=== PATIENT | female | born 1945 | race Caucasian/White ===

== ENCOUNTER 2017-11-10 09:00 | Outpatient (RCR) | payer MEDICARE, OTHER, SELFPAY ==
--- NOTE | 2017-09-26 14:23 | HP.PTEVAL_ITS ---
Patient's Visit Information JENSEN BURTON is a 72 year old F referred to Physical Therapy by Rakesh Carter with a diagnosis of Cervicalgia. Date of Evaluation: 09/23/17 Physical Therapist: River Post - Visit Plan Frequency: 2x /Week Duration: 4 Weeks Plan: Start with cervical spine stretching, DN, thoracic decompression, anterior chest stretching and scapular/postural strengthening. - Subjective Subjective: Pt. is here today for her initial evaluation with diagnosis of cervicalgia. She is a plesant 72 y.o. who is known to this patient. She was previously treated for her cervical spine symptoms earlier this year. Her symptoms all started after kicking her head on siding of shingles x2. She reports having chronic cervical spine pain, low back pain and thoracic complications as well. Pt. is to follow up with a spinal surgeon for her thoracic spine and has been getting injections with pain management for her low back. Pt reports pain in all positions, worse with sitting and standing, better with lying down. Increased pain: reading, driving, cervical spine motions, lifting, and most ADLs. Decreased pain: heat. Pt. denies N/T in either UE. Pt. reports no changes in vison and no UE weakness. Pt. has had imaging done at [facility], but did not know the results. Pt. has difficulty sleeping, staying asleep and wakes up frequently secondary to pain. Pt. denies radiating pain at this time. Pt. is hopeful to reduce symptoms in order to tolerate all ADLs and household work without limitations. - Pain L side of cervical spine Pain Intensity (Out of 10): 6 Pain Intensity Range: 6, 10 - Objective POSTURE: Pt. has increased thoracic kyphosis with increase lower cervical flexion and upper cervical ext. Pt. has rounded shoulders and protracted scapulea bilaterally. PALPATION: Pt. has increased tenderness to palpation of bilateral UT, bilateral levator scapulea and bilateral cervical/thoracic erector spine (L worse than R side). NEURLOGICAL: Pt. has normal sensation and light and sharp touch of bilateral UEs. Pt. has 2+ biceps and triceps DTR bilaterally. ROM: CERVICAL SPINE- ext mod loss increase NW, flexion nil loss NE , SB R min/mod loss increase NW, SB L min/mod loss increase NW, rotation R min loss increase NW, rotation L min loss increase NW. Pt. has full shoulder ROM ( with in normal limits without increase in symptoms). MMT: RUE- shoulder- flexion 4+/5, abd 4/5, ext 4+/5, ER 4/5, IR 4+/5. LUE- shoulder- flexion 4+/5, abd 4/5, ext 4+/5, ER 4+/5, IR 4+/5. Cervical spine isometrics: 4+/5 throughout , mild increase NW with L SB and rotation. - Special Tests C/S Radiculapathy - Left Upper limb tension test: Negative C/S Radiculapathy - Right Upper limb tension test: Negative C/S Radiculapathy - Left Spurlings: Negative C/S Radiculapathy - Right Spurlings: Negative C/S Radiculapathy - Left Cervical distraction: Negative C/S Radiculapathy - Right Cervical distraction: Negative C/S Radiculapathy - Left Relief test: Negative C/S Radiculapathy - Right Relief test: Negative Sharp Woody: Negative Vertebral Artery Test: Negative Alar Ligament Test: Negative L Shoulder Drop Sign - IS Test: Negative L Shoulder Empty Can - SS: Negative L Shoulder Belly Press - SupScap: Negative L Shoulder Neer - Impingement: Negative L Shoulder Mcgowan Montez - Impingement: Negative - Goals Goal 1:: Pt. to be I with HEP. Goal Time Frame: 4-6 Weeks Goal 2:: Pt. to have increased cervical spine ROM by 25% with 0-2/10 pain allowing for increased tolerance to all ADLs. Goal Time Frame: 4-6 Weeks Goal 3:: Pt. to sleep throughout the night with 0-2/10 pain in L side of cervical spine allowing for improved quality of life. Goal Time Frame: 4-6 Weeks Goal 4:: Pt. to have increased postural awareness demonstrated by improved posture maintained throughout therapy session. Goal Time Frame: 4-6 Weeks Goal 5:: Pt. to be able to complete all ADLs with 0-2/10 L sided cervical spine pain allowing for improved independence/tolerance to home activities. Goal Time Frame: 4-6 Weeks - Rehabilitation Potential Physical Therapy Diagnosis: Pt. has signs and symptoms consistent with cervical spin pain with out radiculopathy. Pt. has limited cervical ROM, increased thoracic kyphosis and overall flexed posture. Pt. is sensitive to touch throughout L side of cervcial spine. Pt. would benefit from PT to increase cervical spine ROM, decrease pain and increase postural strength. Rehabilitation Potential: Fair - Anticipated Interventions Patient/Client Instruction: Educate patient on: Condition, Plan of Care, Risk Factors, Benefits of Fitness Program For the Purpose of:: To improve safety, To improve health and function, To foster healthy habits, To improve decision making, To facilitate caregiver knowledge, To improve self management, To prevent re-injury, To improve ability to perform tasks related to life management, To improve tolerance to ADL's Therapeutic Exercise to Include: Strength training, Power training, Body mechanics, Postural training, Flexibilty training, Passive ROM, Active ROM, Gonzales Exercises, Scapular Strength/Stabilization For the Purpose of:: To decrease pain, To increase ROM, To improve nutrient delivery to tissue, To increase oxygenation perfusion, To improve muscle performance and motor function, To improve ability to perform ADL's, To improve performance and independence with ADL's, To decrease soft tissue restriction, To increase flexibility/ROM Manual Therapy Techniques to Include: Mobilization, Passive ROM, Functional dry needling, Soft tissue mobilization For the Purpose of:: To decrease pain, To increase ROM, To improve nutrient delivery to tissue, To increase oxygenation perfusion, To improve muscle performance and motor function, To improve ability to perform ADL's Thermo therapy (hot pack): Yes Ultrasound (thermal/non thermal): Yes For the Purpose of:: To decrease pain, To increase ROM Thank you for the opportunity to evaluate your patient. For Medicare and Medicare HMO plans, please review the plan of care and approve it. It will need to be FAXED BACK to us at [phone] for Medicare purposes. Please let me know if there are questions or concerns regarding this plan of care. Physician Signature: Date:
--- NOTE | 2018-02-06 12:41 | HP.PT.NRP ---
HP - Discharge Summary (1) - Patient Information JENSEN BURTON was seen in my office for initial evaluation on 09/23/17. The following Plan of Care was established for this patient: Initial Frequency: 2x /Week Initial Duration: 4 Weeks - Anticipated Interventions Patient/Client Instruction: Educate patient on: Condition, Plan of Care, Risk Factors, Benefits of Fitness Program For the Purpose of:: To improve safety, To improve health and function, To foster healthy habits, To improve decision making, To facilitate caregiver knowledge, To improve self management, To prevent re-injury, To improve ability to perform tasks related to life management, To improve tolerance to ADL's Therapeutic Exercise to Include: Strength training, Power training, Body mechanics, Postural training, Flexibilty training, Passive ROM, Active ROM, Gonzales Exercises, Scapular Strength/Stabilization For the Purpose of:: To decrease pain, To increase ROM, To improve nutrient delivery to tissue, To increase oxygenation perfusion, To improve muscle performance and motor function, To improve ability to perform ADL's, To improve performance and independence with ADL's, To decrease soft tissue restriction, To increase flexibility/ROM Manual Therapy Techniques to Include: Mobilization, Passive ROM, Functional dry needling, Soft tissue mobilization For the Purpose of:: To decrease pain, To increase ROM, To improve nutrient delivery to tissue, To increase oxygenation perfusion, To improve muscle performance and motor function, To improve ability to perform ADL's Thermo therapy (hot pack): Yes Ultrasound (thermal/non thermal): Yes For the Purpose of:: To decrease pain, To increase ROM This patient was last seen in our office 11/10/17. Pertinent comments regarding their Physical therapy will appear below: Pt. was seen for her neck with manual, DN an postural education/strengthening. Pt. was seen for 8 visits and was to follow up with physician then back with PT if needed. Pt. has not been seen in PT and will be DC from PT at this point in time. At this point I will be discontinuing this patient from physical therapy. I would be happy to see this patient again in the future if found appropriate by the physician. Thank you! River Post
== END 2017-11-10 19:00 | disposition home or self-care (01) ==
LOC: PT 09:00
PROVIDERS: Family Provider Family Medicine; PCP Family Medicine; Visit Provider Orthopaedic Surgery
DX: M54.2 Cervicalgia (principal)
CPT/HCPCS: 97035; 97110; 97140; 97161; 97530; G8978; G8979

== ENCOUNTER → 2018-01-03 12:14 | Outpatient (CLI) | payer MEDICARE, OTHER, SELFPAY ==
[2018-01-03 13:39] LABS: Erythrocyte Sedimentation Rate 30 mm/hr (0-30)
== END ==
PROVIDERS: Family Provider Family Medicine; PCP Family Medicine; Visit Provider Psychiatry & Neurology Neurology
DX: R51 Headache (principal)
CPT/HCPCS: 36415; 85652

== ENCOUNTER 2018-05-12 14:30 | Outpatient (RCR) | payer MEDICARE, OTHER, SELFPAY ==
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
--- NOTE | 2018-10-31 17:20 | HP.PT.NRP ---
HP - Discharge Summary (1) - Patient Information JENSEN BURTON was seen in my office for initial evaluation on 05/02/18. The following Plan of Care was established for this patient: Initial Frequency: 2x /Week Initial Duration: 4 Weeks - Anticipated Interventions Patient/Client Instruction: Educate patient on: Condition, Plan of Care, Risk Factors, Benefits of Fitness Program For the Purpose of:: To improve health and function, To foster healthy habits, To improve decision making, To facilitate caregiver knowledge, To improve self management, To prevent re-injury, To improve ability to perform tasks related to life management, To improve tolerance to ADL's Therapeutic Exercise to Include: Strength training, Power training, Postural training, Flexibilty training, Passive ROM, Active ROM, [place] Exercises, Scapular Strength/Stabilization For the Purpose of:: To decrease pain, To decrease swelling/inflammation, To increase ROM, To improve nutrient delivery to tissue, To increase oxygenation perfusion, To improve muscle performance and motor function, To improve health of tissue, To decrease soft tissue restriction, To increase flexibility/ROM Manual Therapy Techniques to Include: Trigger point massage, Massage, Mobilization, Passive ROM, Functional dry needling, Soft tissue mobilization For the Purpose of:: To decrease pain, To decrease swelling/inflammation, To increase ROM, To improve nutrient delivery to tissue, To improve health of tissue, To decrease soft tissue restriction, To increase flexibility/ROM IF ES: Yes Cryotherapy (ice pack, ice massage): Yes Thermo therapy (hot pack): Yes Ultrasound (thermal/non thermal): Yes For the Purpose of:: To decrease pain, To decrease swelling/inflammation, To increase ROM This patient was last seen in our office 05/26/18. Pertinent comments regarding their Physical therapy will appear below: pt. was seen for her cervical stenosis. Pt. was seen for 2 visits, but she did not attend her last visits. Pt. will be DC from PT at this point intime At this point I will be discontinuing this patient from physical therapy. I would be happy to see this patient again in the future if found appropriate by the physician. Thank you! [place], SAB[place]AT
== END 2018-05-12 19:00 | disposition home or self-care (01) ==
LOC: PT 14:30
PROVIDERS: Family Provider Family Medicine; PCP Family Medicine; Visit Provider Nurse Practitioner Family
DX: M47.812 Spondylosis without myelopathy or radiculopathy, cervical region (principal); M54.12 Radiculopathy, cervical region; M50.30 Other cervical disc degeneration, unspecified cervical region
CPT/HCPCS: 97110; 97140; 97162

== ENCOUNTER 2018-07-26 14:19 | Inpatient (IN) | payer MEDICARE, OTHER, SELFPAY ==
[2018-07-26 14:20] VITALS: BP 124/69; PULSE 98; RESP 16; TEMP 36.4; O2SAT 99; BMI 35.6
--- NOTE | 2018-07-26 14:42 | ED.DCSUM_ITS ---
- ER Visit Summary Date of Service: 07/26/18 Chief Complaint: Abdominal cramping with nausea, vomiting and diarrhea History of Present Illness: The patient is a 73 F history of hypertension and chronic pain. Patient had a prior cholecystectomy and hysterectomy. She is also exploratory laparotomy. She states the last 12 days or so she has had nausea, vomiting and diarrhea. Abdominal cramping. No dysuria. She feels dehydrated. She was sent in by her primary care physician. Physical Examination: Vital signs are stable. She is afebrile. Her pulse ox is 90% on room air. HEENT exam unremarkable except she has dry mucous membranes. Consistent with dehydration. Neck nontender. Lungs clear to auscultation bilaterally. Heart regular rhythm rate about 985 no murmur. Abdomen is soft. Nondistended. Normal bowel sounds. No peritoneal signs. No hernias or masses. No signs of obstruction. Patient is moving all 4 extremities. The neurovascular intact. Back nontender. Neurologically she is awake alert. No focal motor deficits. Test Results: White count is elevated 20,000. Hemoglobin 13. No bands. Electrolytes sodium 133. CO2 of 20 normal gap of 12. BUN is 32 creatinine 1.53 consistent with prerenal azotemia dehydration. C. difficile stool culture is pending. Emergency Department Course and Treatment: Patient clinically looks dehydrated. She received 2 L normal IV Zofran. Screening labs will be obtained. If she has a stool sample here to be sent for stool culture for C. difficile. Treatment Plan: Patient is looking better with each reevaluation. She is do ing well at 1630 5 PM. Abdomen is benign. She denied a long discussion she is willing to be admitted. Given that she is 73 years old significantly dehydrated and still having diarrhea I think it would be in her best interest. I will speak to the hospitalist about the admission. Disposition: Admission Impression: Acute nausea, vomiting and diarrhea Acute dehydration Leukocytosis This note was generated with [employer] dictation software. It may contain incorrect words, spelling, and punctuation that were not noted in review of the chart prior to signing ED Disposition - Plan for ED Patient: Chief Complaint: Nausea/Vomiting Referrals: Lupillo Riley MD [Primary Care Provider] -
[2018-07-26] MEDS: 0.9% Normal Saline 1,000 ML 1000 ML IV ×2 (14:53→15:54)
[2018-07-26] MEDS: Ondansetron 4 MG/2 ML Vial IV (14:53)
[2018-07-26 15:04] LABS: Absolute Lymphocyte Count 2.42 X10^3/ul (0.83-4.51); Absolute Neutrophil Count 16.3 X10^3/uL (2.0-7.7); Basophil# 0.06 X10^3/uL; Basophil% 0.3 % (0-1); Eosinophil# 0.09 X10^3/uL; Eosinophils% 0.4 % (0-5); Hematocrit 40.9 % (37-47); Hemoglobin 13.6 g/dl (12.0-15.0); Lymphocyte # 2.42 X10^3/ul (4.0); Lymphocyte % 12.1 % (19-41); Mean Corp Hgb Conc 33.3 g/gl (32-36); Mean Corpuscular Hgb 32.4 pg (27.0-32.0); Mean Corpuscular Volume 97.4 fL (81-99); Monocyte# 1.04 X10^3/uL; Monocyte% 5.2 % (0-10); Neutrophil # 16.28 X10^3/uL (2.7-7.7); Neutrophil % 81.1 % (47-70); Platelet Count 444 K/mm3 (150-450); RBC Distribution Width CV 11.8 % (11.6-14.6); RBC Distribution Width SD 41.4 fl (35.1-43.9); White Blood Count 20.1 K/mm3 (4.4-11.0)
[2018-07-26 15:12] LABS: Anion Gap 12 (5-15); BUN 32 mg/dL (7-18); BUN/Creat Ratio 20.9 RATIO (10-20); Calcium,Total 9.4 mg/dL (8.5-10.1); Chloride 101 mmol/L (98-107); Creatinine, Serum 1.53 mg/dL (0.55-1.02); EST Glomerular Filtration Rate 35 mL/min (>60); Est Glom Filt Rate - Afr Amer 43 mL/min (>60); Estimated Creatinine Clearance 35.94 ml/min; Glucose 147 mg/dL (74-106); Potassium 4.1 mmol/L (3.5-5.1); Sodium Level 133 mmol/L (136-145)
[2018-07-26 15:53] LABS: POSITIVE COUNT NO; POSITIVE DIFFERENTIAL NO; POSITIVE MORPHOLOGY NO
[2018-07-26 16:26] VITALS: BP 149/78; PULSE 82; RESP 16; O2SAT 98
[2018-07-26] MEDS: Loperamide 2 MG Capsule 4 MG PO (16:55)
--- NOTE | 2018-07-26 17:18 | PCM.HP.STD ---
<Lori Corona - Last Filed: 07/26/18 17:31> Problem List (1) Fibromyalgia Status: Chronic (2) Lymphedema Status: Chronic (3) Neuropathy Status: Chronic (4) Obesity (BMI 30-39.9) Status: Chronic (5) RANGEL (obstructive sleep apnea) Status: Chronic (6) HLD (hyperlipidemia) Status: Chronic (7) Osteomyelitis of toe of left foot Status: Resolved (8) Pes planus of left foot Status: Chronic (9) HTN (hypertension) Status: Chronic History of Present Illness Date of Admission: 07/26/18 Chief Complaint: Diarrhea, nausea, vomiting The patient is a 73 year old F who presents the emergency room due to diarrhea, nausea, vomiting. Patient states this is been ongoing for 2 weeks. She reports she initially had a fever, as high as 103F which resolved after about 3 days. She complains of abdominal cramping. Denies blood in stool. Reports 10 pound weight loss over the past 2 weeks due to nausea and poor oral intake. Complains of associated dizziness. Denies recent use of antibiotics. Denies history of colitis/diverticulitis or other GI history. Patient states she called her primary care physician and was told she had a viral bug which would run its course. She has a past medical history of hypertension, hyperlipidemia, hypothyroidism, obstructive sleep apnea, morbid obesity, chronic back pain/DDD following with pain management, fibromyalgia. Past Medical History Past Medical History (Chronic Problems): Chronic Problems Fibromyalgia (Chronic) Lymphedema (Chronic) Neuropathy (Chronic) Obesity (BMI 30-39.9) (Chronic) RANGEL (obstructive sleep apnea) (Chronic) HLD (hyperlipidemia) (Chronic) Pes planus of left foot (Chronic) HTN (hypertension) (Chronic) Allergies cefuroxime [From Ceftin] Allergy (Verified 07/26/18 14:50) Itching Cephalosporins Allergy (Verified 07/26/18 14:50) Anaphylaxis codeine Allergy (Verified 07/26/18 14:50) Itching Home Medications: Ambulatory Orders Medication Instructions Recorded Estradiol [Estrace] 1 mg PO DAILY #30 tablet 02/23/17 Fenofibrate,Micronized 134 mg PO DAILY #30 capsule 02/23/17 [Fenofibrate] Gabapentin [Neurontin] 300 mg PO TIDCM #90 capsule 02/23/17 Levothyroxine [Synthroid] 137 mcg PO DAILY #30 tablet 02/23/17 Pravastatin Sodium 40 mg PO DAILY #30 tablet 02/23/17 Propranolol HCl [Inderal (Beta 40 mg PO BID #60 tablet 02/23/17 [place])] Tizanidine HCl [Zanaflex] 2 mg PO 4X/DAY PRN PRN #60 capsule 02/23/17 Furosemide [Lasix] 40 mg PO DAILY 03/30/17 Oxycodone [Oxyir] 15 mg PO BID 03/30/17 Phenazopyridine HCl [Pyridium] 200 mg PO BID PRN PRN #10 tablet 03/30/17 Sertraline HCl [Zoloft] 75 mg PO DAILY 03/30/17 Tramadol HCl [Ultram] 50 mg PO BID 03/30/17 Smz/Tmp Ds [Bactrim Ds] 1 tablet PO BID #14 tablet 04/24/17 Hydrocodone Bitart/Apap 5-325 1 tablet PO TID PRN 07/26/18 [[place] 5MG-325MG] Surgical History: - - R L foot surgeries, BL knee arthroscopic surgery, vein stipping BL, x 1, Hysterectomy, Cholecystectomy, Suspected Appendectomy, BL breast reduction, L Carpal Tunnel surgery, BL shoulder surgery. Psychiatric History: Depression ENGAGEMENT LEAD History: No pertinent ENGAGEMENT LEAD history Lives: Alone Smoking Status: Never smoker Alcohol: None Drugs: None - *Family History Maternal History Items: Cancer - Lung Paternal History Items: - - ETOH/Drug abuse Review of Systems Constitutional: Reports: Chills, Fever, Malaise, Weakness, Weight Change - -10lbs, - - Poor oral intake HEENT: Denies: Head Aches, Sinus Congestion, Sinus Drainage Cardiovascular: Reports: Light Headedness. Denies: Chest Pain, Palpitations, Syncope Respiratory: Denies: Cough, Shortness of breath at rest, Sputum production Gastrointestinal: Reports: Diarrhea, Nausea, Vomiting, - - Abdominal cramping. Denies: Hematochezia, Melena Genitourinary: Denies: Dysuria Musculoskeletal: Denies: Joint Pain, Joint Tenderness Skin: Denies: Rash, Wounds Neurological: Denies: Numbness, Tingling, Focal weakness Psychiatric: Denies: Anxiety, Depression, Homicidal Ideations, Suicidal Ideations Hematologic/ Lymphatic: Denies: Easy Bruising, Easy Bleeding VTE Information - Inpt Only VTE Present on Admission: No VTE Mechan Device Prophylaxis: None VTE Pharm Prophylaxis ordered?: Yes - Physical Exam General: Alert, Oriented x3, Cooperative HEENT: Atraumatic, PERRLA, EOMI, Normocephalic Oral: Dry Mucosa Neck: Supple, No JVD, Negative Carotid Bruits Lungs: Clear to auscultation, Normal air movement Cardiovascular: Regular rate, Regular Rhythm, Normal S1, Normal S2, No murmurs Abdomen: Bowel Sounds Present, Soft, Non Tender, Non-Distended, Obese Extremities: No clubbing, No cyanosis, No edema, Capillary Refill Less than 3 Seconds Skin: No rashes, No breakdown Musculoskeletal: No Tenderness to Palpation of Joints or Extremities Neurological: Cranial nerves II-XII grossly intact, Neuro grossly intact Psych/Mental Status: Normal Affect, Appropriate Vital Signs Temp Pulse Resp BP Pulse Ox 97.6 F L 82 16 149/78 H 98 07/26/18 14:20 07/26/18 16:26 07/26/18 16:26 07/26/18 16:26 07/26/18 16:26 Oxygen Delivery Method Room Air Weight: 248 lb Body Mass Index (BMI) 35.6 Laboratory Tests Past 24 Hrs 07/26/18 07/26/18 14:45 14:45 WBC 20.1 H RBC 4.20 Hgb 13.6 Hct 40.9 MCV 97.4 MCH 32.4 H MCHC 33.3 RDW 11.8 RDW Differential 41.4 Plt Count 444 MPV 10.0 Immature Gran % (Auto) 0.900 Neut % (Auto) 81.1 H Lymph % (Auto) 12.1 L [place] % (Auto) 5.2 Eos % (Auto) 0.4 Baso % (Auto) 0.3 Absolute Neuts (auto) 16.3 H Absolute Lymphs (auto) 2.42 Total Counted Not Reportable Sodium 133 L Potassium 4.1 Chloride 101 Carbon Dioxide 20.0 L Anion Gap 12 BUN 32 H Creatinine 1.53 H Estim Creat Clear Calc 35.94 Est GFR (MDRD) Af Amer 43 L Est GFR (MDRD) Non-Af 35 L BUN/Creatinine Ratio 20.9 H Glucose 147 H Calcium 9.4 Assessment/Plan All Active Problems Osteomyelitis of toe of left foot (Resolved) 1. Acute suspected viral gastroenteritis- N/V/D. Stool studies pending. IV fluids. Clear liquid diet. Zofran as needed for nausea. Immodium if stool studies negative. 2. Acute kidney injury secondary to dehydration as a result of #1-IV fluids. Trend BMP. Hold home Lasix regimen. 3. Leukocytosis-suspect secondary to dehydration. 4. Obstructive sleep apnea-continue CPAP. 5. Hypertension-stable, continue home propanolol regimen. 6. Hyperlipidemia-continue fenofibrate. 7. Hypothyroidism-continue Synthroid regimen. 8. Chronic back pain/DDD/fibromyalgia-follows with pain management. Continue home gabapentin regimen. 9. Morbid obesity-encourage diet lifestyle modifications. Nutrition consult. DVT prophylaxis-heparin subcu. This patient was seen by ELDA Webb under the supervision of Dr. Hallman. <Roshan Hallman E - Last Filed: 07/26/18 17:39> History of Present Illness The patient is a 73 year old F [] Past Medical History Allergies cefuroxime [From Ceftin] Allergy (Verified 07/26/18 14:50) Itching Cephalosporins Allergy (Verified 07/26/18 14:50) Anaphylaxis codeine Allergy (Verified 07/26/18 14:50) Itching - Physical Exam Vital Signs Temp Pulse Resp BP Pulse Ox 97.6 F L 82 16 149/78 H 98 07/26/18 14:20 07/26/18 16:26 07/26/18 16:26 07/26/18 16:26 07/26/18 16:26 Oxygen Delivery Method Room Air Weight: 248 lb Body Mass Index (BMI) 35.6 Laboratory Tests Past 24 Hrs 07/26/18 07/26/18 14:45 14:45 WBC 20.1 H RBC 4.20 Hgb 13.6 Hct 40.9 MCV 97.4 MCH 32.4 H MCHC 33.3 RDW 11.8 RDW Differential 41.4 Plt Count 444 MPV 10.0 Immature Gran % (Auto) 0.900 Neut % (Auto) 81.1 H Lymph % (Auto) 12.1 L [place] % (Auto) 5.2 Eos % (Auto) 0.4 Baso % (Auto) 0.3 Absolute Neuts (auto) 16.3 H Absolute Lymphs (auto) 2.42 Total Counted Not Reportable Sodium 133 L Potassium 4.1 Chloride 101 Carbon Dioxide 20.0 L Anion Gap 12 BUN 32 H Creatinine 1.53 H Estim Creat Clear Calc 35.94 Est GFR (MDRD) Af Amer 43 L Est GFR (MDRD) Non-Af 35 L BUN/Creatinine Ratio 20.9 H Glucose 147 H Calcium 9.4 Assessment/Plan Hospitalist note: I am seeing this patient in conjunction with Lori Corona. I independently seen and examined the patient. History and physical and imaging studies reviewed and I agree with above admission and treatment plan. Patient was admitted for watery diarrhea, nausea and vomiting that has been going on for almost 2 weeks, associated with fever of up to 103 Fahrenheit and as well as abdominal cramps. Vital signs are stable. - Physical Exam General: Alert, Oriented x3, Cooperative, No apparent distress. HEENT: Atraumatic, PERRLA, EOMI. Neck: Supple, No JVD, Negative Carotid Bruits, Trachea Midline, Thyroid Normal. Lungs: Clear to auscultation, Normal air movement, No rhonchi, No wheeze, No rales. Cardiovascular: Regular rate, Regular Rhythm, Normal S1, Normal S2, PMI Normal. Abdomen: Bowel Sounds Present, Soft, Non Tender, Non-Distended, No Hepato-splenomegaly. Extremities: No clubbing, No cyanosis, No edema Skin: No rashes, No breakdown Neurological: Neuro grossly intact Vital Signs are stable. Assessment and plan: #1 acute diarrheal illness/probable gastroenteritis: Stool for C. difficile is pending at this time. Vital signs are stable. CBC and BMP reviewed. Plan: Admit to [facility] floor, IV fluids, stool for C. difficile, stool for ova and parasites, stool for enteric pathogens, aspiration precautions, replace electrolytes as appropriate, repeat CBC and BMP tomorrow morning. #2 acute kidney injury: Baseline creatinine is normal. This is secondary to above. Plan for IV fluids, input output chart, repeat BMP tomorrow morning. #3 other chronic medical problems: Stable, continue current medications as above. This note was generated with [employer] software. It may contain incorrect words, spelling, and punctuation that were not noted in checking the note before signing. Code Visit Inpatient E&M: 29735 Init Hosp L2
--- NOTE | 2018-07-26 17:28 | HP.PCM_ITS ---
<Lori Corona - Last Filed: 07/26/18 17:31> Problem List (1) Fibromyalgia Status: Chronic (2) Lymphedema Status: Chronic (3) Neuropathy Status: Chronic (4) Obesity (BMI 30-39.9) Status: Chronic (5) RANGEL (obstructive sleep apnea) Status: Chronic (6) HLD (hyperlipidemia) Status: Chronic (7) Osteomyelitis of toe of left foot Status: Resolved (8) Pes planus of left foot Status: Chronic (9) HTN (hypertension) Status: Chronic History of Present Illness Date of Admission: 07/26/18 Chief Complaint: Diarrhea, nausea, vomiting The patient is a 73 year old F who presents the emergency room due to diarrhea, nausea, vomiting. Patient states this is been ongoing for 2 weeks. She reports she initially had a fever, as high as 103F which resolved after about 3 days. She complains of abdominal cramping. Denies blood in stool. Reports 10 pound weight loss over the past 2 weeks due to nausea and poor oral intake. Complains of associated dizziness. Denies recent use of antibiotics. Denies history of colitis/diverticulitis or other GI history. Patient states she called her primary care physician and was told she had a viral bug which would run its course. She has a past medical history of hypertension, hyperlipidemia, hypothyroidism, obstructive sleep apnea, morbid obesity, chronic back pain/DDD following with pain management, fibromyalgia. Past Medical History Past Medical History (Chronic Problems): Chronic Problems Fibromyalgia (Chronic) Lymphedema (Chronic) Neuropathy (Chronic) Obesity (BMI 30-39.9) (Chronic) RANGEL (obstructive sleep apnea) (Chronic) HLD (hyperlipidemia) (Chronic) Pes planus of left foot (Chronic) HTN (hypertension) (Chronic) Allergies cefuroxime [From Ceftin] Allergy (Verified 07/26/18 14:50) Itching Cephalosporins Allergy (Verified 07/26/18 14:50) Anaphylaxis codeine Allergy (Verified 07/26/18 14:50) Itching Home Medications: Ambulatory Orders Medication Instructions Recorded Estradiol [Estrace] 1 mg PO DAILY #30 tablet 02/23/17 Fenofibrate,Micronized 134 mg PO DAILY #30 capsule 02/23/17 [Fenofibrate] Gabapentin [Neurontin] 300 mg PO TIDCM #90 capsule 02/23/17 Levothyroxine [Synthroid] 137 mcg PO DAILY #30 tablet 02/23/17 Pravastatin Sodium 40 mg PO DAILY #30 tablet 02/23/17 Propranolol HCl [Inderal (Beta 40 mg PO BID #60 tablet 02/23/17 [place])] Tizanidine HCl [Zanaflex] 2 mg PO 4X/DAY PRN PRN #60 capsule 02/23/17 Furosemide [Lasix] 40 mg PO DAILY 03/30/17 Oxycodone [Oxyir] 15 mg PO BID 03/30/17 Phenazopyridine HCl [Pyridium] 200 mg PO BID PRN PRN #10 tablet 03/30/17 Sertraline HCl [Zoloft] 75 mg PO DAILY 03/30/17 Tramadol HCl [Ultram] 50 mg PO BID 03/30/17 Smz/Tmp Ds [Bactrim Ds] 1 tablet PO BID #14 tablet 04/24/17 Hydrocodone Bitart/Apap 5-325 1 tablet PO TID PRN 07/26/18 [[place] 5MG-325MG] Surgical History: - - R L foot surgeries, BL knee arthroscopic surgery, vein stipping BL, x 1, Hysterectomy, Cholecystectomy, Suspected Appe ndectomy, BL breast reduction, L Carpal Tunnel surgery, BL shoulder surgery. Psychiatric History: Depression CARDIAC CARE UNIT NURSE History: No pertinent CARDIAC CARE UNIT NURSE history Lives: Alone Smoking Status: Never smoker Alcohol: None Drugs: None - *Family History Maternal History Items: Cancer - Lung Paternal History Items: - - ETOH/Drug abuse Review of Systems Constitutional: Reports: Chills, Fever, Malaise, Weakness, Weight Change - - 10lbs, - - Poor oral intake HEENT: Denies: Head Aches, Sinus Congestion, Sinus Drainage Cardiovascular: Reports: Light Headedness. Denies: Chest Pain, Palpitations, Syncope Respiratory: Denies: Cough, Shortness of breath at rest, Sputum production Gastrointestinal: Reports: Diarrhea, Nausea, Vomiting, - - Abdominal cramping. Denies: Hematochezia, Melena Genitourinary: Denies: Dysuria Musculoskeletal: Denies: Joint Pain, Joint Tenderness Skin: Denies: Rash, Wounds Neurological: Denies: Numbness, Tingling, Focal weakness Psychiatric: Denies: Anxiety, Depression, Homicidal Ideations, Suicidal Ideations Hematologic/ Lymphatic: Denies: Easy Bruising, Easy Bleeding VTE Information - Inpt Only VTE Present on Admission: No VTE Mechan Device Prophylaxis: None VTE Pharm Prophylaxis ordered?: Yes - Physical Exam General: Alert, Oriented x3, Cooperative HEENT: Atraumatic, PERRLA, EOMI, Normocephalic Oral: Dry Mucosa Neck: Supple, No JVD, Negative Carotid Bruits Lungs: Clear to auscultation, Normal air movement Cardiovascular: Regular rate, Regular Rhythm, Normal S1, Normal S2, No murmurs Abdomen: Bowel Sounds Present, Soft, Non Tender, Non-Distended, Obese Extremities: No clubbing, No cyanosis, No edema, Capillary Refill Less than 3 Seconds Skin: No rashes, No breakdown Musculoskeletal: No Tenderness to Palpation of Joints or Extremities Neurological: Cranial nerves II-XII grossly intact, Neuro grossly intact Psych/Mental Status: Normal Affect, Appropriate Vital Signs Temp Pulse Resp BP Pulse Ox 97.6 F L 82 16 149/78 H 98 07/26/18 14:20 07/26/18 16:26 07/26/18 16:26 07/26/18 16:26 07/26/18 16:26 Oxygen Delivery Method Room Air Weight: 248 lb Body Mass Index (BMI) 35.6 Laboratory Tests Past 24 Hrs 07/26/18 07/26/18 14:45 14:45 WBC 20.1 H RBC 4.20 Hgb 13.6 Hct 40.9 MCV 97.4 MCH 32.4 H MCHC 33.3 RDW 11.8 RDW Differential 41.4 Plt Count 444 MPV 10.0 Immature Gran % (Auto) 0.900 Neut % (Auto) 81.1 H Lymph % (Auto) 12.1 L [place] % (Auto) 5.2 Eos % (Auto) 0.4 Baso % (Auto) 0.3 Absolute Neuts (auto) 16.3 H Absolute Lymphs (auto) 2.42 Total Counted Not Reportable Sodium 133 L Potassium 4.1 Chloride 101 Carbon Dioxide 20.0 L Anion Gap 12 BUN 32 H Creatinine 1.53 H Estim Creat Clear Calc 35.94 Est GFR (MDRD) Af Amer 43 L Est GFR (MDRD) Non-Af 35 L BUN/Creatinine Ratio 20.9 H Glucose 147 H Calcium 9.4 Assessment/Plan All Active Problems Osteomyelitis of toe of left foot (Resolved) 1. Acute suspected viral gastroenteritis- N/V/D. Stool studies pending. IV fluids. Clear liquid diet. Zofran as needed for nausea. Immodium if stool studies negative. 2. Acute kidney injury secondary to dehydration as a result of #1-IV fluids. Trend BMP. Hold home Lasix regimen. 3. Leukocytosis-suspect secondary to dehydration. 4. Obstructive sleep apnea-continue CPAP. 5. Hypertension-stable, continue home propanolol regimen. 6. Hyperlipidemia-continue fenofibrate. 7. Hypothyroidism-continue Synthroid regimen. 8. Chronic back pain/DDD/fibromyalgia-follows with pain management. Continue home gabapentin regimen. 9. Morbid obesity-encourage diet lifestyle modifications. Nutrition consult. DVT prophylaxis-heparin subcu. This patient was seen by ELDA Webb under the supervision of Dr. Hallman. <Roshan Hallman E - Last Filed: 07/26/18 17:39> History of Present Illness The patient is a 73 year old F [] Past Medical History Allergies cefuroxime [From Ceftin] Allergy (Verified 07/26/18 14:50) Itching Cephalosporins Allergy (Verified 07/26/18 14:50) Anaphylaxis codeine Allergy (Verified 07/26/18 14:50) Itching - Physical Exam Vital Signs Temp Pulse Resp BP Pulse Ox 97.6 F L 82 16 149/78 H 98 07/26/18 14:20 07/26/18 16:26 07/26/18 16:26 07/26/18 16:26 07/26/18 16:26 Oxygen Delivery Method Room Air Weight: 248 lb Body Mass Index (BMI) 35.6 Laboratory Tests Past 24 Hrs 07/26/18 07/26/18 14:45 14:45 WBC 20.1 H RBC 4.20 Hgb 13.6 Hct 40.9 MCV 97.4 MCH 32.4 H MCHC 33.3 RDW 11.8 RDW Differential 41.4 Plt Count 444 MPV 10.0 Immature Gran % (Auto) 0.900 Neut % (Auto) 81.1 H Lymph % (Auto) 12.1 L [place] % (Auto) 5.2 Eos % (Auto) 0.4 Baso % (Auto) 0.3 Absolute Neuts (auto) 16.3 H Absolute Lymphs (auto) 2.42 Total Counted Not Reportable Sodium 133 L Potassium 4.1 Chloride 101 Carbon Dioxide 20.0 L Anion Gap 12 BUN 32 H Creatinine 1.53 H Estim Creat Clear Calc 35.94 Est GFR (MDRD) Af Amer 43 L Est GFR (MDRD) Non-Af 35 L BUN/Creatinine Ratio 20.9 H Glucose 147 H Calcium 9.4 Assessment/Plan Hospitalist note: I am seeing this patient in conjunction with Lori Corona. I independently seen and examined the patient. History and physical and imaging studies reviewed and I agree with above admission and treatment plan. Patient was admitted for watery diarrhea, nausea and vomiting that has been going on for almost 2 weeks, associated with fever of up to 103 Fahrenheit and as well as abdominal cramps. Vital signs are stable. - Physical Exam General: Alert, Oriented x3, Cooperative, No apparent distress. HEENT: Atraumatic, PERRLA, EOMI. Neck: Supple, No JVD, Negative Carotid Bruits, Trachea Midline, Thyroid Normal. Lungs: Clear to auscultation, Normal air movement, No rhonchi, No wheeze, No rales. Cardiovascular: Regular rate, Regular Rhythm, Normal S1, Normal S2, PMI Normal. Abdomen: Bowel Sounds Present, Soft, Non Tender, Non-Distended, No Hepato- splenomegaly. Extremities: No clubbing, No cyanosis, No edema Skin: No rashes, No breakdown Neurological: Neuro grossly intact Vital Signs are stable. Assessment and plan: #1 acute diarrheal illness/probable gastroenteritis: Stool for C. difficile is pending at this time. Vital signs are stable. CBC and BMP reviewed. Plan: Admit to [facility] floor, IV fluids, stool for C. difficile, stool for ova and parasites, stool for enteric pathogens, aspiration precautions, replace electrolytes as appropriate, repeat CBC and BMP tomorrow morning. #2 acute kidney injury: Baseline creatinine is normal. This is secondary to above. Plan for IV fluids, input output chart, repeat BMP tomorrow morning. #3 other chronic medical problems: Stable, continue current medications as above. This note was generated with [employer] software. It may contain incorrect words, spelling, and punctuation that were not noted in checking the note before signing. Code Visit Inpatient E&M: 79287 Init Hosp L2
[2018-07-26 17:49] VITALS: BMI 36.4
[2018-07-26 18:10] VITALS: BP 133/68; PULSE 73; RESP 18; TEMP 36.8; O2SAT 99
[2018-07-26 18:30] LABS: Thyroid Stim Hormone (TSH) 0.58 uIU/mL (0.358-3.74)
[2018-07-26 19:33] VITALS: O2SAT 99
[2018-07-26] MEDS: 0.9% Normal Saline 1,000 ML 125 ML IV (20:06)
[2018-07-26] MEDS: 0.9% NaCl Peripheral Flush Adult/Peds IV (20:06)
[2018-07-26 20:14] VITALS: BP 135/70; PULSE 91; RESP 18; TEMP 36.3; O2SAT 95
[2018-07-26 20:15] VITALS: PULSE 91; RESP 18; O2SAT 95
[2018-07-26] MEDS: HYDROcodone Bitartrate/Apap 5/325 Tablet PO (20:34)
[2018-07-26] MEDS: Pravastatin 40 MG Tablet PO (21:44)
[2018-07-26] MEDS: Propranolol 40 MG Tablet PO (21:44)
[2018-07-26] MEDS: Heparin Injection (Vial) 5,000 UNIT/ML VIAL 5000 UNIT SC (21:44)
[2018-07-27] MEDS: tiZANidine HCl 2 MG Tablet 3 MG PO ×2 (01:15→23:32)
[2018-07-27 02:06] VITALS: BP 100/59; PULSE 61; RESP 18; TEMP 36.2; O2SAT 99
[2018-07-27 02:20] VITALS: PULSE 61; RESP 18; O2SAT 99
[2018-07-27] MEDS: 0.9% Normal Saline 1,000 ML 125 ML IV ×3 (04:02→20:18)
[2018-07-27] MEDS: Levothyroxine 137 MCG Tablet PO (05:51)
[2018-07-27 06:56] LABS: Absolute Lymphocyte Count 2.98 X10^3/ul (0.83-4.51); Absolute Neutrophil Count 9.3 X10^3/uL (2.0-7.7); Basophil# 0.04 X10^3/uL; Basophil% 0.3 % (0-1); Eosinophil# 0.16 X10^3/uL; Eosinophils% 1.2 % (0-5); Hematocrit 34.4 % (37-47); Lymphocyte # 2.98 X10^3/ul (4.0); Lymphocyte % 22.2 % (19-41); Mean Corpuscular Hgb 31.8 pg (27.0-32.0); Mean Corpuscular Volume 99.4 fL (81-99); Mean Platelet Vol. 9.7 fl (6.2-12.0); Monocyte# 0.86 X10^3/uL; Monocyte% 6.4 % (0-10); Neutrophil % 69.5 % (47-70); Platelet Count 317 K/mm3 (150-450); RBC Distribution Width CV 12.4 % (11.6-14.6); RBC Distribution Width SD 44.9 fl (35.1-43.9); Red Blood Count 3.46 M/mm3 (4.2-5.4); White Blood Count 13.4 K/mm3 (4.4-11.0)
[2018-07-27 07:03] LABS: POSITIVE COUNT NO; POSITIVE DIFFERENTIAL NO; POSITIVE MORPHOLOGY NO
[2018-07-27 07:07] LABS: Anion Gap 8 (5-15); BUN 26 mg/dL (7-18); BUN/Creat Ratio 27.1 RATIO (10-20); Calcium,Total 8.2 mg/dL (8.5-10.1); Chloride 109 mmol/L (98-107); Creatinine, Serum 0.96 mg/dL (0.55-1.02); EST Glomerular Filtration Rate 61 mL/min (>60); Est Glom Filt Rate - Afr Amer 73 mL/min (>60); Estimated Creatinine Clearance 57.28 ml/min; Glucose 121 mg/dL (74-106); Potassium 4.2 mmol/L (3.5-5.1); Sodium Level 140 mmol/L (136-145)
[2018-07-27 09:05] VITALS: BP 124/66; PULSE 60; RESP 15; TEMP 37.2; O2SAT 100
[2018-07-27] MEDS: Propranolol 40 MG Tablet PO ×2 (09:08→22:53)
[2018-07-27] MEDS: Gabapentin 300 MG Capsule PO ×3 (09:09→18:38)
[2018-07-27] MEDS: Heparin Injection (Vial) 5,000 UNIT/ML VIAL 5000 UNIT SC ×2 (09:09→22:53)
[2018-07-27 09:14] VITALS: O2SAT 99
--- NOTE | 2018-07-27 13:00 | CASEMGMT ---
MARYSOL CORRALES Face to Face with patient for initial transition planning/care coordination assessment. RN CM introduced self and role at [facility]. Patient lying in bed, alert and oriented. Patient willing to participate in assessment and is able to answer all questions appropriately. Care providers, pharmacy, and demographics verified. Patient wishes to discharge home, denies need for home health at this time. Patient states she has no further needs or concerns at this time. CM to follow for discharge planning needs that may arise. PCP: Osvaldo Specialists: None Preferred Pharmacy: [facility] Insurance: [facility] Prescription Benefit: Silver Script Living Will/HPOA: None LNOK: Patient has close friends Living Arrangements: Lives alone in 1 story house. Independent at home Transportation: Self/Friends DME/HHC: Patient denies need for DME and HHC at this time. Disposition Plan: Patient to discharge home with support from friends and follow-up plans in place. Esmer CONKLIN, RN, CM
[2018-07-27 14:00] VITALS: BP 125/53; PULSE 62; RESP 16; TEMP 36.9; O2SAT 99
[2018-07-27] MEDS: HYDROcodone Bitartrate/Apap 5/325 Tablet PO ×2 (15:05→22:54)
--- NOTE | 2018-07-27 15:12 | PCM.PN.HOSP ---
Subjective: Patient was seen and examined. Admitted with C. difficile colitis. Had 12 bowel movements yesterday. None this morning. Has able to have her breakfast with no diarrhea. Denies any worsening fever or chills. Slowly improving. Vitals/I&O's: Vital Signs Temp Pulse Resp BP Pulse Ox 98.5 F 62 16 125/53 H 99 07/27/18 14:00 07/27/18 14:00 07/27/18 14:00 07/27/18 14:00 07/27/18 14:00 Oxygen Flow Rate (L/min) 2 Oxygen Delivery Method Room Air Weight: 115.212 kg Body Mass Index (BMI) 36.4 Intake and Output for Last 24 Hours 07/25/18 07/26/18 07/27/18 23:59 23:59 23:59 Intake Total 3982 / 3982 Balance 3982 / 3982 General: Alert, Oriented x3, Cooperative, No apparent distress HEENT: Atraumatic, PERRLA, EOMI, Normocephalic Oral: Moist Mucosa Neck: Supple, No JVD, Negative Carotid Bruits Lungs: Clear to auscultation, Normal air movement Cardiovascular: Regular rate, Regular Rhythm, Normal S1, Normal S2, No murmurs Abdomen: Bowel Sounds Present, Soft, Non Tender, Non-Distended, No Hepato-splenomegaly Extremities: No edema Skin: No rashes, No breakdown Musculoskeletal: No Tenderness to Palpation of Joints or Extremities Lymphatic: No Cervical, Supraclavicular, or Inguinal Adenopathy Neurological: Cranial nerves II-XII grossly intact, Neuro grossly intact Psych/Mental Status: Normal Affect, Appropriate Microbiology Past 72 Hours 07/26/18 15:18 Stool C. difficile DNA Amplification - Final Toxigenic C. difficile DNA Laboratory Results 07/26/18 14:45: WBC 20.1 H, RBC 4.20, Hgb 13.6, Hct 40.9, MCV 97.4, MCH 32.4 H, MCHC 33.3, RDW 11.8, RDW Differential 41.4, Plt Count 444, MPV 10.0, Immature Gran % (Auto) 0.900, Neut % (Auto) 81.1 H, Lymph % (Auto) 12.1 L, [place] % (Auto) 5.2, Eos % (Auto) 0.4, Baso % (Auto) 0.3, Absolute Neuts (auto) 16.3 H, Absolute Lymphs (auto) 2.42, Total Counted Not Reportable 07/26/18 14:45: Sodium 133 L, Potassium 4.1, Chloride 101, Carbon Dioxide 20.0 L, Anion Gap 12, BUN 32 H, Creatinine 1.53 H, Estim Creat Clear Calc 35.94, Est GFR (MDRD) Af Amer 43 L, Est GFR (MDRD) Non-Af 35 L, BUN/Creatinine Ratio 20.9 H, Glucose 147 H, Calcium 9.4 07/26/18 14:45: TSH 0.58 07/27/18 06:22: Sodium 140, Potassium 4.2, Chloride 109 H, Carbon Dioxide 23.0, Anion Gap 8, BUN 26 H, Creatinine 0.96, Estim Creat Clear Calc 57.28, Est GFR (MDRD) Af Amer 73, Est GFR (MDRD) Non-Af 61, BUN/Creatinine Ratio 27.1 H, Glucose 121 H, Calcium 8.2 L 07/27/18 06:22: WBC 13.4 H, RBC 3.46 L, Hgb 11.0 L, Hct 34.4 L, MCV 99.4 H, MCH 31.8, MCHC 32.0, RDW 12.4, RDW Differential 44.9 H, Plt Count 317, MPV 9.7, Immature Gran % (Auto) 0.400, Neut % (Auto) 69.5, Lymph % (Auto) 22.2, [place] % (Auto) 6.4, Eos % (Auto) 1.2, Baso % (Auto) 0.3, Absolute Neuts (auto) 9.3 H, Absolute Lymphs (auto) 2.98, Total Counted Not Reportable Current Medications Acetaminophen (Tylenol) 650 mg PO Q6H PRN PRN PRN Reason: Fever, headache, pain Hydrocodone Bitart/Acetaminophen ([place] 5mg-325mg) 1 tablet PO TID PRN PRN Reason: PAIN Last Admin: 07/27/18 15:05 Dose: 1 tablet Gabapentin (Neurontin) 300 mg PO TIDCM [facility] Last Admin: 07/27/18 12:20 Dose: 300 mg Heparin Sodium (Porcine) (Heparin Na) 5,000 unit SC Q12 [facility] Last Admin: 07/27/18 09:09 Dose: 5,000 unit Sodium Chloride () 1,000 mls @ 125 mls/hr IV .Q8H [facility] Last Admin: 07/27/18 12:15 Dose: 125 mls/hr Levothyroxine Sodium (Synthroid) 137 mcg PO DAILY@0600 [facility] Last Admin: 07/27/18 05:51 Dose: 137 mcg Nutritional Formula (Lactose Free) (Ensure Enlive) 120 ml PO 4X/DAY [facility] Last Admin: 07/27/18 15:00 Dose: 120 ml Ondansetron HCl (Zofran) 4 mg IV Q6H PRN PRN PRN Reason: NAUSEA/VOMITING Pravastatin Sodium (Pravachol) 40 mg PO QHS [facility] Last Admin: 07/26/18 21:44 Dose: 40 mg Propranolol HCl (Inderal) 40 mg PO BID [facility] Last Admin: 07/27/18 09:08 Dose: 40 mg Sodium Chloride () 5 - 30 ml IV UD PRN PRN Reason: SALINE FLUSH Last Admin: 07/26/18 20:06 Dose: 10 ml Tizanidine HCl (Zanaflex) 3 mg PO Q8H PRN PRN PRN Reason: MUSCLE SPASM Last Admin: 07/27/18 01:15 Dose: 3 mg Vancomycin HCl () 125 mg PO Q6 [facility] Last Admin: 07/27/18 12:20 Dose: 125 mg Medical Necessity - Tobacco Use Smoking Status: Never smoker Tobacco Use: Non-smoker Assessment/Plan All Active Problems Osteomyelitis of toe of left foot (Resolved) 73-year-old female with past medical history of hypertension, hyperlipidemia, hypothyroidism, anxiety/depression who comes in with complaints of diarrhea ongoing for 2 weeks and found to have C. difficile colitis. 1. Acute C. difficile colitis, present on admission, afebrile, leukocytosis slightly improving, started on p.o. vancomycin, will continue on IV fluids, managed conservatively, continue p.o. vancomycin(day 2) 2. Acute kidney injury secondary to dehydration secondary to diarrhea, resolving, will continue on IV fluids 3. RANGEL, on CPAP 4. Hypertension, continue home medication 5. Hyperlipidemia, continue on fenofibrate, statin 6. Hypothyroidism, on Synthroid 7. Hyponatremia, likely secondary to dehydration, resolved 8. DVT prophylaxis with heparin subcu Code Visit Inpatient E&M: 13630 Subs Hosp L2
--- NOTE | 2018-07-27 15:16 | PN_ITS ---
Subjective: Patient was seen and examined. Admitted with C. difficile colitis. Had 12 bowel movements yesterday. None this morning. Has able to have her breakfast with no diarrhea. Denies any worsening fever or chills. Slowly improving. Vitals/I&O's: Vital Signs Temp Pulse Resp BP Pulse Ox 98.5 F 62 16 125/53 H 99 07/27/18 14:00 07/27/18 14:00 07/27/18 14:00 07/27/18 14:00 07/27/18 14:00 Oxygen Flow Rate (L/min) 2 Oxygen Delivery Method Room Air Weight: 115.212 kg Body Mass Index (BMI) 36.4 Intake and Output for Last 24 Hours 07/25/18 07/26/18 07/27/18 23:59 23:59 23:59 Intake Total 3982 / 3982 Balance 3982 / 3982 General: Alert, Oriented x3, Cooperative, No apparent distress HEENT: Atraumatic, PERRLA, EOMI, Normocephalic Oral: Moist Mucosa Neck: Supple, No JVD, Negative Carotid Bruits Lungs: Clear to auscultation, Normal air movement Cardiovascular: Regular rate, Regular Rhythm, Normal S1, Normal S2, No murmurs Abdomen: Bowel Sounds Present, Soft, Non Tender, Non-Distended, No Hepato- splenomegaly Extremities: No edema Skin: No rashes, No breakdown Musculoskeletal: No Tenderness to Palpation of Joints or Extremities Lymphatic: No Cervical, Supraclavicular, or Inguinal Adenopathy Neurological: Cranial nerves II-XII grossly intact, Neuro grossly intact Psych/Mental Status: Normal Affect, Appropriate Microbiology Past 72 Hours 07/26/18 15:18 Stool C. difficile DNA Amplification - Final Toxigenic C. difficile DNA Laboratory Results 07/26/18 14:45: WBC 20.1 H, RBC 4.20, Hgb 13.6, Hct 40.9, MCV 97.4, MCH 32.4 H, MCHC 33.3, RDW 11.8, RDW Differential 41.4, Plt Count 444, MPV 10.0, Immature Gran % (Auto) 0.900, Neut % (Auto) 81.1 H, Lymph % (Auto) 12.1 L, [place] % (Auto) 5.2, Eos % (Auto) 0.4, Baso % (Auto) 0.3, Absolute Neuts (auto) 16.3 H, Absolute Lymphs (auto) 2.42, Total Counted Not Reportable 07/26/18 14:45: Sodium 133 L, Potassium 4.1, Chloride 101, Carbon Dioxide 20.0 L , Anion Gap 12, BUN 32 H, Creatinine 1.53 H, Estim Creat Clear Calc 35.94, Est GFR (MDRD) Af Amer 43 L, Est GFR (MDRD) Non-Af 35 L, BUN/Creatinine Ratio 20.9 H , Glucose 147 H, Calcium 9.4 07/26/18 14:45: TSH 0.58 07/27/18 06:22: Sodium 140, Potassium 4.2, Chloride 109 H, Carbon Dioxide 23.0, Anion Gap 8, BUN 26 H, Creatinine 0.96, Estim Creat Clear Calc 57.28, Est GFR (MDRD) Af Amer 73, Est GFR (MDRD) Non-Af 61, BUN/Creatinine Ratio 27.1 H, Glucose 121 H, Calcium 8.2 L 07/27/18 06:22: WBC 13.4 H, RBC 3.46 L, Hgb 11.0 L, Hct 34.4 L, MCV 99.4 H, MCH 31.8, MCHC 32.0, RDW 12.4, RDW Differential 44.9 H, Plt Count 317, MPV 9.7, Immature Gran % (Auto) 0.400, Neut % (Auto) 69.5, Lymph % (Auto) 22.2, [place] % (Auto) 6.4, Eos % (Auto) 1.2, Baso % (Auto) 0.3, Absolute Neuts (auto) 9.3 H, Absolute Lymphs (auto) 2.98, Total Counted Not Reportable Current Medications Acetaminophen (Tylenol) 650 mg PO Q6H PRN PRN PRN Reason: Fever, headache, pain Hydrocodone Bitart/Acetaminophen ([place] 5mg-325mg) 1 tablet PO TID PRN PRN Reason: PAIN Last Admin: 07/27/18 15:05 Dose: 1 tablet Gabapentin (Neurontin) 300 mg PO TIDCM [facility] Last Admin: 07/27/18 12:20 Dose: 300 mg Heparin Sodium (Porcine) (Heparin Na) 5,000 unit SC Q12 [facility] Last Admin: 07/27/18 09:09 Dose: 5,000 unit Sodium Chloride () 1,000 mls @ 125 mls/hr IV .Q8H [facility] Last Admin: 07/27/18 12:15 Dose: 125 mls/hr Levothyroxine Sodium (Synthroid) 137 mcg PO DAILY@0600 [facility] Last Admin: 07/27/18 05:51 Dose: 137 mcg Nutritional Formula (Lactose Free) (Ensure Enlive) 120 ml PO 4X/DAY [facility] Last Admin: 07/27/18 15:00 Dose: 120 ml Ondansetron HCl (Zofran) 4 mg IV Q6H PRN PRN PRN Reason: NAUSEA/VOMITING Pravastatin Sodium (Pravachol) 40 mg PO QHS [facility] Last Admin: 07/26/18 21:44 Dose: 40 mg Propranolol HCl (Inderal) 40 mg PO BID [facility] Last Admin: 07/27/18 09:08 Dose: 40 mg Sodium Chloride () 5 - 30 ml IV UD PRN PRN Reason: SALINE FLUSH Last Admin: 07/26/18 20:06 Dose: 10 ml Tizanidine HCl (Zanaflex) 3 mg PO Q8H PRN PRN PRN Reason: MUSCLE SPASM Last Admin: 07/27/18 01:15 Dose: 3 mg Vancomycin HCl () 125 mg PO Q6 [facility] Last Admin: 07/27/18 12:20 Dose: 125 mg Medical Necessity - Tobacco Use Smoking Status: Never smoker Tobacco Use: Non-smoker Assessment/Plan All Active Problems Osteomyelitis of toe of left foot (Resolved) 73-year-old female with past medical history of hypertension, hyperlipidemia, hypothyroidism, anxiety/depression who comes in with complaints of diarrhea ongoing for 2 weeks and found to have C. difficile colitis. 1. Acute C. difficile colitis, present on admission, afebrile, leukocytosis slightly improving, started on p.o. vancomycin, will continue on IV fluids, managed conservatively, continue p.o. vancomycin(day 2) 2. Acute kidney injury secondary to dehydration secondary to diarrhea, resolving, will continue on IV fluids 3. RANGEL, on CPAP 4. Hypertension, continue home medication 5. Hyperlipidemia, continue on fenofibrate, statin 6. Hypothyroidism, on Synthroid 7. Hyponatremia, likely secondary to dehydration, resolved 8. DVT prophylaxis with heparin subcu Code Visit Inpatient E&M: 47844 Subs Hosp L2
[2018-07-27 22:46] VITALS: BP 145/78; PULSE 64; RESP 17; TEMP 36.6; O2SAT 99
[2018-07-27] MEDS: Pravastatin 40 MG Tablet PO (22:54)
[2018-07-28] MEDS: HYDROcodone Bitartrate/Apap 5/325 Tablet PO ×2 (04:13→09:06)
[2018-07-28 04:16] VITALS: BP 127/65; PULSE 55; RESP 20; TEMP 36.5; O2SAT 100
--- NOTE | 2018-07-28 04:51 | NURSING ---
PT VERY TEARFUL RE: PAIN. THIS RN OFFERED TO REPOSITION HER, GET PILLOWS, HELP HER TO CHAIR. PT REFUSES. REQUESTS MEDICATION FOR COUGHING. DR CASSIDY NOTIFIED. NEW ORDERS PLACED
[2018-07-28] MEDS: 0.9% Normal Saline 1,000 ML 125 ML IV (05:33)
[2018-07-28] MEDS: Levothyroxine 137 MCG Tablet PO (05:33)
[2018-07-28] MEDS: guaiFENesin 10 ML UDC (200MG/10ML) PO (05:33)
[2018-07-28 06:45] VITALS: O2SAT 100
[2018-07-28] MEDS: Gabapentin 300 MG Capsule PO ×2 (09:06→13:48)
[2018-07-28] MEDS: Heparin Injection (Vial) 5,000 UNIT/ML VIAL 5000 UNIT SC (09:06)
[2018-07-28 09:17] VITALS: BP 146/60; PULSE 57; RESP 18; TEMP 36.6; O2SAT 97
--- NOTE | 2018-07-28 10:43 | PCM.DC ---
- Discharge Diagnoses Reason(s) for Visit for Discharge Instructions: Diarrhea You will use the following diet at home:: Cardiac Your food should be the consistency of: Regular Your liquids should be the consistency of: Regular/Thin Discharge Activity: Return to Normal Activity Additional Instructions: Wash your hands after every bowel movements. Clean your house with bleach. Complete your antibiotics. Follow-up with your primary care doctor and you should get a repeat blood work done within 1 week. Allergies/Adverse Reactions: Allergies cefuroxime [From Ceftin] Allergy (Verified 07/26/18 14:50) Itching Cephalosporins Allergy (Verified 07/26/18 14:50) Anaphylaxis codeine Allergy (Verified 07/26/18 14:50) Itching Medications to take at Discharge Levothyroxine [Synthroid] 137 mcg PO DAILY #30 tablet 02/23/17 Pravastatin Sodium 40 mg PO DAILY #30 tablet 02/23/17 Propranolol HCl [Inderal (Beta Azalea)] 40 mg PO BID #60 tablet 02/23/17 Tizanidine HCl [Zanaflex] 2 mg PO 4X/DAY PRN PRN #60 capsule 02/23/17 Furosemide [Lasix] 40 mg PO DAILY 03/30/17 Diclofenac Sodium [Voltaren] 1 each TOPICAL DAILY 07/26/18 Fluticasone Propionate 2 puff INHALATION DAILY PRN PRN 07/26/18 Gabapentin [Neurontin] 1,600 mg PO TID 07/26/18 Hydrocodone Bitart/Apap 5-325 [[place] 5/325] 1 tablet PO TID PRN PRN 07/26/18 Losartan Potassium 100 mg PO DAILY 07/26/18 Montelukast [Singulair] 10 mg PO DAILY PRN PRN 07/26/18 Venlafaxine HCl [Venlafaxine HCl ER] 150 mg PO DAILY 07/26/18 Ensure Enlive 120 ml PO 4X/DAY #100 liquid 07/28/18 Lactobacillus Acidophilus [Probiotic Acidophilus] 1 each PO BID #60 tablet 07/28/18 Vancomycin [Vancocin] 125 mg PO Q6H #40 capsule 07/28/18 The following prescriptions were given: Lactobacillus Acidophilus [Probiotic Acidophilus] 1 each PO BID #60 tablet Vancomycin [Vancocin] 125 mg PO Q6H #40 capsule Ensure Enlive 120 ml PO 4X/DAY #100 liquid Orders to be completed after discharge: Basic Metabolic Profile (BMP) Time Frame: 1 Week, Location: Laboratory CBC W/Diff, Automated Time Frame: 1 Week, Location: Laboratory Primary Care Physician: Lupillo Riley MD [Primary Care Provider] - Please follow up with your Primary Care Physician in: within 2 weeks Test Results: Test results from this visit will be discussed in further detail at your follow-up appointment, if applicable. Proposed Discharge Date: 07/28/18
--- NOTE | 2018-07-28 10:47 | DCINST_ITS ---
- Discharge Diagnoses Reason(s) for Visit for Discharge Instructions: Diarrhea You will use the following diet at home:: Cardiac Your food should be the consistency of: Regular Your liquids should be the consistency of: Regular/Thin Discharge Activity: Return to Normal Activity Additional Instructions: Wash your hands after every bowel movements. Clean your house with bleach. Complete your antibiotics. Follow-up with your primary care doctor and you should get a repeat blood work done within 1 week. Allergies/Adverse Reactions: Allergies cefuroxime [From Ceftin] Allergy (Verified 07/26/18 14:50) Itching Cephalosporins Allergy (Verified 07/26/18 14:50) Anaphylaxis codeine Allergy (Verified 07/26/18 14:50) Itching Medications to take at Discharge Levothyroxine [Synthroid] 137 mcg PO DAILY #30 tablet 02/23/17 Pravastatin Sodium 40 mg PO DAILY #30 tablet 02/23/17 Propranolol HCl [Inderal (Beta Azalea)] 40 mg PO BID #60 tablet 02/23/17 Tizanidine HCl [Zanaflex] 2 mg PO 4X/DAY PRN PRN #60 capsule 02/23/17 Furosemide [Lasix] 40 mg PO DAILY 03/30/17 Diclofenac Sodium [Voltaren] 1 each TOPICAL DAILY 07/26/18 Fluticasone Propionate 2 puff INHALATION DAILY PRN PRN 07/26/18 Gabapentin [Neurontin] 1,600 mg PO TID 07/26/18 Hydrocodone Bitart/Apap 5-325 [[place] 5/325] 1 tablet PO TID PRN PRN 07/26/18 Losartan Potassium 100 mg PO DAILY 07/26/18 Montelukast [Singulair] 10 mg PO DAILY PRN PRN 07/26/18 Venlafaxine HCl [Venlafaxine HCl ER] 150 mg PO DAILY 07/26/18 Ensure Enlive 120 ml PO 4X/DAY #100 liquid 07/28/18 Lactobacillus Acidophilus [Probiotic Acidophilus] 1 each PO BID #60 tablet 07/28/18 Vancomycin [Vancocin] 125 mg PO Q6H #40 capsule 07/28/18 The following prescriptions were given: Lactobacillus Acidophilus [Probiotic Acidophilus] 1 each PO BID #60 tablet Vancomycin [Vancocin] 125 mg PO Q6H #40 capsule Ensure Enlive 120 ml PO 4X/DAY #100 liquid Orders to be completed after discharge: Basic Metabolic Profile (BMP) Time Frame: 1 Week, Location: Laboratory CBC W/Diff, Automated Time Frame: 1 Week, Location: Laboratory Primary Care Physician: Lupillo Riley MD [Primary Care Provider] - Please follow up with your Primary Care Physician in: within 2 weeks Test Results: Test results from this visit will be discussed in further detail at your follow- up appointment, if applicable. Proposed Discharge Date: 07/28/18
--- NOTE | 2018-07-28 10:47 | PCM.DC.SUM ---
Discharge Date and Diagnosis Date of Admission: 07/26/18 Date of Discharge: 07/28/18 - Primary Discharge Diagnosis Acute C. diff diarrhea Acute kidney injury Acute hypovolemic hyponatremia - Secondary Discharge Diagnosis Chronic Problems Fibromyalgia (Chronic) Lymphedema (Chronic) Neuropathy (Chronic) Obesity (BMI 30-39.9) (Chronic) RANGEL (obstructive sleep apnea) (Chronic) HLD (hyperlipidemia) (Chronic) Pes planus of left foot (Chronic) HTN (hypertension) (Chronic) Hospital Course and Treatment None Operations: None Procedures: None Summary of Care Provided: 73-year-old female with past medical history of hypertension, hyperlipidemia, hypothyroidism, anxiety/depression who comes in with complaints of diarrhea ongoing for 2 weeks and found to have C. difficile colitis. She was managed on po vancomycin with improvement in leucocytosis and diarrhea. She had acute kidney injury from dehydration from diarrhea which improved with IV hydration. She was discharged home on oral vancomycin. Educated about hand hygiene and cleaning house with bleach. Subjective: On the day of discharge, patient felt well. Denies an BM. No fever or chills - Physical Exam General: Alert, Oriented x3, Cooperative, No apparent distress, - - Obese HEENT: Atraumatic, PERRLA, EOMI, Normocephalic Oral: Moist Mucosa Neck: Supple, No JVD, Negative Carotid Bruits Lungs: Clear to auscultation, Normal air movement Cardiovascular: Regular rate, No murmurs Abdomen: Bowel Sounds Present, Soft, Non Tender Extremities: No edema Skin: No rashes, No breakdown Musculoskeletal: No Tenderness to Palpation of Joints or Extremities Lymphatic: No Cervical, Supraclavicular, or Inguinal Adenopathy Neurological: Cranial nerves II-XII grossly intact Psych/Mental Status: Normal Affect, Appropriate Vital Signs Temp Pulse Resp BP Pulse Ox 97.8 F 57 L 18 146/60 H 97 07/28/18 09:17 07/28/18 09:17 07/28/18 09:17 07/28/18 09:17 07/28/18 09:17 Oxygen Flow Rate (L/min) 2 Oxygen Delivery Method Room Air Weight: 115.212 kg Body Mass Index (BMI) 36.4 Intake and Output for Last 24 Hours 07/26/18 07/27/18 07/28/18 23:59 23:59 23:59 Intake Total 4732 / 4732 979 / 979 Balance 4732 / 4732 979 / 979 Microbiology Past 72 Hours 07/27/18 15:18 Enteric Bacteriology - Final Stool 07/26/18 15:18 C. difficile DNA Amplification - Final Stool Toxigenic C. difficile DNA Discharge Diet: Low fat/ Low Cholesterol, 2000 mg Sodium Diet Discharge Activity: Return to Normal Activity Home Medications: Medications to take at Discharge Levothyroxine [Synthroid] 137 mcg PO DAILY #30 tablet 02/23/17 Pravastatin Sodium 40 mg PO DAILY #30 tablet 02/23/17 Propranolol HCl [Inderal (Beta Azalea)] 40 mg PO BID #60 tablet 02/23/17 Tizanidine HCl [Zanaflex] 2 mg PO 4X/DAY PRN PRN #60 capsule 02/23/17 Furosemide [Lasix] 40 mg PO DAILY 03/30/17 Diclofenac Sodium [Voltaren] 1 each TOPICAL DAILY 07/26/18 Fluticasone Propionate 2 puff INHALATION DAILY PRN PRN 07/26/18 Gabapentin [Neurontin] 1,600 mg PO TID 07/26/18 Hydrocodone Bitart/Apap 5-325 [[place] 5/325] 1 tablet PO TID PRN PRN 07/26/18 Losartan Potassium 100 mg PO DAILY 07/26/18 Montelukast [Singulair] 10 mg PO DAILY PRN PRN 07/26/18 Venlafaxine HCl [Venlafaxine HCl ER] 150 mg PO DAILY 07/26/18 Ensure Enlive 120 ml PO 4X/DAY #100 liquid 07/28/18 Lactobacillus Acidophilus [Probiotic Acidophilus] 1 each PO BID #60 tablet 07/28/18 Vancomycin [Vancocin] 125 mg PO Q6H #40 capsule 07/28/18 Following Prescrptions Were Given to Patient: Lactobacillus Acidophilus [Probiotic Acidophilus] 1 each PO BID #60 tablet Vancomycin [Vancocin] 125 mg PO Q6H #40 capsule Ensure Enlive 120 ml PO 4X/DAY #100 liquid Other Amb Orders: Basic Metabolic Profile (BMP) Time Frame: 1 Week, Location: Laboratory CBC W/Diff, Automated Time Frame: 1 Week, Location: Laboratory Primary Care Physician: uLpillo Riley MD [Primary Care Provider] - Please follow up with your Primary Care Physician in: within 2 weeks Disposition: Home Minutes spent on discharge:: 45 Patient Condition:: Stable Medical Necessity - Tobacco Use Smoking Status: Never smoker Tobacco Use: Non-smoker Meaningful Use Info Meaningful Use Diagnoses (Choose all that apply): None applicable Code Visit Inpatient E&M: 46165 Disch Hosp
[2018-07-28 11:30] LABS: Absolute Lymphocyte Count 1.94 X10^3/ul (0.83-4.51); Absolute Neutrophil Count 7.3 X10^3/uL (2.0-7.7); Basophil# 0.03 X10^3/uL; Basophil% 0.3 % (0-1); Eosinophil# 0.19 X10^3/uL; Eosinophils% 1.8 % (0-5); Hematocrit 34.3 % (37-47); Lymphocyte # 1.94 X10^3/ul (4.0); Lymphocyte % 18.9 % (19-41); Mean Corp Hgb Conc 32.1 g/gl (32-36); Mean Corpuscular Hgb 31.8 pg (27.0-32.0); Mean Corpuscular Volume 99.1 fL (81-99); Mean Platelet Vol. 9.4 fl (6.2-12.0); Monocyte# 0.81 X10^3/uL; Monocyte% 7.9 % (0-10); Neutrophil # 7.28 X10^3/uL (2.7-7.7); Neutrophil % 70.7 % (47-70); Platelet Count 281 K/mm3 (150-450); RBC Distribution Width CV 12.3 % (11.6-14.6); RBC Distribution Width SD 44.4 fl (35.1-43.9); Red Blood Count 3.46 M/mm3 (4.2-5.4); White Blood Count 10.3 K/mm3 (4.4-11.0)
[2018-07-28 11:31] LABS: POSITIVE COUNT NO; POSITIVE DIFFERENTIAL NO; POSITIVE MORPHOLOGY NO
[2018-07-28 11:57] LABS: Anion Gap 6 (5-15); BUN 14 mg/dL (7-18); BUN/Creat Ratio 21.8 RATIO (10-20); Calcium,Total 8.5 mg/dL (8.5-10.1); Chloride 110 mmol/L (98-107); Creatinine, Serum 0.64 mg/dL (0.55-1.02); EST Glomerular Filtration Rate 96 mL/min (>60); Est Glom Filt Rate - Afr Amer 117 mL/min (>60); Estimated Creatinine Clearance 54.99 ml/min; Glucose 97 mg/dL (74-106); Potassium 4.2 mmol/L (3.5-5.1); Sodium Level 143 mmol/L (136-145)
--- NOTE | 2018-07-28 13:04 | NURSING ---
pharmacy notified, one more dose of vanc needed
[2018-07-28 13:45] VITALS: BP 151/71; PULSE 58; RESP 16; TEMP 36.5; O2SAT 97
== END 2018-07-28 14:20 | disposition home or self-care (01) | DRG 372 ==
LOC: ED 15:07 → MS3 17:36
PROVIDERS: Admitting Provider Hospitalist; Emergency Provider Emergency Medicine; Family Provider Family Medicine; PCP Family Medicine; Referring Provider Hospitalist; Visit Provider Internal Medicine
DX: A04.72 Enterocolitis due to Clostridium difficile, not specified as recurrent (principal); N17.9 Acute kidney failure, unspecified; E87.1 Hypo-osmolality and hyponatremia; E86.0 Dehydration; E78.5 Hyperlipidemia, unspecified; E03.9 Hypothyroidism, unspecified; M79.7 Fibromyalgia; E66.01 Morbid (severe) obesity due to excess calories; Z68.36 Body mass index [BMI] 36.0-36.9, adult; G47.33 Obstructive sleep apnea (adult) (pediatric); I10 Essential (primary) hypertension; G62.9 Polyneuropathy, unspecified
CPT/HCPCS: 36415; 80048; 84443; 85025; 87177; 87209; 87493; 87506; 97802; 99285; J7030; A4216; J2405

== ENCOUNTER → 2019-03-01 10:16 | Outpatient (CLI) | payer MEDICARE, OTHER, SELFPAY ==
[2018-10-09 08:49] LABS: CREATININE FINGERSTICK 1.53 mg/dL (0.55-1.02); EGFR FINGERSTICK 35 mL/min (>60)
[2019-02-28 11:57] LABS: Creatinine, Serum 1.01 mg/dL (0.55-1.02); EST Glomerular Filtration Rate 57 mL/min (>60); Est Glom Filt Rate - Afr Amer 69 mL/min (>60)
--- NOTE | 2019-03-01 10:20 | MRI_ITS ---
STUDY: MRI THORACIC SPINE WITH AND WITHOUT CONTRAST REASON FOR EXAM: Female, 74 years old. 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 TECHNIQUE: 24 IV Dotarem was administered for the contrast portion of the examination. COMPARISON: None. FINDINGS: Normal kyphosis of the thoracic spine. There is no substantial scoliosis. T1-2, T2-3, T3-4, T4-5, T5-6, T6-7, T7-8, T8-9, T9-10, T10-11, T11-12: Multilevel disc desiccation and disc degenerative changes are present. Mild disc bulges are noted causing multiple areas of thecal sac effacement with no significant spinal canal narrowing. There is noted fusion at T9 and T10 at the disc space. There is demonstrated increased signal within the thoracic cord beginning at approximately T2 extending inferiorly. There is noted cystic dilatation of the mid thoracic cord extending from T6 through T9 as seen on series 5 image 7. Along the inferior aspect of the cystic dilatation at T9 is cortical prominence and cord signal which appears similar to the 2018 exam. The cystic portion measures 6.8 cm craniocaudal and previously measured 5.1 cm and now extends superiorly to the level of mid T6 and previously within the upper level of T7 level. Normal conus medullaris that terminates at the . The soft tissue structures are unremarkable. There is no enhancing abnormality. MRI/Spine Thoracic W/WO Contrast IMPRESSION: 1. Compared to 31 October 2017 there is increased superior extension of the known syrinx from T6 through T9 now measuring 6.8 cm and previously measuring 5.1 cm. There is increased edema and signal within the proximal cord extending from T2 consistent with likely pre syrinx formation. 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 Stable multilevel degenerative changes of the thoracic spine are again noted with fusion at T9/10. Electronically Signed: Yehuda Salmeron DO at 9:45 EDT , Service support ,
== END ==
PROVIDERS: Family Provider Family Medicine; PCP Family Medicine
DX: Z01.812 Encounter for preprocedural laboratory examination (principal); G95.9 Disease of spinal cord, unspecified; D49.2 Neoplasm of unspecified behavior of bone, soft tissue, and skin
CPT/HCPCS: 36415; 72157; 82565; A9575

== ENCOUNTER 2019-06-27 14:30 | Outpatient (RCR) | payer MEDICARE, OTHER, SELFPAY | END 2019-07-09 23:59 | LOC: DC 14:30 | PROVIDERS: Family Provider Family Medicine; PCP Family Medicine; Visit Provider Nurse Practitioner Primary Care | DX: E11.9 Type 2 diabetes mellitus without complications (principal); E66.9 Obesity, unspecified; Z68.38 Body mass index [BMI] 38.0-38.9, adult; I10 Essential (primary) hypertension; E78.5 Hyperlipidemia, unspecified; E03.9 Hypothyroidism, unspecified; D49.2 Neoplasm of unspecified behavior of bone, soft tissue, and skin | CPT/HCPCS: 97802; G0108 ==

== ENCOUNTER 2019-08-30 14:00 | Outpatient (RCR) | payer MEDICARE, OTHER, SELFPAY ==
[2018-07-26 17:49] VITALS: BMI 36.4
== END 2019-09-08 23:59 ==
LOC: DC 14:00
PROVIDERS: Family Provider Family Medicine; PCP Family Medicine; Visit Provider Nurse Practitioner Primary Care
DX: Z71.3 Dietary counseling and surveillance (principal); E11.9 Type 2 diabetes mellitus without complications; E66.9 Obesity, unspecified; Z68.38 Body mass index [BMI] 38.0-38.9, adult; I10 Essential (primary) hypertension; E78.5 Hyperlipidemia, unspecified; E03.9 Hypothyroidism, unspecified; D49.2 Neoplasm of unspecified behavior of bone, soft tissue, and skin
CPT/HCPCS: 97803; G0108

== ENCOUNTER → 2019-09-19 17:01 | Outpatient (CLI) | payer MEDICARE, OTHER, SELFPAY ==
--- NOTE | 2019-09-19 17:04 | MRI_ITS ---
STUDY: MRI THORACIC SPINE WITH AND WITHOUT CONTRAST REASON FOR EXAM: Female, 74 years old. Spinal cord mass TECHNIQUE: dotarem 24ml iv was administered for the contrast portion of the examination. COMPARISON: 03/01/2019 FINDINGS: Once again, a T2 hyperintense lesion is noted in the thoracic spinal cord. Abnormal signal in the cord extends from the T3 level to the T9-10 level, unchanged from prior study. Cystic changes are present in the central cord extending from the T6 level to the T9 level, also stable. The cystic portions of the cord are expanded. The cystic area measures up to 9 mm in diameter. No significant associated postcontrast enhancement. Stable thoracic spine alignment. No acute compression fracture. Stable multilevel degenerative disc disease without evidence of kelli exiting nerve root impingement. Fusion of the T9-10 disc space. No new cord lesions are seen elsewhere. MRI/Spine Thoracic W/WO Contrast IMPRESSION: Stable abnormal thoracic cord signal with cystic expansion extending from T6 to T9. No new cord lesions are seen. Electronically Signed: Froylan Quitnana MD at 19:22 EST Tel , Service support ,
== END ==
PROVIDERS: Family Provider Family Medicine; PCP Family Medicine
DX: M54.6 Pain in thoracic spine (principal); G89.29 Other chronic pain; G95.89 Other specified diseases of spinal cord; D49.2 Neoplasm of unspecified behavior of bone, soft tissue, and skin
CPT/HCPCS: 72157; A9575

== ENCOUNTER 2019-10-08 16:51 | Outpatient (RCR) | payer MEDICARE, OTHER, SELFPAY ==
[2018-07-26 17:49] VITALS: BMI 36.4
== END 2019-10-09 23:59 ==
LOC: DC 16:51
PROVIDERS: Family Provider Family Medicine; PCP Family Medicine; Visit Provider Nurse Practitioner Primary Care
DX: Z71.3 Dietary counseling and surveillance (principal); E11.9 Type 2 diabetes mellitus without complications; E66.9 Obesity, unspecified; Z68.38 Body mass index [BMI] 38.0-38.9, adult; I10 Essential (primary) hypertension; E78.5 Hyperlipidemia, unspecified; E03.9 Hypothyroidism, unspecified; D49.2 Neoplasm of unspecified behavior of bone, soft tissue, and skin
CPT/HCPCS: 97803

== ENCOUNTER 2019-11-15 08:04 | Outpatient (RCR) | payer MEDICARE, OTHER, SELFPAY ==
[2018-07-26 17:49] VITALS: BMI 36.4
== END 2019-12-08 23:59 ==
LOC: DC 08:04
PROVIDERS: Family Provider Family Medicine; PCP Family Medicine; Visit Provider Nurse Practitioner Primary Care
DX: Z71.3 Dietary counseling and surveillance (principal); E11.9 Type 2 diabetes mellitus without complications; E66.9 Obesity, unspecified; Z68.38 Body mass index [BMI] 38.0-38.9, adult; I10 Essential (primary) hypertension; E78.5 Hyperlipidemia, unspecified; E03.9 Hypothyroidism, unspecified; D49.7 Neoplasm of unspecified behavior of endocrine glands and other parts of nervous system
CPT/HCPCS: G0109

== ENCOUNTER 2020-04-17 17:32 | Outpatient (RCR) | payer MEDICARE, OTHER, SELFPAY ==
[2018-07-26 17:49] VITALS: BMI 36.4
== END 2020-05-09 23:59 ==
LOC: DC 17:32
PROVIDERS: Family Provider Family Medicine; PCP Family Medicine; Referring Provider Nurse Practitioner Primary Care; Visit Provider Nurse Practitioner Primary Care
DX: Z71.3 Dietary counseling and surveillance (principal); E11.9 Type 2 diabetes mellitus without complications; E66.9 Obesity, unspecified; Z68.38 Body mass index [BMI] 38.0-38.9, adult; I10 Essential (primary) hypertension; E78.5 Hyperlipidemia, unspecified; E05.90 Thyrotoxicosis, unspecified without thyrotoxic crisis or storm
CPT/HCPCS: G0109

== ENCOUNTER 2020-05-15 10:05 | Outpatient (RCR) | payer MEDICARE, OTHER, SELFPAY ==
[2018-07-26 17:49] VITALS: BMI 36.4
== END 2020-06-09 23:59 ==
LOC: DC 10:05
PROVIDERS: Family Provider Family Medicine; PCP Family Medicine; Referring Provider Nurse Practitioner Primary Care; Visit Provider Nurse Practitioner Primary Care
DX: Z71.3 Dietary counseling and surveillance (principal); E11.9 Type 2 diabetes mellitus without complications; E66.9 Obesity, unspecified; Z68.38 Body mass index [BMI] 38.0-38.9, adult; I10 Essential (primary) hypertension; E78.5 Hyperlipidemia, unspecified; E05.90 Thyrotoxicosis, unspecified without thyrotoxic crisis or storm; D49.2 Neoplasm of unspecified behavior of bone, soft tissue, and skin

== ENCOUNTER 2020-06-12 15:41 | Outpatient (RCR) | payer MEDICARE, OTHER, SELFPAY ==
[2018-07-26 17:49] VITALS: BMI 36.4
== END 2020-07-09 23:59 ==
LOC: DC 15:41
PROVIDERS: Family Provider Family Medicine; PCP Family Medicine; Referring Provider Nurse Practitioner Primary Care; Visit Provider Nurse Practitioner Primary Care
DX: Z71.3 Dietary counseling and surveillance (principal); E11.9 Type 2 diabetes mellitus without complications; E66.9 Obesity, unspecified; Z68.38 Body mass index [BMI] 38.0-38.9, adult

== ENCOUNTER 2021-02-28 16:59 | Emergency (ER) | payer MEDICARE, OTHER, SELFPAY ==
[2021-02-28 17:01] VITALS: BP 121/71; PULSE 59; RESP 16; TEMP 36.6; O2SAT 99; BMI 32.8
--- NOTE | 2021-02-28 17:15 | ED.RN ---
bottom of lt foot, calloused area with wound in the middle. lt great toe, dark, yellow, red areas.
--- NOTE | 2021-02-28 17:59 | EX.ED.DYSGE1 ---
HPI History of Present Illness Chief Complaint: Edema Informant: patient Narrative Narrative: Patient is a 75-year-old female with a past medical history of lymphedema who presents to the emergency department for worsening swelling of her bilateral lower extremities. She believes that she has an infection in the left leg as it has been warm to the touch as well as turning red. She does have neuropathy up to her knees and does not feel any pain. She states that she has been working outside a lot in the past. She does drag her foot and does have scratches and wounds to the left great toe. She states that this is been ongoing issue for her. She states she has not been compliant with taking her diuretic as it makes her cramp up. She has not been following with her PCP lately as well. She denies any fevers or chills. No significant chest pain or shortness of breath. She has had a mild cough. She had a negative Covid test 2 days ago. She is also complaining of right shoulder pain and lack of range of motion. She states that she felt her bicep tear yesterday whenever she was doing heavy lifting. She is not able to lift her right arm past 90 degrees. No neck pain associated with this. [facility] Medical History Diabetes Hypertension Lymphedema Home Medications levothyroxine 137 mcg PO DAILY #30 tablet 02/23/17 [Rx Last Taken 07/25/18] pravastatin 40 mg PO DAILY #30 tablet 02/23/17 [Rx Last Taken 07/25/18] propranolol 40 mg PO BID #60 tablet 02/23/17 [Rx Last Taken 07/25/18] tizanidine [Zanaflex] 2 mg PO 4X/DAY PRN PRN #60 capsule 02/23/17 [Rx Last Taken 07/25/18] furosemide 40 mg PO DAILY 03/30/17 [History Last Taken 07/19/18] diclofenac sodium 1 ea TOPICAL DAILY 07/26/18 [History Last Taken Unknown] fluticasone propionate 2 puff INHALATION DAILY PRN PRN 07/26/18 [History Last Taken Unknown] gabapentin 300 mg PO TID 07/26/18 [History Last Taken 07/21/18] hydrocodone-acetaminophen 1 tab PO TID PRN PRN 07/26/18 [History Last Taken Unknown] losartan 100 mg PO DAILY 07/26/18 [History Last Taken 07/25/18] montelukast 10 mg PO DAILY PRN PRN 07/26/18 [History Last Taken 07/21/18] venlafaxine 150 mg PO DAILY 07/26/18 [History Last Taken 07/25/18] food supplemt, lactose-reduced [Ensure Enlive] 120 ml PO 4X/DAY #100 liquid 07/28/18 [Rx Last Taken Unknown] bupropion HCl 150 mg PO DAILY 02/28/21 [History Last Taken Unknown] doxycycline hyclate 100 mg PO BID #10 cap 02/28/21 [Rx Last Taken Unknown] paroxetine HCl [Paxil] 10 mg PO DAILY 02/28/21 [History Last Taken Unknown] Allergy/AdvReac Type Severity Reaction Status Date / Time cefuroxime [From Ceftin] Allergy Itching Verified 02/28/21 17:00 Cephalosporins Allergy Anaphylaxis Verified 02/28/21 17:00 codeine Allergy Itching Verified 02/28/21 17:00 Social History Smoking Status: Never smoker ROS ROS ED Constitutional Constitutional ED: Denies chills or fever(s) Eyes Eyes: Denies change in vision ENT ENT ED: Denies epistaxis or rhinorrhea Cardiovascular Cardiovascular: Reports leg edema; Denies chest pain or palpitations Respiratory/Chest Respiratory/Chest: Reports cough; Denies dyspnea or dyspnea on exertion Gastrointestinal Gastrointestinal: Denies abdominal pain, diarrhea, nausea or vomiting Genitourinary Genitourinary ED: Denies dysuria, hematuria or urinary frequency Musculoskeletal Musculoskeletal: Reports joint pain and limited range of motion; Denies back pain or neck pain Integumentary Reports erythema and rash Neurologic Neurologic: Denies dizziness, headache(s) or weakness EXAM Physical Exam Const Vital Signs: 02/28/21 17:01 02/28/21 20:50 Temperature 97.9 F Temperature Source Temporal Pulse Rate 59 L 89 Respiratory Rate 16 18 Blood Pressure 121/71 H 117/89 H Blood Pressure Mean 87 Pulse Ox 99 99 Oxygen Delivery Method Room Air Positive well nourished and well developed General Appearance ED: well developed and NAD HEENT Reports normocephalic, head/scalp atraumatic and moist mucous membranes Eyes PERRL and EOMs intact bilaterally Neck supple General: Negative for tenderness Chest Wall inspection of chest normal Resp normal respiratory effort and clear to auscultation bilaterally Auscultation: Negative for rales, rhonchi or wheezes Cardio regular rate, regular rhythm and no murmurs GI normal to inspection, nondistended, normoactive bowel sounds and non-tender Palpation: soft; Negative for guarding or rebound tenderness present Extremity normal to inspection Extremity Narrative: Patient cannot lift right arm past 90 degrees. She is otherwise neurovascularly intact. No obvious deformity present. No significant pain to palpation over the shoulder. General Extremety ED: Yes edema; Negative for tenderness General Extremity: edema bilateral (Lymphedema present in bilateral lower extremities.) Neuro oriented x3, CN's II-XII intact bilaterally and no sensory deficits noted Sensorium / Orientation: alert Motor Exam: strength 5/5 throughout Psych mental status grossly normal Skin Skin Narrative: Left leg has superficial scratches to her left great toe. There is warmth, erythema extending up midway to the calf. MDM MDM MDM Narrative Medical decision making narrative: Patient presents to the ED for bilateral lower leg swelling. She does have chronic lymphedema. She has not been compliant with taking her diuretics. She is concerned she denies an infection of the left leg. On exam it is erythematous and warm. She states that she took 3 Lasix as well as her magnesium and potassium today. Will check basic lab work. Her vital signs are within normal limits upon arrival. I am concerned that she has a rotator cuff tear or bicep tendon tear on the right arm. She has limited range of motion. Will check x-ray of this. Patient's lab work did not show a high white blood cell count. No significant electrolyte abnormality. At this time I believe she is stable for discharge. No signs of sepsis. Low concern for osteomyelitis or septic arthritis. I believe she is a good candidate for oral antibiotics. She is going to follow-up with her PCP. She would benefit from podiatry visit as well which she states she has one. She also has an orthopedic doctor she knows she is going to follow-up with for the shoulder pain. This time she is discharged home in stable condition. Recommend anatoliy wrap around the leg as her compression stocking does not fit over that leg. She is to elevate the leg continue her Lasix only as prescribed. She understands and is agreeable this plan. All questions were answered. Lab Data Labs: Laboratory Results - last 24 hr 02/28/21 02/28/21 02/28/21 17:56 17:56 17:56 WBC 8.0 RBC 3.46 L Hgb 11.0 L Hct 33.8 L MCV 97.7 MCH 31.8 MCHC 32.5 RDW Std Deviation 44.4 H RDW Coeff of Dio 12.3 Plt Count 260 MPV 10.2 Immature Gran % (Auto) 0.200 Neut % (Auto) 58.7 Lymph % (Auto) 26.9 [place] % (Auto) 10.6 H Eos % (Auto) 3.1 Baso % (Auto) 0.5 Absolute Neuts (auto) 4.7 Absolute Lymphs (auto) 2.16 Nucleated RBC % 0 Sodium 138 Potassium 4.0 Chloride 103 Carbon Dioxide 30.0 Anion Gap 5 BUN 28 H Creatinine 1.05 H Estim Creat Clear Calc 50.83 Est GFR (MDRD) Af Amer 66 Est GFR (MDRD) Non-Af 54 L BUN/Creatinine Ratio 26.7 H Glucose 87 Lactic Acid 0.8 Calcium 9.3 Magnesium 2.1 Radiography Chest X-Ray - ED: Read by ED Physician (Shoulder x-ray did not show any acute fracture, dislocation. Agree with radiologist interpretation.) Diagnostic Testing: Radiology Impression Shoulder X-Ray 02/28/21 18:12 IMPRESSION: Degenerative changes. No fracture or malalignment. Electronically Signed: Jace Valdez MD ([place]) at 18:56 EDT , Service support , Discharge Plan Triage Chief Complaint: Edema ED Provider: Swapnil Casas Dx/Rx/DC Orders Clinical Impression: Cellulitis, Lymphedema, Injury of shoulder Instructions: ED Cellulitis, ED Lymphedema, ED Shoulder Pain, Uncertain Cause Prescriptions: New doxycycline hyclate 100 mg capsule 100 mg PO BID Qty: 10 RF: 0 No Action levothyroxine 137 MCG tablet 137 mcg PO DAILY Qty: 30 RF: 0 pravastatin 40 MG tablet 40 mg PO DAILY Qty: 30 RF: 0 propranolol 40 MG tablet 40 mg PO BID Qty: 60 RF: 0 tizanidine [Zanaflex] 2 MG capsule 2 mg PO 4X/DAY PRN PRN (Reason: Muscle Spasm) Qty: 60 RF: 0 furosemide 20 MG tablet 40 mg PO DAILY RF: 0 hydrocodone-acetaminophen 1 TABLET tablet 1 tab PO TID PRN PRN (Reason: Pain) RF: 0 gabapentin 800 tablet 300 mg PO TID RF: 0 montelukast 10 MG tablet 10 mg PO DAILY PRN PRN (Reason: Allergies) RF: 0 losartan 100 MG tablet 100 mg PO DAILY RF: 0 fluticasone propionate 50 spray,suspension 2 puff inhalation DAILY PRN PRN (Reason: Allergies) RF: 0 diclofenac sodium 100 GM gel 1 ea topical DAILY RF: 0 venlafaxine 150 MG tablet extended release 24hr 150 mg PO DAILY RF: 0 food supplemt, lactose-reduced [Ensure Enlive] 120 ML liquid 120 ml PO 4X/DAY Qty: 100 RF: 0 bupropion HCl 150 mg tablet sustained-release 12 hr 150 mg PO DAILY RF: 0 paroxetine HCl [Paxil] 10 mg Tablet 10 mg PO DAILY RF: 0 Primary Care Provider: Lupillo Riley Referrals: Lupillo Riley MD [Primary Care Provider] - 3-5 Days Swapnil Lim DO [STAFF PHYSICIAN] - As soon as possible Disposition Disposition: Home, self care Discharge Date/Time: 02/28/21 20:51
[2021-02-28 18:11] LABS: Absolute Lymphocyte Count 2.16 X10^3/uL (0.83-4.51); Absolute Neutrophil Count 4.7 X10^3/uL (2.0-7.7); Basophil# 0.04 X10^3/uL; Basophil% 0.5 % (0-1); Eosinophil# 0.25 X10^3/uL; Eosinophils% 3.1 % (0-5); Hematocrit 33.8 % (37-47); Lymphocyte # 2.16 X10^3/ul (0.83-4.51); Lymphocyte % 26.9 % (19-41); Mean Corp Hgb Conc 32.5 g/dL (32-36); Mean Corpuscular Hgb 31.8 pg (27.0-32.0); Mean Corpuscular Volume 97.7 fL (81-99); Mean Platelet Vol. 10.2 fl (6.2-12.0); Monocyte# 0.85 X10^3/uL; Monocyte% 10.6 % (0-10); NRBC Flagged by Analyzer 0 % (0-5); Neutrophil # 4.72 X10^3/uL (2.7-7.7); Neutrophil % 58.7 % (47-70); Platelet Count 260 K/mm3 (150-450); RBC Distribution Width CV 12.3 % (11.6-14.6); RBC Distribution Width SD 44.4 fl (35.1-43.9); Red Blood Count 3.46 M/mm3 (4.2-5.4)
--- NOTE | 2021-02-28 18:12 | RAD_ITS ---
STUDY: X-RAY - RIGHT SHOULDER REASON FOR EXAM: Female, 75 years old. Injury yesterday, cant lift arm past 90 deg TECHNIQUE: 3 view(s) of the shoulder. COMPARISON: None. FINDINGS: There is moderate degenerative arthrosis of the glenohumeral articulation. There is degenerative arthrosis of the acromioclavicular joint without inferior osseous spur formation. Normal acromion. Normal humeral head and visualized proximal humerus. The soft tissue structures are unremarkable. Normal visualized pulmonary apex. RAD/Shoulder min 2 Views IMPRESSION: Degenerative changes. No fracture or malalignment. Electronically Signed: Jace Valdez MD ([place]) at 18:56 EDT , Service support ,
[2021-02-28 18:25] LABS: Anion Gap 5 (5-15); BUN 28 mg/dL (7-18); BUN/Creat Ratio 26.7 RATIO (10-20); Calcium,Total 9.3 mg/dL (8.5-10.1); Chloride 103 mmol/L (98-107); Creatinine, Serum 1.05 mg/dL (0.55-1.02); EST Glomerular Filtration Rate 54 mL/min (>60); Est Glom Filt Rate - Afr Amer 66 mL/min (>60); Estimated Creatinine Clearance 50.83 ml/min; Glucose 87 mg/dL (74-106); Magnesium 2.1 mg/dL (1.6-2.6); Sodium Level 138 mmol/L (136-145)
[2021-02-28 18:36] LABS: Lactic Acid 0.8 mmol/L (0.4-1.9)
[2021-02-28 20:50] VITALS: BP 117/89; PULSE 89; RESP 18; O2SAT 99
== END 2021-02-28 20:51 | disposition home or self-care (01) ==
PROVIDERS: Emergency Provider Emergency Medicine; PCP Family Medicine
DX: I89.0 Lymphedema, not elsewhere classified (principal); L03.90 Cellulitis, unspecified; M79.89 Other specified soft tissue disorders; S49.91XA Unspecified injury of right shoulder and upper arm, initial encounter; X58.XXXA Exposure to other specified factors, initial encounter; Y93.9 Activity, unspecified; Y92.9 Unspecified place or not applicable; Y99.9 Unspecified external cause status; E11.40 Type 2 diabetes mellitus with diabetic neuropathy, unspecified; I10 Essential (primary) hypertension; Z79.899 Other long term (current) drug therapy; Z91.14 Patient's other noncompliance with medication regimen
CPT/HCPCS: 73030; 80048; 83605; 83735; 85025; 99283; A4216

== ENCOUNTER → 2021-03-04 15:01 | Outpatient (CLI) | payer MEDICARE, OTHER, SELFPAY ==
[2021-02-28 17:01] VITALS: BMI 32.8
--- NOTE | 2021-03-04 15:06 | VDLE_ITS ---
Reason For Study: Swelling RIGHT LEFT GSV is normal. GSV is normal. CFV is compressible, spontaneous, phasic, CFV is compressible, spontaneous, phasic, competent and demonstrates normal competent, and demonstrates normal augmentation. augmentation. FV is compressible, spontaneous, phasic, FV is compressible, spontaneous, phasic, competent and demonstrates normal competent and demonstrates normal augmentation. augmentation. POP V is compressible, spontaneous, phasic, POP V is compressible, spontaneous, phasic, competent and demonstrates normal competent and demonstrates normal augmentation. augmentation. T/P Trunk is compressible. T/P Trunk is compressible. PTV is compressible. PTV is compressible. RT PerV is compressible. LT PerV is compressible. Nonvascularized structure noted in the right popliteal fossa measuring approximently 0.94 x 2.20 x 3.14 cm. Procedure This is a venous duplex using B-mode, color flow and spectral Doppler. Exam performed in department. A preliminary report was called and/or faxed to [facility]. VL/Venous Duplex US - Lance Extrem Interpretation Summary Deep veins of the lower extremities are bilaterally patent and compressible seg mentally. There is no evidence of deep vein thrombosis on either side. Valvular competence appears in tact within the proximal deep venous systems bilaterally. The great saphenous veins appear bila terally patent and compressible segmentally. A non-vascular, hypoechoic structure is noted in the right popliteal space, measuring 0.94 cm x 2.20 cm x 3.14 cm. This probably represents a poplit eal cyst. Clinical correlation is advised. Ordering Physician: John Royal Referring Physician: Armand Riley Performed By: Esmer Quiñones RVT
== END ==
PROVIDERS: PCP Family Medicine; Referring Provider Podiatrist; Visit Provider Podiatrist
DX: M79.89 Other specified soft tissue disorders (principal)
CPT/HCPCS: 93970

== ENCOUNTER → 2021-05-25 16:28 | Outpatient (CLI) | payer MEDICARE, OTHER, SELFPAY ==
[2021-05-20 13:28] VITALS: BMI 31.6
[2021-05-25 17:20] LABS: Hematocrit 39.5 % (37-47); Hemoglobin 13.1 g/dL (12.0-15.0); Mean Corp Hgb Conc 33.2 g/dL (32-36); Mean Corpuscular Hgb 32.6 pg (27.0-32.0); Mean Corpuscular Volume 98.3 fL (81-99); Mean Platelet Vol. 10.4 fl (6.2-12.0); Platelet Count 272 K/mm3 (150-450); RBC Distribution Width CV 12.4 % (11.6-14.6); RBC Distribution Width SD 44.8 fl (35.1-43.9); Red Blood Count 4.02 M/mm3 (4.2-5.4); White Blood Count 6.4 K/mm3 (4.4-11.0)
[2021-05-25 17:46] LABS: AST(SGOT) 18 U/L (15-37); Alanine Aminotransfer ALT/SGPT 22 U/L (13-56); Albumin, Serum 3.6 g/dL (3.2-5.0); Alkaline Phosphatase 88 U/L (45-117); Anion Gap 6 (5-15); BUN 32 mg/dL (7-18); BUN/Creat Ratio 25.2 RATIO (10-20); Calcium,Total 9.3 mg/dL (8.5-10.1); Chloride 104 mmol/L (98-107); Creatinine, Serum 1.27 mg/dL (0.55-1.02); EST Glomerular Filtration Rate 44 mL/min (>60); Est Glom Filt Rate - Afr Amer 53 mL/min (>60); Globulin 3.6 g/dL (2.2-4.2); Glucose 110 mg/dL (74-106); Potassium 4.2 mmol/L (3.5-5.1); Protein, Total 7.2 g/dL (6.4-8.2); Sodium Level 138 mmol/L (136-145)
[2021-05-25 17:48] LABS: Hemoglobin A1c 5.8 % (3.8-5.6)
== END ==
PROVIDERS: PCP Family Medicine; Referring Provider Podiatrist; Visit Provider Podiatrist
DX: E11.621 Type 2 diabetes mellitus with foot ulcer (principal); L97.522 Non-pressure chronic ulcer of other part of left foot with fat layer exposed; E11.42 Type 2 diabetes mellitus with diabetic polyneuropathy
CPT/HCPCS: 36415; 80053; 83036; 85027

== ENCOUNTER 2021-06-03 13:15 | Outpatient (RCR) | payer MEDICARE, OTHER, SELFPAY ==
[2021-05-20 13:28] VITALS: BP 144/76; PULSE 60; RESP 18; TEMP 36.9; BMI 31.6
--- NOTE | 2021-05-20 15:49 | PCM.WC.HP ---
History of Present Illness Date of Service: 05/20/21 Chief Complaint: left great toe ulcer History of Wound: This patient was referred to the wound healing center for chronic and recurrent left hallux ulcer that has been intermittent for almost 2 years. She is a very active 76-year-old female who has difficulty offloading. She has had multiple left foot surgical intervention by various physicians in [place]. She denies recent trauma. She relates she was diagnosed with diabetes approximately 1 year ago and her last A1c level was 5.4%. She has intermittently been on the keto diet and lost a significant amount of weight. She denies claudication however she does have temperature changes to the lower extremities. She does have some altered sensation also. She was referred from the foot and ankle center. She denies odor or redness. She had recent foot xrays at the foot and ankle center with Dr. Royal. Progress of Wound: stable [facility] Medical History Diabetes Hypertension Lymphedema Home Medications levothyroxine 137 mcg PO DAILY #30 tablet 02/23/17 [Rx Last Taken 07/25/18] pravastatin 40 mg PO DAILY #30 tablet 02/23/17 [Rx Last Taken 07/25/18] propranolol 40 mg PO BID #60 tablet 02/23/17 [Rx Last Taken 07/25/18] tizanidine [Zanaflex] 2 mg PO 4X/DAY PRN PRN #60 capsule 02/23/17 [Rx Last Taken 07/25/18] furosemide 40 mg PO DAILY 03/30/17 [History Last Taken 07/19/18] diclofenac sodium 1 ea TOPICAL DAILY 07/26/18 [History Last Taken Unknown] fluticasone propionate 2 puff INHALATION DAILY PRN PRN 07/26/18 [History Last Taken Unknown] gabapentin 300 mg PO TID 07/26/18 [History Last Taken 07/21/18] hydrocodone-acetaminophen 1 tab PO TID PRN PRN 07/26/18 [History Last Taken Unknown] losartan 100 mg PO DAILY 07/26/18 [History Last Taken 07/25/18] montelukast 10 mg PO DAILY PRN PRN 07/26/18 [History Last Taken 07/21/18] venlafaxine 150 mg PO DAILY 07/26/18 [History Last Taken 07/25/18] food supplemt, lactose-reduced [Ensure Enlive] 120 ml PO 4X/DAY #100 liquid 07/28/18 [Rx Last Taken Unknown] bupropion HCl 150 mg PO DAILY 02/28/21 [History Last Taken Unknown] paroxetine HCl [Paxil] 10 mg PO DAILY 02/28/21 [History Last Taken Unknown] Allergy/AdvReac Type Severity Reaction Status Date / Time cefuroxime [From Ceftin] Allergy Itching Verified 02/28/21 17:00 Cephalosporins Allergy Anaphylaxis Verified 02/28/21 17:00 codeine Allergy Itching Verified 02/28/21 17:00 Social History Smoking Status: Never smoker ROS Constitutional Constitutional: Denies lethargy or malaise Cardiovascular Cardiovascular: Denies vomiting Gastrointestinal Gastrointestinal: Denies nausea or vomiting Musculoskeletal Musculoskeletal: Denies numbness or tingling Integumentary Integumentary: Reports skin ulcer and wounds Neurologic Neurologic: Reports tingling Vital Signs Vital Signs Vital Signs: 05/20/21 13:28 Temperature 98.4 F Temperature Source Temporal Pulse Rate 60 Respiratory Rate 18 Blood Pressure 144/76 H Blood Pressure Mean 98 Blood Pressure Source Monitor Weight Weight: 99.798 kg Body Mass Index (BMI) 31.6 Physical Exam Const alert and oriented x3 General Appearance: cooperative HEENT normocephalic Extremity Extremity Narrative: No calf tenderness Diminished pulses DP nonpalpable PT bilateral Muscle wasting noted Rigidly fixated first metatarsophalangeal joint with hallux in rectus position at the metatarsophalangeal joint and dorsiflexed at the hallux interphalangeal joint Dorsal contraction of lesser digits consistent with hammertoe deformities also No left lower extremity bogginess or fluctuance General Extremity: edema and no tenderness to palpation of joints or extremities; Negative for cyanosis Skin Skin Narrative: no purulence, no streaking, no odor, no infection. Granular tissue and fissure fashion noted to distal left hallux. Adjacent skin is hairless and atrophic. No eschar or deep necrosis noted. Multiple forefoot cicatrix noted consistent with her prior multiple foot surgeries General Skin Exam: Negative for erythema Neuro Neuro Narrative: lack of normal epicritic sensation via light touch is consistent with neuropathy status Psych cooperative and affect normal Debridement Note Debridement Note Post-Debridement Measurements and Additional Note: Post-Debridement Measurements/Treatment WC - Nurse 1 - General Ulcer Assessment Start: 05/20/21 13:17 Freq: Status: Active Protocol: HEMANTH Activity Type Activity Date Activity User E-Sign Co-Sign Detail Recorded Client Recorded Date Recorded By Document 05/20/21 13:28 DL [id number] 05/20/21 13:53 DL 05/20/21 13:28 WC - Today's Visit Information Type of service Initial Visit Arrival Mode Ambulatory Transfer Assistance None Patient Identification Verified (Name & Yes ) Patient Requires Transmission-Based No Precautions Finger Stick Blood Sugar(mg/dl) (if 121 indicated): Blood Sugar Stated by Patient Height and Weight Height 5 ft 10 in Weight 99.798 kg Weight in Pounds 220.0 lbs Body Mass Index (BMI) 31.6 BMI Classification Obese BSA - Rosa M 2.17 Vital Signs Temperature (97.8 F-99.1 F) 98.4 F Temperature Source Temporal Pulse Rate (60-100) 60 Pulse Location Monitor Respiratory Rate (12-18) 18 Respiratory rate source Observation Blood Pressure (90/60-120/80) 144/76 H Blood Pressure Mean 98 Source Monitor Pain Scale: 0-10 Numeric Is Patient Pain Free? Yes Lower Extremity Assessment/ Foot Assessment/ Toe Nail Assessment Left -Posterior Tibial Doppler Monophasic -Dorsalis Pedis Doppler Monophasic -Extremity Color Hemosiderin -Hair Growth on Legs Yes -Hair Growth on Toes No -Temperature of Extremity Warm -Capillary Refill Greater than 3 Seconds -Dependent Rubor No -Blanched when Elevated No -Lipodermatosclerosis No -Other Deformity Yes -Prior Foot Ulcer Yes -Thick Yes -Discolored Yes -Deformed No -Improper Length & Hygeine No Right -Posterior Tibial Doppler Monophasic -Dorsalis Pedis Doppler Monophasic -Extremity Color Hemosiderin -Hair Growth on Legs Yes -Hair Growth on Toes No -Temperature of Extremity Warm -Capillary Refill Greater than 3 Seconds -Dependent Rubor No -Blanched when Elevated No -Lipodermatosclerosis No -Other Deformity No -Prior Foot Ulcer No -Prior Amputation No -Thick Yes -Discolored Yes -Deformed No -Improper Length & Hygeine No Neuropathy Assessment Feet - Top Side and Bottom <Entered> (a) Communication Assessment Preferred language French Able to Read Yes Able to Write Yes Right Hearing Abillity Normal Left Hearing Abillity Normal Visual Assistive Devices Glasses Teaching Assessment Preferences Verbal,Written, Demonstration Barriers to Learning None Readiness To Learn Good Readiness to Engage in Self Management Med Activities Anxiety Level Calm Cooperation Cooperative Perception Coherent Interest in Health Problem Asks Questions Education Importance Acknowledges Need Does Patient Smoke tobacco or other No substances Smoking Status Never smoker Is Patient Diabetic Yes Functional Assessment Recent Decline in Ability to Perform Denies Any Declines Culture/Caodaism/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 Electrical Prospecting Operator to contact place of church No Teaching: Wound Center Eliminating Foot Pressure -Person Taught Patient Dressing Your Wound -Person Taught Patient Diagnostic Tests Ordered -Person Taught Patient *Welcome to the Wound Center -Person Taught Patient (a) 1 - _ 2 - - 3 - + 4 - _ WC - Nurse 1 - General Ulcer Measurement Start: 05/20/21 13:17 Freq: Status: Active Protocol: Activity Type Activity Date Activity User E-Sign Co-Sign Detail Recorded Client Recorded Date Recorded By Document 05/20/21 13:28 DL [id number] 05/20/21 13:53 DL 05/20/21 13:28 Wound Center Nurse 1 #1 L Grt Toe -Current Size (cm) - Length 1.8 -Current Size (cm) - Width 1.4 -Current Size (cm) - Depth 0.1 -Total Square Cm 2.52 -Photo Taken Yes -Classification - Thickness Full Thickness without Exposed Support Structure -Exudate Amt Small -Exudate Type Serosanguineous -Wound Margin Thickened -Granulation Amt Small (1-33%) -Granulation Quality [place] -Necrosis Amt Small (1-33%) -Necrotic Tissue Type Adherent Slough -Structure Exposed N/A -Texture (Cuca-wound Skin Appearance) Callus,Scarring -Moisture (Cuca-wound Skin Appearance) Dry/Scaly -Color (Cuca-wound Skin Appearance) No Abnormality -Temperature (Cuca-wound Skin No Abnormality Appearance) (Pt Warm) -Tenderness on Palpation (Cuca-wound No Skin Appearance) -Ulcer Cleansing Wound Cleanser -Foul Odor after Cleansing No -Anesthetic Used 4% Lidocaine Solution Right Calf (cm) 44.5 Right Ankle (cm) 25 Left Calf (cm) 45 Left Ankle (cm) 31.5 WC - Nurse 2 - General Ulcer CM Notes Start: 05/20/21 13:17 Freq: Status: Active Protocol: Activity Type Activity Date Activity User E-Sign Co-Sign Detail Recorded Client Recorded Date Recorded By Document 05/20/21 14:15 TUAN [id number] 05/20/21 14:20 TUAN 05/20/21 14:15 Wound Center Nurse 2 #1 L Grt Toe -Time 14:16 -Correct Patient Yes -Correct Side, Site, Position Yes -Correct Procedure Yes -Procedure Performed Yes -Type of Procedure Debridement -Clinical Debridement Subcutaneous -Tissue Removed Subcutaneous -Post Debridement (cm) - Length 2 -Post Debridement (cm) - Width 0.3 -Post Debridement (cm) - Depth 0.2 -Total Square (Post) (cm) 0.6 -Area of Debridement (cm) - Length 2 -Area of Debridement (cm) - Width 0.3 -Total Square (Area) (cm) 0.6 -Tunneling No -Undermining/Tunneling No -Circular Undermining No -Wound/Ulcer Outcome Not Healed -Ulcer Cleansing Rinsed/ Irrigated with Saline -Foul Odor after Cleansing No -Bioengineered Tissue No -Bleeding Controlled with Pressure -Offloading Yes -Type of Offloading Surgical Shoe -Treatment Response Procedure Tolerated Well -Debridement - Subq, 1st 20sq cm Yes Pain Scale: 0-10 Numeric Is Patient Pain Free? Yes - Nurse 3 - General Ulcer D/C NN Start: 05/20/21 13:17 Freq: Status: Active Protocol: Activity Type Activity Date Activity User E-Sign Co-Sign Detail Recorded Client Recorded Date Recorded By Document 05/20/21 14:29 ALISHA [id number] 05/20/21 14:31 DL 05/20/21 14:29 Wound Care Nurse 3 #1 L Grt Toe -Ulcer Cleansing Rinsed/ Irrigated with Saline -Foul Odor after Cleansing No -Primary Dressing Applied Aquacel AG 4x4 -Primary Dressing Covered/Secured with Dry Gauze & Roll Gauze, Secured with Tape -Aquacel AG 4x4 1 Left -Stockings Yes Treatment Response Procedure Tolerated Well Pain Scale: 0-10 Numeric Is Patient Pain Free? Yes WC - Visit Discharge Discharge Condition Stable Ambulatory Status Ambulatory Transportation Private Auto Wound debrided: distal left hallux Wound Grade/Stage: 1 Type of Debridement: Excisional debridement Anesthesia Used: 4% Lidocaine Solution Depth: in the subcutaneous layer Percentage of wound debrided: 100 Instrument Used: #15 blade Tissue Removed: fibrous, devitalized subcutaneous, biofilm, slough Severity: Fat Layer Exposed Amount of bleeding with debridement: Mild Bleeding Controlled with: Pressure Patient tolerated procedure: Patient tolerated procedure well Assessment/Plan Assessment/Plan (1) Non-pressure chronic ulcer of other part of left foot with fat layer exposed: CODE(S): L97.522 - Non-pressure chronic ulcer of other part of left foot with fat layer exposed (2) Bone infection: CODE(S): M86.9 - Osteomyelitis, unspecified (3) Other specified peripheral vascular diseases: CODE(S): I73.89 - Other specified peripheral vascular diseases (4) Venous insufficiency (chronic) (peripheral): CODE(S): I87.2 - Venous insufficiency (chronic) (peripheral) (5) Malnutrition: CODE(S): E46 - Unspecified protein-calorie malnutrition (6) Hallux malleus of left foot: CODE(S): M20.32 - Hallux varus (acquired), left foot PLAN: I reviewed and discussed her case today. Debridement was performed today as noted in the clinical panel to all of the ulcer site. Her medical records are reviewed including notes and x-rays that were obtained at the foot and ankle Center. The following work up and care recommendations were made: Dressing: Daily Aquacel Ag Wash: Antibacterial soap and water Offload: To continue heel weightbearing with left surgical shoe with offloading felt and Plastizote liners that were previously fabricated at the foot and ankle Center Vascular: Due to her delayed healing and difficult to palpate pulses I recommend noninvasive vascular studies to evaluate arterial viability. An order was provided today. Edema: Tubigrip dispensed. To intermittently elevate the limbs at rest. I recommend work-up for venous insufficiency and a venous Doppler was performed. An order for additional reflux evaluation was provided. It is noted she had a venous Doppler performed on 03-04-21 and this was negative for DVT however this did not specifically assess for venous insufficiency. Infection: She does not have a clinical local or systemic illness today however at the chronicity and recurrent nature of this ulcer is concerning. Her imaging will be reviewed and additional lab work is ordered to work-up potential underlying chronic osteomyelitis. Diagnostic data: I recommend updating her lab work including CBC, CMP, ESR, C-reactive protein Imaging: Her x-rays were reviewed from the foot and ankle Center from 04-14-21 without any soft tissue emphysema, fracture or dislocation, or foreign body. It is noted she had a prior arthrodesis of the first metatarsal phalangeal joint with plates and screws in place in a rectus position. There does not appear to be any hardware malfunction. There is an area of osteolysis at the distal tip of the distal phalanx of the hallux and the position of this hallux interphalangeal joint is dorsiflexed and the hallux malleus position. This may be consistent with mechanical pressure for osteomyelitis. Pain: Controlled Host factors: She is diabetic and appears to be fairly controlled at this time. To continue to work with lifestyle management and PCP coordination to optimize her health. I recommend nutritional supplementation including Antoine to optimize healing. She is familiar with nutritional services at the hospital and I recommend deferring to their nutritional recommendations as opposed to doing a keto diet. Overall plan: It is noted she has failed comprehensive wound healing management at another office and at this time I recommend further work-up with the a forementioned test and potentially also advanced imaging. If she fails to heal a partial hallux amputation will be considered for potential osteomyelitis treatment with an ID referral and antibiotics if her diagnostic data supports this. I answered all the patient's questions. To return to the wound healing center in 1 week or call sooner if the patient has any questions or concerns. Note: [employer] speech recognition reliability technician software was used to create portions of this document. Sound-alike and misspelled words, as well as other reliability technician errors may be contained in the documentation. 32 minutes was spent on this encounter. This included face to face and non face to face care including preparing for the visit, reviewing the history, performing the exam, counseling and providing education to the patient, family, or caregiver, ordering medications/test/ procedures if indicated as documented, communicating with other healthcare providers, documenting information in the medical record, interpreting / sharing this information when indicated as documented, and care coordination. The medical decision making level is moderate based on data including at least three of the following: review of prior external notes, review of a test, ordering a test, assessment requiring an independent historian.
--- NOTE | 2021-06-02 12:50 | ART_ITS ---
Reason For Study: ulcer Procedure A bilateral lower extremity continuous wave Doppler with analog waveform analysis,segmental pressures,and ankle brachial indexes without exercise. Left Segmental Pressures Left brachial= 195mmHg. Left posterior tibial artery = 215mmHg. Left dorsalis pedis artery = 211mmHg. Left digit = 201 mmHg. The left dorsalis pedis waveforms are triphasic. The left posterior tibial artery waveforms are triphasic. Right Segmental Pressures Right brachial= 195mmHg. Right posterior tibial artery = 211mmHg. Right dorsalis pedis artery = 210mmHg. Right digit = 160 mmHg. The right dorsalis pedis waveforms are biphasic. The right posterior tibial artery waveforms are biphasic. Indices The right ankle brachial index by the dorsalis pedis is 1.08. The right ankle brachial index by the posterior tibial artery is 1.08. The right digital-brachial index is .82. The left ankle brachial index by the dorsalis pedis is 1.08. The left ankle brachial index by the posterior tibial artery is 1.1. The left digital-brachial index is 1.03. VL/Lower Ext Art Exam w/o Exercis Interpretation Summary Biphasic Doppler waveforms are noted at ankle level on the right. Triphasic Dop pler waveforms are noted at ankle level on the left. Pulse-volume recordings appear satisfactory a t all levels bilaterally. Resting ankle-brachial indices are normal bilaterally. Digital-bra chial indices are normal bilaterally. There is no evidence of significant arterial occlusive disease in the lower ext remities bilaterally. Ordering Physician: Laura Read Performed By: NADEEN POZO T
--- NOTE | 2021-06-02 12:50 | VDLE_ITS ---
Reason For Study: edema RIGHT LEFT CFV is compressible, spontaneous, phasic, CFV is compressible, spontaneous, phasic, competent and demonstrates normal competent, and demonstrates normal augmentation. augmentation. FV is compressible, spontaneous, phasic, FV is compressible, spontaneous, phasic, competent and demonstrates normal competent and demonstrates normal augmentation. augmentation. POP V is compressible, spontaneous, phasic, POP V is compressible, spontaneous, phasic, competent and demonstrates normal competent and demonstrates normal augmentation. augmentation. T/P Trunk is compressible. T/P Trunk is compressible. PTV is compressible. PTV is compressible. RT PerV is compressible. LT PerV is compressible. GSV is absent. SFJ is INCOMPETENT and measures .68 cm. SFJ is competent and measures .7 cm. GSV proximal thigh measures .45 x .45 cm. SSV proximal calf is competent and GSV at knee measures .44 x .45 cm. measures .25 x .27 cm. GSV INCOMPETENT throughout for greater than ASV mid thigh is INCOMPETENT for greater than 0.5 seconds. 0.5 seconds and measures .39 cm. Short segment of the GSV in the mid thigh is Procedure absent due to previous closure procedure. This is a venous duplex using B-mode, color Certified Orthotic Fitter V 10 cm proximal to the medial flow and spectral Doppler. malleolus is incompetent for greater than .5 Exam performed in department. seconds. The exam was diagnostic. SSV proximal calf is INCOMPETENT for greater than 0.5 seconds and measures .53 x .51 cm. VL/Venous Duplex US - Lance Extrem Interpretation Summary Deep veins of the lower extremities are bilaterally patent and compressible seg mentally. There is no evidence of deep vein thrombosis on either side. Valvular competence appears in tact within the proximal deep venous systems bilaterally. The right great saphenous vein is abs ent. The left great saphenous vein is patent and compressible, but for a short segment in the left mid-thigh which is absent due to a prior ablation procedure. The right sapheno-femoral junction is competent . The left sapheno-femoral junction is incompetent . The left great saphenous vein appears segmentally incompetent. The right small saphenous vein is patent and competent. The left s mall saphenous vein is patent and incompetent. The accessory saphenous vein in the right mid-thigh is incompetent. An incompetent director veterinary vein is noted in the left calf, located 10 centimeters p roximal to the left medial malleolus. Ordering Physician: Laura Read Performed By: Cy Lyons RVT
[2021-06-03 13:14] VITALS: BP 195/75; PULSE 58; RESP 18; TEMP 36.6; BMI 31.6
--- NOTE | 2021-06-03 14:41 | PCM.WC.PN ---
History of Present Illness Date of Service: 06/03/21 Chief Complaint: left great toe ulcer History of Wound: This patient was referred to the wound healing center for chronic and recurrent left hallux ulcer that has been intermittent for almost 2 years. She is a very active 76-year-old female who has difficulty offloading. She has had multiple left foot surgical intervention by various physicians in several [place]. She denies recent trauma. She relates she was diagnosed with diabetes approximately 1 year ago and her last A1c level was 5.4%. She has intermittently been on the keto diet and lost a significant amount of weight (85 pounds). She would like to go over blood flow study results and lab results. She reports less drainage and thinks the wound is healing. Progress of Wound: stable Objective Data Objective Data Vital Signs: Vital Signs Temp Pulse Resp BP 98 F 58 L 18 195/75 H 06/03/21 13:14 06/03/21 13:14 06/03/21 13:14 06/03/21 13:14 Weight: 99.798 kg Body Mass Index (BMI) 31.6 Radiography Diagnostic Testing: Radiology Impression Extremity Arterial Study 06/02/21 12:50 Interpretation Summary Biphasic Doppler waveforms are noted at ankle level on the right. Triphasic Doppler waveforms are noted at ankle level on the left. Pulse-volume recordings appear satisfactory at all levels bilaterally. Resting ankle-brachial indices are normal bilaterally. Digital-brachial indices are normal bilaterally. There is no evidence of significant arterial occlusive disease in the lower extremities bilaterally. Ordering Physician: Laura Read Performed By: NADEEN POZO T Venous Doppler Study 06/02/21 12:50 Interpretation Summary Deep veins of the lower extremities are bilaterally patent and compressible segmentally. There is no evidence of deep vein thrombosis on either side. Valvular competence appears intact within the proximal deep venous systems bilaterally. The right great saphenous vein is absent. The left great saphenous vein is patent and compressible, but for a short segment in the left mid-thigh which is absent due to a prior ablation procedure. The right sapheno-femoral junction is competent . The left sapheno-femoral junction is incompetent . The left great saphenous vein appears segmentally incompetent. The right small saphenous vein is patent and competent. The left small saphenous vein is patent and incompetent. The accessory saphenous vein in the right mid-thigh is incompetent. An incompetent laborer rags vein is noted in the left calf, located 10 centimeters proximal to the left medial malleolus. Ordering Physician: Laura Read Performed By: Nadeen Pozo RVT Physical Exam Const alert and oriented x3 General Appearance: cooperative HEENT normocephalic Extremity Extremity Narrative: No calf tenderness Diminished pulses DP nonpalpable PT bilateral Muscle wasting noted Rigidly fixated first metatarsophalangeal joint with hallux in rectus position at the metatarsophalangeal joint and dorsiflexed at the hallux interphalangeal joint Dorsal contraction of lesser digits consistent with hammertoe deformities also No left lower extremity bogginess or fluctuance General Extremity: edema and no tenderness to palpation of joints or extremities; Negative for cyanosis Skin Skin Narrative: no purulence, no streaking, no odor, no infection. Granular tissue and fissure fashion noted to distal left hallux. Adjacent skin is hairless and atrophic. No eschar or deep necrosis noted. Multiple forefoot cicatrix noted consistent with her prior multiple foot surgeries General Skin Exam: Negative for erythema Neuro Neuro Narrative: lack of normal epicritic sensation via light touch is consistent with neuropathy status Psych cooperative and affect normal Debridement Note Debridement Note Post-Debridement Measurements and Additional Note: Post-Debridement Measurements/Treatment WC - Nurse 1 - General Ulcer Assessment Start: 05/20/21 13:17 Freq: Status: Active Protocol: HEMANTH Activity Type Activity Date Activity User E-Sign Co-Sign Detail Recorded Client Recorded Date Recorded By Document 05/20/21 13:28 DL [id number] 05/20/21 13:53 DL Document 06/03/21 13:14 RB Desktop 06/03/21 13:18 RB 05/20/21 06/03/21 13:28 13:14 WC - Today's Visit Information Type of service Initial Visit Follow-up Visit (Physician/SYSTEMS INTEGRATION ANALYST ) Arrival Mode Ambulatory Ambulatory Transfer Assistance None None Patient Identification Verified (Name & Yes Yes ) Patient Requires Transmission-Based No No Precautions Finger Stick Blood Sugar(mg/dl) (if 121 indicated): Blood Sugar Stated by Patient Height and Weight Height 5 ft 10 in Weight 99.798 kg Weight in Pounds 220.0 lbs Body Mass Index (BMI) 31.6 31.6 BMI Classification Obese Obese BSA - Rosa M 2.17 Vital Signs Temperature (97.8 F-99.1 F) 98.4 F 98 F Temperature Source Temporal Temporal Pulse Rate (60-100) 60 58 L Pulse Location Monitor Monitor Respiratory Rate (12-18) 18 18 Respiratory rate source Observation Observation Blood Pressure (90/60-120/80) 144/76 H 195/75 H Blood Pressure Mean (mm Hg) 98 115 Source Monitor Monitor Position Semi-Fowlers Blood Pressure Location Left Arm History Since Last Visit- (Skip if this is Patient's initial visit) Have you changed medications since your No last visit? Any new allergies or adverse reactions No Had a fall/change in ADL's that may No increase risk of falls Signs or symptoms of abuse and/or No neglect since last visit Have you been in the hospital since your No last visit? Has dressing in place as prescribed Yes Has compression in place as prescribed No Has offloadiing in place as prescribed Yes Experienced any changes in pain level or No management Pain Scale: 0-10 Numeric Is Patient Pain Free? Yes Yes Lower Extremity Assessment/ Foot Assessment/ Toe Nail Assessment Left -Posterior Tibial Doppler Monophasic -Dorsalis Pedis Doppler Monophasic -Extremity Color Hemosiderin -Hair Growth on Legs Yes -Hair Growth on Toes No -Temperature of Extremity Warm -Capillary Refill Greater than 3 Seconds -Dependent Rubor No -Blanched when Elevated No -Lipodermatosclerosis No -Other Deformity Yes -Prior Foot Ulcer Yes -Thick Yes -Discolored Yes -Deformed No -Improper Length & Hygeine No Right -Posterior Tibial Doppler Monophasic -Dorsalis Pedis Doppler Monophasic -Extremity Color Hemosiderin -Hair Growth on Legs Yes -Hair Growth on Toes No -Temperature of Extremity Warm -Capillary Refill Greater than 3 Seconds -Dependent Rubor No -Blanched when Elevated No -Lipodermatosclerosis No -Other Deformity No -Prior Foot Ulcer No -Prior Amputation No -Thick Yes -Discolored Yes -Deformed No -Improper Length & Hygeine No Neuropathy Assessment Feet - Top Side and Bottom <Entered> (a) Communication Assessment Preferred language Malagasy Able to Read Yes Able to Write Yes Right Hearing Abillity Normal Left Hearing Abillity Normal Visual Assistive Devices Glasses Teaching Assessment Preferences Verbal,Written, Demonstration Barriers to Learning None Readiness To Learn Good Readiness to Engage in Self Management Med Activities Anxiety Level Calm Cooperation Cooperative Perception Coherent Interest in Health Problem Asks Questions Education Importance Acknowledges Need Does Patient Smoke tobacco or other No substances Smoking Status Never smoker Is Patient Diabetic Yes Functional Assessment Recent Decline in Ability to Perform Denies Any Declines Culture/[employer]aptist/Retail Cos[employer] 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 Retail Cosmetics Sales Beauty Advisor to contact place of voodoo No Teaching: Wound Center Eliminating Foot Pressure -Person Taught Patient Dressing Your Wound -Person Taught Patient Diagnostic Tests Ordered -Person Taught Patient *Welcome to the Wound Center -Person Taught Patient (a) 1 - _ 2 - - 3 - + 4 - _ - Nurse 1 - General Ulcer Measurement Start: 05/20/21 13:17 Freq: Status: Active Protocol: Activity Type Activity Date Activity User E-Sign Co-Sign Detail Recorded Client Recorded Date Recorded By Document 05/20/21 13:28 DL [id number] 05/20/21 13:53 DL Document 06/03/21 13:14 RB Desktop 06/03/21 13:18 RB 05/20/21 06/03/21 13:28 13:14 Wound Center Nurse 1 #1 L Grt Toe -Combined with other wound No -Current Size (cm) - Length 1.8 2.2 -Current Size (cm) - Width 1.4 0.3 -Current Size (cm) - Depth 0.1 0.2 -Total Square Cm 2.52 0.66 -Photo Taken Yes -Tunneling No -Undermining/Tunneling No -Circular Undermining No -Classification - Thickness Full Thickness without Exposed Support Structure -Exudate Amt Small Small -Exudate Type Serosanguineous Serosanguineous -Wound Margin Thickened Thickened -Granulation Amt Small (1-33%) Medium (34-66%) -Granulation Quality Humbird Humbird -Slough/Fibrin Yes -Necrosis Amt Small (1-33%) Small (1-33%) -Necrotic Tissue Type Adherent Slough Adherent Slough -Structure Exposed N/A N/A -Texture (Cuca-wound Skin Appearance) Callus,Scarring Callus -Moisture (Cuca-wound Skin Appearance) Dry/Scaly Assessed -Color (Cuca-wound Skin Appearance) No Abnormality Assessed -Temperature (Cuca-wound Skin No Abnormality No Abnormality Appearance) (Pt Warm) (Pt Warm) -Tenderness on Palpation (Cuca-wound No No Skin Appearance) -Ulcer Cleansing Wound Cleanser Wound Cleanser -Foul Odor after Cleansing No No -Anesthetic Used 4% Lidocaine 5% Lidocaine Solution Gel Right Calf (cm) 44.5 Right Ankle (cm) 25 Left Calf (cm) 45 Left Ankle (cm) 31.5 WC - Nurse 2 - General Ulcer CM Notes Start: 05/20/21 13:17 Freq: Status: Active Protocol: Activity Type Activity Date Activity User E-Sign Co-Sign Detail Recorded Client Recorded Date Recorded By Document 05/20/21 14:15 JF [id number] 05/20/21 14:20 Document 06/03/21 13:25 [id number] 06/03/21 13:32 05/20/21 06/03/21 14:15 13:25 Wound Center Nurse 2 #1 L Grt Toe -Time 14:16 13:25 -Correct Patient Yes Yes -Correct Side, Site, Position Yes Yes -Correct Procedure Yes Yes -Procedure Performed Yes Yes -Type of Procedure Debridement Debridement -Clinical Debridement Subcutaneous Subcutaneous -Tissue Removed Subcutaneous Subcutaneous -Post Debridement (cm) - Length 2 1.4 -Post Debridement (cm) - Width 0.3 1.1 -Post Debridement (cm) - Depth 0.2 0.1 -Total Square (Post) (cm) 0.6 1.54 -Area of Debridement (cm) - Length 2 1.4 -Area of Debridement (cm) - Width 0.3 1.1 -Total Square (Area) (cm) 0.6 1.54 -Tunneling No No -Undermining/Tunneling No No -Circular Undermining No No -Wound/Ulcer Outcome Not Healed Not Healed -Ulcer Cleansing Rinsed/ Rinsed/ Irrigated with Irrigated with Saline Saline -Foul Odor after Cleansing No No -Bioengineered Tissue No No -Bleeding Controlled with Pressure Pressure -Offloading Yes Yes -Type of Offloading Surgical Shoe Surgical Shoe -Treatment Response Procedure Procedure Tolerated Well Tolerated Well -Debridement - Subq, 1st 20sq cm Yes Yes Pain Scale: 0-10 Numeric Is Patient Pain Free? Yes Yes - Nurse 3 - General Ulcer D/C NN Start: 05/20/21 13:17 Freq: Status: Active Protocol: Activity Type Activity Date Activity User E-Sign Co-Sign Detail Recorded Client Recorded Date Recorded By Document 05/20/21 14:29 DL [id number] 05/20/21 14:31 DL Document 06/03/21 13:36 RB Desktop 06/03/21 13:37 RB 05/20/21 06/03/21 14:29 13:36 Wound Care Nurse 3 #1 L Grt Toe -Ulcer Cleansing Rinsed/ Rinsed/ Irrigated with Irrigated with Saline Saline -Foul Odor after Cleansing No -Primary Dressing Applied Aquacel AG 4x4 Aquacel AG 2x2 -Primary Dressing Covered/Secured with Dry Gauze & Dry Gauze,Dry Roll Gauze, Gauze & Roll Secured with Gauze,Secured Tape with Tape -Aquacel AG 4x4 1 -Aquacel AG 2x2 1 Left -Stockings Yes Yes Treatment Response Procedure Procedure Tolerated Well Tolerated Well Pain Scale: 0-10 Numeric Is Patient Pain Free? Yes - Visit Discharge Discharge Condition Stable Stable Ambulatory Status Ambulatory Ambulatory Transportation Private Auto Private Auto Medication Reconcilliation completed & No provided to patient/care provider Clinical Summary of Care Provided Yes Wound debrided: distal hallux Wound Grade/Stage: 1 Type of Debridement: Excisional debridement Anesthesia Used: 4% Lidocaine Solution Depth: in the subcutaneous layer Percentage of wound debrided: 100 Instrument Used: #15 blade Tissue Removed: fibrous, devitalized subcutaneous, biofilm, slough Severity: Fat Layer Exposed Amount of bleeding with debridement: Mild Bleeding Controlled with: Pressure Patient tolerated procedure: Patient tolerated procedure well Assessment/Plan Assessment/Plan (1) Non-pressure chronic ulcer of other part of left foot with fat layer exposed: CODE(S): L97.522 - Non-pressure chronic ulcer of other part of left foot with fat layer exposed (2) Bone infection: CODE(S): M86.9 - Osteomyelitis, unspecified (3) Other specified peripheral vascular diseases: CODE(S): I73.89 - Other specified peripheral vascular diseases (4) Venous insufficiency (chronic) (peripheral): CODE(S): I87.2 - Venous insufficiency (chronic) (peripheral) (5) Malnutrition: CODE(S): E46 - Unspecified protein-calorie malnutrition (6) Hallux malleus of left foot: CODE(S): M20.32 - Hallux varus (acquired), left foot PLAN: I reviewed and discussed her case today. Debridement was performed today as noted in the clinical panel to all of the ulcer site. Her medical records are reviewed including notes and x-rays that were obtained at the foot and ankle Center. The following work up and care recommendations were made: Dressing: Daily Aquacel Ag Wash: Antibacterial soap and water Offload: To continue heel weightbearing with left surgical shoe with offloading felt and Plastizote liners that were previously fabricated at the foot and ankle Center Vascular: I reviewed her recent noninvasive vascular study results that were performed at [facility]. No gross abnormalities were noted and she appears to have adequate perfusion. Edema: Tubigrip dispensed. To intermittently elevate the limbs at rest. I recommend work-up for venous insufficiency and a venous Doppler was performed. An order for additional reflux evaluation was provided. It is noted she had a venous Doppler performed on 03-04-21 and this was negative for DVT however this did not specifically assess for venous insufficiency. Infection: She does not have a clinical local or systemic illness today however at the chronicity and recurrent nature of this ulcer is concerning. Her imaging will be reviewed and additional lab work is ordered to work-up potential underlying chronic osteomyelitis. Diagnostic data: I recommend updating her lab work including CBC, CMP, ESR, C-reactive protein Imaging: Her x-rays were reviewed from the foot and ankle Center from 04-14-21 without any soft tissue emphysema, fracture or dislocation, or foreign body. It is noted she had a prior arthrodesis of the first metatarsal phalangeal joint with plates and screws in place in a rectus position. There does not appear to be any hardware malfunction. There is an area of osteolysis at the distal tip of the distal phalanx of the hallux and the position of this hallux interphalangeal joint is dorsiflexed and the hallux malleus position. This may be consistent with mechanical pressure for osteomyelitis. Labs: No gross abnormalities were noted with the CBC. She does not have leukocytosis. It is noted that her creatinine slightly elevated and her GFR is estimated around 44. Pain: Controlled Host factors: She is diabetic and appears to be fairly controlled at this time. To continue to work with lifestyle management and PCP coordination to optimize her health. I recommend nutritional supplementation including Antoine to optimize healing. She is familiar with nutritional services at the hospital and I recommend deferring to their nutritional recommendations as opposed to doing a keto diet. This is especially recommended due to her recent declining kidney function that is noted on her laboratory values today. Overall plan: It is noted she has failed comprehensive wound healing management at another office and at this time. If she fails to heal, a partial hallux amputation will be considered for potential osteomyelitis treatment with an ID referral and antibiotics if her diagnostic data supports this. If she is cleared from osteomyelitis diagnosis, arthrodesis is also an option of the hallux interphalangeal joint. I answered all the patient's questions. To return to the wound healing center in 1 week or call sooner if the patient has any questions or concerns. Note: [employer] speech recognition cancer program director software was used to create portions of this document. Sound-alike and misspelled words, as well as other cancer program director errors may be contained in the documentation. 22 was spent on this encounter. This included face to face and non face to face care including preparing for the visit, reviewing the history, performing the exam, counseling and providing education to the patient, family, or caregiver, ordering medications/test/ procedures if indicated as documented, communicating with other healthcare providers, documenting information in the medical record, interpreting / sharing this information when indicated as documented, and care coordination.
== END 2021-06-09 23:59 ==
LOC: WC 13:15
PROVIDERS: PCP Family Medicine; Referring Provider Podiatrist; Visit Provider Podiatrist
DX: E11.621 Type 2 diabetes mellitus with foot ulcer (principal); L97.522 Non-pressure chronic ulcer of other part of left foot with fat layer exposed; E11.51 Type 2 diabetes mellitus with diabetic peripheral angiopathy without gangrene; E11.69 Type 2 diabetes mellitus with other specified complication; M86.60 Other chronic osteomyelitis, unspecified site; I89.0 Lymphedema, not elsewhere classified; I87.2 Venous insufficiency (chronic) (peripheral); M20.32 Hallux varus (acquired), left foot; I10 Essential (primary) hypertension; E66.9 Obesity, unspecified; Z68.31 Body mass index [BMI] 31.0-31.9, adult; Z79.890 Hormone replacement therapy; Z79.899 Other long term (current) drug therapy; R60.0 Localized edema
CPT/HCPCS: 11042; 93923; 93970; 99213; G0463

== ENCOUNTER 2021-06-28 16:02 | Emergency (ER) | payer MEDICARE, OTHER, SELFPAY ==
[2021-06-28 16:02] VITALS: BP 122/67; PULSE 63; RESP 18; TEMP 36; O2SAT 95; BMI 31.8
[2021-06-28 18:05] VITALS: BP 162/90; PULSE 50; RESP 17; O2SAT 100
--- NOTE | 2021-06-28 18:07 | EX.ED.DYSGE1 ---
HPI History of Present Illness Chief Complaint: Lower Extremity Injury Narrative Narrative: 76-year-old female presenting with chronic right shoulder pain also complaining of left hamstring area pain. Patient states that she was gardening and felt this pool yesterday. She states that her right shoulder also hurts a little more today. She has been told that she should not do anything to physically difficult because of her chronic pain issues. She recently underwent physical therapy for her right shoulder and had been getting improved. She is also scheduled for follow-up for her left shoulder to have injections. Patient is in pain management and takes hydrocodone 7.5 mg 3 times daily. She also takes Zanaflex. Patient states that she is ambulatory. Patient also complained of diarrhea for the last couple of days. She states she has a history of C. difficile but has not been on any recent antibiotics. She denies any fever, chills, abdominal pain. Patient also states that she cut the dorsum of her left hand on her index finger 2 days ago. She is been keeping this clean and dry. She wants this evaluated as well. [facility] Medical History Diabetes Hypertension Lymphedema Home Medications levothyroxine 137 mcg PO DAILY #30 tablet 02/23/17 [Rx Last Taken 07/25/18] pravastatin 40 mg PO DAILY #30 tablet 02/23/17 [Rx Last Taken 07/25/18] propranolol 40 mg PO BID #60 tablet 02/23/17 [Rx Last Taken 07/25/18] tizanidine [Zanaflex] 2 mg PO 4X/DAY PRN PRN #60 capsule 02/23/17 [Rx Last Taken 07/25/18] furosemide 40 mg PO DAILY 03/30/17 [History Last Taken 07/19/18] diclofenac sodium 1 ea TOPICAL DAILY 07/26/18 [History Last Taken Unknown] fluticasone propionate 2 puff INHALATION DAILY PRN PRN 07/26/18 [History Last Taken Unknown] gabapentin 300 mg PO TID 07/26/18 [History Last Taken 07/21/18] hydrocodone-acetaminophen 1 tab PO TID PRN PRN 07/26/18 [History Last Taken Unknown] losartan 100 mg PO DAILY 07/26/18 [History Last Taken 07/25/18] montelukast 10 mg PO DAILY PRN PRN 07/26/18 [History Last Taken 07/21/18] venlafaxine 150 mg PO DAILY 07/26/18 [History Last Taken 07/25/18] Ensure Enlive 120 ml PO 4X/DAY #100 liquid 07/28/18 [Rx Last Taken Unknown] bupropion HCl 150 mg PO DAILY 02/28/21 [History Last Taken Unknown] paroxetine HCl [Paxil] 10 mg PO DAILY 02/28/21 [History Last Taken Unknown] Allergy/AdvReac Type Severity Reaction Status Date / Time cefuroxime [From Ceftin] Allergy Itching Verified 06/28/21 16:06 Cephalosporins Allergy Anaphylaxis Verified 06/28/21 16:06 codeine Allergy Itching Verified 06/28/21 16:06 Social History Smoking Status: Never smoker ROS ROS ED Constitutional Constitutional ED: Denies chills or fever(s) Eyes Eyes: Denies blurry vision or change in vision ENT ENT ED: Denies rhinorrhea or sore throat Cardiovascular Cardiovascular: Denies chest pain or palpitations Respiratory/Chest Respiratory/Chest: Denies cough or dyspnea Gastrointestinal Gastrointestinal: Reports diarrhea; Denies abdominal pain, nausea or vomiting Genitourinary Genitourinary ED: Denies dysuria or hematuria Musculoskeletal Musculoskeletal: Reports other Details: Right shoulder pain, left hamstring pain, left index finger pain Integumentary Reports other Details: Superficial laceration to the left Neurologic Neurologic: Denies headache(s) or paresthesias EXAM Physical Exam Const Vital Signs: 06/28/21 16:02 06/28/21 18:05 Temperature 96.8 F L Temperature Source Temporal Pulse Rate 63 50 L Respiratory Rate 18 17 Blood Pressure 122/67 H 162/90 H Blood Pressure Mean 85 114 Pulse Ox 95 100 Oxygen Delivery Method Room Air Room Air Positive well nourished General Appearance ED: NAD HEENT Negative for trauma or tenderness Eyes PERRL and EOMs intact bilaterally Resp normal respiratory effort Cardio regular rate and regular rhythm Extremity Extremity Narrative: Tenderness palpation along the hamstring. Patient is able to stand up in ambulate with antalgic gait. Tenderness palpation over the entirety of the right shoulder. Patient has no difficulty with range of motion of the right shoulder. There is no obvious bony deformity. Neuro oriented x3 Sensorium / Orientation: alert Psych mental status grossly normal Skin Skin Narrative: Superficial laceration over the dorsum of the left hand approximately 4 cm. No surrounding induration or erythema. No crepitance. No bony tenderness. Left hand neurovascular intact brisk cap refill to all 5 fingers. MDM MDM MDM Narrative Medical decision making narrative: Patient presenting with multiple complaints. She has right shoulder pain but is able to use her right shoulder she describe all of the pain in her left hamstring. She did not appear to be having any limitation in her range of motion. I do not palpate any bony abnormalities. I do not believe she needs an x-ray of her right shoulder currently. She has a chronic right shoulder condition for which she is being treated. Patient also is complaining of left hamstring pain. She has no bony tenderness. She is able to get up and ambulate with antalgic gait. She is offered a walker to help her assist but she does not wish to have [address] of [address] I will place an Og wrap over her hamstring for compression. The laceration on her left index finger does not appear to be infected. This was discussed with her to monitor for worsening signs of infection. Her tetanus was updated today. She did have a complaint of diarrhea and wanted to be checked C. difficile although she is not been on any recent antibiotics. This will be sent after the patient is able to give a sample. Impression: 1. Right shoulder strain 2. Left hamstring strain 3. Left index finger laceration 2.5 cm 4. Diarrhea Discharge Plan Triage Chief Complaint: Lower Extremity Injury ED Provider: Demetrio Herrmann Dx/Rx/DC Orders Instructions: ED Diarrhea, Unknown Cause, ED Laceration, Old: Not Sutured, ED Muscle Strain, Extremity Prescriptions: No Action levothyroxine 137 MCG tablet 137 mcg PO DAILY Qty: 30 RF: 0 pravastatin 40 MG tablet 40 mg PO DAILY Qty: 30 RF: 0 propranolol 40 MG tablet 40 mg PO BID Qty: 60 RF: 0 tizanidine [Zanaflex] 2 MG capsule 2 mg PO 4X/DAY PRN PRN (Reason: Muscle Spasm) Qty: 60 RF: 0 furosemide 20 MG tablet 40 mg PO DAILY RF: 0 hydrocodone-acetaminophen 1 TABLET tablet 1 tab PO TID PRN PRN (Reason: Pain) RF: 0 gabapentin 800 tablet 300 mg PO TID RF: 0 montelukast 10 MG tablet 10 mg PO DAILY PRN PRN (Reason: Allergies) RF: 0 losartan 100 MG tablet 100 mg PO DAILY RF: 0 fluticasone propionate 50 spray,suspension 2 puff inhalation DAILY PRN PRN (Reason: Allergies) RF: 0 diclofenac sodium 100 GM gel 1 ea topical DAILY RF: 0 venlafaxine 150 MG tablet extended release 24hr 150 mg PO DAILY RF: 0 Ensure Enlive 120 ML liquid 120 ml PO 4X/DAY Qty: 100 RF: 0 bupropion HCl 150 mg tablet sustained-release 12 hr 150 mg PO DAILY RF: 0 paroxetine HCl [Paxil] 10 mg Tablet 10 mg PO DAILY RF: 0 Primary Care Provider: Lupillo Riley Referrals: Lupillo Riley MD [Primary Care Provider] - Disposition Disposition: Home, Self Care
[2021-06-28] MEDS: Diphth,Pertuss(Acell),Tet Vac 0.5 ML Vial IM (18:16)
--- NOTE | 2021-06-28 18:19 | ED.RN ---
patient concerned with infegion possible in finger. Talked to doctor and he says okay Has not had tetanus so requested. Taken to restroom via wc for stool
== END 2021-06-28 18:32 | disposition home or self-care (01) ==
LOC: ED 17:45
PROVIDERS: Emergency Provider Student in an Organized Health Care Education/Training Program; PCP Family Medicine
DX: S46.911A Strain of unspecified muscle, fascia and tendon at shoulder and upper arm level, right arm, initial encounter (principal); S76.312A Strain of muscle, fascia and tendon of the posterior muscle group at thigh level, left thigh, initial encounter; S61.211A Laceration without foreign body of left index finger without damage to nail, initial encounter; Z23 Encounter for immunization; X58.XXXA Exposure to other specified factors, initial encounter; Y93.H2 Activity, gardening and landscaping; Y92.9 Unspecified place or not applicable; Y99.9 Unspecified external cause status; R19.7 Diarrhea, unspecified; G89.29 Other chronic pain; E11.9 Type 2 diabetes mellitus without complications; I10 Essential (primary) hypertension; I89.0 Lymphedema, not elsewhere classified; Z79.890 Hormone replacement therapy; Z79.899 Other long term (current) drug therapy
CPT/HCPCS: 87493; 90471; 90715; 99282

== ENCOUNTER → 2021-07-03 08:50 | Outpatient (CLI) | payer MEDICARE, OTHER, SELFPAY ==
--- NOTE | 2021-07-03 08:53 | RAD_ITS ---
PROCEDURE: Fluoroscopic guided left shoulder Injection DATE: 07/03/2021 INDICATION: Female, 76 years old. Chronic left shoulder pain PHYSICIAN: Dinesh Cheng M.D. MEDICATIONS: 12 mg of BETAMETHASONE and 4 cc of 1% LIDOCAINE. 2% lidocaine administered subcutaneously for local anesthesia. ACCESS SITE: Left shoulder. NEEDLE: 22-gauge spinal needle. FLUOROSCOPY TIME (if supplied): (1:17) minutes/seconds. One image was obtained. FINDINGS: The risks, benefits, and alternatives to the procedure were explained to the patient. The specific risks of bleeding, infection, and neurovascular injury were detailed and accepted. Witnessed informed consent was obtained. A 22-gauge spinal needle was positioned under radiographic fluoroscopic localization. Approximately 2 cc of ISOVUE-300 instilled for localization purposes. Medication was then injected. The patient tolerated the procedure well without any immediate complications. RAD/Inj/Asp Du Jt Should/Hip/Knee IMPRESSION: 1. Successful fluoroscopic guided left shoulder injection Electronically Signed: Dinesh Cheng MD at 10:57 EDT , Service support ,
[2021-07-03] MEDS: Lidocaine 1% (5 ml sdv) 5 ML Vial 4 ML OPERA.SITE (09:10)
[2021-07-03] MEDS: Betamethasone/Betamethasone 30 MG/5 ML Vial 12 MG INTRAARTIC (09:10)
[2021-07-03] MEDS: Lidocaine 2% (5ml sdv) 5 ML VIAL.MPF INFILT (09:10)
== END ==
PROVIDERS: PCP Family Medicine; Referring Provider Specialist; Visit Provider Specialist
DX: M19.012 Primary osteoarthritis, left shoulder (principal); G89.29 Other chronic pain
CPT/HCPCS: 20610; 77002; Q9967; J0702

== ENCOUNTER 2021-07-08 10:30 | Outpatient (RCR) | payer MEDICARE, OTHER, SELFPAY ==
[2021-06-10 00:42] VITALS: BP 195/75; PULSE 58; RESP 18; TEMP 36.6; BMI 31.6
[2021-06-10 11:06] VITALS: BP 125/63; PULSE 46; RESP 18; TEMP 36.1; BMI 31.6
--- NOTE | 2021-06-10 11:51 | PN.PCM_ITS ---
History of Present Illness Date of Service: 06/10/21 Chief Complaint: left great toe ulcer History of Wound: This patient was referred to the wound healing center for chronic and recurrent left hallux ulcer that has been intermittent for almost 2 years. She is a very active 76-year-old female who has difficulty offloading. She has had multiple left foot surgical intervention by various physicians [place]. She denies recent trauma. She relates she was diagnosed with diabetes approximately 1 year ago and her last A1c level was 5.4%. She asks about the pros and cons of surgical options today. Progress of Wound: improving Objective Data Objective Data Vital Signs: Vital Signs Temp Pulse Resp BP 97 F L 46 L 18 125/63 H 06/10/21 11:06 06/10/21 11:06 06/10/21 11:06 06/10/21 11:06 Weight: 99.798 kg Body Mass Index (BMI) 31.6 Physical Exam Const alert and oriented x3 General Appearance: cooperative HEENT normocephalic Extremity Extremity Narrative: No calf tenderness Diminished pulses DP nonpalpable PT bilateral Muscle wasting noted Rigidly fixated first metatarsophalangeal joint with hallux in rectus position at the metatarsophalangeal joint and dorsiflexed at the hallux interphalangeal joint Dorsal contraction of lesser digits consistent with hammertoe deformities also No left lower extremity bogginess or fluctuance General Extremity: edema and no tenderness to palpation of joints or extremities; Negative for cyanosis Skin Skin Narrative: no purulence, no streaking, no odor, no infection. Granular tissue and fissure fashion noted to distal left hallux. Adjacent skin is hairless and atrophic. No eschar or deep necrosis noted. Multiple forefoot cicatrix noted consistent with her prior multiple foot surgeries General Skin Exam: Negative for erythema Neuro Neuro Narrative: lack of normal epicritic sensation via light touch is consistent with neuropathy status Psych cooperative and affect normal Debridement Note Debridement Note Post-Debridement Measurements and Additional Note: Post-Debridement Measurements/Treatment - Nurse 1 - General Ulcer Assessment Start: 06/10/21 11:06 Freq: Status: Active Protocol: ELIF.LOWEXT Activity Type Activity Date Activity User E-Sign Co-Sign Detail Recorded Client Recorded Date Recorded By Document 06/10/21 11:06 Desktop 06/10/21 11:08 RB 06/10/21 11:06 - Today's Visit Information Type of service Follow-up Visit (Physician/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 SALESPERSON ) Arrival Mode Ambulatory Transfer Assistance None Patient Identification Verified (Name & Yes ) Patient Requires Transmission-Based No Precautions Height and Weight Body Mass Index (BMI) 31.6 BMI Classification Obese Vital Signs Temperature (97.8 F-99.1 F) 97 F L Temperature Source Temporal Pulse Rate (60-100) 46 L Pulse Location Monitor Respiratory Rate (12-18) 18 Respiratory rate source Observation Blood Pressure (90/60-120/80) 125/63 H Blood Pressure Mean (mm Hg) 83 Source Monitor Position Semi-Fowlers Blood Pressure Location Left Arm History Since Last Visit- (Skip if this is Patient's initial visit) Have you changed medications since your No last visit? Any new allergies or adverse reactions No Had a fall/change in ADL's that may No increase risk of falls Signs or symptoms of abuse and/or No neglect since last visit Have you been in the hospital since your No last visit? Has dressing in place as prescribed Yes Has compression in place as prescribed Yes Has offloadiing in place as prescribed No Experienced any changes in pain level or No management Left Footwear Surgical Shoe with pressure relief insole Right Footwear Regular Shoe Pain Scale: 0-10 Numeric Is Patient Pain Free? Yes - Nurse 1 - General Ulcer Measurement Start: 06/10/21 11:06 Freq: Status: Active Protocol: Activity Type Activity Date Activity User E-Sign Co-Sign Detail Recorded Client Recorded Date Recorded By Document 06/10/21 11:06 Desktop 06/10/21 11:08 06/10/21 11:06 Wound Center Nurse 1 #1 L Grt Toe -Combined with other wound No -Current Size (cm) - Length 0.3 -Current Size (cm) - Width 1.3 -Current Size (cm) - Depth 0.2 -Total Square Cm 0.39 -Tunneling No -Undermining/Tunneling No -Circular Undermining No -Exudate Amt Medium -Exudate Type Serosanguineous -Wound Margin Thickened -Granulation Amt Medium (34-66%) -Granulation Quality [place] -Slough/Fibrin Yes -Necrosis Amt Medium (34-66%) -Necrotic Tissue Type Adherent Slough -Structure Exposed N/A -Texture (Cuca-wound Skin Appearance) Callus -Moisture (Cuca-wound Skin Appearance) Assessed -Color (Cuca-wound Skin Appearance) Assessed -Temperature (Cuca-wound Skin No Abnormality Appearance) (Pt Warm) -Tenderness on Palpation (Cuca-wound No Skin Appearance) -Ulcer Cleansing Wound Cleanser -Foul Odor after Cleansing No -Anesthetic Used 4% Lidocaine Solution ELIF - Nurse 2 - General Ulcer CM Notes Start: 06/10/21 11:06 Freq: Status: Active Protocol: Activity Type Activity Date Activity User E-Sign Co-Sign Detail Recorded Client Recorded Date Recorded By Document 06/10/21 11:26 [id number] 06/10/21 11:30 06/10/21 11:26 Wound Center Nurse 2 -Time 11:26 -Correct Patient Yes -Correct Side, Site, Position Yes -Correct Procedure Yes -Procedure Performed Yes -Type of Procedure Debridement -Clinical Debridement Subcutaneous -Tissue Removed Subcutaneous -Post Debridement (cm) - Length 0.4 -Post Debridement (cm) - Width 0.8 -Post Debridement (cm) - Depth 0.2 -Total Square (Post) (cm) 0.32 -Area of Debridement (cm) - Length 0.4 -Area of Debridement (cm) - Width 0.8 -Total Square (Area) (cm) 0.32 -Tunneling No -Undermining/Tunneling No -Circular Undermining No -Wound/Ulcer Outcome Not Healed -Ulcer Cleansing Rinsed/ Irrigated with Saline -Foul Odor after Cleansing No -Bioengineered Tissue No -Bleeding Controlled with Pressure -Offloading Yes -Type of Offloading Surgical Shoe -Treatment Response Procedure Tolerated Well -Debridement - Subq, 1st 20sq cm Yes Pain Scale: 0-10 Numeric Is Patient Pain Free? Yes - Nurse 3 - General Ulcer D/C NN Start: 06/10/21 11:06 Freq: Status: Active Protocol: Activity Type Activity Date Activity User E-Sign Co-Sign Detail Recorded Client Recorded Date Recorded By Document 06/10/21 11:37 RB Desktop 06/10/21 11:39 RB 06/10/21 11:37 Wound Care Nurse 3 #1 L Grt Toe -Ulcer Cleansing Rinsed/ Irrigated with Saline -Primary Dressing Applied Aquacel AG 2x2 -Primary Dressing Covered/Secured with Dry Gauze,Dry Gauze & Roll Gauze,Secured with Tape -Aquacel AG 2x2 1 Left -Stockings Yes Treatment Response Procedure Tolerated Well Pain Scale: 0-10 Numeric Is Patient Pain Free? Yes WC - Visit Discharge Discharge Condition Stable Ambulatory Status Ambulatory Transportation Private Auto Medication Reconcilliation completed & No provided to patient/care provider Clinical Summary of Care Provided Yes Wound debrided: distal left hallux Wound Grade/Stage: 1 Type of Debridement: Excisional debridement Anesthesia Used: 4% Lidocaine Solution Depth: in the subcutaneous layer Percentage of wound debrided: 100 Instrument Used: #15 blade Tissue Removed: fibrous, devitalized subcutaneous, biofilm, slough Severity: Fat Layer Exposed Amount of bleeding with debridement: Mild Bleeding Controlled with: Pressure Patient tolerated procedure: Patient tolerated procedure well Assessment/Plan Assessment/Plan (1) Non-pressure chronic ulcer of other part of left foot with fat layer exposed: CODE(S): L97.522 - Non-pressure chronic ulcer of other part of left foot with fat layer exposed (2) Bone infection: CODE(S): M86.9 - Osteomyelitis, unspecified (3) Other specified peripheral vascular diseases: CODE(S): I73.89 - Other specified peripheral vascular diseases (4) Venous insufficiency (chronic) (peripheral): CODE(S): I87.2 - Venous insufficiency (chronic) (peripheral) (5) Malnutrition: CODE(S): E46 - Unspecified protein-calorie malnutrition (6) Hallux malleus of left foot: CODE(S): M20.32 - Hallux varus (acquired), left foot (7) Type 2 diabetes mellitus without complications: CODE(S): E11.9 - Type 2 diabetes mellitus without complications PLAN: I reviewed and discussed her case today. Debridement was performed today as noted in the clinical panel to all of the ulcer site. Her medical records are reviewed including notes and x-rays that were obtained at the foot and ankle Center. The following work up and care recommendations were made: Dressing: Daily Aquacel Ag Wash: Antibacterial soap and water Offload: To continue heel weightbearing with left surgical shoe with offloading felt and Plastizote liners that were previously fabricated at the foot and ankle Center Vascular: I reviewed her recent noninvasive vascular study results that were performed at [facility]. No gross abnormalities were noted and she appears to have adequate perfusion. Edema: Tubigrip dispensed. To intermittently elevate the limbs at rest. I recommend work-up for venous insufficiency and a venous Doppler was performed. An order for additional reflux evaluation was provided. It is noted she had a venous Doppler performed on 03-04-21 and this was negative for DVT however this did not specifically assess for venous insufficiency. Infection: She does not have a clinical local or systemic illness today however at the chronicity and recurrent nature of this ulcer is concerning. Her imaging will be reviewed and additional lab work is ordered to work-up potential underlying chronic osteomyelitis. Diagnostic data: I recommend updating her lab work including CBC, CMP, ESR, C- reactive protein Imaging: Her x-rays were reviewed from the foot and ankle Center from 04-14-21 without any soft tissue emphysema, fracture or dislocation, or foreign body. It is noted she had a prior arthrodesis of the first metatarsal phalangeal joint with plates and screws in place in a rectus position. There does not appear to be any hardware malfunction. There is an area of osteolysis at the distal tip of the distal phalanx of the hallux and the position of this hallux interphalangeal joint is dorsiflexed and the hallux malleus position. This may be consistent with mechanical pressure or osteomyelitis given her chronic recurrent ulcer status. Labs: No gross abnormalities were noted with the CBC. She does not have leukocytosis. It is noted that her creatinine slightly elevated and her GFR is estimated around 44. Pain: Controlled Host factors: She is diabetic and appears to be fairly controlled at this time. To continue to work with lifestyle management and PCP coordination to optimize her health. I recommend nutritional supplementation including Antoine to optimize healing. She is familiar with nutritional services at the hospital and I recommend deferring to their nutritional recommendations as opposed to doing a keto diet. This is especially recommended due to her recent declining kidney function that is noted on her laboratory values today. Overall plan: It is noted she has failed comprehensive wound healing management at another office and at this time. If she fails to heal, a partial hallux amputation will be considered and is recommended. We also discussed the potential for hallux arthrodesis if she is cleared from osteomyelitis diagnosis, arthrodesis is also an option of the hallux interphalangeal joint. There would be concern of driving hardware through a chronic ulcer site for contamination issues and this is not recommended at this time. She would like to proceed with the partial hallux amputation and surgical coordinating nurse Tree will reach out to her current scheduling. Preoperative indications, planned procedure, benefits, risk, anticipated healing time and management were reviewed. The patient understands and elects proceed with surgery at this time. No guarantees were made. The patient understands risk and complications include but are not limited to following: pain, swelling, scarring, need for further surgery, tendon contracture, transfer lesion, hardware failure, arthritis, need for further coates rgery, delayed or nonhealing, infection, blood clot, allergic reaction, loss of limb, function, or life. The informed surgical limb and consent will need to be signed. She also understands she will need to be medically evaluated prior to proceeding with this same day surgery procedure with anticipated mac and local anesthesia. I answered all the patient's questions. I answered all the patient's questions. To return to the wound healing center in 1 week or call sooner if the patient has any questions or concerns. Note: [employer] speech recognition tile mechanic helper software was used to create portions of this document. Sound-alike and misspelled words, as well as other tile mechanic helper errors may be contained in the documentation. 21 was spent on this encounter. This included face to face and non face to face care including preparing for the visit, reviewing the history, performing the exam, counseling and providing education to the patient, family, or caregiver, ordering medications/test/ procedures if indicated as documented, communicating with other healthcare providers, documenting information in the medical record, interpreting / sharing this information when indicated as documented, and care coordination.
[2021-06-24 10:47] VITALS: BP 135/72; PULSE 50; RESP 16; TEMP 35.9; BMI 31.6
--- NOTE | 2021-06-24 12:13 | PN.PCM_ITS ---
History of Present Illness Date of Service: 06/24/21 Chief Complaint: left great toe ulcer History of Wound: This patient was referred to the wound healing center for chronic and recurrent left hallux ulcer that has been intermittent for almost 2 years. She is a very active 76-year-old female who has difficulty offloading. She has had multiple left foot surgical intervention by various physicians in [place]. She denies recent trauma. She relates she was diagnosed with diabetes approximately 1 year ago and her last A1c level was 5.4%. She does not seem to recall prior discussion about surgical options that was performed at the last office visit and reports she does not want to proceed forward with any amputation procedure however would consider bone removal. Ultimately she would like to hold off on proceeding with scheduling at this time. Progress of Wound: Stable Objective Data Objective Data Vital Signs: Vital Signs Temp Pulse Resp BP 96.7 F L 50 L 16 135/72 H 06/24/21 10:47 06/24/21 10:47 06/24/21 10:47 06/24/21 10:47 Oxygen Delivery Method Room Air Weight: 99.798 kg Body Mass Index (BMI) 31.6 Physical Exam Extremity Extremity Narrative: No calf tenderness Diminished pulses DP nonpalpable PT bilateral Muscle wasting noted Rigidly fixated first metatarsophalangeal joint with hallux in rectus position at the metatarsophalangeal joint and dorsiflexed at the hallux interphalangeal joint Dorsal contraction of lesser digits consistent with hammertoe deformities also No left lower extremity bogginess or fluctuance Skin Skin Narrative: no purulence, no streaking, no odor, no infection. Granular tissue and fissure fashion noted to distal left hallux. Adjacent skin is hairless and atrophic. No eschar or deep necrosis noted. Multiple forefoot cicatrix noted consistent with her prior multiple foot surgeries Neuro Neuro Narrative: lack of normal epicritic sensation via light touch is consistent with neuropathy status Debridement Note Debridement Note Wound debrided: Distal left hallux Wound Grade/Stage: 1 Type of Debridement: Excisional debridement Anesthesia Used: 4% Lidocaine Solution Depth: in the subcutaneous layer Percentage of wound debrided: 100 Instrument Used: #15 blade Tissue Removed: fibrous, devitalized subcutaneous, biofilm, slough Severity: Fat Layer Exposed Amount of bleeding with debridement: Mild Bleeding Controlled with: Pressure Patient tolerated procedure: Patient tolerated procedure well Post-Debridement Measurements and Additional Note: Post-Debridement Measurements/Treatment ELIF - Nurse 1 - General Ulcer Assessment Start: 06/10/21 11:06 Freq: Status: Active Protocol: HEMANTH Activity Type Activity Date Activity User E-Sign Co-Sign Detail Recorded Client Recorded Date Recorded By Document 06/10/21 11:06 RB Desktop 06/10/21 11:08 RB Document 06/24/21 10:47 BMF Desktop 06/24/21 10:52 BMF 06/10/21 06/24/21 11:06 10:47 WC - Today's Visit Information Type of service Follow-up Visit Follow-up Visit (Physician/FRONT DESK MANAGER (Physician/FRONT DESK MANAGER ) ) Arrival Mode Ambulatory Ambulatory Transfer Assistance None None Patient Identification Verified (Name & Yes Yes ) Patient Requires Transmission-Based No No Precautions Height and Weight Body Mass Index (BMI) 31.6 31.6 BMI Classification Obese Obese Vital Signs Temperature (97.8 F-99.1 F) 97 F L 96.7 F L Temperature Source Temporal Temporal Pulse Rate (60-100) 46 L 50 L Pulse Location Monitor Monitor Respiratory Rate (12-18) 18 16 Respiratory rate source Observation Observation Oxygen Delivery Method Room Air Blood Pressure (90/60-120/80) 125/63 H 135/72 H Blood Pressure Mean (mm Hg) 83 93 Source Monitor Monitor Position Semi-Fowlers Sitting Blood Pressure Location Left Arm Left Arm History Since Last Visit- (Skip if this is Patient's initial visit) Have you changed medications since your No No last visit? Any new allergies or adverse reactions No No Had a fall/change in ADL's that may No No increase risk of falls Signs or symptoms of abuse and/or No No neglect since last visit Have you been in the hospital since your No No last visit? Has dressing in place as prescribed Yes Yes Has compression in place as prescribed Yes Yes Has offloadiing in place as prescribed No N/A Experienced any changes in pain level or No No management Left Footwear Surgical Shoe Custom Shoe with pressure relief insole Right Footwear Regular Shoe Custom Shoe Pain Scale: 0-10 Numeric Is Patient Pain Free? Yes Yes ELIF Guevara Nurse 1 - General Ulcer Measurement Start: 06/10/21 11:06 Freq: Status: Active Protocol: Activity Type Activity Date Activity User E-Sign Co-Sign Detail Recorded Client Recorded Date Recorded By Document 06/10/21 11:06 Desktop 06/10/21 11:08 Document 06/24/21 10:47 [facility] Desktop 06/24/21 10:52 [facility] 06/10/21 06/24/21 11:06 10:47 Wound Center Nurse 1 #1 L Grt Toe -Combined with other wound No No -Current Size (cm) - Length 0.3 0.1 -Current Size (cm) - Width 1.3 0.7 -Current Size (cm) - Depth 0.2 0.1 -Total Square Cm 0.39 0.07 -Photo Taken No -Epithelialization None Present -Tunneling No No -Undermining/Tunneling No No -Circular Undermining No No -Exudate Amt Medium Medium -Exudate Type Serosanguineous Serosanguineous -Wound Margin Thickened Distinct, Outline Attached -Granulation Amt Medium (34-66%) None Present (0 %) -Granulation Quality [place] -Slough/Fibrin Yes Yes -Necrosis Amt Medium (34-66%) Large (67-100%) -Necrotic Tissue Type Adherent Slough Adherent Slough -Structure Exposed N/A -Texture (Cuca-wound Skin Appearance) Callus Assessed,Callus ,Scarring -Moisture (Cuca-wound Skin Appearance) Assessed Assessed,Dry/ Scaly -Color (Cuca-wound Skin Appearance) Assessed Assessed -Temperature (Cuca-wound Skin No Abnormality No Abnormality Appearance) (Pt Warm) (Pt Warm) -Tenderness on Palpation (Cuca-wound No No Skin Appearance) -Ulcer Cleansing Wound Cleanser Rinsed/ Irrigated with Saline -Foul Odor after Cleansing No No -Anesthetic Used 4% Lidocaine 5% Lidocaine Solution Gel WC - Nurse 2 - General Ulcer CM Notes Start: 06/10/21 11:06 Freq: Status: Active Protocol: Activity Type Activity Date Activity User E-Sign Co-Sign Detail Recorded Client Recorded Date Recorded By Document 06/10/21 11:26 [id number] 06/10/21 11:30 Document 06/24/21 11:02 [id number] 06/24/21 11:06 06/10/21 06/24/21 11:26 11:02 Wound Center Nurse 2 #1 L Grt Toe -Time 11:26 11:03 -Correct Patient Yes Yes -Correct Side, Site, Position Yes Yes -Correct Procedure Yes Yes -Procedure Performed Yes Yes -Type of Procedure Debridement Debridement -Clinical Debridement Subcutaneous Subcutaneous -Tissue Removed Subcutaneous Subcutaneous -Post Debridement (cm) - Length 0.4 0.3 -Post Debridement (cm) - Width 0.8 0.6 -Post Debridement (cm) - Depth 0.2 0.1 -Total Square (Post) (cm) 0.32 0.18 -Area of Debridement (cm) - Length 0.4 0.3 -Area of Debridement (cm) - Width 0.8 0.6 -Total Square (Area) (cm) 0.32 0.18 -Tunneling No No -Undermining/Tunneling No No -Circular Undermining No No -Wound/Ulcer Outcome Not Healed Not Healed -Ulcer Cleansing Rinsed/ Rinsed/ Irrigated with Irrigated with Saline Saline -Foul Odor after Cleansing No No -Bioengineered Tissue No No -Bleeding Controlled with Pressure Pressure -Offloading Yes Yes -Type of Offloading Surgical Shoe Surgical Shoe -Treatment Response Procedure Procedure Tolerated Well Tolerated Well -Debridement - Subq, 1st 20sq cm Yes Yes Pain Scale: 0-10 Numeric Is Patient Pain Free? Yes Yes - Nurse 3 - General Ulcer D/C NN Start: 06/10/21 11:06 Freq: Status: Active Protocol: Activity Type Activity Date Activity User E-Sign Co-Sign Detail Recorded Client Recorded Date Recorded By Document 06/10/21 11:37 RB Desktop 06/10/21 11:39 RB Document 06/24/21 11:25 DL Desktop 06/24/21 11:26 DL 06/10/21 06/24/21 11:37 11:25 Wound Care Nurse 3 #1 L Grt Toe -Ulcer Cleansing Rinsed/ Rinsed/ Irrigated with Irrigated with Saline Saline -Foul Odor after Cleansing No -Primary Dressing Applied Aquacel AG 2x2 Aquacel AG 2x2 -Primary Dressing Covered/Secured with Dry Gauze,Dry Dry Gauze, Gauze & Roll Secured with Gauze,Secured Tape with Tape -Aquacel AG 2x2 1 1 Left -Stockings Yes Yes Treatment Response Procedure Procedure Tolerated Well Tolerated Well Pain Scale: 0-10 Numeric Is Patient Pain Free? Yes Yes - Visit Discharge Discharge Condition Stable Stable Ambulatory Status Ambulatory Ambulatory Transportation Private Auto Private Auto Medication Reconcilliation completed & No provided to patient/care provider Clinical Summary of Care Provided Yes Assessment/Plan Assessment/Plan (1) Non-pressure chronic ulcer of other part of left foot with fat layer exposed: CODE(S): L97.522 - Non-pressure chronic ulcer of other part of left foot with fat layer exposed (2) Bone infection: CODE(S): M86.9 - Osteomyelitis, unspecified (3) Other specified peripheral vascular diseases: CODE(S): I73.89 - Other specified peripheral vascular diseases (4) Venous insufficiency (chronic) (peripheral): CODE(S): I87.2 - Venous insufficiency (chronic) (peripheral) (5) Malnutrition: CODE(S): E46 - Unspecified protein-calorie malnutrition (6) Hallux malleus of left foot: CODE(S): M20.32 - Hallux varus (acquired), left foot (7) Type 2 diabetes mellitus without complications: CODE(S): E11.9 - Type 2 diabetes mellitus without complications (8) Delayed wound healing: CODE(S): T14.8XXD - Other injury of unspecified body region, subsequent encounter PLAN: I reviewed and discussed her case today. Debridement was performed today as noted in the clinical panel to the ulcer site. Her medical records were reviewed including notes and x-rays that were obtained at the foot and ankle Center. The following work up and care recommendations were made: Dressing: Daily Aquacel Ag Wash: Antibacterial soap and water Offload: To continue heel weightbearing with left surgical shoe with offloading felt and Plastizote liners that were previously fabricated at the foot and ankle Center. Plastizote liners were updated today because the other ones were moderately worn down. Vascular: I reviewed her recent noninvasive vascular study results that were performed at [facility]. No gross abnormalities were noted and she appears to have adequate perfusion. Edema: Tubigrip dispensed. To intermittently elevate the limbs at rest. I recommend work-up for venous insufficiency and a venous Doppler was performed. An order for additional reflux evaluation was provided. It is noted she had a venous Doppler performed on 03-04-21 and this was negative for DVT however this did not specifically assess for venous insufficiency. Infection: She does not have a clinical local or systemic illness today however at the chronicity and recurrent nature of this ulcer is concerning. Her imaging will be reviewed and additional lab work is ordered to work-up potential underlying chronic osteomyelitis. Diagnostic data: I recommend updating her lab work including CBC, CMP, ESR, C- reactive protein Imaging: Her x-rays were reviewed from the foot and ankle Center from 04-14-21 without any soft tissue emphysema, fracture or dislocation, or foreign body. It is noted she had a prior arthrodesis of the first metatarsal phalangeal joint with plates and screws in place in a rectus position. There does not appear to be any hardware malfunction. There is an area of osteolysis at the distal tip of the distal phalanx of the hallux and the position of this hallux interphalangeal joint is dorsiflexed and the hallux malleus position. This may be consistent with mechanical pressure or osteomyelitis given her chronic recurrent ulcer status. Labs: No gross abnormalities were noted with the CBC. She does not have leukocytosis. It is noted that her creatinine slightly elevated and her GFR is estimated around 44. Pain: Controlled Host factors: She is diabetic and appears to be fairly controlled at this time. To continue to work with lifestyle management and PCP coordination to optimize her health. I recommend nutritional supplementation including Antoine to optimize healing. She is familiar with nutritional services at the hospital and I recommend deferring to their nutritional recommendations as opposed to doing a keto diet. This is especially recommended due to her recent declining kidney function that is noted on her laboratory values today. Overall plan: It is noted she has failed comprehensive wound healing management at another office and at this time. If she fails to heal, a partial hallux amputation will be considered and is recommended. We also discussed the potential for hallux arthrodesis if she is cleared from osteomyelitis diagnosis, arthrodesis is also an option of the hallux interphalangeal joint. There would be concern of driving hardware through a chronic ulcer site for contamination issues and this is not recommended at this time. She notes today does not recall having this conversation with surgical options last week and initially said she did not want to have an amputation. However now she would like to further review her x-rays at her follow-up visit and hopes to gain a better understanding of her options. I do not recommend proceeding forward with any surgeries unless it is clarified she has a full understanding of the recommendation and plan. I advised her to bring a family or friend while having this conversation as well to help with information retention. I answered all the patient's questions. To return to the wound healing center in 1 week or call sooner if the patient has any questions or concerns. Note: embraase speech recognition organisational psychologist software was used to create portions of this document. Sound-alike and misspelled words, as well as other organisational psychologist errors may be contained in the documentation. 22 was spent on this encounter. This included face to face and non face to face care including preparing for the visit, reviewing the history, performing the exam, counseling and providing education to the patient, family, or caregiver, ordering medications/test/ procedures if indicated as documented, communicating with other healthcare providers, documenting information in the medical record, interpreting / sharing this information when indicated as documented, and care coordination.
[2021-07-08 10:30] VITALS: BP 101/53; PULSE 54; RESP 20; TEMP 37.1; BMI 31.6
--- NOTE | 2021-07-08 11:39 | PN.PCM_ITS ---
History of Present Illness Date of Service: 07/08/21 Chief Complaint: left great toe ulcer History of Wound: This patient was referred to the wound healing center for chronic and recurrent left hallux ulcer that has been intermittent for almost 2 years. She is a very active 76-year-old female who has difficulty offloading. She has had multiple left foot surgical intervention by various physicians in several states. She denies recent trauma. She relates she was diagnosed with diabetes approximately 1 year ago and her last A1c level was 5.4%. She has been very active with gardening. She completed gardening at her house and for her 82-year-old neighbor. She also sustained a left thigh injury and hand injury during that work and went to the emergency room and is providing a lot of information about that today. She denies injuring her foot. She wants to consider surgical removal of part of her toe the patient tolerated the procedure and anesthesia well. The patient was transported to the PACU with vital signs stable and vascular status intact to the surgical limb. To ice and elevate for pain and inflammation management. Postoperative x-rays were reviewed prior to leaving the operating room. Postoperative orders were entered electronically. The new year because this will allow her to complete gardening and garage tasks. Progress of Wound: Stable Objective Data Objective Data Vital Signs: Vital Signs Temp Pulse Resp BP 98.7 F 54 L 20 H 101/53 L 07/08/21 10:30 07/08/21 10:30 07/08/21 10:30 07/08/21 10:30 Oxygen Delivery Method Room Air Weight: 99.798 kg Body Mass Index (BMI) 31.6 Physical Exam Extremity Extremity Narrative: No calf tenderness Diminished pulses DP nonpalpable PT bilateral Muscle wasting noted Rigidly fixated first metatarsophalangeal joint with hallux in rectus position at the metatarsophalangeal joint and dorsiflexed at the hallux interphalangeal joint Dorsal contraction of lesser digits consistent with hammertoe deformities also No left lower extremity bogginess or fluctuance Skin Skin Narrative: no purulence, no streaking, no odor, no infection. Granular tissue and fissure fashion noted to distal left hallux at plantar aspect and also the dorsal distal aspect that is new. Adjacent skin is hairless and atrophic. No eschar or deep necrosis noted. Multiple forefoot cicatrix noted consistent with her prior multiple foot surgeries Neuro Neuro Narrative: lack of normal epicritic sensation via light touch is consistent with neuropathy status Debridement Note Debridement Note Wound debrided: Left hallux Wound Grade/Stage: Type of Debridement: Excisional debridement Anesthesia Used: 4% Lidocaine Solution Depth: in the subcutaneous layer Percentage of wound debrided: 100 Instrument Used: #15 blade Tissue Removed: fibrous, devitalized subcutaneous, biofilm, slough Severity: Fat Layer Exposed Amount of bleeding with debridement: Mild Bleeding Controlled with: Pressure Patient tolerated procedure: Patient tolerated procedure well Post-Debridement Measurements and Additional Note: Post-Debridement Measurements/Treatment - Nurse 1 - General Ulcer Assessment Start: 06/10/21 11:06 Freq: Status: Active Protocol: HEMANTH Activity Type Activity Date Activity User E-Sign Co-Sign Detail Recorded Client Recorded Date Recorded By Document 06/10/21 11:06 RB Desktop 06/10/21 11:08 RB Document 06/24/21 10:47 BMF Desktop 06/24/21 10:52 BMF Document 07/08/21 10:30 DL Desktop 07/08/21 10:37 DL 06/10/21 06/24/21 07/08/21 11:06 10:47 10:30 - Today's Visit Information Type of service Follow-up Visit Follow-up Visit Follow-up Visit (Physician/WORKFORCE SERVICES REPRESENTATIVE (Physician/WORKFORCE SERVICES REPRESENTATIVE (Physician/WORKFORCE SERVICES REPRESENTATIVE ) ) ) Arrival Mode Ambulatory Ambulatory Ambulatory Transfer Assistance None None None Patient Identification Verified (Name & Yes Yes Yes ) Patient Requires Transmission-Based No No No Precautions Finger Stick Blood Sugar(mg/dl) (if doesnt scheck indicated): Blood Sugar Stated by Patient Height and Weight Body Mass Index (BMI) 31.6 31.6 31.6 BMI Classification Obese Obese Obese Vital Signs Temperature (97.8 F-99.1 F) 97 F L 96.7 F L 98.7 F Temperature Source Temporal Temporal Temporal Pulse Rate (60-100) 46 L 50 L 54 L Pulse Location Monitor Monitor Monitor Respiratory Rate (12-18) 18 16 20 H Respiratory rate source Observation Observation Observation Oxygen Delivery Method Room Air Blood Pressure (90/60-120/80) 125/63 H 135/72 H 101/53 L Blood Pressure Mean (mm Hg) 83 93 69 Source Monitor Monitor Monitor Position Semi-Fowlers Sitting Blood Pressure Location Left Arm Left Arm History Since Last Visit- (Skip if this is Patient's initial visit) Have you changed medications since your No No No last visit? Any new allergies or adverse reactions No No No Had a fall/change in ADL's that may No No No increase risk of falls Signs or symptoms of abuse and/or No No No neglect since last visit Have you been in the hospital since your No No No last visit? Has dressing in place as prescribed Yes Yes No Has compression in place as prescribed Yes Yes Yes Has offloadiing in place as prescribed No N/A Yes Experienced any changes in pain level or No No No management Left Footwear Surgical Shoe Custom Shoe Surgical Shoe with pressure with pressure relief insole relief insole Right Footwear Regular Shoe Custom Shoe Pain Scale: 0-10 Numeric Is Patient Pain Free? Yes Yes Yes WC - Nurse 1 - General Ulcer Measurement Start: 06/10/21 11:06 Freq: Status: Active Protocol: Activity Type Activity Date Activity User E-Sign Co-Sign Detail Recorded Client Recorded Date Recorded By Document 06/10/21 11:06 RB [place] 06/10/21 11:08 RB Document 06/24/21 10:47 [facility] Desktop 06/24/21 10:52 BMF Document 07/08/21 10:30 DL Desktop 07/08/21 10:37 DL 06/10/21 06/24/21 07/08/21 11:06 10:47 10:30 Wound Center Nurse 1 #1 L Grt Toe (plantar) -Combined with other wound No No -Current Size (cm) - Length 0.3 0.1 0.1 -Current Size (cm) - Width 1.3 0.7 1 -Current Size (cm) - Depth 0.2 0.1 0.2 -Total Square Cm 0.39 0.07 0.1 -Photo Taken No No -Epithelialization None Present -Tunneling No No -Undermining/Tunneling No No -Circular Undermining No No -Exudate Amt Medium Medium None Present -Exudate Type Serosanguineous Serosanguineous -Wound Margin Thickened Distinct, Thickened Outline Attached -Granulation Amt Medium (34-66%) None Present (0 Large (67-100%) %) -Granulation Quality [place] Pale -Slough/Fibrin Yes Yes -Necrosis Amt Medium (34-66%) Large (67-100%) None Present (0 %) -Necrotic Tissue Type Adherent Slough Adherent Slough -Structure Exposed N/A N/A -Texture (Cuca-wound Skin Appearance) Callus Assessed,Callus Callus ,Scarring -Moisture (Cuca-wound Skin Appearance) Assessed Assessed,Dry/ Dry/Scaly Scaly -Color (Cuca-wound Skin Appearance) Assessed Assessed No Abnormality -Temperature (Cuca-wound Skin No Abnormality No Abnormality No Abnormality Appearance) (Pt Warm) (Pt Warm) (Pt Warm) -Tenderness on Palpation (Cuca-wound No No No Skin Appearance) -Ulcer Cleansing Wound Cleanser Rinsed/ Wound Cleanser Irrigated with Saline -Foul Odor after Cleansing No No No -Anesthetic Used 4% Lidocaine 5% Lidocaine 4% Lidocaine Solution Gel Solution Left Calf (cm) 44 Left Ankle (cm) 30 WC - Nurse 2 - General Ulcer CM Notes Start: 06/10/21 11:06 Freq: Status: Active Protocol: Activity Type Activity Date Activity User E-Sign Co-Sign Detail Recorded Client Recorded Date Recorded By Document 06/10/21 11:26 [id number] 06/10/21 11:30 Document 06/24/21 11:02 [id number] 06/24/21 11:06 Document 07/08/21 10:56 [id number] 07/08/21 11:02 06/10/21 06/24/21 07/08/21 11:26 11:02 10:56 Wound Center Nurse 2 2-L dorsal hallux -Time 10:59 -Correct Patient Yes -Correct Side, Site, Position Yes -Correct Procedure Yes -Procedure Performed Yes -Type of Procedure Debridement -Clinical Debridement Subcutaneous -Tissue Removed Subcutaneous -Post Debridement (cm) - Length 0.4 -Post Debridement (cm) - Width 0.6 -Post Debridement (cm) - Depth 1 -Total Square (Post) (cm) 0.24 -Area of Debridement (cm) - Length 0.4 -Area of Debridement (cm) - Width 0.6 -Total Square (Area) (cm) 0.24 -Tunneling No -Undermining/Tunneling No -Circular Undermining No -Wound/Ulcer Outcome Not Healed -Ulcer Cleansing Rinsed/ Irrigated with Saline -Foul Odor after Cleansing No -Bioengineered Tissue No -Bleeding Controlled with Pressure -Offloading No -Treatment Response Procedure Tolerated Well -Debridement - Subq, 1st 20sq cm No #1 L Grt Toe (plantar) -Time 11:26 11:03 10:57 -Correct Patient Yes Yes Yes -Correct Side, Site, Position Yes Yes Yes -Correct Procedure Yes Yes Yes -Procedure Performed Yes Yes Yes -Type of Procedure Debridement Debridement Debridement -Clinical Debridement Subcutaneous Subcutaneous Subcutaneous -Tissue Removed Subcutaneous Subcutaneous Subcutaneous -Post Debridement (cm) - Length 0.4 0.3 0.2 -Post Debridement (cm) - Width 0.8 0.6 0.2 -Post Debridement (cm) - Depth 0.2 0.1 0.1 -Total Square (Post) (cm) 0.32 0.18 0.04 -Area of Debridement (cm) - Length 0.4 0.3 0.2 -Area of Debridement (cm) - Width 0.8 0.6 0.2 -Total Square (Area) (cm) 0.32 0.18 0.04 -Tunneling No No No -Undermining/Tunneling No No No -Circular Undermining No No No -Wound/Ulcer Outcome Not Healed Not Healed Not Healed -Ulcer Cleansing Rinsed/ Rinsed/ Rinsed/ Irrigated with Irrigated with Irrigated with Saline Saline Saline -Foul Odor after Cleansing No No No -Bioengineered Tissue No No No -Bleeding Controlled with Pressure Pressure Pressure -Offloading Yes Yes No -Type of Offloading Surgical Shoe Surgical Shoe -Treatment Response Procedure Procedure Procedure Tolerated Well Tolerated Well Tolerated Well -Debridement - Subq, 1st 20sq cm Yes Yes Yes Pain Scale: 0-10 Numeric Is Patient Pain Free? Yes Yes Yes WC - Nurse 3 - General Ulcer D/C NN Start: 06/10/21 11:06 Freq: Status: Active Protocol: Activity Type Activity Date Activity User E-Sign Co-Sign Detail Recorded Client Recorded Date Recorded By Document 06/10/21 11:37 RB Desktop 06/10/21 11:39 RB Document 06/24/21 11:25 DL Desktop 06/24/21 11:26 DL Document 07/08/21 11:17 RB Desktop 07/08/21 11:18 RB 06/10/21 06/24/21 07/08/21 11:37 11:25 11:17 Wound Care Nurse 3 2-L dorsal hallux -Ulcer Cleansing Rinsed/ Irrigated with Saline -Primary Dressing Applied Aquacel AG 2x2 -Primary Dressing Covered/Secured with Dry Gauze,Dry Gauze & Roll Gauze,Secured with Tape -Aquacel AG 2x2 1 #1 L Grt Toe (plantar) -Ulcer Cleansing Rinsed/ Rinsed/ Rinsed/ Irrigated with Irrigated with Irrigated with Saline Saline Saline -Foul Odor after Cleansing No -Primary Dressing Applied Aquacel AG 2x2 Aquacel AG 2x2 -Other Dressing aquacel ag -Primary Dressing Covered/Secured with Dry Gauze,Dry Dry Gauze, Dry Gauze,Dry Gauze & Roll Secured with Gauze & Roll Gauze,Secured Tape Gauze,Secured with Tape with Tape -Aquacel AG 2x2 1 1 Left -Stockings Yes Yes Yes Treatment Response Procedure Procedure Tolerated Well Tolerated Well Pain Scale: 0-10 Numeric Is Patient Pain Free? Yes Yes WC - Visit Discharge Discharge Condition Stable Stable Stable Ambulatory Status Ambulatory Ambulatory Ambulatory Transportation Private Auto Private Auto Private Auto Medication Reconcilliation completed & No No provided to patient/care provider Clinical Summary of Care Provided Yes Yes Assessment/Plan Assessment/Plan (1) Non-pressure chronic ulcer of other part of left foot with fat layer exposed: CODE(S): L97.522 - Non-pressure chronic ulcer of other part of left foot with fat layer exposed (2) Bone infection: CODE(S): M86.9 - Osteomyelitis, unspecified (3) Other specified peripheral vascular diseases: CODE(S): I73.89 - Other specified peripheral vascular diseases (4) Venous insufficiency (chronic) (peripheral): CODE(S): I87.2 - Venous insufficiency (chronic) (peripheral) (5) Malnutrition: CODE(S): E46 - Unspecified protein-calorie malnutrition (6) Hallux malleus of left foot: CODE(S): M20.32 - Hallux varus (acquired), left foot (7) Type 2 diabetes mellitus without complications: CODE(S): E11.9 - Type 2 diabetes mellitus without complications (8) Delayed wound healing: CODE(S): T14.8XXD - Other injury of unspecified body region, subsequent encounter PLAN: I reviewed and discussed her case today. Debridement was performed today as noted in the clinical panel to the ulcer site. Her medical records were reviewed including notes and x-rays that were obtained at the foot and ankle Center. The following work up and care recommendations were made: Dressing: Daily Aquacel Ag Wash: Antibacterial soap and water Offload: To continue heel weightbearing with left surgical shoe with offloading felt and Plastizote liners that were previously fabricated at the foot and ankle Center. Plastizote liners were updated at recent visit. She was advised not to overdo it with the gardening and home tasks if it is compromising her foot or other body parts. Vascular: I reviewed her recent noninvasive vascular study results that were performed at [facility]. No gross abnormalities were noted and she appears to have adequate perfusion. Edema: Tubigrip dispensed. To intermittently elevate the limbs at rest. I recommend work-up for venous insufficiency and a venous Doppler was performed. An order for additional reflux evaluation was provided. It is noted she had a venous Doppler performed on 03-04-21 and this was negative for DVT however this did not specifically assess for venous insufficiency. Infection: She does not have a clinical local or systemic illness today however at the chronicity and recurrent nature of this ulcer is concerning. Her imaging will be reviewed and additional lab work is ordered to work-up potential underlying chronic osteomyelitis. Diagnostic data: I recommend updating her lab work including CBC, CMP, ESR, C- reactive protein Imaging: Her x-rays were reviewed from the foot and ankle Center from 04-14-21 without any soft tissue emphysema, fracture or dislocation, or foreign body. It is noted she had a prior arthrodesis of the first metatarsal phalangeal joint with plates and screws in place in a rectus position. There does not appear to be any hardware malfunction. There is an area of osteolysis at the distal tip of the distal phalanx of the hallux and the position of this hallux interphalangeal joint is dorsiflexed and the hallux malleus position. This may be consistent with mechanical pressure or osteomyelitis given her chronic recurrent ulcer status. Labs: No gross abnormalities were noted with the CBC. She does not have leukocytosis. It is noted that her creatinine slightly elevated and her GFR is estimated around 44. Pain: Controlled Host factors: She is diabetic and appears to be fairly controlled at this time. To continue to work with lifestyle management and PCP coordination to optimize her health. I recommend nutritional supplementation including Antoine to optimize healing. She is familiar with nutritional services at the hospital and I recommend deferring to their nutritional recommendations as opposed to doing a keto diet. This is especially recommended due to her recent declining kidney function that is noted on her laboratory values today. Overall plan: It is noted she has failed comprehensive wound healing management at another office and at this time. If she fails to heal, a partial hallux amputation will be considered and is recommended. We also discussed the potential for hallux arthrodesis if she is cleared from osteomyelitis diagnosis, arthrodesis is also an option of the hallux interphalangeal joint. There would be concern of driving hardware through a chronic ulcer site for contamination issues and this is not recommended at this time. We reviewed her x-rays today. I offered her a partial hallux amputation likely at the interphalangeal joint level however a tuft excision would also be considered. I do not recommend proceeding forward with any surgeries unless it is clarified she has a full understanding of the recommendation and plan. She verbally states she would like to proceed forward in October. I advised her to bring a family or friend while having this conversation as well to help with information retention. I answered all the patient's questions. To return to the wound healing center in 1 week or call sooner if the patient has any questions or concerns. Note: [employer] speech recognition baker helper software was used to create portions of this document. Sound-alike and misspelled words, as well as other baker helper errors may be contained in the documentation. 21 was spent on this encounter. This included face to face and non face to face care including preparing for the visit, reviewing the history, performing the exam, counseling and providing education to the patient, family, or caregiver, ordering medications/test/ procedures if indicated as documented, communicating with other healthcare providers, documenting information in the medical record, interpreting / sharing this information when indicated as documented, and care coordination.
== END 2021-07-09 23:59 ==
LOC: WC 10:30
PROVIDERS: PCP Family Medicine; Referring Provider Podiatrist; Visit Provider Podiatrist
DX: E11.621 Type 2 diabetes mellitus with foot ulcer (principal); L97.522 Non-pressure chronic ulcer of other part of left foot with fat layer exposed; E11.69 Type 2 diabetes mellitus with other specified complication; M86.9 Osteomyelitis, unspecified; I87.2 Venous insufficiency (chronic) (peripheral); M20.32 Hallux varus (acquired), left foot; L90.5 Scar conditions and fibrosis of skin; E66.9 Obesity, unspecified; Z68.31 Body mass index [BMI] 31.0-31.9, adult; Z79.899 Other long term (current) drug therapy; Z79.890 Hormone replacement therapy
CPT/HCPCS: 11042

== ENCOUNTER 2021-07-29 13:30 | Outpatient (RCR) | payer MEDICARE, OTHER, SELFPAY ==
[2021-07-10 00:32] VITALS: BP 101/53; PULSE 54; RESP 20; TEMP 37.1; BMI 31.6
[2021-07-29 13:30] VITALS: BP 124/62; PULSE 51; RESP 22; TEMP 36.4; BMI 31.6
--- NOTE | 2021-07-29 16:06 | PCM.WC.PN ---
History of Present Illness Date of Service: 07/29/21 Chief Complaint: left great toe ulcer History of Wound: This patient was referred to the wound healing center for chronic and recurrent left hallux ulcer that has been intermittent for almost 2 years. She is a very active 76-year-old female who has difficulty offloading. She has had multiple left foot surgical intervention by various physicians in [place]. She denies recent trauma. She relates she was diagnosed with diabetes approximately 1 year ago and her last A1c level was 5.4%. She has been very active with various home projects admits this is compromising her toe. She has a new wound to the top of her toe. She wants to proceed forward with surgery in August and will adjust her activities to allow appropriate rest. Progress of Wound: Stable New dorsal hallux wound Objective Data Objective Data Vital Signs: Vital Signs Temp Pulse Resp BP 97.5 F L 51 L 22 H 124/62 H 07/29/21 13:30 07/29/21 13:30 07/29/21 13:30 07/29/21 13:30 Weight: 99.798 kg Body Mass Index (BMI) 31.6 Physical Exam Extremity Extremity Narrative: No calf tenderness Diminished pulses DP nonpalpable PT bilateral Muscle wasting noted Rigidly fixated first metatarsophalangeal joint with hallux in rectus position at the metatarsophalangeal joint and dorsiflexed at the hallux interphalangeal joint Dorsal contraction of lesser digits consistent with hammertoe deformities also No left lower extremity bogginess or fluctuance Skin Skin Narrative: no purulence, no streaking, no odor, no infection. Granulation tissue noted to distal left hallux and now dorsal hallux that is new is noted. Adjacent skin is hairless and atrophic. No eschar or deep necrosis noted. Multiple forefoot cicatrix noted consistent with her prior multiple foot surgeries Neuro Neuro Narrative: lack of normal epicritic sensation via light touch is consistent with neuropathy status Debridement Note Debridement Note Wound debrided: Left distal and dorsal hallux Wound Grade/Stage: 1 Type of Debridement: Excisional debridement Anesthesia Used: 4% Lidocaine Solution Depth: in the subcutaneous layer Percentage of wound debrided: 100 Instrument Used: #15 blade Tissue Removed: fibrous, devitalized subcutaneous, biofilm, slough Severity: Fat Layer Exposed Amount of bleeding with debridement: Mild Bleeding Controlled with: Pressure Patient tolerated procedure: Patient tolerated procedure well Post-Debridement Measurements and Additional Note: Post-Debridement Measurements/Treatment ELIF - Nurse 1 - General Ulcer Assessment Start: 07/29/21 13:30 Freq: Status: Active Protocol: HEMANTH Activity Type Activity Date Activity User E-Sign Co-Sign Detail Recorded Client Recorded Date Recorded By Document 07/29/21 13:30 DL Desktop 07/29/21 13:37 DL 07/29/21 13:30 WC - Today's Visit Information Type of service Follow-up Visit (Physician/PLASTIC SURGERY NURSE ) Arrival Mode Ambulatory Transfer Assistance None Patient Identification Verified (Name & Yes ) Patient Requires Transmission-Based No Precautions Finger Stick Blood Sugar(mg/dl) (if 90 indicated): Blood Sugar Stated by Patient Height and Weight Body Mass Index (BMI) 31.6 BMI Classification Obese Vital Signs Temperature (97.8 F-99.1 F) 97.5 F L Temperature Source Temporal Pulse Rate (60-100) 51 L Pulse Location Monitor Respiratory Rate (12-18) 22 H Respiratory rate source Observation Blood Pressure (90/60-120/80) 124/62 H Blood Pressure Mean (mm Hg) 82 Source Monitor History Since Last Visit- (Skip if this is Patient's initial visit) Have you changed medications since your No last visit? Any new allergies or adverse reactions No Had a fall/change in ADL's that may No increase risk of falls Signs or symptoms of abuse and/or No neglect since last visit Have you been in the hospital since your No last visit? Has dressing in place as prescribed Yes Has compression in place as prescribed Yes Has offloadiing in place as prescribed Yes Experienced any changes in pain level or No management Left Footwear Surgical Shoe with pressure relief insole Pain Scale: 0-10 Numeric Is Patient Pain Free? Yes ELIF - Nurse 1 - General Ulcer Measurement Start: 07/29/21 13:30 Freq: Status: Active Protocol: Activity Type Activity Date Activity User E-Sign Co-Sign Detail Recorded Client Recorded Date Recorded By Document 07/29/21 13:30 DL [employer] 07/29/21 13:37 DL 07/29/21 13:30 Wound Center Nurse 1 2-L dorsal hallux -Current Size (cm) - Length 0.9 -Current Size (cm) - Width 0.5 -Current Size (cm) - Depth 0.1 -Total Square Cm 0.45 -Photo Taken No -Exudate Amt Small -Exudate Type Serosanguineous -Wound Margin Distinct, Outline Attached -Granulation Amt Large (67-100%) -Granulation Quality Red -Necrosis Amt Small (1-33%) -Necrotic Tissue Type Adherent Slough -Structure Exposed N/A -Texture (Cuca-wound Skin Appearance) Localized Edema ,Scarring -Moisture (Cuca-wound Skin Appearance) No Abnormality -Color (Cuca-wound Skin Appearance) No Abnormality -Temperature (Cuca-wound Skin No Abnormality Appearance) (Pt Warm) -Tenderness on Palpation (Cuca-wound No Skin Appearance) -Ulcer Cleansing Not Cleansed -Foul Odor after Cleansing No -Anesthetic Used 4% Lidocaine Solution #1 L Grt Toe (plantar) -Current Size (cm) - Length 1 -Current Size (cm) - Width 1.8 -Current Size (cm) - Depth 0.2 -Total Square Cm 1.8 -Photo Taken No -Exudate Amt Small -Exudate Type Serosanguineous -Wound Margin Distinct, Outline Attached -Granulation Amt Medium (34-66%) -Granulation Quality [place],Red -Necrosis Amt Small (1-33%) -Structure Exposed N/A -Texture (Cuca-wound Skin Appearance) Callus,Scarring -Moisture (Cuca-wound Skin Appearance) Maceration -Color (Cuca-wound Skin Appearance) Assessed -Temperature (Cuca-wound Skin No Abnormality Appearance) (Pt Warm) -Tenderness on Palpation (Cuca-wound No Skin Appearance) -Ulcer Cleansing Soap and Water -Foul Odor after Cleansing No -Anesthetic Used 4% Lidocaine Solution Left Calf (cm) 46 Left Ankle (cm) 30 WC - Nurse 2 - General Ulcer CM Notes Start: 07/29/21 13:30 Freq: Status: Active Protocol: Activity Type Activity Date Activity User E-Sign Co-Sign Detail Recorded Client Recorded Date Recorded By Document 07/29/21 13:50 TUAN [id number] 07/29/21 13:57 TUAN 07/29/21 13:50 Wound Center Nurse 2 2-L dorsal hallux -Time 13:51 -Correct Patient Yes -Correct Side, Site, Position Yes -Correct Procedure Yes -Procedure Performed Yes -Type of Procedure Debridement -Clinical Debridement Subcutaneous -Tissue Removed Subcutaneous -Post Debridement (cm) - Length 0.9 -Post Debridement (cm) - Width 0.4 -Post Debridement (cm) - Depth 0.1 -Total Square (Post) (cm) 0.36 -Area of Debridement (cm) - Length 0.9 -Area of Debridement (cm) - Width 0.4 -Total Square (Area) (cm) 0.36 -Tunneling No -Undermining/Tunneling No -Circular Undermining No -Wound/Ulcer Outcome Not Healed -Ulcer Cleansing Rinsed/ Irrigated with Saline -Foul Odor after Cleansing No -Bioengineered Tissue No -Bleeding Controlled with Pressure -Offloading Yes -Type of Offloading Surgical Shoe -Treatment Response Procedure Tolerated Well -Debridement - Subq, 1st 20sq cm No #1 L Grt Toe (plantar) -Time 13:51 -Correct Patient Yes -Correct Side, Site, Position Yes -Correct Procedure Yes -Procedure Performed Yes -Type of Procedure Debridement -Clinical Debridement Subcutaneous -Tissue Removed Subcutaneous -Post Debridement (cm) - Length 1.7 -Post Debridement (cm) - Width 0.8 -Post Debridement (cm) - Depth 0.1 -Total Square (Post) (cm) 1.36 -Area of Debridement (cm) - Length 1.7 -Area of Debridement (cm) - Width 0.8 -Total Square (Area) (cm) 1.36 -Tunneling No -Undermining/Tunneling No -Circular Undermining No -Wound/Ulcer Outcome Not Healed -Ulcer Cleansing Rinsed/ Irrigated with Saline -Foul Odor after Cleansing No -Bioengineered Tissue No -Bleeding Controlled with Pressure -Offloading Yes -Type of Offloading Surgical Shoe -Treatment Response Procedure Tolerated Well -Debridement - Subq, 1st 20sq cm Yes Pain Scale: 0-10 Numeric Is Patient Pain Free? Yes WC - Nurse 3 - General Ulcer D/C NN Start: 07/29/21 13:30 Freq: Status: Active Protocol: Activity Type Activity Date Activity User E-Sign Co-Sign Detail Recorded Client Recorded Date Recorded By Document 07/29/21 14:00 [facility] Desktop 07/29/21 14:01 [facility] 07/29/21 14:00 Wound Care Nurse 3 2-L dorsal hallux -Primary Dressing Applied Aquacel AG 2x2 -Other Dressing drsg per rb rn -Primary Dressing Covered/Secured with Dry Gauze & Roll Gauze, Secured with Tape -Aquacel AG 2x2 0 #1 L Grt Toe (plantar) -Ulcer Cleansing Rinsed/ Irrigated with Saline -Foul Odor after Cleansing No -Primary Dressing Applied Aquacel AG 2x2 -Primary Dressing Covered/Secured with Dry Gauze & Roll Gauze, Secured with Tape -Aquacel AG 2x2 1 JOVI -Other own compression stockings Treatment Response Procedure Tolerated Well Pain Scale: 0-10 Numeric Is Patient Pain Free? Yes WC - Visit Discharge Discharge Condition Stable Ambulatory Status Ambulatory Transportation Private Auto Assessment/Plan Assessment/Plan (1) Non-pressure chronic ulcer of other part of left foot with fat layer exposed: CODE(S): L97.522 - Non-pressure chronic ulcer of other part of left foot with fat layer exposed (2) Other specified peripheral vascular diseases: CODE(S): I73.89 - Other specified peripheral vascular diseases (3) Venous insufficiency (chronic) (peripheral): CODE(S): I87.2 - Venous insufficiency (chronic) (peripheral) (4) Malnutrition: CODE(S): E46 - Unspecified protein-calorie malnutrition (5) Hallux malleus of left foot: CODE(S): M20.32 - Hallux varus (acquired), left foot (6) Type 2 diabetes mellitus without complications: CODE(S): E11.9 - Type 2 diabetes mellitus without complications (7) Delayed wound healing: CODE(S): T14.8XXD - Other injury of unspecified body region, subsequent encounter PLAN: I reviewed and discussed her case today. Debridement was performed today as noted in the clinical panel to the ulcer site and new ulcer site as well. r. The following work up and care recommendations were made: Dressing: Daily Aquacel Ag Wash: Antibacterial soap and water Offload: To continue heel weightbearing with left surgical shoe with offloading felt and Plastizote liners that were previously fabricated at the foot and ankle Center. Plastizote liners were updated at recent visit and additional modification were made today. She was advised not to overdo it with the home projects if it is compromising her foot or other body parts. Vascular: I reviewed her recent noninvasive vascular study results that were performed at [facility]. No gross abnormalities were noted and she appears to have adequate perfusion. Edema: Tubigrip dispensed. To intermittently elevate the limbs at rest. I recommend work-up for venous insufficiency and a venous Doppler was performed. An order for additional reflux evaluation was provided. It is noted she had a venous Doppler performed on 03-04-21 and this was negative for DVT however this did not specifically assess for venous insufficiency. Infection: She does not have a clinical local or systemic illness today however at the chronicity and recurrent nature of this ulcer is concerning. Imaging: Her x-rays were reviewed from the foot and ankle Center from 04-14-21 without any soft tissue emphysema, fracture or dislocation, or foreign body. It is noted she had a prior arthrodesis of the first metatarsal phalangeal joint with plates and screws in place in a rectus position. There does not appear to be any hardware malfunction. There is an area of osteolysis at the distal tip of the distal phalanx of the hallux and the position of this hallux interphalangeal joint is dorsiflexed and the hallux malleus position. This may be consistent with mechanical pressure or osteomyelitis given her chronic recurrent ulcer status. Labs: No gross abnormalities were noted with the CBC. She does not have leukocytosis. It is noted that her creatinine slightly elevated and her GFR is estimated around 44. Pain: Controlled Host factors: She is diabetic and appears to be fairly controlled at this time. To continue to work with lifestyle management and PCP coordination to optimize her health. I recommend nutritional supplementation including Antoine to optimize healing. She is familiar with nutritional services at the hospital and I recommend deferring to their nutritional recommendations as opposed to doing a keto diet. This is especially recommended due to her recent declining kidney function that is noted on her laboratory values today. Overall plan: It is noted she has failed comprehensive wound healing management at another office and at this time. If she fails to heal, a partial hallux amputation will be considered and is recommended. We also discussed the potential for hallux arthrodesis if she is cleared from osteomyelitis diagnosis, arthrodesis is also an option of the hallux interphalangeal joint. There would be concern of driving hardware through a chronic ulcer site for contamination issues and this is not recommended at this time. We reviewed her x-rays today. I offered her a partial hallux amputation likely at the interphalangeal joint level however a tuft excision would also be considered. I do not recommend proceeding forward with any surgeries unless it is clarified she has a full understanding of the recommendation and plan. She verbally states she would like to proceed forward in August now; sales office coordinator nurse will contact her. I answered all the patient's questions. To return to the wound healing center in 1 week or call sooner if the patient has any questions or concerns. Note: [employer] speech recognition tool crib supervisor software was used to create portions of this document. Sound-alike and misspelled words, as well as other tool crib supervisor errors may be contained in the documentation. 21 minutes was spent on this encounter. This included face to face and non face to face care including preparing for the visit, reviewing the history, performing the exam, counseling and providing education to the patient, family, or caregiver, ordering medications/test/ procedures if indicated as documented, communicating with other healthcare providers, documenting information in the medical record, interpreting / sharing this information when indicated as documented, and care coordination.
== END 2021-08-09 23:59 ==
LOC: WC 13:30
PROVIDERS: PCP Family Medicine; Referring Provider Podiatrist; Visit Provider Podiatrist
DX: E11.621 Type 2 diabetes mellitus with foot ulcer (principal); L97.522 Non-pressure chronic ulcer of other part of left foot with fat layer exposed; M20.32 Hallux varus (acquired), left foot; I87.2 Venous insufficiency (chronic) (peripheral); E11.51 Type 2 diabetes mellitus with diabetic peripheral angiopathy without gangrene; E66.9 Obesity, unspecified; Z68.31 Body mass index [BMI] 31.0-31.9, adult; Z79.890 Hormone replacement therapy; Z79.899 Other long term (current) drug therapy
CPT/HCPCS: 11042

== ENCOUNTER → 2021-08-19 10:58 | Outpatient (CLI) | payer MEDICARE, OTHER, SELFPAY ==
[2021-08-19 12:21] LABS: Absolute Lymphocyte Count 1.88 X10^3/uL (0.83-4.51); Absolute Neutrophil Count 3.8 X10^3/uL (2.0-7.7); Basophil# 0.07 X10^3/uL; Basophil% 1.1 % (0-1); Eosinophil# 0.15 X10^3/uL; Eosinophils% 2.3 % (0-5); Hematocrit 44.2 % (37-47); Hemoglobin 13.9 g/dL (12.0-15.0); Lymphocyte # 1.88 X10^3/ul (0.83-4.51); Lymphocyte % 28.9 % (19-41); Mean Corp Hgb Conc 31.4 g/dL (32-36); Mean Corpuscular Hgb 31.7 pg (27.0-32.0); Mean Corpuscular Volume 100.7 fL (81-99); Monocyte# 0.62 X10^3/uL; Monocyte% 9.5 % (0-10); NRBC Flagged by Analyzer 0 % (0-5); Neutrophil # 3.76 X10^3/uL (2.7-7.7); Neutrophil % 57.9 % (47-70); Platelet Count 315 K/mm3 (150-450); RBC Distribution Width CV 12.1 % (11.6-14.6); RBC Distribution Width SD 45.7 fl (35.1-43.9); Red Blood Count 4.39 M/mm3 (4.2-5.4); White Blood Count 6.5 K/mm3 (4.4-11.0)
[2021-08-19 12:53] LABS: ALB/GLOB Ratio 0.9 RATIO (0.9-2.4); AST(SGOT) 13 U/L (15-37); Alanine Aminotransfer ALT/SGPT 17 U/L (13-56); Albumin, Serum 3.7 g/dL (3.2-5.0); Alkaline Phosphatase 98 U/L (45-117); Anion Gap 7 (5-15); BUN 29 mg/dL (7-18); BUN/Creat Ratio 18.6 RATIO (10-20); Calcium,Total 9.4 mg/dL (8.5-10.1); Chloride 103 mmol/L (98-107); Creatinine, Serum 1.56 mg/dL (0.55-1.02); EST Glomerular Filtration Rate 34 mL/min (>60); Est Glom Filt Rate - Afr Amer 42 mL/min (>60); Globulin 4.1 g/dL (2.2-4.2); Glucose 125 mg/dL (74-106); Potassium 4.4 mmol/L (3.5-5.1); Protein, Total 7.8 g/dL (6.4-8.2); Sodium Level 136 mmol/L (136-145)
== END ==
PROVIDERS: PCP Family Medicine; Referring Provider Family Medicine; Visit Provider Family Medicine
DX: Z01.818 Encounter for other preprocedural examination (principal)
CPT/HCPCS: 36415; 80053; 85025

== ENCOUNTER 2021-09-01 10:42 | Day surgery (SDC) | payer MEDICARE, OTHER, SELFPAY ==
[2021-09-01 11:12] VITALS: BP 149/69; PULSE 50; RESP 16; TEMP 36.8; O2SAT 100; BMI 32.5
[2021-09-01] MEDS: Lactated Ringers 1,000 ML 15 ML IV (11:18)
--- NOTE | 2021-09-01 11:57 | RAD_ITS ---
STUDY: X-RAY LEFT FOOT, GREAT TOE REASON FOR EXAM: Partial amputation of the great toe. TECHNIQUE: 4 intraoperative images of the toe were obtained. COMPARISON: Radiographs 02/18/2017. FINDINGS: There is partial amputation of the great toe with resection of the distal phalanx. There is orthopedic hardware transfixing an arthrodesis of the first metatarsophalangeal joint. 4 seconds of fluoroscopy time was used. Electronically Signed: Caio Matt MD at 14:59 EST Tel , Service support , RAD/Toe(s) Min 2 Views
[2021-09-01] MEDS: Bupivacaine Mpf 0.5% 30 ML VIAL (12:30)
[2021-09-01] MEDS: Lidocaine 1% (30 ml sdv) 30 ML Vial (12:30)
--- NOTE | 2021-09-01 12:30 | BON_PTH ---
PATIENT: JENSEN BURTON [place] [facility] [id number] AGE/SX: 76/F ROOM: RE09/01/[address]: Dr. Laura Read DPM : 1945 BED: DIS: 09/01/2021 SPEC #: [id number] RECD: 09/01/21 13:52 STATUS: JOSE REKaren #: [id number] VERA: 09/01/21 12:[address]: Laura Read DEPT: SURGICAL PATHOLOGY RECD BY: Ledy Cheng ENTERED: 09/02/21 08:42 SP TYPE: Bone OTHR DR: Dr. Lupillo Riley MD Tissues: Toe, NOS Procedures: Decalcification bone/plaque Surgery Specimen Level IV HEADER OPERATION: Left great toe partial amputation PRE-OP DIAGNOSIS: Chronic ulcer and toe deformity TISSUE SUBMITTED: Left bone hallux MICROSCOPIC DIAGNOSIS Left great toe, partial amputation: Pseudoepitheliomatous hyperplasia, hyperkeratosis, parakeratosis and granulation tissue reaction. Underlying bone with chronic inflammation and reactive changes, negative for acute osteomyelitis. SJ 09/07/21 MICROSCOPIC DESCRIPTION Slides are reviewed. GROSS DESCRIPTION Received in fixative is one container labeled with the patient's name and designated left bone hallux. The specimen consists of a portion of toe measuring 3.5 x3.5 x 1.5 cm. Nail appears atrophic. No obvious ulcer is noted. Brick Dropper sections are submitted in two cassettes as follows: 1 ? skin, 2 ? bone after decalcification. /AQUILES:fred 09/02/21 TC:5 CPT: 12492, 59612
[2021-09-01 13:20] VITALS: BP 149/69; BP 178/82; PULSE 63; RESP 18; TEMP 36.7; O2SAT 100
--- NOTE | 2021-09-01 13:22 | EX.PCM.DISCH ---
Discharge Instructions Follow Up Care Test Results: Test results from this visit will be discussed in further detail at your follow-up appointment, if applicable. Discharge Plan Admission Primary Reason for Your Visit: chronic ulcer with toe deformity Attending Provider: Laura Read Primary Care Provider: Lupillo Riley Instructions Additional Instructions / Restrictions: Elevate left lower extremity. Apply ice to the behind knee for no more than 15 minutes each hour. Do not apply ice to the toe area. It is okay to heel touch if needed for balance.Maintain a nonweightbearing status to left foot with surgical shoe in place. Use assistive devices such as a walker or knee roller. Keep your dressing clean, dry, and intact until follow-up in clinic next week. Discharge Orders/Prescriptions Prescriptions: No Action levothyroxine 137 MCG tablet 137 mcg PO DAILY Qty: 30 RF: 0 pravastatin 40 MG tablet 40 mg PO DAILY Qty: 30 RF: 0 propranolol 40 MG tablet 40 mg PO BID Qty: 60 RF: 0 tizanidine [Zanaflex] 2 MG capsule 2 mg PO 4X/DAY PRN PRN (Reason: Muscle Spasm) Qty: 60 RF: 0 furosemide 20 MG tablet 40 mg PO DAILY RF: 0 hydrocodone-acetaminophen 1 TABLET tablet 1 tab PO TID PRN PRN (Reason: Pain) RF: 0 gabapentin 800 tablet 400 mg PO TID RF: 0 montelukast 10 MG tablet 10 mg PO DAILY PRN PRN (Reason: Allergies) RF: 0 losartan 100 MG tablet 50 mg PO DAILY RF: 0 fluticasone propionate 50 spray,suspension 2 puff inhalation DAILY PRN PRN (Reason: Allergies) RF: 0 diclofenac sodium 100 GM gel 1 ea topical DAILY RF: 0 bupropion HCl 150 mg tablet sustained-release 12 hr 150 mg PO BID RF: 0 paroxetine HCl [Paxil] 10 mg Tablet 10 mg PO DAILY RF: 0 cholecalciferol (vitamin D3) [Vitamin D3] 50 mcg (2,000 unit) Capsule 50 mcg PO DAILY RF: 0 Referrals / Follow Up: Lupillo Riley MD [Primary Care Provider] - Laura Read DPM [STAFF PHYSICIAN] - In 1 Week Disposition Disposition (needs filled in before D/C Order can be placed): Home, Self Care
[2021-09-01 13:25] VITALS: BP 149/69; BP 186/75; PULSE 57; RESP 18; O2SAT 100
--- NOTE | 2021-09-01 13:27 | PCM.OP.BLANK ---
Problems Associated Problem List Diagnoses (1) Non-pressure chronic ulcer of other part of left foot with fat layer exposed: (2) Hallux malleus of left foot: (3) Delayed wound healing: Operative Report Date of Procedure: 09/01/21
[2021-09-01 13:30] VITALS: BP 149/69; BP 166/92; PULSE 56; RESP 18; O2SAT 100
[2021-09-01 13:35] VITALS: BP 149/69; BP 170/82; PULSE 60; RESP 18; TEMP 36.8; O2SAT 100
--- NOTE | 2021-09-01 13:36 | PCM.OPRPT ---
Problems Associated Problem List Diagnoses (1) Non-pressure chronic ulcer of other part of left foot with fat layer exposed: (2) Hallux malleus of left foot: (3) Delayed wound healing: Report of Operation Pre-Operative Diagnosis: Left chronic hallux ulcer Left hallux malleus Post-Operative Diagnosis: Left chronic hallux ulcer Left hallux malleus Surgery/Procedure Performed:: Partial left hallux amputation Description of Surgical Findings:: Hemostasis: Well-padded pneumatic left ankle tourniquet, 250 mmHg, 10 minutes Materials: 3-0 Vicryl, 2-0 nylon Specimen sent The patient tolerated the procedure and anesthesia well. The patient was transported to the PACU with vital signs stable and vascular status intact to the surgical limb. To ice and elevate for pain and inflammation management. Postoperative x-rays were reviewed prior to leaving the operating room. There is adequate partial left hallux amputation noted without acute fractures, dislocations, foreign body or soft tissue emphysema. Postoperative orders were entered electronically. She will be discharged home. Surgeon: Laura Read clinical program consultant: None (Kailey Summers, PGY3, DPM) Type of Anesthesia: Local (Preop: 1:1 mix 1% lidocaine plain and 0.5% Marcaine plain first ray block fashion, left foot, 20 cc) Specimen's removed: Left hallux bone sent to pathology and microbiology (aerobic, anaerobic, acid-fast, fungal) Drains: None Estimated Blood Loss (mL): <50 mL Description of Procedure: Indications: This 76-year-old female with significant past medical history of diabetes, hypertension, lymphedema, obstructive sleep apnea, hyperlipidemia and neuropathy has a chronic left hallux ulcer that has failed conservative care. She has been seen at the [facility] and wound care center in which prior treatment has included serial debridement, offloading, nutritional guidance, local wound care. Her x-rays demonstrated underlying hallux malleus deformity in which the plantar distal phalanx tip is prominent in approximation to the floor. She has had multiple surgeries done on this left foot which are also apparent on x-rays with retained hardware and non pertinent to her current operating room visit. She had a prior bone biopsy performed in clinic by different physician and it was negative for osteomyelitis that is also seen on the x-ray. Her vascular status is intact. She does have lower extremity edema consistent with lymphedema however this does not overwhelmingly affect the digit. She has lack of epicritic sensation to the left foot which is consistent with neuropathy. She had a clearance performed in which the history and physical was reviewed by Dr. Stephens on 08-19-21. Preoperative diagnostic data was reviewed including EKG, CBC, CMP without gross abnormalities. Her allergies are noted. Preoperative H&P were reviewed including his diagnostic data. There is no gross abnormalities noted with labs for preoperative EKG. Preoperative indications, planned procedure, benefits, risk, anticipated healing time and management were reviewed. The patient understands and elects proceed with surgery at this time. No guarantees were made. The patient understands risk and complications include but are not limited to following: pain, swelling, scarring, need for further surgery, tendon contracture, transfer lesion, transfer lesion, arthritis, need for further surgery, delayed or nonhealing, infection, blood clot, allergic reaction, loss of limb, function, or life. The informed surgical limb and consent were signed. I answered all the patient's questions. The patient also understands there is an inherent risk with being in the hospital and undergoing a procedure during the time of COVID-19 pandemic. The patient understands precautions are being taken to prevent transmission. This patient understands the benefits and risks of having a procedure at this time versus waiting in which the benefits are reasonable at this time. Procedure in detail: The patient was transported to the operating room via cart and placed on the operating table in the supine position. Final verification of the patient, surgery, limb designation was performed via the timeout procedure. A well-padded pneumatic left ankle tourniquet was placed. The preoperative local anesthetic was administered. The anesthesia team administered the preoperative MAC. Antibiotics were held until after the specimen was sent for culture and pathology evaluation. The left lower extremity was prepped and draped in the usual aseptic manner. An Esmarch bandage was used to exsanguinate the limb. The tourniquet was inflated at this time. Surgery began in the following manner: Attention was first directed to the left hallux in which a fishmouth incision was made at the level of the interphalangeal joint down to bone in which the distal phalanx was excised in total and disarticulated at the interphalangeal hallux joint. This was sent as a specimen to pathology and microbiology. Any soft tissue nonviable was excised including remaining flexor tendon. There was no necrosis, purulence. The head of the proximal phalanx had a healthy articular surface and was firm and white. This was kept intact. Saline copious irrigation was performed. The tourniquet was deflated at this time and hemostasis was controlled with direct pressure and minimal electrocauterization. There was no pulsatile bleeding and brisk capillary refill time was noted to all digits of the left foot and also to all parameters of the amputation stump site. Deep closure was performed with Vicryl suture. The skin was reapproximated with nylon horizontal mattress and simple suture technique. A postoperative dressing consisting of Betadine soaked Adaptic, 4 x 4 gauze, Kerlix and Og wrap was applied. After procedure: The patient tolerated the procedure and anesthesia well. The patient was transported to the PACU with vital signs stable and vascular status intact to the surgical limb. To ice and elevate for pain and inflammation management. Postoperative x-rays were reviewed prior to leaving the operating room as noted. Postoperative orders were entered electronically. She will be discharged home and will be nonweightbearing with the surgical shoe to left foot. She will use a walker and a knee roller. I will follow her specimen results that were sent to microbiology and pathology. I do not recommend antibiotics at this time. She will follow-up in clinic in 1 week. Laura Read DPM, [facility] Grafts/Implants Used: None Complications None Admit VTE Documentation VTE Present on Admission: No VTE Mechan Device Prophylaxis: SCD's VTE Pharm Prophylaxis ordered?: No Reason prophylaxis not ordered:: Procedure Not Indicated
[2021-09-01 13:41] LABS: Bedside Glucose 94 mg/dL (70-110)
[2021-09-01 14:10] VITALS: BP 149/69
== END 2021-09-01 14:19 | disposition home or self-care (01) ==
LOC: SDC 10:45 → AC 10:46
PROVIDERS: PCP Family Medicine; Referring Provider Podiatrist; Visit Provider Podiatrist
PROC: (CPT 28825; principal; 2021-09-01 12:15)
DX: E11.621 Type 2 diabetes mellitus with foot ulcer (principal); L97.522 Non-pressure chronic ulcer of other part of left foot with fat layer exposed; I10 Essential (primary) hypertension; E03.9 Hypothyroidism, unspecified; E78.00 Pure hypercholesterolemia, unspecified; M19.90 Unspecified osteoarthritis, unspecified site; Z79.899 Other long term (current) drug therapy; Z79.890 Hormone replacement therapy
CPT/HCPCS: 01480; 28825; 73660; 76000; 82962; 87015; 87070; 87075; 87102; 87116; 87176; 87205; 87206; 88305; 88311; J7120

== ENCOUNTER 2022-02-22 11:39 | Day surgery (SDC) | payer MEDICARE, OTHER, SELFPAY ==
[2022-02-22] VITALS (12 sets, daily range): BP systolic 149–193; BP diastolic 70–135; PULSE 56–63; RESP 16–19; TEMP 35.9–37.4; O2SAT 100; BMI 33.5
[2022-02-22] MEDS: Lactated Ringers 1,000 ML 15 ML IV ×2 (12:18→15:30)
[2022-02-22 12:30] LABS: Bedside Glucose 103 mg/dL (74-106)
[2022-02-22] MEDS: Clindamycin 900 MG/50 ML BAG 75 MG IV (12:56)
[2022-02-22] MEDS: Lidocaine 2% (20 ml mdv) 20 ML Vial (13:08)
[2022-02-22] MEDS: Bupivacaine Mpf 0.5% 30 ML VIAL (13:08)
--- NOTE | 2022-02-22 13:10 | RAD_ITS ---
PROCEDURE: Spinal cord stimulator placement. DATE OF EXAMINATION: 02/22/2022. INDICATION: Female, 76 years old. Chronic back pain. FLUOROSCOPY TIME (if supplied): (5 minutes and 4 seconds) minutes/seconds. 6 images were obtained. RAD/Lumbar Spine 2 or 3 Views IMPRESSION: Intraoperative imaging provided for placement of the spinal cord stimulator. Electronically Signed: Dinesh Cheng MD at 9:44 EDT ,
[2022-02-22] MEDS: Bacitracin 500 UNITS/GM PACKET (14:56)
--- NOTE | 2022-02-22 14:56 | PCM.OPRPT ---
Report of Operation Date of Procedure: 02/22/22 Description of Surgical Findings:: Pre-Operative Diagnosis: Lumbosacral radiculopathy, lumbosacral degenerative disc disease, lumbosacral spinal stenosis Post-Operative Diagnosis: Lumbosacral radiculopathy, lumbosacral degenerative disc disease, lumbosacral spinal stenosis Surgery/Procedure Performed:: 1. Spinal cord stimulator thoracolumbar leads placement x2, 2- spinal cord stimulator Medtronic intellus generator placement #3 spinal cord stimulator generator pocket creation at the left gluteal region #4 spinal cord stimulator simple programming, 5-intraoperative fluoroscopic interpretation ANESTHESIA: MAC COMPLICATIONS: None BLOOD LOSS: <50 ml Implanted device: Spinal cord stimulator lead [id number] lot [id number], lead #2 [id number] lot number [id number] Medtronic spinal cord stimulator generator intellus serial number [id number] PROCEDURE IN DETAIL: History and physical today was reviewed. Risks and benefits of procedure explained. The patient understood, agreed to procedure, informed consent was obtained. IV inserted per routine protocol. The patient was taken to the operating room, placed in the prone position with a pillow positioned underneath the abdomen. A 2 g of Ancef IV piggyback was infused per anesthesia. The lower back and left gluteal area was prepped and draped in a sterile fashion using iodine x3 Ioban was placed. The C-arm was brought in position for AP view at the T12-L1 vertebral bodies under direct visualization fluoroscopy on a true AP view the T12-L1 interlaminar space was identified skin and subcutaneous tissue and size approximately 10 cc of a mix of 2% lidocaine and 0.25% Marcaine using a 25-gauge regular needle followed by a 25-gauge 3-1/2 inch spinal needle towards the interlaminar space at L1-2, the skin and subcutaneous tissue were then anesthetized and using an 11-gauge blade was then taken down to the skin and subcutaneous tissue using a 14-gauge 3-1/2 inch Touhy needle provided by the [employer] kit the needle was passed through the skin towards the interlaminar space at T12-L1 and a paramedian approach the needle was then advanced under direct visualization fluoroscopy towards the interlaminar space at T12-L1 [id number] technique was then carried to air towards the interlaminar space at [id number] the tip of the needle was in the epidural space and loss of resistance was encountered to air and after confirmation of AP as well as oblique view of the spinal cord stimulator lead was then advanced under direct visualization fluoroscopy to be at the tip of the lead at top of T8 and the bottom of the lead around mid T10 after confirmation of AP as well as lateral view to confirm correct placement of the lead in the posterior compartment of the epidural space the previous procedure was then repeated to the left the previous lead at [id number] space the second lead was then inserted under direct visualization with fluoroscopy to be at the mid T8 and mid T10 area the leads were were then connected to the external neurostimulator and patient was then awakened to confirm satisfactory coverage of the painful area once satisfactory coverage was then achieved the stylette of each needle was then removed and the skin and subcutaneous tissue on to the left of the paramedian needles was then taken anesthetized with a total of 10 cc of the previous mixture of 0.25% Marcaine and 2% lidocaine using a 25-gauge regular needle the incision was then taken down through the skin and subcutaneous tissue towards the fascia making sure hemostasis was then maintained via cautery, the spinal cord stimulator leads were then passed through the above incision and secured using the wing and sutured down with a 2-0 silk to the fascia at that level the spinal cord stimulator leads were then tunneled via a tunneler provided by the [employer] kit towards the previously incised spinal cord stimulator battery at the left gluteal region skin and subcutaneous tissue were anesthetized with approximately 10 cc of a mix of 2% lidocaine and 0.25% Marcaine using a 25 gauge regular needle, skin and subcutaneous tissue was then taken down with the 11-gauge blade hemostasis was maintained with Bovie and direct pressure the incision was then taken down to the fascia and the battery was then secured with the 2-0 silk sutures that were the spinal cord stimulator leads the upper lead was then marked the new until spinal cord stimulator battery was then provided Via [employer] kit the battery was then reattached of the spinal cord stimulator make ensure that the left is attached to the top position from 0-7 electrodes and the bottom from 8-15 electrodes once impedance was then checked to be in the proper average number the intellus battery was then inserted into the pocket and impedance with when checked again the pocket was then inspected to confirm hemostasis in place, the intellus battery was then placed in a tyrx pouch and secured to the fascia using a 2-0 silk to the upper eyes of the battery confirming an upward writing of the intellus facing posterior, once complete confirmation the battery was then placed in the position and the the two mid paramedian and the gluteal incisions were then closed primarily through 0-0 Vicryl followed by a 3-0 Vicryl in a running fashion followed by a 4-0 Monocryl to the skin, hemostasis was then maintained during the procedure the skin was then covered with a Steri-Strips and bacitracin patient was then returned into the supine position in a stable condition and returned to recovery in a stable condition patient experienced no signs or symptoms of intrathecal or intravascular injection patient experienced no paresthesia the procedure was completed without any apparent difficulty any complication the patient appeared to tolerate well, motor as well as sensory function was unchanged from prior to the procedure ASSESSMENT AND PLAN: This is an 76-year-old female with lumbosacral radiculopathy lumbosacral degenerative disc disease lumbosacral spinal stenosis status post 1. Spinal cord stimulator thoracolumbar leads placement x2 #2 spinal cord stimulator Medtronic intellus generator placement #3 spinal cord stimulator generator pocket creation at the left gluteal region #4 spinal cord stimulator simple programming, 5-intraoperative fluoroscopic interpretation patient will continue her current medications a prescription was provided to the patient of doxycycline 100 mg 1 p.o. every 12 hours for 10 days, postop instruction were given in writing to the patient as well as verbally and in writing, patient will follow approximately 1 week for reevaluation. inspector boiler: Kayla Couch
== END 2022-02-22 17:27 | disposition home or self-care (01) ==
LOC: SDC 11:40 → AC 11:45
PROVIDERS: PCP Family Medicine; Visit Provider Anesthesiology Pain Medicine
PROC: (CPT 63685; principal; 2022-02-22 12:55)
DX: M51.17 Intervertebral disc disorders with radiculopathy, lumbosacral region (principal); M48.07 Spinal stenosis, lumbosacral region; E11.9 Type 2 diabetes mellitus without complications; I10 Essential (primary) hypertension; E78.00 Pure hypercholesterolemia, unspecified; Z79.890 Hormone replacement therapy; Z79.899 Other long term (current) drug therapy
CPT/HCPCS: 63685; 63650 ×2; 95971; 00300; 72100; 76000; 82962; C1778; C1820; J7120; J2405

== ENCOUNTER → 2022-09-22 | Outpatient (CLI) | payer MEDICARE, OTHER, SELFPAY ==
[2022-09-22 17:58] LABS: Hematocrit 37.7 % (37-47); Mean Corp Hgb Conc 31.8 g/dL (32-36); Mean Corpuscular Hgb 32.2 pg (27.0-32.0); Mean Corpuscular Volume 101.1 fL (81-99); Mean Platelet Vol. 11.4 fl (6.2-12.0); Platelet Count 262 K/mm3 (150-450); RBC Distribution Width CV 12.5 % (11.6-14.6); Red Blood Count 3.73 M/mm3 (4.2-5.4); White Blood Count 4.3 K/mm3 (4.4-11.0)
[2022-09-22 18:31] LABS: Vitamin B12 359 pg/mL (211-911)
[2022-09-22 18:33] LABS: ALB/GLOB Ratio 1.1 RATIO (0.9-2.4); AST(SGOT) 18 U/L (15-37); Alanine Aminotransfer ALT/SGPT 22 U/L (13-56); Albumin, Serum 3.3 g/dL (3.2-5.0); Alkaline Phosphatase 88 U/L (45-117); Anion Gap 5 (5-15); BUN 17 mg/dL (7-18); BUN/Creat Ratio 19.6 RATIO (10-20); Calcium,Total 8.8 mg/dL (8.5-10.1); Chloride 108 mmol/L (98-107); Creatinine, Serum 0.87 mg/dL (0.55-1.02); EST Glomerular Filtration Rate 67 mL/min (>60); Est Glom Filt Rate - Afr Amer 81 mL/min (>60); Globulin 2.9 g/dL (2.2-4.2); Glucose 82 mg/dL (74-106); Potassium 4.1 mmol/L (3.5-5.1); Protein, Total 6.2 g/dL (6.4-8.2); Sodium Level 142 mmol/L (136-145); Thyroid Stim Hormone (TSH) 0.18 uIU/mL (0.358-3.74)
[2022-09-26 02:06] LABS: Free Kappa Light Chains 41.3 mg/L (3.3-19.4); Free Lambda Light Chains 22.6 mg/L (5.7-26.3)
== END | disposition home or self-care (01) ==
LOC: MTLAB 16:30
PROVIDERS: PCP Family Medicine; Referring Provider Psychiatry & Neurology Neurology; Visit Provider Psychiatry & Neurology Neurology
DX: I10 Essential (primary) hypertension (principal); G62.9 Polyneuropathy, unspecified
CPT/HCPCS: 36415; 80053; 82607; 82746; 83883; 84425; 84443; 85027

== ENCOUNTER → 2022-09-27 | Outpatient (CLI) | payer MEDICARE, OTHER, SELFPAY ==
--- NOTE | 2022-09-27 13:23 | MRI_ITS ---
STUDY: MRI THORACIC SPINE WITH AND WITHOUT CONTRAST REASON FOR EXAM: Female, 77 years old. 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 COMPARISON: None. FINDINGS: The previously described T2 hyperintense lesion is noted in the thoracic spinal cord at T9-10 level has decreased in size it measured previously 12 x 10 x 18 mm now measures 4.4 x 3.6 x 15 mm. The previously described changes are present in the central cord have resolved. There is abnormal enhancement after contrast administration. There is an increased kyphosis of the thoracic spine. There is no substantial scoliosis. T1-2, T2-3, T3-4, T4-5, T5-6, T6-7, T7-8, T8-9, T9-10, T10-11, T11-12: Multilevel degenerative disc disease with small to moderate circumferential disc bulge. There is no significant stenosis central canal or the intervertebral neural foramina at the corresponding levels. Normal conus medullaris that terminates at the T12-L1. The soft tissue structures are unremarkable. There is no enhancing abnormality. MRI/Spine Thoracic W/WO Contrast IMPRESSION: The previously described T2 hyperintense lesion is noted in the thoracic spinal cord at T9-10 level has decreased in size it measured previously 12 x 10 x 18 mm now measures 4.4 x 3.6 x 15 mm. The previously described changes are present in the central cord have resolved. There is abnormal enhancement after contrast administration. Electronically Signed: Ebenezer Velasquez MD at 3:30 EST ,
== END | disposition home or self-care (01) ==
LOC: MRI 13:23
PROVIDERS: PCP Family Medicine; Referring Provider Psychiatry & Neurology Neurology; Visit Provider Psychiatry & Neurology Neurology
DX: C72.0 Malignant neoplasm of spinal cord (principal); G96.89 Other specified disorders of central nervous system
CPT/HCPCS: 72157; A9575

== ENCOUNTER → 2022-12-21 | Outpatient (CLI) | payer MEDICARE, OTHER, SELFPAY ==
[2022-12-23 14:09] LABS: Albumin 3.8 g/dL (2.9-4.4); Alpha-1-Globulins 0.3 g/dL (0.0-0.4); Alpha-2-Globulins 0.8 g/dL (0.4-1.0); Gamma Globulin 0.8 g/dL (0.4-1.8); Immunoglobulin A 177 mg/dL (64-422); Immunoglobulin G 794 mg/dL (586-1602); Immunoglobulin M 240 mg/dL (26-217); PROEL- TOTAL PROTEIN 6.7 g/dL (6.0-8.5)
== END | disposition home or self-care (01) ==
LOC: MTLAB 16:07
PROVIDERS: PCP Family Medicine; Referring Provider Psychiatry & Neurology Neurology; Visit Provider Psychiatry & Neurology Neurology
DX: G62.9 Polyneuropathy, unspecified (principal)
CPT/HCPCS: 36415; 82784; 84165; 86334

== ENCOUNTER → 2022-12-27 | Outpatient (CLI) | payer MEDICARE, OTHER, SELFPAY | END | disposition home or self-care (01) | PROVIDERS: PCP Family Medicine; Referring Provider Psychiatry & Neurology Neurology; Visit Provider Psychiatry & Neurology Neurology | DX: G62.9 Polyneuropathy, unspecified (principal) | CPT/HCPCS: 86335 ==

== ENCOUNTER 2023-01-05 12:30 | Outpatient (RCR) | payer MEDICARE, OTHER, SELFPAY ==
--- NOTE | 2022-10-05 14:02 | HP.PTEVAL ---
Patient's Visit Information JENSEN BURTON is a 77 year old F referred to Physical Therapy by ELDA Daly with a diagnosis of lumbosacral spondylosis, cervical spondylosis, cervical radiculitis, degen. Date of Evaluation: 10/05/22 Physical Therapist: River Post DPT - Visit Plan Frequency: 2x /Week Duration: 6 Weeks Plan: Start with aquatic exercises working on BLE and core strength. Address posture throughout as well. Work on general strengthening. May do DN to cervical and lumbar spine to reduce tissue tightness and assist with modulating pain., - Subjective Pt. is here today for her initial evaluation with diagnosis of lumbosacral spondylosis, cervical spondylosis, cervical radiculitis, degen of cervical disc. Pt. reports having issues for a number of years. Pt. reports having pain in her neck and B arms and well as pain in her back and into her legs. She was having severe pain in her leg leg, but had a spinal stimulator which did help with her radicular symptoms. She reports having a R RTC tear as well. Pt's main concern is with her overall weakness and with her neck pain. Pt. reports having decent relief with her lumbar spine, but is still having some issues. Pt. reports last year being able to do a lot of work outside, but is not able to do any more. Pt. is hopeful to increase her strength and decrease her pain in order to do all of her outside work without limitations. - Pain R shoulder Pain Intensity (Out of 10): 5 Pain Intensity Range: 0, 5 Lumbar spine Pain Intensity (Out of 10): 2 Pain Intensity Range: 0, 5 Thoracic spine Pain Intensity (Out of 10): 3 Pain Intensity Range: 0, 5 Cervical spine Pain Intensity (Out of 10): 3 Pain Intensity Range: 0, 5 - Objective POSTURE: pt. had FH posture, rounded shoulders. Pt. has wider JUAN in stance with overall slouch posture. PALPATION: Pt. has tenderness throughout B cervical erector spinae, B UT, B sub occipitals. Throughout B rhomboids and mid trap as well as R anterior sub acromial space. Pt. has marked increased distal LE edema in LLE, non pitting. NEURO: Pt. has decreased B Achilles and patellar DTR. Pt. has decreased sensation in B distal LEs, from knee down. Pt. is able to rise on heels and toes with balance aide. ROM: Pt. had limited active B shoulder flexion to 90deg, abd 75deg, R functional ER C1, L functional ER C2, R functional IR L5, L functional IR to L1. CERVICAL SPINE: mod limitation throughout, pain noted with extension and end range rotation B. LUMBAR SPINE: flexion mod loss increase NW, ext max loss increase NW, SB mod loss bilat increase NE, rotation mod loss bilat increase NE. MMT: Pt. has 5/5 strength in B ankles and 5-/5 B knee musculature (marked crepitus). B hips 4/5. 4-/5 B shoulder strenght with increased pain in R side. GAIT: Pt. ambulates without AD, but has wide JUAN and increased lateral sway. No LOB noted, but very methodical with her movements. - Balance/Special Test Scores Oswestry Low Back Score: 21 - Goals Goal 1:: LTG: Pt. to be I with HEP for both strength and ROM generally. Goal Time Frame: 4-6 Weeks Goal 2:: LTG: Pt. to tolerated some light household work without limitations. Goal Time Frame: 4-6 Weeks Goal 3:: LTG: Pt. to have increased BLE and core strength to 5/5 throughout allowing for improved posture and stability in stance. Goal Time Frame: 4-6 Weeks Goal 4:: LTG: Pt. have increased ROM of cervical spine by 25% allowing for ease of ADls and driving. Goal Time Frame: 4-6 Weeks Goal 5:: LTG: Pt. to have decreased pain of lumbar and cervical spine to 0-3/10 allowing for increased tolerance to ADLs. Goal Time Frame: 4-6 Weeks - Rehabilitation Potential Physical Therapy Diagnosis: Pt. has signs and symptoms consistent with lumbosacral spondylosis, cervical spondylosis, cervical radiculitis, degen of cervical disc. Pt. has marked weakness and limited ROM throughout. Pt. reported some concerns about her general weakness and mobility. She does have some tight musculature, but I would like to start with getting moving and tolerance exercise more. Rehabilitation Potential: Good - Anticipated Interventions Patient/Client Instruction: Educate patient on: Condition, Plan of Care, Risk Factors, Benefits of Fitness Program For the Purpose of:: To facilitate caregiver knowledge, To improve self management, To prevent re-injury, To improve ability to perform tasks related to life management, To improve tolerance to ADL's Therapeutic Exercise to Include: Strength training, Power training, Endurance training, Balance training, Postural training, Flexibilty training, In an aquatic setting, Passive ROM, Active ROM, Dynamic Lumbar Stabilization For the Purpose of:: To decrease pain, To increase ROM, To improve nutrient delivery to tissue, To increase oxygenation perfusion, To improve muscle performance and motor function, To decrease level of supervision to perform tasks, To improve ability of physical actions for home/community/work/leisure, To improve gait and locomotor functions, To decrease soft tissue restriction, To increase flexibility/ROM, To improve endurance, To improve balance Manual Therapy Techniques to Include: Functional dry needling, Soft tissue mobilization For the Purpose of:: To decrease pain, To increase ROM, To improve nutrient delivery to tissue Thank you for the opportunity to evaluate your patient. For Medicare and Medicare HMO plans, please review the plan of care and approve it. It will need to be FAXED BACK to us at [phone] for Medicare purposes. For Medicare only, by signing this I certify the plan of care. Please let me know if there are questions or concerns regarding this plan of care. Physician Signature: Date:
--- NOTE | 2022-12-13 18:11 | HP.PTREVAL ---
Lupe Goins, LISA-C, It has been my pleasure to treat JENSEN BURTON over the last 3 visits for lumbosacral spondylosis, cervical spondylosis, cervical radiculitis, degen. Please see the progress note below for an update on the physical therapy plan of care! Subjective: Pt. reports overall had not been feeling well. That is why she has not been in. She developed a rash for unknown reason. She did not like to pool therapy as much as she thought she would. Objective/Function: pt. reports no current progress. She did not like the aquatic therapy that was trialed. Pt. then got sick and has not been seen in a few months. She is following up with physician next week. Pt. reports having continued to pain in her neck and B shoulders. She feels like her stimulator is not working properly as well. ROM: LUMBAR SPINE: flexion mod loss increase NW, extension mod loss increase NE, SB min loss NE bilat, rotation mod loss increase NW bilat. CERVICAL SPINE: flexion nil loss NE, ext mod loss increase NW, rotation min/mod loss increase NW, SB mod loss BE NE. MMT; core strength: poor, trunk extension poor+; hips: flexion 4/5 increase NW, extension 4/5, abd 4/5,. 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 She did ask about DN, which we can sprinkle in as well as needed for pain control. Plan Plan: After being gone for 8 weeks. I am requesting to continue with PT with focus on land based exercises to increase core strength. May use DN as needed. Pt. to follow up physician in the next few weeks. Pt. had missed a large amount of time since her evaluation and was re assessed today. Balance/Gait/Functional tests - Balance/Special Test Scores Oswestry Low Back Score: 21 Goals Goal 1:: LTG: Pt. to be I with HEP for both strength and ROM generally. Goal Time Frame: 4-6 Weeks Goal Progress: Progressing Goal 2:: LTG: Pt. to tolerated some light household work without limitations. Goal Time Frame: 4-6 Weeks Goal Progress: Progressing Goal 3:: LTG: Pt. to have increased BLE and core strength to 5/5 throughout allowing for improved posture and stability in stance. Goal Time Frame: 4-6 Weeks Goal 4:: LTG: Pt. have increased ROM of cervical spine by 25% allowing for ease of ADls and driving. Goal Time Frame: 4-6 Weeks Goal Progress: Not Progressing Goal 5:: LTG: Pt. to have decreased pain of lumbar and cervical spine to 0-3/10 allowing for increased tolerance to ADLs. Goal Time Frame: 4-6 Weeks Goal Progress: Not Progressing Anticipated Interventions Patient/Client Instruction: Educate patient on: Condition, Plan of Care, Risk Factors, Benefits of Fitness Program For the Purpose of:: To facilitate caregiver knowledge, To improve self management, To prevent re-injury, To improve ability to perform tasks related to life management, To improve tolerance to ADL's Therapeutic Exercise to Include: Strength training, Power training, Endurance training, Balance training, Postural training, Flexibilty training, In an aquatic setting, Passive ROM, Active ROM, Dynamic Lumbar Stabilization For the Purpose of:: To decrease pain, To increase ROM, To improve nutrient delivery to tissue, To increase oxygenation perfusion, To improve muscle performance and motor function, To decrease level of supervision to perform tasks, To improve ability of physical actions for home/community/work/leisure, To improve gait and locomotor functions, To decrease soft tissue restriction, To increase flexibility/ROM, To improve endurance, To improve balance Manual Therapy Techniques to Include: Functional dry needling, Soft tissue mobilization For the Purpose of:: To decrease pain, To increase ROM, To improve nutrient delivery to tissue Please do not hesitate to contact me at [phone] by phone or if you have questions or concerns regarding this new plan of care! Sincerely, River Post DPT
== END 2023-01-05 19:00 | disposition home or self-care (01) ==
LOC: PT 12:30
PROVIDERS: PCP Family Medicine; Referring Provider Nurse Practitioner Family; Visit Provider Nurse Practitioner Family
DX: M47.817 Spondylosis without myelopathy or radiculopathy, lumbosacral region (principal); M47.812 Spondylosis without myelopathy or radiculopathy, cervical region; M54.12 Radiculopathy, cervical region; M50.30 Other cervical disc degeneration, unspecified cervical region
CPT/HCPCS: 97110; 97113; 97161; 97164

== ENCOUNTER 2023-01-20 10:30 | Emergency (ER) | payer MEDICARE, OTHER, SELFPAY ==
[2023-01-20 10:32] VITALS: BP 202/69; PULSE 51; RESP 18; TEMP 36.6; O2SAT 96; BMI 33.7
--- NOTE | 2023-01-20 11:03 | EKG12_ITS ---
Test Reason : CONFUSION Blood Pressure : / mmHG Vent. Rate : 046 BPM Atrial Rate : 046 BPM P-R Int : 160 ms QRS Dur : 088 ms QT Int : 480 ms P-R-T Axes : 023 049 054 degrees QTc Int : 420 ms Sinus bradycardia Nonspecific T wave abnormality Abnormal ECG Confirmed by ELIDA HAMMONDS ([id number]), clinical editor VALERIE ESTRADA ([id number]) on 01/25/2023 7:45:22 AM Referred By: JAMIL Confirmed By:ELIDA HAMMONDS
--- NOTE | 2023-01-20 11:04 | EDS_ITS ---
HPI History of Present Illness Chief Complaint: Back Informant: patient Narrative Narrative: Patient presents for vague symptoms of feeling like she is vibrating everywhere. She is very uncomfortable but states she is not in severe pain. She has chronic pain of her low back and neck and states there were no different, chronic numbness from the mid [place]lin down bilaterally and that is no worse, but now she is feeling tingly all over. She denies any weakness or bowel or bladder dysfunction or abdominal pain or new back pain. She states she was outside because it was very nice yesterday gardening for 5 hours straight. She was bending over a lot to do that. She did have increase in her back pain yesterday but worked through it because it was so nice. She states she went inside and was extremely tired and fell asleep and woke up at 745 this morning with the symptoms. She has a back stimulator. She sees pain management Dr. Crowder. She states the sensation is like the back stimulator is on high and charging her throughout her whole body. She states it feels tingly a little, but mostly just vibration. She used her cell phone to turn her back stimulator completely off, and she states that did not change anything. She went to her pain management doctor today, they told her this has nothing to do with her stimulator, and called an ambulance for her to bring her here to the emergency department. She has a history of essential tremor. 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 She states the last MRI she had showed that it was half the size that it had been. Initially the patient tells me that it is up to here, holding her hand horizontally at the area around her umbilicus, referring to her tingling and vibration discomfort. However on exam, she does not have a sensory level anywhere. [facility] Medical History Arthritis Back pain Carpal tunnel syndrome CPAP (continuous positive airway pressure) dependence Depression Diabetes High cholesterol History of edema History of stress test Hypertension Lymphedema Migraine headache Non-smoker Seasonal allergies Thyroid disease Wears glasses Home Medications levothyroxine 137 mcg tablet 137 mcg PO DAILY #30 TABLETS 02/23/17 [Rx Last Taken 09/01/21 06:00] pravastatin 40 mg tablet 40 mg PO DAILY #30 TABLETS 02/23/17 [Rx Last Taken 07/25/18] propranolol 40 mg tablet 40 mg PO BID #60 TABLETS 02/23/17 [Rx Last Taken 09/01/21 06:00] diclofenac sodium 1 % topical gel 1 ea topical DAILY pain prn 07/26/18 [History Last Taken Unknown] fluticasone propionate 50 mcg/actuation nasal spray,suspension 2 puff inhalation DAILY PRN PRN Allergies 07/26/18 [History Last Taken Unknown] losartan 100 mg tablet 50 mg PO DAILY blood pressure 07/26/18 [History Last T aken 09/01/21 06:00] bupropion HCl 150 mg tablet,12 hr sustained-release 150 mg PO BID 02/28/21 [History Last Taken Unknown] paroxetine HCl 10 mg tablet (Paxil) 10 mg PO DAILY hot flashes 02/28/21 [History Last Taken Unknown] cholecalciferol (vitamin D3) 50 mcg (2,000 unit) capsule (Vitamin D3) 50 mcg PO DAILY 08/25/21 [History Last Taken Unknown] furosemide 40 mg tablet 40 mg PO DAILY PRN edema 08/23/22 [History Last Taken Unknown] gabapentin 800 mg tablet 300 mg PO TID nerve pain 08/23/22 [History Last Taken Unknown] hydrocodone 7.5 mg-acetaminophen 325 mg tablet 1 tab PO QHS PRN 08/23/22 [H istory Last Taken Unknown] ondansetron HCl 4 mg tablet 4 mg PO Q8H PRN nausea and vomiting 08/23/22 [History Last Taken Unknown] alprazolam 0.5 mg tablet 0.5 mg PO .COMPLEX #1 TAB 09/23/22 [Rx Last Taken Unknown] baclofen 10 mg tablet 10 mg PO TID PRN Muscle pain/spasm #90 tabs 12/21/22 [Rx Last Taken Unknown] flurbiprofen 100 mg tablet 100 mg PO DAILY PRN headache #20 tabs 12/21/22 [Rx Last Taken Unknown] folic acid 1 mg tablet 1 mg PO DAILY #30 tabs 12/21/22 [Rx Last Taken Unknown] primidone 50 mg tablet 50 mg PO BID #60 tabs 12/21/22 [Rx Last Taken Unknown] nitrofurantoin monohydrate/macrocrystals 100 mg capsule 100 mg PO Q12 #10 CAPSULES 01/20/23 [Rx Last Taken Unknown] Allergy/AdvReac Type Severity Reaction Status Date / Time Cephalosporins Allergy Anaphylaxis Verified 12/21/22 14:57 codeine Allergy Itching Verified 12/21/22 14:57 Family History Father Alcoholism Mental disorder Mother Alcoholism Arthritis Heart disease Surgical History History of carpal tunnel surgery of left wrist Hx laparoscopic cholecystectomy Hx of arthroscopic knee surgery Hx of arthroscopy of shoulder Hx of breast reduction, elective Hx of elbow surgery Hx of foot surgery Hx of hand surgery Hx of hysterectomy Hx of nasal septoplasty Hx of toe surgery Hx of toe surgery Social History Smoking Status: Never smoker second hand exposure: No alcohol intake: current details: occasionally substance use type: does not use what type of physical activity do you participate in: none rachel/voodoo: None seatbelt use: sometimes ROS ROS ED Constitutional Constitutional ED: Denies chills or fever(s) Eyes Eyes: Denies change in vision or diplopia ENT ENT ED: Denies rhinorrhea or sore throat Cardiovascular Cardiovascular: Denies chest pain or palpitations Respiratory/Chest Respiratory/Chest: Denies cough or dyspnea Gastrointestinal Gastrointestinal: Reports nausea and vomiting; Denies abdominal pain or diarrhea Genitourinary Genitourinary ED: Reports other Details: Dark urine ; Denies dysuria or hematuria Musculoskeletal Musculoskeletal: Reports back pain and neck pain Integumentary Denies abscess or rash Neurologic Neurologic: Reports paresthesias; Denies headache(s) or weakness Psychiatric Psychiatric: Reports anxiety; Denies suicidal thoughts EXAM Physical Exam Const Vital Signs: 01/20/23 10:32 01/20/23 11:22 01/20/23 11:31 Temperature 97.8 F Temperature Source Temporal Pulse Rate 51 L 49 L Respiratory Rate 18 18 Blood Pressure 202/69 H 151/68 H Blood Pressure Mean 113 95 Pulse Ox 96 99 Oxygen Delivery Method Room Air Room Air Nasal Cannula Oxygen Flow Rate (L/min) 3 01/20/23 13:43 01/20/23 15:04 Temperature Temperature Source Pulse Rate 46 L 49 L Respiratory Rate 17 14 Blood Pressure 145/60 H 186/85 H Blood Pressure Mean 88 118 Pulse Ox 100 100 Oxygen Delivery Method Nasal Cannula Nasal Cannula Oxygen Flow Rate (L/min) 3 3 Positive well nourished and well developed Constitutional Narrative: Patient is rolling around on the bed moving all 4 extremities purposefully, occasionally tremorous but no seizure activity, crying and moaning and fairly hysterical, she is redirectable at times and able to take some deep breaths and converse calmly. General Appearance ED: well developed HEENT Reports moist mucous membranes normocephalic and atraumatic Eyes PERRL and EOMs intact bilaterally Neck full ROM, no lymphadenopathy and supple Resp normal respiratory effort and clear to auscultation bilaterally Cardio regular rate, regular rhythm and no murmurs Rate: Negative for tachycardic GI non-tender and non-distended Auscultation: normoactive bowel sounds Palpation: soft; Negative for tender, guarding or mass Back/Spine no CVA tenderness Back/Spine Narrative: Well-healed lower back surgical incision. No rashes. Full range of motion without apparent discomfort, no areas of specific localized tenderness in the back. General Back: other FROM Extremity normal to inspection General Extremety ED: Negative for edema, pulses abnormal or tenderness General Extremity: Negative for edema or pulses abnormal Neuro oriented x3 and CN's II-XII intact bilaterally Neuro Narrative: Normal reflexes in the lower extremities, no clonus. Toes downgoing. Occasional multifocal tremor. Difficult to feel pulses but brisk cap refill all toes, has had some toe amputations no signs of any acute infection. Decreased sensation distal lower legs, no sensory level otherwise, mild paresthesias symmetrically all the way to the neck bilaterally. Sensorium / Orientation: awake and alert Motor Exam: strength 5/5 throughout Psych Attitude: agitated Mood & Affect: anxious Skin no rashes or lesions noted and no wounds MDM MDM MDM Narrative Medical decision making narrative: This patient does not have a sensory level or signs or symptoms of cauda equina syndrome or conus medullaris syndrome. I do not think she needs an emergent MRI/imaging of the spinal cord at this time. She was outside, potentially dehydrated, she states she was vomiting this morning and trying to drink some fluids, so in addition to a septic work-up since this is all extremely nonspecific and she seems to be in some either psychological or physical distress, I am also giving her a liter of fluid, and sending off a CPK. That and the rest of her labs are unremarkable except for chronic renal insufficiency. Her EKG is unremarkable, sinus bradycardia. She is not symptomatic from this. She was quite hysterical at times, telling nursing that she really was in a lot of pain. Difficult to discern what exactly symptoms she is having as she is writhing around in the bed moaning but redirectable. She seems very anxious. Therefore we gave her morphine and a small dose of IV Ativan, which really sedated her to the point of needing some oxygen temporarily. We watched her for several hours, she woke up and was feeling much better, smiling, conversive, and able to walk, although she is still feeling tingly all over. We did a straight catheterization for urine on her, it does appear to be infected this is sent for culture. Her blood pressure had been trending down but on reevaluation it is around 200 again, so she was given a dose of hydralazine prior to discharge in addition to starting treatment for urine infection with Macrobid due to contraindications or allergies to most other first-line appropriate medications. On recheck, blood pressure 152/89. 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 Labs: Laboratory Results - last 24 hr 01/20/23 01/20/23 01/20/23 11:20 11:20 11:20 WBC 8.3 RBC 3.89 L Hgb 12.7 Hct 38.7 MCV 99.5 H MCH 32.6 H MCHC 32.8 RDW Std Deviation 44.4 H RDW Coeff of Dio 12.1 Plt Count 222 MPV 10.7 Immature Gran % (Auto) 0.500 Neut % (Auto) 78.2 H Lymph % (Auto) 13.3 L [place] % (Auto) 6.4 Eos % (Auto) 1.1 Baso % (Auto) 0.5 Absolute Neuts (auto) 6.5 Absolute Lymphs (auto) 1.10 Nucleated RBC % 0 PT 14.6 INR 1.2 APTT 26.9 Sodium 139 Potassium 4.1 Chloride 108 H Carbon Dioxide 27.0 Anion Gap 4 L BUN 32 H Creatinine 1.40 H Estim Creat Clear Calc 35.73 Est GFR (MDRD) Af Amer 47 L Est GFR (MDRD) Non-Af 39 L BUN/Creatinine Ratio 22.9 H Glucose 115 H Lactic Acid Calcium 9.2 Total Bilirubin 0.40 AST 22 ALT 22 Alkaline Phosphatase 80 Total Creatine Kinase 96 Total Protein 7.0 Albumin 3.6 Globulin 3.4 Albumin/Globulin Ratio 1.1 Urine Color Urine Clarity Urine pH Ur Specific [place] Urine Protein Urine Glucose (UA) Urine Ketones Urine Occult Blood Urine Nitrite Urine Bilirubin Urine Urobilinogen Ur Leukocyte Esterase Urine RBC Urine WBC Ur Squamous Epith Cells Urine Bacteria Urine Mucus 01/20/23 01/20/23 11:20 14:25 WBC RBC Hgb Hct MCV MCH MCHC RDW Std Deviation RDW Coeff of Dio Plt Count MPV Immature Gran % (Auto) Neut % (Auto) Lymph % (Auto) [place] % (Auto) Eos % (Auto) Baso % (Auto) Absolute Neuts (auto) Absolute Lymphs (auto) Nucleated RBC % PT INR APTT Sodium Potassium Chloride Carbon Dioxide Anion Gap BUN Creatinine Estim Creat Clear Calc Est GFR (MDRD) Af Amer Est GFR (MDRD) Non-Af BUN/Creatinine Ratio Glucose Lactic Acid 1.7 Calcium Total Bilirubin AST ALT Alkaline Phosphatase Total Creatine Kinase Total Protein Albumin Globulin Albumin/Globulin Ratio Urine Color Yellow Urine Clarity Sl. Cloudy Urine pH 6.0 Ur Specific [place] 1.020 Urine Protein Negative Urine Glucose (UA) Normal Urine Ketones 15 H Urine Occult Blood Negative Urine Nitrite Positive H Urine Bilirubin Negative Urine Urobilinogen Normal Ur Leukocyte Esterase 500 H Urine RBC 0 SEEN Urine WBC 5-10 SEEN Ur Squamous Epith Cells 0-5 SEEN Urine Bacteria 4+ Urine Mucus 0 SEEN Radiography Chest X-Ray - ED: 2 View, Read by ED Physician, No Acute Disease and Chronic Changes Diagnostic Testing: Clinical Impression(s) from Imaging Studies Chest X-Ray 01/20/23 11:50 IMPRESSION: Mild linear opacities in the right mid to lower lung, which may be inflammatory or infectious. Electronically Signed: Barb Montoya MD at 12:09 EDT , Rhythm Strip Rhythm Strip: Sinus Rhythm Rate: 50 Ectopy: None EKG Initial EKG: Attestation: I personally reviewed and interpreted this EKG as follows: Interpretation: No Acute Injury Pattern and Sinus Bradycardia Comments: Sinus bradycardia at 46 otherwise normal EKG Prior EKG tracings: not available for review Prior: No Prior Discharge Plan Triage Chief Complaint: Back ED Provider: Artemio Storey Dx/Rx/DC Orders Clinical Impression: Urinary tract infection, Diffuse pain, Accelerated hypertension, Anxiety Instructions: Controlling High Blood Pressure, ED Pain, Acute, Uncertain Cause, ED Cystitis Female Adult Prescriptions: New nitrofurantoin monohyd/m-cryst [nitrofurantoin monohyd/m-cryst] 100 mg capsule 100 mg PO Q12 Qty: 10 0RF No Action furosemide 40 mg tablet 40 mg PO DAILY PRN (Reason: edema) ondansetron HCl 4 mg tablet 4 mg PO Q8H PRN (Reason: nausea and vomiting) hydrocodone-acetaminophen 7.5-325 mg tablet 1 tab PO QHS PRN baclofen 10 mg tablet 10 mg PO TID PRN (Reason: Muscle pain/spasm) Qty: 90 5RF flurbiprofen 100 mg tablet 100 mg PO DAILY PRN (Reason: headache) Qty: 20 4RF primidone 50 mg tablet 50 mg PO BID Qty: 60 4RF folic acid 1 mg tablet 1 mg PO DAILY Qty: 30 5RF levothyroxine 137 MCG tablet 137 mcg PO DAILY Qty: 30 0RF pravastatin 40 MG tablet 40 mg PO DAILY Qty: 30 0RF propranolol 40 MG tablet 40 mg PO BID Qty: 60 0RF losartan 100 MG tablet 50 mg PO DAILY fluticasone propionate 50 spray,suspension 2 puff inhalation DAILY PRN PRN (Reason: Allergies) diclofenac sodium 100 GM gel 1 ea topical DAILY gabapentin 800 mg tablet 300 mg PO TID bupropion HCl 150 mg tablet sustained-release 12 hr 150 mg PO BID paroxetine HCl [Paxil] 10 mg Tablet 10 mg PO DAILY cholecalciferol (vitamin D3) [Vitamin D3] 50 mcg (2,000 unit) Capsule 50 mcg PO DAILY alprazolam 0.5 mg tablet 0.5 mg PO .COMPLEX Qty: 1 0RF Rx Instructions: 0.5 mg orally X1 30 minutes prior to MRI Primary Care Provider: Lupillo Riley Referrals: Lupillo Riley MD [Primary Care Provider] - 3-5 Days (call for appt for follow up) Disposition Disposition: Home, Self Care
[2023-01-20] MEDS: 0.9% Normal Saline 1,000 ML 999 ML IV (11:18)
[2023-01-20] MEDS: Ondansetron 4 MG/2 ML Vial IV (11:19)
[2023-01-20 11:31] VITALS: BP 151/68; PULSE 49; RESP 18; O2SAT 99
[2023-01-20 11:32] LABS: Absolute Neutrophil Count 6.5 X10^3/uL (2.0-7.7); Basophil# 0.04 X10^3/uL; Basophil% 0.5 % (0-1); Eosinophil# 0.09 X10^3/uL; Eosinophils% 1.1 % (0-5); Hematocrit 38.7 % (37-47); Hemoglobin 12.7 g/dL (12.0-15.0); Lymphocyte % 13.3 % (19-41); Mean Corp Hgb Conc 32.8 g/dL (32-36); Mean Corpuscular Hgb 32.6 pg (27.0-32.0); Mean Corpuscular Volume 99.5 fL (81-99); Mean Platelet Vol. 10.7 fl (6.2-12.0); Monocyte# 0.53 X10^3/uL; Monocyte% 6.4 % (0-10); NRBC Flagged by Analyzer 0 % (0-5); Neutrophil % 78.2 % (47-70); Platelet Count 222 K/mm3 (150-450); RBC Distribution Width CV 12.1 % (11.6-14.6); RBC Distribution Width SD 44.4 fl (35.1-43.9); Red Blood Count 3.89 M/mm3 (4.2-5.4); White Blood Count 8.3 K/mm3 (4.4-11.0)
[2023-01-20 11:39] LABS: International Normalized Ratio 1.2; Prothrombin Time (Protime)PT. 14.6 SECONDS (11.7-14.9)
[2023-01-20] MEDS: Morphine 4 MG/ML Syringe IV (11:39)
[2023-01-20] MEDS: LORazepam 2 MG/ML Syringe 0.5 MG IV (11:39)
[2023-01-20 11:40] LABS: Partial Thromboplast Time 26.9 Seconds (24.1-36.2)
[2023-01-20 11:49] LABS: ALB/GLOB Ratio 1.1 RATIO (0.9-2.4); AST(SGOT) 22 U/L (15-37); Alanine Aminotransfer ALT/SGPT 22 U/L (13-56); Albumin, Serum 3.6 g/dL (3.2-5.0); Alkaline Phosphatase 80 U/L (45-117); Anion Gap 4 (5-15); BUN 32 mg/dL (7-18); BUN/Creat Ratio 22.9 RATIO (10-20); CPK Total, Creatine Kinase 96 U/L (26-192); Calcium,Total 9.2 mg/dL (8.5-10.1); Chloride 108 mmol/L (98-107); EST Glomerular Filtration Rate 39 mL/min (>60); Est Glom Filt Rate - Afr Amer 47 mL/min (>60); Estimated Creatinine Clearance 35.73 ml/min; Globulin 3.4 g/dL (2.2-4.2); Glucose 115 mg/dL (74-106); Potassium 4.1 mmol/L (3.5-5.1); Sodium Level 139 mmol/L (136-145)
--- NOTE | 2023-01-20 11:50 | RAD_ITS ---
HISTORY: weakness. TECHNIQUE: XR Chest 1 View. COMPARISON: None. FINDINGS: CARDIOMEDIASTINAL BORDERS: Cardiac silhouette within normal limits in size. Calcification of the aorta. Overlying thoracic spinal electrode noted. LUNGS: Mild linear opacities in the right mid to lower lung. PLEURA: No pleural effusion or pneumothorax seen. OSSEOUS STRUCTURES: Degenerative changes with high riding humeral heads from chronic rotator cuff disease. RAD/Chest 1 View (Portable) IMPRESSION: Mild linear opacities in the right mid to lower lung, which may be inflammatory or infectious. Electronically Signed: Barb Montoya MD at 12:09 EDT ,
[2023-01-20 11:58] LABS: Lactic Acid 1.7 mmol/L (0.4-1.9)
[2023-01-20 13:43] VITALS: BP 145/60; PULSE 46; RESP 17; O2SAT 100
[2023-01-20 14:31] LABS: Mucous, Urine 0 SEEN /hpf (<or=2+); Red Blood Cells-Urine 0 SEEN /hpf (0-5)
[2023-01-20 14:50] LABS: Color, Urine Yellow (Yellow); Glucose, Dipstick Normal (Normal); Ketone-Dipstick 15 mg/dl (Negative); Leukocyte Esterase-Dipstick 500 /ul (Negative); Nitrite-Dipstick Positive (Negative); Occult Blood-Urine Negative /ul (Negative); Protein-Dipstick Negative (Negative); Urine Bilirubin Dipstick Negative (Negative); Urine Clarity Sl. Cloudy (Clear); Urine Urobilinogen Normal (Normal)
[2023-01-20 14:52] LABS: Bacteria 4+ /hpf (None Seen); Squamous Epithelial Cells - UA 0-5 SEEN /hpf (5-10)
[2023-01-20 14:53] LABS: White Blood Cells 5-10 SEEN /hpf (0-5)
[2023-01-20 15:04] VITALS: BP 186/85; PULSE 49; RESP 14; O2SAT 100
[2023-01-20] MEDS: hydrALAZINE 20 MG/ML Vial 10 MG IV (16:01)
[2023-01-20] MEDS: Smz/Tmp Ds Tablet 1 TABLET PO (16:04)
[2023-01-20 16:20] VITALS: BP 152/89; PULSE 84; RESP 16; O2SAT 96
== END 2023-01-20 16:21 | disposition home or self-care (01) ==
PROVIDERS: Emergency Provider Emergency Medicine; PCP Family Medicine; Visit Provider Emergency Medicine
DX: N39.0 Urinary tract infection, site not specified (principal); E11.22 Type 2 diabetes mellitus with diabetic chronic kidney disease; E86.0 Dehydration; E78.00 Pure hypercholesterolemia, unspecified; F41.9 Anxiety disorder, unspecified; G89.29 Other chronic pain; N18.9 Chronic kidney disease, unspecified; I12.9 Hypertensive chronic kidney disease with stage 1 through stage 4 chronic kidney disease, or unspecified chronic kidney disease
CPT/HCPCS: 71045; 80053; 81001; 82550; 83605; 85025; 85610; 85730; 87040; 87077; 87086; 87088; 87186; 93005; 96361; 96374; 96375; 96376; 99285; J7030; A4216; J2405

== ENCOUNTER → 2023-02-28 | Outpatient (CLI) | payer MEDICARE, OTHER, SELFPAY ==
[2023-02-28 18:54] LABS: Free T3 2.2 pg/mL (2.18-3.98); T4 Free Direct 1.21 ng/dL (0.76-1.46); Thyroid Stim Hormone (TSH) 0.82 uIU/mL (0.358-3.74)
== END | disposition home or self-care (01) ==
LOC: MTLAB 14:35
PROVIDERS: Psychiatry & Neurology Neurology; PCP Family Medicine; Referring Provider Internal Medicine Rheumatology; Visit Provider Internal Medicine Rheumatology
DX: E03.9 Hypothyroidism, unspecified (principal)
CPT/HCPCS: 36415; 84439; 84443; 84481

== ENCOUNTER 2023-11-22 12:23 | Emergency (ER) | payer MEDICARE, OTHER, SELFPAY ==
[2023-11-22 12:24] VITALS: BP 146/92; PULSE 100; RESP 18; TEMP 36.2; O2SAT 97
[2023-11-22 12:35] VITALS: BMI 32.8
--- NOTE | 2023-11-22 12:47 | EDS_ITS ---
HPI HPI - GI History of Present Illness Chief Complaint: Complaint Informant: patient Abdominal Pain/Flank Pain Onset: Weeks (1) Context: Gradual Onset Timing: Continuous Quality: Burning Location: RLQ and LLQ Worsened by: - (Urination) Relieved by: Nothing Nausea/Vomiting/Emesis GI Symptom: Negative for Nausea or Vomiting Diarrhea/Melena/Hematochezia GI Symptom: Negative for Diarrhea, Melena or Hematochezia Narrative Narrative: Patient presents with abdominal pain that has been getting progressively worse over the past week. Patient states she feels similar to prior urinary tract infections. Patient states her pain is constant and burning. Patient states it is over her entire lower abdomen. Patient states it is worse with urination. Patient denies any nausea, vomiting, or diarrhea. Patient admits to some dysuria but denies any hematuria or frequency. Patient states she went to the urgent care today and was referred to the emergency department because she had tenderness in her right lower quadrant. [facility] Medical History Arthritis Back pain Carpal tunnel syndrome CPAP (continuous positive airway pressure) dependence Depression Diabetes High cholesterol History of edema History of stress test Hypertension Lymphedema Migraine headache Non-smoker Seasonal allergies Thyroid disease Wears glasses Home Medications pravastatin 40 mg tablet 40 mg PO DAILY #30 TABLETS 02/23/17 [Rx Last Taken 07/25/18] propranolol 40 mg tablet 40 mg PO BID #60 TABLETS 02/23/17 [Rx Last Taken 09/01/21 06:00] diclofenac sodium 1 % topical gel 1 ea topical DAILY pain prn 07/26/18 [History Last Taken Unknown] fluticasone propionate 50 mcg/actuation nasal spray,suspension 2 puff inhalation DAILY PRN PRN Allergies 07/26/18 [History Last Taken Unknown] losartan 100 mg tablet 50 mg PO DAILY blood pressure 07/26/18 [History Last Taken 09/01/21 06:00] paroxetine HCl 10 mg tablet (Paxil) 10 mg PO DAILY hot flashes 02/28/21 [History Last Taken Unknown] cholecalciferol (vitamin D3) 50 mcg (2,000 unit) capsule (Vitamin D3) 50 mcg PO DAILY 08/25/21 [History Last Taken Unknown] alprazolam 0.5 mg tablet 0.5 mg PO .COMPLEX #1 TAB 09/23/22 [Rx Last Taken Unkn own] gabapentin 600 mg tablet 600 mg PO BID 08/29/23 [History Last Taken Unknown] levothyroxine 125 mcg tablet mcg PO 08/29/23 [History Last Taken Unknown] alprazolam 0.5 mg tablet See Rx Instructions .Route .COMPLEX #1 TAB 11/14/23 [Rx Last Taken Unknown] primidone 50 mg tablet 50 mg PO BID #60 tabs 11/14/23 [Rx Last Taken Unknown] ropinirole 0.5 mg tablet 0.5 mg PO QHS #7 tabs 11/14/23 [Rx Last Taken Unknown] ropinirole 1 mg tablet 1 mg PO QHS #30 tabs 11/14/23 [Rx Last Taken Unknown] tizanidine 4 mg tablet 2 mg (1/2 x 4 mg) PO QHS PRN muscle spasticity #15 tabs 11/14/23 [Rx Last Taken Unknown] trazodone 100 mg tablet 100 mg PO QHS #30 tabs 11/14/23 [Rx Last Taken Unknown] nitrofurantoin monohydrate/macrocrystals 100 mg capsule 100 mg PO Q12 #10 CAPSULES 11/22/23 [Rx Last Taken Unknown] Allergy/AdvReac Type Severity Reaction Status Date / Time Cephalosporins Allergy Severe Anaphylaxis Verified 11/22/23 12:24 codeine Allergy Severe Itching Verified 11/22/23 12:24 tree and shrub pollen Allergy Mild NEEDS Verified 11/22/23 12:24 FOLLOW-UP animal dander Allergy Other Verified 11/22/23 12:24 oxycodone Allergy Vomiting Verified 11/22/23 12:24 Family History Father Alcoholism Mental disorder Mother Alcoholism Arthritis Heart disease Cancer lung Brother Alcoholism Sister Glaucoma Surgical History History of carpal tunnel surgery of left wrist Hx laparoscopic cholecystectomy Hx of arthroscopic knee surgery Hx of arthroscopy of shoulder Hx of breast reduction, elective Hx of elbow surgery Hx of foot surgery Hx of hand surgery Hx of hysterectomy Hx of nasal septoplasty Hx of toe surgery Hx of toe surgery Social History Smoking Status: Never smoker second hand exposure: No alcohol intake: current details: occasionally substance use type: does not use what type of physical activity do you participate in: none rachel/yazidism: None seatbelt use: sometimes ROS ROS ED Constitutional Constitutional ED: Denies chills or fever(s) Eyes Eyes: Denies blurry vision or change in vision ENT ENT ED: Reports rhinorrhea; Denies sore throat Cardiovascular Cardiovascular: Denies chest pain or palpitations Respiratory/Chest Respiratory/Chest: Reports cough; Denies dyspnea Gastrointestinal Gastrointestinal: Reports abdominal pain; Denies nausea or vomiting Genitourinary Genitourinary ED: Reports dysuria; Denies hematuria Musculoskeletal Musculoskeletal: Denies back pain or neck pain Integumentary Denies abscess or rash Neurologic Neurologic: Denies headache(s) or weakness Allergic/Immunologic Allergic/Immunologic ED: Denies mouth swelling or urticaria EXAM Physical Exam Const Vital Signs: 11/22/23 12:24 Temperature 97.2 F L Temperature Source Temporal Pulse Rate 100 Respiratory Rate 18 Blood Pressure 146/92 H Blood Pressure Mean 110 Pulse Ox 97 Oxygen Delivery Method Room Air Positive well nourished and well developed General Appearance ED: well developed and NAD HEENT Reports moist mucous membranes Neck supple and no JVD Resp normal respiratory effort and clear to auscultation bilaterally Cardio regular rate and regular rhythm GI non-distended Palpation: soft and tender LLQ, RLQ and suprapubic; Negative for guarding or rebound tenderness present Extremity full ROM Neuro CN's II-XII intact bilaterally, moves all extremities and no sensory deficits noted Sensorium / Orientation: alert Motor Exam: strength 5/5 throughout Psych mental status grossly normal and thought process normal MDM MDM MDM Narrative Medical decision making narrative: Differential diagnosis includes urinary tract infection, ovarian cyst, appendicitis, diverticulitis, bowel obstruction, perforation, dehydration, and gastroenteritis. CBC will be obtained to assess for leukocytosis and anemia. Comprehensive metabolic profile will be obtained to assess for hepatic function, renal function, and electrolyte abnormality. Urinalysis will be obtained to assess for urinary tract infection. CT scan of the abdomen and pelvis will be o btained to assess for bowel obstruction, perforation, and appendicitis. Urine culture will be obtained to assess for urinary tract infection. Lab Data Lab results narrative: CBC was reviewed. There is a slight anemia with a hemoglobin of 11.8 and hematocrit 36.7. White blood cell count was normal. Platelets were normal. Comprehensive metabolic profile was reviewed. Glucose was slightly elevated at 163. The remainder was essentially within normal limits. Urinalysis was reviewed. Leukocyte Estrace was 500 with greater than 100 white blood cells and positive nitrates. There is 1+ bacteria. There is no evidence of hematuria. Labs: Laboratory Results - last 24 hr 11/22/23 13:30 WBC 9.0 RBC 3.67 L Hgb 11.8 L Hct 36.7 L MCV 100.0 H MCH 32.2 H MCHC 32.2 RDW Std Deviation 43.5 RDW Coeff of Dio 11.9 Plt Count 245 MPV 10.3 Immature Gran % (Auto) 0.600 Neut % (Auto) 72.8 H Lymph % (Auto) 16.5 L [place] % (Auto) 9.4 Eos % (Auto) 0.0 Baso % (Auto) 0.7 Absolute Neuts (auto) 6.5 Absolute Lymphs (auto) 1.48 Nucleated RBC % 0 Sodium 134 L Potassium 4.1 Chloride 98 Carbon Dioxide 29.0 Anion Gap 7 BUN 13 Creatinine 1.07 H Estim Creat Clear Calc 55.66 Est GFR (MDRD) Af Amer 64 Est GFR (MDRD) Non-Af 53 L BUN/Creatinine Ratio 12.1 Glucose 163 H Calcium 8.6 Total Bilirubin 0.40 AST 19 ALT 16 Alkaline Phosphatase 81 Total Protein 6.9 Albumin 3.0 L Globulin 3.9 Albumin/Globulin Ratio 0.8 L Urine Color Yellow Urine Clarity Cloudy Urine pH 5.0 Ur Specific [place] 1.020 Urine Protein 30 H Urine Glucose (UA) Normal Urine Ketones 5 H Urine Occult Blood 25 H Urine Nitrite Positive H Urine Bilirubin 3 H Urine Urobilinogen 4 H Ur Leukocyte Esterase 500 H Urine RBC 0 SEEN Urine WBC >100 SEEN Ur Squamous Epith Cells 0 SEEN Urine Bacteria 1+ Urine Mucus 0 SEEN Radiography Diagnostic Testing: Clinical Impression(s) from Imaging Studies Abdomen/Pelvis CT 11/22/23 13:14 IMPRESSION: Small paraumbilical hernia containing fat. Sigmoid diverticulosis. No evidence for acute intra-abdominal or pelvic pathology. Electronically Signed: Jose Canada, at 16:40 EST Reading Location ID and State: [address] [place] [address] Tel , Service support , CT scan of the abdomen pelvis was obtained. There is a small periumbilical hernia containing fat. There is sigmoid diverticulosis. There is no free air or free fluid. There is no evidence of obstruction or perforation. There is no evidence of appendicitis. This was interpreted by the radiologist and was also independently reviewed by myself. Additional Tests and Interventions Additional Tests or Interventions: Urine culture was ordered. Treatment and Re-Evaluation :: Patient was given morphine and Zofran. Patient was feeling better on reevaluation. Patient was advised of her findings. Patient was given a dose of Macrobid here. Patient was given a prescription for Macrobid. Patient was instructed to follow-up with her primary care physician in 5 to 7 days. Patient understood and was agreeable with the plan. All questions were answered. Discharge Plan Triage Chief Complaint: Complaint ED Provider: Mustapha Chavez Dx/Rx/DC Orders Clinical Impression: Urinary tract infection, Obesity (BMI 30-39.9), HTN (hypertension) Instructions: ED Cystitis Female Adult Prescriptions: New nitrofurantoin monohyd/m-cryst [nitrofurantoin monohyd/m-cryst] 100 mg capsule 100 mg PO Q12 Qty: 10 0RF No Action alprazolam 0.5 mg tablet See Rx Instructions .Route .COMPLEX Qty: 1 0RF Rx Instructions: Take 1 tablet orally 30 minutes prior to MRI primidone 50 mg tablet 50 mg PO BID Qty: 60 6RF tizanidine 4 mg tablet 2 mg PO QHS PRN (Reason: muscle spasticity) Qty: 15 6RF ropinirole 1 mg tablet 1 mg PO QHS Qty: 30 6RF Rx Instructions: Begin after completing 1 week course of ropinirole 0.5mg nightly ropinirole 0.5 mg tablet 0.5 mg PO QHS Qty: 7 0RF trazodone 100 mg tablet 100 mg PO QHS Qty: 30 6RF gabapentin 600 mg tablet 600 mg PO BID levothyroxine 125 mcg tablet PO pravastatin 40 MG tablet 40 mg PO DAILY Qty: 30 0RF propranolol 40 MG tablet 40 mg PO BID Qty: 60 0RF losartan 100 MG tablet 50 mg PO DAILY fluticasone propionate 50 spray,suspension 2 puff inhalation DAILY PRN PRN (Reason: Allergies) diclofenac sodium 100 GM gel 1 ea topical DAILY paroxetine HCl [Paxil] 10 mg Tablet 10 mg PO DAILY cholecalciferol (vitamin D3) [Vitamin D3] 50 mcg (2,000 unit) Capsule 50 mcg PO DAILY alprazolam 0.5 mg tablet 0.5 mg PO .COMPLEX Qty: 1 0RF Rx Instructions: 0.5 mg orally X1 30 minutes prior to MRI Primary Care Provider: Lupillo Riley Referrals: Lupillo Riley MD [Primary Care Provider] - 3-5 Days Disposition Disposition: Home, Self Care
--- NOTE | 2023-11-22 13:14 | CT_ITS ---
STUDY: CT ABDOMEN AND PELVIS WITH CONTRAST - URINARY TRACT REASON FOR EXAM: Female, 78 years old. Abdominal pain -- IV PO Contrast RADIATION DOSAGE (If Supplied By Facility): CTDIvol = ( 15.07 ) mGy, DLP = ( 1084.17 ) mGycm TECHNIQUE: IV 100mL Isovue-370 was administered. Transaxial images were obtained from the dome of the diaphragm to the symphysis pubis in the arterial, nephrographic and excretory phases. Multiplanar coronal and sagittal images were reformatted. Individualized Dose Optimization Techniques Were Used For This CT. COMPARISON: No comparison FINDINGS: The visualized lung bases are unremarkable. The visualized portions of the heart are within normal limits. Normal liver. Gallbladder is been removed. There is mild intrahepatic biliary ductal dilatation which may be physiologic postcholecystectomy. Spleen appears normal. Normal pancreas. Normal bilateral adrenal glands. Normal visualized stomach. Normal small intestine. There is mild sigmoid diverticulosis without evidence for acute diverticulitis. Appendix is not well-visualized. Normal abdominal aorta. No retroperitoneal adenopathy. There is a 2 cm cyst in the inferior pole the right kidney medially. Normal left kidney. Normal urinary bladder. There is a small paraumbilical hernia containing fat. Normal osseous structures. CT/Abdomen/Pelvis WITH Contrast IMPRESSION: Small paraumbilical hernia containing fat. Sigmoid diverticulosis. No evidence for acute intra-abdominal or pelvic pathology. Electronically Signed: Jose Canada, at 16:40 EST ,
[2023-11-22] MEDS: Ondansetron 4 MG/2 ML Vial IV (13:27)
[2023-11-22] MEDS: Morphine 4 MG/ML Syringe IV (13:27)
[2023-11-22 13:37] LABS: Absolute Lymphocyte Count 1.48 X10^3/uL (0.83-4.51); Absolute Neutrophil Count 6.5 X10^3/uL (2.0-7.7); Basophil# 0.06 X10^3/uL; Basophil% 0.7 % (0-1); Hematocrit 36.7 % (37-47); Hemoglobin 11.8 g/dL (12.0-15.0); Lymphocyte # 1.48 X10^3/ul (0.83-4.51); Lymphocyte % 16.5 % (19-41); Mean Corp Hgb Conc 32.2 g/dL (32-36); Mean Corpuscular Hgb 32.2 pg (27.0-32.0); Mean Platelet Vol. 10.3 fl (6.2-12.0); Monocyte# 0.84 X10^3/uL; Monocyte% 9.4 % (0-10); NRBC Flagged by Analyzer 0 % (0-5); Neutrophil # 6.53 X10^3/uL (2.7-7.7); Neutrophil % 72.8 % (47-70); Platelet Count 245 K/mm3 (150-450); RBC Distribution Width CV 11.9 % (11.6-14.6); RBC Distribution Width SD 43.5 fl (35.1-43.9); Red Blood Count 3.67 M/mm3 (4.2-5.4)
[2023-11-22 13:48] LABS: Mucous, Urine 0 SEEN /hpf (<or=2+); Red Blood Cells-Urine 0 SEEN /hpf (0-5); Squamous Epithelial Cells - UA 0 SEEN /hpf (5-10)
[2023-11-22 13:53] LABS: ALB/GLOB Ratio 0.8 RATIO (0.9-2.4); AST(SGOT) 19 U/L (15-37); Alanine Aminotransfer ALT/SGPT 16 U/L (13-56); Alkaline Phosphatase 81 U/L (45-117); Anion Gap 7 (5-15); BUN 13 mg/dL (7-18); BUN/Creat Ratio 12.1 RATIO (10-20); Calcium,Total 8.6 mg/dL (8.5-10.1); Chloride 98 mmol/L (98-107); Creatinine, Serum 1.07 mg/dL (0.55-1.02); EST Glomerular Filtration Rate 53 mL/min (>60); Est Glom Filt Rate - Afr Amer 64 mL/min (>60); Estimated Creatinine Clearance 55.66 ml/min; Globulin 3.9 g/dL (2.2-4.2); Glucose 163 mg/dL (74-106); Potassium 4.1 mmol/L (3.5-5.1); Protein, Total 6.9 g/dL (6.4-8.2); Sodium Level 134 mmol/L (136-145)
[2023-11-22 13:57] LABS: Color, Urine Yellow (Yellow); Glucose, Dipstick Normal (Normal); Ketone-Dipstick 5 mg/dl (Negative); Leukocyte Esterase-Dipstick 500 /ul (Negative); Nitrite-Dipstick Positive (Negative); Occult Blood-Urine 25 /ul (Negative); Protein-Dipstick 30 mg/dl (Negative); Urine Clarity Cloudy (Clear); Urine Urobilinogen 4 mg/dl (Normal)
[2023-11-22 13:59] LABS: Urine Bilirubin Dipstick 3 mg/dL (Negative)
[2023-11-22 14:05] LABS: White Blood Cells >100 SEEN /hpf (0-5)
[2023-11-22 14:06] LABS: Bacteria 1+ /hpf (None Seen)
[2023-11-22 17:07] VITALS: BP 133/100; PULSE 75; RESP 18; O2SAT 97
[2023-11-22] MEDS: Nitrofurantoin Macrocrystals 100 MG Capsule PO (17:18)
[2023-11-22 17:19] VITALS: BP 134/78; PULSE 66; RESP 14; TEMP 36.4; O2SAT 99
== END 2023-11-22 17:21 | disposition home or self-care (01) ==
PROVIDERS: Emergency Provider Emergency Medicine; PCP Family Medicine; Visit Provider Emergency Medicine
DX: N39.0 Urinary tract infection, site not specified (principal); E11.65 Type 2 diabetes mellitus with hyperglycemia; I10 Essential (primary) hypertension; E78.00 Pure hypercholesterolemia, unspecified; E07.9 Disorder of thyroid, unspecified; E66.9 Obesity, unspecified; Z79.890 Hormone replacement therapy; Z79.899 Other long term (current) drug therapy
CPT/HCPCS: 74177; 80053; 81001; 85025; 87077; 87086; 87088; 87186; 96374; 96375; 99284; J7030; P9612; Q9967; A4216; J2405

== ENCOUNTER → 2023-12-09 | Outpatient (CLI) | payer MEDICARE, OTHER, SELFPAY ==
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
== END | disposition home or self-care (01) ==
LOC: RAD 12:35
PROVIDERS: PCP Family Medicine; Referring Provider Clinical Nurse Specialist Adult Health; Visit Provider Clinical Nurse Specialist Adult Health
DX: M51.34 Other intervertebral disc degeneration, thoracic region (principal)
CPT/HCPCS: 72050; 72070; 72110

== ENCOUNTER → 2023-12-13 | Outpatient (CLI) | payer MEDICARE, OTHER, SELFPAY ==
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
== END | disposition home or self-care (01) ==
LOC: MRI 16:00
PROVIDERS: PCP Family Medicine; Referring Provider Psychiatry & Neurology Neurology; Visit Provider Psychiatry & Neurology Neurology
DX: G95.0 Syringomyelia and syringobulbia (principal); C72.0 Malignant neoplasm of spinal cord
CPT/HCPCS: 72157; A9575

== ENCOUNTER 2024-08-14 08:30 | Outpatient (RCR) | payer MEDICARE, OTHER, SELFPAY ==
--- NOTE | 2024-07-09 12:32 | HP.PTEVAL ---
Patient's Visit Information Visit Information Visit Information: JENSEN BURTON is a 79 year old F referred to Physical Therapy by Self Referred with a diagnosis of cervical spondylosis, bilateral shoulder pain and thoracic spine pain. Date of Evaluation: 06/20/24 Physical Therapist: River Post DPT Visit Plan Frequency: 2x /Week Duration: 6 Weeks Plan: Start with DN to B UT and levator scap to reduce muscle spasm. Add in postural strengthening including scapular, thoracic, mid trap to reduce stress to cervical/thoracic spine with all activities. Subjective Subjective: Pt. is here today for her initial evaluation with diagnosis cervical spondylosis, bilateral shoulder pain and thoracic spine pain. Pt. reports having pain for a number of years. Pt. has pain with most movements, but especially with lifting. Pt. likes to garden and does some work outside. She would like to get to the point where she can do these activities without limitations. Pt. reports having multiple surgeries over the years. Pain R shoulder: Pain Intensity (Out of 10): 2 Pain Intensity Range: 0 and 4 L shoulder: Pain Intensity (Out of 10): 2 Pain Intensity Range: 0 and 4 Cervical spine: Pain Intensity (Out of 10): 4 Pain Intensity Range: 2 and 6 Thoracic spine: Pain Intensity (Out of 10): 4 Pain Intensity Range: 2 and 6 Objective Objective: POSTURE: Pt. had FH posture, rounded shoulders, increased thoracic kyphosis. PALPATION: Pt. has tenderness in B UT, B biceps tendon, Throughout cervical spine and along thoracic spine. NEURO: normal sensation in BUEs. 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 Normal DTR of biceps and triceps ROM: CERVICAL SPINE: flexion min loss NE, ext mod loss mild increase NW, rotation R min loss increase NW, rotation L min loss increase NW, SB mod loss bilat NE. B shoulders: flexion 155deg bilat increase NW, abd 135deg bilat increase NW, functional ER C1 bilat increase NW. MMT: Pt. has marked weakness in BUEs 4-/5 throughout secondary to increase B shoulder pain. Pt. is able to complete shoulder shrugs without issues. Balance/Special Test Scores Oswestry Neck Score: 21 Goals Goal 1:: LTG: Pt. to be I with HEP. Goal Time Frame: 4-6 Weeks Goal 2:: STG: Pt. to sleep throughout the night without increase in neck or back pain. Goal Time Frame: 2-4 Weeks Goal 3:: LTG: Pt. to have increased thoracic and scapular strength to 5/5 throughout allowing for increased stability throughout her spine. Goal Time Frame: 4-6 Weeks Goal 4:: LTG: Pt. to be able to garden and complete all outside IADLs with less than 4/10 pain in cervical spine and thoracic spine. Goal Time Frame: 6-8 Weeks Rehabilitation Potential Physical Therapy Diagnosis: Pt. has signs and symptoms consistent with cervical spondylosis, bilateral shoulder pain and thoracic spine pain. Pt. would benefit from PT to increase B shoulder, and thoracic strength in order to complete all activities with decreased issues. Rehabilitation Potential: Poor Anticipated Interventions Patient/Client Instruction: Educate patient on: Condition, Plan of Care, Risk Factors and Benefits of Fitness Program For the Purpose of:: To improve self management, To prevent re-injury, To improve ability to perform tasks related to life management and To improve tolerance to ADL's Therapeutic Exercise to Include: Strength training, Power training, Postural training, Flexibilty training, Gonzales Exercises and Scapular Strength/Stabilization For the Purpose of:: To decrease pain, To increase ROM, To improve nutrient delivery to tissue, To increase oxygenation perfusion, To improve muscle performance and motor function, To improve ability to perform ADL's, To increase tolerance to activity/condition/position, To improve health of tissue, To decrease soft tissue restriction and To increase flexibility/ROM Manual Therapy Techniques to Include: Functional dry needling and Soft tissue mobilization For the Purpose of:: To decrease pain, To increase ROM, To improve nutrient delivery to tissue, To increase oxygenation perfusion and To improve muscle performance and motor function Text: Thank you for the opportunity to evaluate your patient. For Medicare and Medicare HMO plans, please review the plan of care and approve it. It will need to be FAXED BACK to us at [phone] for Medicare purposes. For Medicare only, by signing this I certify the plan of care. Please let me know if there are questions or concerns regarding this plan of care. Physician Signature: Date:
--- NOTE | 2024-08-14 09:03 | HP.PTDCSUM ---
Discharge Summary D/C summary: It has been my pleasure to treat JNESEN BURTON referred by Self Referred, with the diagnosis of cervical spondylosis, bilateral shoulder pain and thoracic spine pain for a total of 6 visit(s). Discharge Date: 08/14/24 Please see the following information for a summary of their discharge status. Subjective Subjective: Pt. is here today with reports of feeling overall ill. Pt. reports having difficulty sleeping, ear aches, and just feeling run down. 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 Pain R shoulder: Pain Intensity (Out of 10): 4 L shoulder: Pain Intensity (Out of 10): 4 Cervical spine: Pain Intensity (Out of 10): 4 Thoracic spine: Pain Intensity (Out of 10): 4 Objective Objective/Function: R shoulder: flexion 165deg, abd 160deg, functional ER C3, functional IR L1 L shoulder: flexion 170deg, abd 165deg, functional ER C4, functional IR T10 CERVICAL: flexion min loss Ne, ext mod/max loss increase NW, rotation mod loss bilat, SB mod loss bilat. 4+/5 strength throughout. PT. reports overall just not feeling well. At this point in time, she wants to be DC from PT and get all of her medical issues sorted out. She reports not feeling well enough to come to therapy consistently. Goals Goal 1:: LTG: Pt. to be I with HEP. Goal Progress: Goal Met Goal 2:: STG: Pt. to sleep throughout the night without increase in neck or back pain. Goal Progress: Progressing Goal 3:: LTG: Pt. to have increased thoracic and scapular strength to 5/5 throughout allowing for increased stability throughout her spine. Goal Progress: Progressing Goal 4:: LTG: Pt. to be able to garden and complete all outside IADLs with less than 4/10 pain in cervical spine and thoracic spine. Goal Progress: Not Progressing Plan Plan: Pt. to be DC from PT at this point in time. I am recommending that she follow up with her primary care physician to look into her other medical issues. Pt. consents. D/C Information d/c sentence: If there are questions or concerns regarding this patient's physical therapy, please feel free to call me at [phone]. Thank you for the referral of this patient. Sincerely, River L Sipos, DPT Balance/Gait/Functional tests Balance/Special Test Scores Oswestry Neck Score: 19
== END 2024-08-14 10:31 | disposition home or self-care (01) ==
LOC: PT 08:30
PROVIDERS: PCP Family Medicine; Referring Provider Clinical Nurse Specialist Adult Health; Visit Provider Clinical Nurse Specialist Adult Health
DX: M25.511 Pain in right shoulder (principal); M25.512 Pain in left shoulder; M54.6 Pain in thoracic spine; M47.812 Spondylosis without myelopathy or radiculopathy, cervical region
CPT/HCPCS: 97110; 97161; 97530

== ENCOUNTER → 2025-06-13 | Outpatient (CLI) | payer MEDICARE, OTHER, SELFPAY ==
--- NOTE | 2025-06-13 14:03 | CT_ITS ---
PROCEDURE: EXTREMITY LOWER WITHOUT CONTRA 06/13/2025 REASON FOR EXAM: PAIN/OA/PRE OP WASC TECHNIQUE: Procedure Code: CTELWO Modality: CT Procedure: EXTREMITY LOWER WITHOUT CONTRA. Axial images were obtained through the left hip. Axial images were obtained through the left knee and left ankle all without intravenous contrast. Coronal and Sagittal reconstruction series were provided. CONTRAST: None One or more dose reduction techniques were used (e.g., Automated exposure control, adjustment of the mA and/or kV according to patient size, use of iterative reconstruction technique). RADIATION DOSE SUMMARY: CTDlvol: 60 mGy DLP: 1390 mGycm COMPARISON: None. FINDINGS: Bones: Left hip: Intact left hip with slight superior joint space narrowing. Left knee: Moderate to severe joint space narrowing and marginal osteophyte formation in the knee in both the medial lateral compartments with mild joint space narrowing in the knee small loose body in medially. No fractures. Left ankle: Marked degenerative changes in the midfoot. Orthopedic screw in the lateral cuneiform appears extend to adjacent to the cuboid. Incompletely imaged. The entirety of the left ankle not imaged no fractures. Soft Tissues: No radiopaque foreign bodies or fractures. CT/Extremity Lower without Contra IMPRESSION: Mild degenerative changes of the left hip. At least moderate degenerative changes of the left knee. Moderate joint effusi on. Surgical and degenerative changes of the left ankle with suspected moderate flip lulitis along the dorsum of the foot and anterior ankle. But negative for osteomyelitis. Reading Location: [id number]
== END | disposition home or self-care (01) ==
LOC: CT 13:58
PROVIDERS: PCP Family Medicine; Referring Provider Specialist; Visit Provider Specialist
DX: M17.0 Bilateral primary osteoarthritis of knee (principal); M21.062 Valgus deformity, not elsewhere classified, left knee
CPT/HCPCS: 73700

== ENCOUNTER 2025-06-17 17:35 | Outpatient (CLI) | payer MEDICARE, OTHER, SELFPAY ==
[2025-06-17 18:03] LABS: Hematocrit 34.8 % (37-47); Hemoglobin 11.4 g/dL (12.0-15.0); Immature Granulocytes Count 0.010 X10^3/uL (0.0-0.0); Mean Corp Hgb Conc 32.8 g/dL (32-36); Mean Corpuscular Volume 98.3 fL (81-99); Mean Platelet Vol. 10.5 fl (6.2-12.0); NRBC Flagged by Analyzer 0 % (0-5); Platelet Count 217 K/mm3 (150-450); RBC Distribution Width CV 12.7 % (11.6-14.6); RBC Distribution Width SD 45.6 fl (35.1-43.9); Red Blood Count 3.54 M/mm3 (4.2-5.4); White Blood Count 5.4 K/mm3 (4.4-11.0)
[2025-06-17 19:01] LABS: Albumin, Serum 4.1 g/dL (3.4-4.8); Anion Gap 12 (5-15); BUN 27 mg/dL (4-19); BUN/Creat Ratio 28.8 RATIO (10-20); Calcium,Total 9.5 mg/dL (7.6-11.0); Carbon Dioxide 25.6 mmol/L (21.0-32.0); Chloride 101 mmol/L (98-108); Glucose 180 mg/dL (70-99); Magnesium 2.1 mg/dL (1.5-2.2); Potassium 4.4 mmol/L (3.3-5.1)
== END 2025-06-17 23:59 | disposition home or self-care (01) ==
LOC: LABSPEC 17:35
PROVIDERS: Anesthesiology; PCP Family Medicine; Visit Provider Specialist
DX: Z01.818 Encounter for other preprocedural examination (principal); R73.09 Other abnormal glucose; R94.6 Abnormal results of thyroid function studies
CPT/HCPCS: 80048; 82040; 83036; 83735; 84443; 85025; 87081

== ENCOUNTER 2025-07-08 06:53 | Observation (INO) | payer MEDICARE, OTHER, SELFPAY ==
--- NOTE | 2025-05-21 13:45 | EKG12_ITS ---
Test Reason : PRE OP Blood Pressure : */* mmHG Vent. Rate : 45 BPM Atrial Rate : 45 BPM P-R Int : 168 ms QRS Dur : 74 ms QT Int : 480 ms P-R-T Axes : * 51 57 degrees QTcB Int : 415 ms Marked sinus bradycardia Abnormal ECG Confirmed by Isaak Blunt ([id number]), fan mail editor VALERIE ESTRADA ([id number]) on 05/22/2025 9:34:50 AM Referred By: Neel Hernandez Confirmed By: Isaak Blunt
--- NOTE | 2025-06-11 15:54 | PAT.ANESEVAL ---
Pre-Assessment Diagnosis/Proposed Procedure Planned Operative Procedure(s): ROBOTIC LEFT TOTAL KNEE ATHROSCOPY Anesthesia History Anesthesia History - health data administrator: Anesthesia History - health data administrator Hx Hospitalization No 06/11/25 15:14 Any Problems With Anesthesia No 06/11/25 15:14 Cholinesterase deficiency No 06/11/25 15:14 You/Your Family Experience No 06/11/25 15:14 fever (hyperthermia) with Relationship Recent Exposure to Contagious No 12/20/24 15:17 Disease Does patient have nerve No 06/11/25 15:14 stimulator Patient instructed to have device shut off --Does patient have Pacemaker or ICD? When Was Last Pacemaker Check QUESTION #4 FULL TEXT: You/Your Family Experience fever (hyperthermia) with Anesthesia Last Oral Intake Last Oral intake: Last Oral Intake NPO since Meds taken in AM with sips of water? Meds patient instructed to take am of surgery PONV PONV - health data administrator: PONV - health data administrator Female Yes 06/11/25 15:14 HX of Motion Sickness No 06/11/25 15:14 HX of N/V After Surgery No 06/11/25 15:14 Non-Smoker Yes 06/11/25 15:14 Duration of Surgery greater Yes 06/11/25 15:14 than 60 minutes Number of Risk Factors 3 06/11/25 15:14 PONV Score Moderate Risk 06/11/25 15:14 Height & Weight Height & Weight: Anesthesia: Height & Weight Height 5 ft 9 in 04/25/25 14:35 Respiratory Assessment Respiratory Assessment - health data administrator: Respiratory Tract Infection Hx - health data administrator Hx Respiratory Tract Infection No 06/11/25 15:14 STOP Sleep Apnea STOP Sleep Apnea - health data administrator: STOP Sleep Apnea - health data administrator Hx Hypertension Yes 06/11/25 15:14 Hx Sleep Apnea Yes 06/11/25 15:14 CPAP No 06/11/25 15:14 BIPAP No 06/11/25 15:14 Do you snore loudly (louder than talking or can be heard Do you often feel tired/ fatigued/ sleepy during daytime? Has anyone observed you stop breathing during sleep? STOP Results Positive 06/11/25 15:14 QUESTION #5 FULL TEXT : Do you snore loudly (louder than talking or can be heard through closed doors)? Tobacco Use History Tobacco Use History - health data administrator: Tobacco Use History - health data administrator Tobacco Use Non-smoker 12/20/24 15:17 Smoking Status Never smoker 06/11/25 15:14 Hx Tobacco Use No 06/11/25 15:14 Years Smoking Packs Smoked per Day Smoking Cessation Date was within the last 15 years Hx Smoking Cessation Date Hx Smoking Cessation Counseling Hematologic Medial History Hematologic Hx - health data administrator: Hematologic Medical Hx - anodic treater Hx of Blood Transfusion No 06/11/25 15:14 Hx of Transfusion in last 3 No 06/11/25 15:14 Months Date of Last Transfusion (if within last 3 months) Ever experience any problems No 06/11/25 15:14 with transfusion(s)? Specify any problems Hx of Preganancy in last 3 No 06/11/25 15:14 Months Nurse Filling Out Transfusion [id number] 06/11/25 15:14 & Questions: Date: 06/11/25 06/11/25 15:14 Time: 15:28 06/11/25 15:14 Patient unable to answer at this time (ie. confused, unrespo /Reproduction History /Reproductive History - health data administrator: /Reproductive Hx- health data administrator Hx Now Gestational Age (in weeks): EDC: Hx Hx Para Hx Section SAB No 12/20/24 15:17 PFSH Medical History Open wound Cardiology follow-up encounter Anxiety Seasonal allergies Carpal tunnel syndrome Wears glasses Depression Arthritis High cholesterol Back pain Migraine headache Non-smoker CPAP (continuous positive airway pressure) dependence History of edema History of stress test Thyroid disease Diabetes Lymphedema Hypertension Home Medications ?Medication ?Instructions ?Recorded ?Last Taken ?Type propranolol 40 mg tablet 40 mg PO BID #60 TABLETS 02/23/17 09/01/21 06:00 Rx diclofenac sodium 1 % topical gel 1 ea topical DAILY pain prn 07/26/18 Unknown History fluticasone propionate 50 2 puff inhalation DAILY PRN PRN 07/26/18 Unknown History mcg/actuation nasal Allergies spray,suspension cholecalciferol (vitamin D3) 50 50 mcg PO DAILY 08/25/21 Unknown History mcg (2,000 unit) capsule (Vitamin D3) levothyroxine 125 mcg tablet 125 mcg PO DAILY 08/29/23 Unknown History alprazolam 0.5 mg tablet See Rx Instructions .Route 11/14/23 Unknown Rx .COMPLEX #1 TAB gabapentin 600 mg tablet 600 mg PO BID 03/13/24 Unknown History hydrocodone 7.5 mg-acetaminophen 1 tab PO TID PRN pain 03/13/24 Unknown History 325 mg tablet paroxetine HCl 30 mg tablet 30 mg PO QDAY 10/09/24 Unknown History Rollator #1 ea 12/24/24 Unknown Rx bupropion HCl 150 mg tablet,12 hr 150 mg PO BID #180 ea 04/26/25 Unknown Rx sustained-release ondansetron HCl 4 mg tablet 4 mg PO TID PRN nausea and 04/26/25 Unknown Rx vomiting #90 tabs pramipexole 1.5 mg tablet 1.5 mg PO QHS #90 tabs 04/26/25 Unknown Rx primidone 50 mg tablet 100 mg (2 x 50 mg) PO BID #360 tabs 04/26/25 Unknown Rx tizanidine 4 mg tablet See Rx Instructions .Route 04/26/25 Unknown Rx .COMPLEX muscle spasticity #90 tabs ubrogepant 100 mg tablet (Ubrelvy) 100 mg PO DAILY PRN headache #8 04/26/25 Unknown Rx tabs atorvastatin 40 mg tablet 40 mg PO QHS cholesterol 06/11/25 Unknown History cholecalciferol (vitamin D3) 50 50 mcg PO DAILY 06/11/25 Unknown History mcg (2,000 unit) capsule (Vitamin D3) losartan 50 mg tablet 50 mg PO DAILY 06/11/25 Unknown History Allergy/AdvReac Type Severity Reaction Status Date / Time Cephalosporins Allergy Severe Anaphylaxis Verified 06/11/25 15:06 codeine Allergy Severe Itching Verified 06/11/25 15:06 tree and shrub pollen Allergy Mild NEEDS Verified 06/11/25 15:06 FOLLOW-UP animal dander Allergy Other Verified 06/11/25 15:06 oxycodone Allergy Vomiting Verified 06/11/25 15:06 Family History Father Alcoholism Mental disorder Mother Alcoholism Arthritis Heart disease Cancer lung Brother Alcoholism Sister Glaucoma Surgical History (Updated 06/11/25 @ 15:44 by Miguel Marin) S/P insertion of spinal cord stimulator Hx of toe surgery Hx of toe surgery Hx of nasal septoplasty Hx of hand surgery Hx of elbow surgery History of carpal tunnel surgery of left wrist Hx of arthroscopy of shoulder Hx of breast reduction, elective Hx laparoscopic cholecystectomy Hx of arthroscopic knee surgery Hx of hysterectomy Hx of foot surgery Social History Smoking Status: Never smoker second hand exposure: No alcohol intake: current details: occasionally substance use type: does not use what type of physical activity do you participate in: none rachel/bahai: None seatbelt use: sometimes Audit: Pertinent Findings Pertinent Findings EKG Perinent findings: May 21, 2025. Marked sinus bradycardia at 45 bpm. Basically unchanged from EKG of January 20, 2023. Recommendation Anesthesia Recommendation Anesthesia recommendation: OPTIMIZED for anesthesia
--- OUTSIDE RECORDS SUMMARY | 2025-06-27 13:15 | XMS RPT_ITS ---
Author Name Auto Generated Organization OH[facility] Care Team Providers Care File Clerk Data Entry Name Role Phone CHARLEY RILEY Primary Care Unavailab le CLSEDRICK HOLLINGSWORTH Attending CHARLEY Preciado Primary Care Unavailab le PODLOGARBABATUNDE Attending Unavailable CHARLEY RILEY Primary Care Unavailab CHARLEY Alexis Referring Unavailab le CHARLEY RILEY Attending Unavailab CHARLEY Alexis Primary Care Unavailab le SELF Referring Unavailable PODLOGBABATUNDE BRYANT Attending CHARLEY Preciado Primary Care Unavailab le PODLOGAR, BABATUNDE Attending Unavailable CHARLEY RILEY Primary Care Unavailab le PROBLEMS DATE TYPE CONDITION / CODE ATTENDING STATUS [facility] 06/27/2025 Active Type 2 diabetes mellitus with stage 3 chronic kidney disease, without long-term current use of insulin, unspecified whether stage 3a or 3b CKD (HCC) / E11.22(ICD-10) CHARLEY RILEY Active [facility] 06/27/2025 Active Type 2 diabetes mellitus with stage 3 chronic kidney disease, without long-term current use of insulin, unspecified whether stage 3a or 3b CKD (HCC) / N18.30(ICD-10) CHARLEY RILEY Active [facility] 05/09/2024 Active Moderate recurre nt major depression (HCC) / F33.1(ICD-10) CHARLEY RILEY Active [facility] 10/25/2023 Active Stage 3a chronic kidney disease (HCC) / N18.31(ICD-10) CHARLEY RILEY Active [facility] 06/02/2017 Active Hyperlipidemia, unspecified hyperlipidemia type / E78.5(ICD-10) CHARLEY RILEY Active [facility] 06/27/2025 Active Medicare annual wellness visit, subsequent / Z00.00(ICD-10) CHARLEY RILEY Active [facility] 06/27/2025 Active Memory impairmen t / R41.3(ICD-10) CHARLEY RILEY Active [facility] 06/27/2025 Active Unsteady gait wh en walking / R26.81(ICD-10) CHARLEY RILEY Active [facility] 06/27/2025 Active Encounter for sc reening examination for other mental health and behavioral disorders / Z13.39(ICD-10) CHARLEY RILEY Active [facility] 06/27/2025 Active Arm abrasion, le ft, initial encounter / S40.812A(ICD-10) CHARLEY RILEY Active [facility] 06/19/2025 Active Preop examinatio n / Z01.818(ICD-10) PODLOGAR, BABATUNDE Active [facility] 06/19/2025 Active Encounter for immunization / Z23(ICD-10) PODLOGAR, BABATUNDE Active [facility] 06/19/2025 Active Sinus bradycardi a / R00.1(ICD-10) PODLOGAR, BABATUNDE Active [facility] 06/19/2025 Active Normocytic anemi a / D64.9(ICD-10) PODLOGAR, BABATUNDE Active [facility] 06/19/2025 Active Essential (prima ry) hypertension / I10(ICD-10) PODLOGAR, BABATUNDE Active [facility] 06/19/2025 Active Primary osteoart hritis of both knees / M17.0(ICD-10) PODLOGAR, BABATUNDE Active [facility] 06/19/2025 Active Type 2 diabetes mellitus without complication, without long-term current use of insulin (HCC) / E11.9(ICD-10) PODLOGAR, BABATUNDE Active [facility] 02/28/2017 Active Hypertension, unspecified type / I10(ICD-10) PODLOGAR, BABATUNDE Active [facility] 03/27/2025 Active Other chronic pa in / G89.29(ICD-10) PODLOGAR, BABATUNDE Active [facility] 03/27/2025 Active Class 2 severe o besity with serious comorbidity and body mass index (BMI) of 35.0 to 35.9 in adult, unspecified obesity type (HCC) / E66.812(ICD-10) PODLOGAR, BABATUNDE [facility] 03/27/2025 Active Class 2 severe o besity with serious comorbidity and body mass index (BMI) of 35.0 to 35.9 in adult, unspecified obesity type (HCC) / E66.01(ICD-10) PODLOGAR, BABATUNDE [facility] 03/27/2025 Active Class 2 severe o besity with serious comorbidity and body mass index (BMI) of 35.0 to 35.9 in adult, unspecified obesity type (HCC) / Z68.35(ICD-10) PODLOGAR, BABATUNDE [facility] 02/12/2025 Active Neck pain, bilat eral / M54.2(ICD-10) CLUTTER, SEDRICK [facility] 04/22/2023 Active 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) PODLOGAR, BABATUNDE [facility] 03/31/2020 Active Controlled type 2 diabetes mellitus without complication, without long-term current use of insulin (HCC) / E11.9(ICD-10) PODLOGAR, BABATUNDE [facility] 06/02/2017 Active RANGEL (obstructive sleep apnea) / G47.33(ICD-10) PODLOGAR, BABATUNDE [facility] 06/02/2017 Active Depression, unsp ecified depression type / F32.A(ICD-10) PODLOGAR, BABATUNDE [facility] 02/28/2017 Active Hypothyroidism, unspecified type / E03.9(ICD-10) PODLOGAR, BABATUNDE [facility] 12/26/2024 Active Leg swelling / M79.89(ICD-10) PODLOGAR, BABATUNDE [facility] PROCEDURES No Procedure Records Found RESULTS CNOV Observed: 06/27/2025 1:40 PM Status: COMPLETED Source: [facility] Office Visit ([facility] JENSEN GROSS ([id number]) 1945 F Date Time Provider Department 06/27/25 1:40 PM CHARLEY RILEY During your visit today, we recorded the following information about you: Pulse Respiration Blood pressure Weight 52/minute 16/minute 126/78 114.6 kg Charley Riley MD 06/27/2025 2:52 PM Signed Jensen Gross is a 80 year old female here for a Medicare wellness visit. Recording using [employer] software for draft documentation of the visit was discussed with the patient/authorized appliance service representative; all questions welcomed and answered. Patient/authorized appliance service representative agreed to proceed Anxiety: - Recent anxiety related to upcoming knee surgery and associated expenses. - Jensen reports feeling anxious several days in the past two weeks due to concerns about blood pressure affecting surgery eligibility. - Finds relief from anxiety by gardening. Abrasion: - Sustained a superficial scrape on the left arm from hitting an aluminum box on the wall in our bathroom when trying to stand up. - Denies falling onto the floor or hitting head; no pain in shoulder or elbow. Mobility Issues: - Severe pain in both knees and feet due to being yoco-wt-anex. - Uses a walker at home for balance; reports difficulty with sitting, standing, and walking. - Scheduled for knee surgery on the ; plans to have the other knee done after recovery. - Undergoing physical therapy post-surgery. Medicare Health Risk Assessment General Health Fair Exercise: Minutes/Day 0 min Exercise: Days/Week 0 days Alcohol: Daily Use Monthly or less Alcohol: Drinks/Day 1 or 2 Alcohol: 6 or more drinks Never Feel off balance Yes (Has a walker at home which helps with balance) Concerns: Teeth/Dentures No Concerns: Sexual function No Troubled by feelings Anxious Frequency: Eating healthy diet Nearly every day ADLs requiring help Sitting or standing; Walking Safety precautions in home/vehicle Yes Smoke, vape, chews tobacco No Difficulty hearing No Difficulty seeing No Current Providers Specialists: I have reviewed specialist-related care of the patient in the medical record. Current care team: Patient Care Team: Charley Riley MD as PCP - General (Family Medicine) John Royal MD (Orthotics AND Prosthetics) Calista Ruiz MD as Referring (Cerebrovascular) Podlogar, KIA Zurita.PARTS REPRESENTATIVE as Manager Engagement (Family Medicine) Yanique Pascal APRN.SAMANTHA as Manager Engagement (Family Medicine) Outside specialists seen: Ortho: Dr. Hernandez; Neurology: Dr. Alonso, Urology: Dr. Maki Medical/Family history review Reviewed and updated problem list, medical/surgical/family/social history, medications, and allergies. Opioid use review Opioid Medications (last 90 days) 03/30/2025 00:00 06/19/2025 17:28 Opioid Medications hydrocodone/acetaminophen Take 1 tablet by mouth at bedtime as needed for pain. 1 tablet AT BEDTIME PRN PO (7.5-325 mg tab) Details Patient-reported Prescribed No opioid use on file in the last 90 days Does patient have risk factors for opioid abuse? No Pain overview Current pain concerns and treatment plan reviewed. Patient under the care of a specialist. Anxiety/Depression screening PHQ-2 Score: 1 (Lower risk for depression) JARRET-2 Score: 1 (Lower risk for anxiety) Recommendation: no further intervention at this time Cognitive screening Mini Cog Score: 2 Cognitive screening reviewed and Recommended referral for further evaluation (score 0-2). Functional Observation Was the patient's Timed Up AND Go test unsteady or >= 12 seconds? Yes-Patient unable to ambulate due to chronic joint pain Advance Care Planning Surrogate decision maker and/or advance care plan documented FULL CODE Measurements BP 126/78 Pulse (!) 52 Resp 16 Wt 114.6 kg (252 lb 9.6 oz) BMI 36.24 kg/m? Vision Screening: Follows with optometry/ophthalmology General Appearance: Well appearing, alert, in no acute distress, well-hydrated, well nourished.. Skin: faint red line extending from left lateral elbow to distal 1/3 bicep without tearing of the skin. 1. Medicare annual wellness visit, subsequent (Z00.00) - Completed Medicare annual wellness visit, including review of medical history, specialists, and medications. - Discussed the nature of the wellness visit and clarified that it is not a physical exam. - Reviewed and updated health care power of business attorney and living will; patient wishes to remain full code. - Discussed end-of-life decision making. - Advised continuation of annual wellness visits if found valuable. - Follow-up in 6 months for routine care, or sooner if needed. 2. Memory impairment (R41.3) - Mini-Cog score 2/5, suggestive of possible mild cognitive impairment. - Refer to Dr. Elliott (Geriatrics) for further evaluation. 3. Unsteady gait when walking (R26.81) - Chronic balance issues due to bilateral knee and ankle osteoarthritis; uses walker at home. - Advised continued use of walker for safety. - Discussed that physical therapy post-knee surgery will address mobility and balance. If needing additional referral order for fall risk reduction, please notify the office. - Provided prescription for permanent disability placard. 4. Encounter for screening examination for other mental health and behavioral disorders (Z13.39) - Anxiety screening performed; patient reports anxiety related to upcoming knee surgery and associated expenses. - No current symptoms of depression or suicidal ideation. 5. Arm abrasion, left, initial encounter (S45.115H) - Superficial abrasion on left arm from scraping it against a metal box in on of our bathrooms. Did not fall. Did not break the skin. no current pain or signs of infection. - Advised patient to monitor for increased pain or signs of infection and report if symptoms worsen. 6. Hyperlipidemia, unspecified hyperlipidemia type (E78.5) - Continue Lipitor as prescribed. 7. 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 8. Stage 3a chronic kidney disease (HCC) (N18.31) 9. Type 2 diabetes mellitus with stage 3 chronic kidney disease, without long-term current use of insulin, unspecified whether stage 3a or 3b CKD (HCC) (E11.22) - Recent labs reviewed; no new concerns. - Advised low-carb diet, salt restriction, and avoidance of NSAIDs (ibuprofen, Aleve); Tylenol may be used for pain. - Continue current regimen. - Advised annual dilated retinal exam and regular foot checks. Charley Riley MD 06/27/2025 2:25 PM Signed - Completed refills for Paxil, losartan, and Lipitor, with bupropion and propranolol refills processed today; prescriptions sent to [facility] in [place]. - Clean the small scrape on your arm gently, keep it dry, and watch for increased pain, redness, or swelling; no aspirin or special ointment needed. - Use acetaminophen (Tylenol) for pain as needed and avoid ibuprofen or Aleve to protect your kidneys. - Follow a low-carb diet, limit salt, and include vegetables daily to support your blood pressure and kidney health. - Continue using your walker for balance and walking; after your knee surgery, physical therapy will focus on balance training and proper walker use. - Referral sent to Dr. Elliott with geriatrics upstairs for further memory evaluation based on your Mini-Cog results. - Schedule annual eye exams with a dilated retinal exam and yearly skin checks, aiming for both in August. - Check the tops and bottoms of your feet daily for any cuts, sores, rashes, or changes; report any concerns promptly. - New prescription provided today for renewal of your disability placard for parking. - Plan to return for a routine follow-up in about six months; call our office sooner if any new issues arise. Referring Provider: SELF [[id number]] Allergies As of Date: 06/27/2025 Noted Allergy Reaction PERCOCET (OXYCODONE-ACETAMINOPHEN)07/29/2017 11 - Vomiting 14 - Other: See Comments Comments: Sweating, severe cramping instantly after taking medication ANIMAL DANDER 04/28/2021 5 - Intolerance CEPHALOSPORINS 02/28/2017 7 - Swelling CODEINE 02/28/2017 7 - Swelling Date Reviewed: 06/27/2025 Reviewed by: SUZY PAVON - Fully Assessed Reason for Visit: Medicare Wellness Exam [4060] Primary Visit Diagnosis:Medicare annual wellness visit, subsequent [Z00.00] Other Visit Diagnoses:Memory impairment [R41.3] Unsteady gait when walking [R26.81] Encounter for screening examination for other mental health and behavioral disorders [Z13.39] Arm abrasion, left, initial encounter [S40.812A] Hyperlipidemia, unspecified hyperlipidemia type [E78.5] 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.1] Stage 3a chronic kidney disease (HCC) [N18.31] Type 2 diabetes mellitus with stage 3 chronic kidney disease, without long-term current use of insulin, unspecified whether stage 3a or 3b CKD (HCC) [E11.22, N18.30] Order(s):atorvastatin (LIPITOR) 40 mg tabletTake 1 tablet by mouth daily at bedtime. For cholesterol.Disp: 90 tabletRfl: 1 losartan (COZAAR) 50 mg tabletTake 1 tablet by mouth once daily.Disp: 90 tabletRfl: 1 PARoxetine (PAXIL) 30 mg tabletTake 1 tablet by mouth once daily.Disp: 90 tabletRfl: 1 CONSULT TO GERIATRICS [90] Order #: [id number]: 1 FUTURE ANXIETY SCREENING [0662081] Order #: [id number]: 1 PARKING FOR HANDICAPPED [9903708] Order #: [id number] Prescriptions as of 06/27/2025 - tiZANidine (ZANAFLEX) 4 mg tablet Take 2-4 mg by mouth at bedtime as needed (for pain or muscle spasm). - atorvastatin (LIPITOR) 40 mg tablet Take 1 tablet by mouth daily at bedtime. For cholesterol. - losartan (COZAAR) 50 mg tablet Take 1 tablet by mouth once daily. - PARoxetine (PAXIL) 30 mg tablet Take 1 tablet by mouth once daily. - montelukast (SINGULAIR) 10 mg tablet Take 1 tablet by mouth daily at bedtime. - levothyroxine (SYNTHROID) 125 mcg tablet Take 1 tablet by mouth once daily. Take on empty stomach. For Thyroid - pramipexole (MIRAPEX) 1.5 mg tablet Take 1.5 mg by mouth daily at bedtime. - buPROPion SR (WELLBUTRIN SR) 150 mg 12 hr tablet Take 1 tablet by mouth two times a day. - propranolol (INDERAL) 40 mg tablet Take 1 tablet by mouth two times a day. - blood sugar diagnostic (FREESTYLE LITE STRIPS) test strip Test blood sugar(s) 1 times daily. Dx: Type 2 DM - Controlled E11.9 Insulin: No - ondansetron (ZOFRAN) 4 mg tablet Take 1 tab po every 8 hours as needed for nausea/headache - CPAP/BIPAP/OTHER Type .CPAPSettings into a note to see current settings/supplies/DME information. - Lancets lancets Test blood sugar(s) 1 times daily. Dx: Type 2 DM - Controlled E11.9 Insulin: No - primidone (MYSOLINE) 50 mg tablet Take 50 mg by mouth twice daily. - HYDROcodone-Acetaminophen (NORCO) 7.5-325 mg per tablet Take 1 tablet by mouth at bedtime as needed for pain. - gabapentin (NEURONTIN) 600 mg tablet Take 600 mg by mouth two times a day. - hydrocortisone 2.5 % cream Apply 1 application to affected area twice daily. Location: ears - diclofenac sodium (VOLTAREN) 1 % topical gel Apply 2 g to affected area four times daily. - albuterol HFA (PROAIR HFA) 90 mcg/actuation inhaler Inhale 2 Puffs as instructed every 4 hours as needed. - Cholecalciferol, Vitamin D3, 50 mcg (2,000 unit) cap Take 2 capsules by mouth once daily. 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] 01/16/2018 Stage 3 chronic kidney disease (HCC) [N18.30] 10/11/2018 Diabetes mellitus type 1, controlled, without c*05/16/2019 03/31/2020 Type 2 diabetes mellitus with stage 3 chronic k*01/2019 Hot flashes [R23.2] Lymphedema of left leg [I89.0] 11/16/2021 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 - Clean the small scrape on your arm gently, keep it dry, and watch for increased pain, redness, or swelling; no aspirin or special ointment needed. - Use acetaminophen (Tylenol) for pain as needed and avoid ibuprofen or Aleve to protect your kidneys. - Follow a low-carb diet, limit salt, and include vegetables daily to support your blood pressure and kidney health. - Continue using your walker for balance and walking; after your knee surgery, physical therapy will focus on balance training and proper walker use. - Referral sent to Dr. Elliott with geriatrics upstairs for further memory evaluation based on your Mini-Cog results. - Schedule annual eye exams with a dilated retinal exam and yearly skin checks, aiming for both in August. - Check the tops and bottoms of your feet daily for any cuts, sores, rashes, or changes; report any concerns promptly. - New prescription provided today for renewal of your disability placard for parking. - Plan to return for a routine follow-up in about six months; call our office sooner if any new issues arise. Prescriptions ordered this encounter Disp Refills Start End ATORVASTATIN 40 MG TABLET 90 t* 1 06/27/2025 12/24/2025 Route: PO Sig: Take 1 tablet by mouth daily at bedtime. For cholesterol. LOSARTAN 50 MG TABLET 90 t* 1 06/27/2025 12/24/2025 Route: PO Sig: Take 1 tablet by mouth once daily. PAROXETINE 30 MG TABLET 90 t* 1 06/27/2025 12/24/2025 Route: PO Sig: Take 1 tablet by mouth once daily. Medications Discontinued During This Encounter Prescriptions - PARoxetine (PAXIL) 30 mg tablet (Discontinued) Take 1 tablet by mouth once daily. - losartan (COZAAR) 50 mg tablet (Discontinued) Take 1 tablet by mouth once daily. - atorvastatin (LIPITOR) 40 mg tablet (Discontinued) Take 1 tablet by mouth daily at bedtime. For cholesterol. Disposition: Return in about 6 months (around 12/25/2025) for Follow up with Babatunde obregon routine. Follow-up and Disposition History for Encounter Date Provider Department Center 06/27/2025 [id number]-X[facility]TNTINOEMY [facility] Encounter Status:Closed by CHARLEY RILEY on 06/27/25 PROGRESS Observed: 06/27/2025 1:37 PM Status: COMPLETED Source: [facility] HNO ID: [id number] Author: CHARLEY RILEY MD Service: ? Author Type: Physician Type: Progress Notes Filed: 06/27/2025 14:52 Note Text: Jensen Gross is a 80 year old female here for a Medicare wellness visit. Recording using [employer] software for draft documentation of the visit was discussed with the patient/authorized appliance service representative; all questions welcomed and answered. Patient/authorized appliance service representative agreed to proceed Anxiety: - Recent anxiety related to upcoming knee surgery and associated expenses. - Jensen reports feeling anxious several days in the past two weeks due to concerns about blood pressure affecting surgery eligibility. - Finds relief from anxiety by gardening. Abrasion: - Sustained a superficial scrape on the left arm from hitting an aluminum box on the wall in our bathroom when trying to stand up. - Denies falling onto the floor or hitting head; no pain in shoulder or elbow. Mobility Issues: - Severe pain in both knees and feet due to being guyf-us-jlux. - Uses a walker at home for balance; reports difficulty with sitting, standing, and walking. - Scheduled for knee surgery on the ; plans to have the other knee done after recovery. - Undergoing physical therapy post-surgery. Medicare Health Risk Assessment General Health Fair Exercise: Minutes/Day 0 min Exercise: Days/Week 0 days Alcohol: Daily Use Monthly or less Alcohol: Drinks/Day 1 or 2 Alcohol: 6 or more drinks Never Feel off balance Yes (Has a walker at home which helps with balance) Concerns: Teeth/Dentures No Concerns: Sexual function No Troubled by feelings Anxious Frequency: Eating healthy diet Nearly every day ADLs requiring help Sitting or standing; Walking Safety precautions in home/vehicle Yes Smoke, vape, chews tobacco No Difficulty hearing No Difficulty seeing No Current Providers Specialists: I have reviewed specialist-related care of the patient in the medical record. Current care team: Patient Care Team: Charley Riley MD as PCP - General (Family Medicine) John Royal MD (Orthotics AND Prosthetics) Calista Ruiz MD as Referring (Cerebrovascular) Podlogar, KIA Zurita.PARTS REPRESENTATIVE as Manager Engagement (Family Medicine) Yanique Pascal APRN.CNP as Manager Engagement (Family Medicine) Outside specialists seen: Ortho: Dr. Hernandez; Neurology: Dr. Alonso, Urology: Dr. Maki Medical/Family history review Reviewed and updated problem list, medical/surgical/family/social history, medications, and allergies. Opioid use review Opioid Medications (last 90 days) 03/30/2025 00:00 06/19/2025 17:28 Opioid Medications hydrocodone/acetaminophen Take 1 tablet by mouth at bedtime as needed for pain. 1 tablet AT BEDTIME PRN PO (7.5-325 mg tab) Details Patient-reported Prescribed No opioid use on file in the last 90 days Does patient have risk factors for opioid abuse? No Pain overview Current pain concerns and treatment plan reviewed. Patient under the care of a specialist. Anxiety/Depression screening PHQ-2 Score: 1 (Lower risk for depression) JARRET-2 Score: 1 (Lower risk for anxiety) Recommendation: no further intervention at this time Cognitive screening Mini Cog Score: 2 Cognitive screening reviewed and Recommended referral for further evaluation (score 0-2). Functional Observation Was the patient's Timed Up AND Go test unsteady or >= 12 seconds? Yes-Patient unable to ambulate due to chronic joint pain Advance Care Planning Surrogate decision maker and/or advance care plan documented FULL CODE Measurements BP 126/78 Pulse (!) 52 Resp 16 Wt 114.6 kg (252 lb 9.6 oz) BMI 36.24 kg/m? Vision Screening: Follows with optometry/ophthalmology General Appearance: Well appearing, alert, in no acute distress, well-hydrated, well nourished.. Skin: faint red line extending from left lateral elbow to distal 1/3 bicep without tearing of the skin. 1. Medicare annual wellness visit, subsequent (Z00.00) - Completed Medicare annual wellness visit, including review of medical history, specialists, and medications. - Discussed the nature of the wellness visit and clarified that it is not a physical exam. - Reviewed and updated health care power of business attorney and living will; patient wishes to remain full code. - Discussed end-of-life decision making. - Advised continuation of annual wellness visits if found valuable. - Follow-up in 6 months for routine care, or sooner if needed. 2. Memory impairment (R41.3) - Mini-Cog score 2/5, suggestive of possible mild cognitive impairment. - Refer to Dr. Elliott (Geriatrics) for further evaluation. 3. Unsteady gait when walking (R26.81) - Chronic balance issues due to bilateral knee and ankle osteoarthritis; uses walker at home. - Advised continued use of walker for safety. - Discussed that physical therapy post-knee surgery will address mobility and balance. If needing additional referral order for fall risk reduction, please notify the office. - Provided prescription for permanent disability placard. 4. Encounter for screening examination for other mental health and behavioral disorders (Z13.39) - Anxiety screening performed; patient reports anxiety related to upcoming knee surgery and associated expenses. - No current symptoms of depression or suicidal ideation. 5. Arm abrasion, left, initial encounter (S42.232A) - Superficial abrasion on left arm from scraping it against a metal box in on of our bathrooms. Did not fall. Did not break the skin. no current pain or signs of infection. - Advised patient to monitor for increased pain or signs of infection and report if symptoms worsen. 6. Hyperlipidemia, unspecified hyperlipidemia type (E78.5) - Continue Lipitor as prescribed. 7. 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 8. Stage 3a chronic kidney disease (HCC) (N18.31) 9. Type 2 diabetes mellitus with stage 3 chronic kidney disease, without long-term current use of insulin, unspecified whether stage 3a or 3b CKD (HCC) (E11.22) - Recent labs reviewed; no new concerns. - Advised low-carb diet, salt restriction, and avoidance of NSAIDs (ibuprofen, Aleve); Tylenol may be used for pain. - Continue current regimen. - Advised annual dilated retinal exam and regular foot checks. BARBARA Observed: 06/27/2025 12:00 AM Status: COMPLETED Source: [facility] Telephone (FAMPWS) JENSEN GROSS ([id number]) 1945 F Date Time Provider Department 06/27/25 [facility] During your visit today, we recorded the following information about you: Brenna Grande LPN 06/27/2025 4:54 PM Signed Crystal from [facility] calling needing signed surgery clearance form faxed to [phone] by tuesday or they will have to cancel her surgery. Crystal is faxing a clearance form to the office. Please advise Charley Riley MD 06/28/2025 6:53 AM Signed Do we have the form I can sign? Charley Riley MD 06/28/2025 7:07 AM Signed Found it. Signed and given to nurse to fax. Dee Jenkins LPN 06/28/2025 8:22 AM Signed Form faxed to [facility] with confirmation received. Dee Jenkins LPN Allergies As of Date: 06/27/2025 Noted Allergy Reaction PERCOCET (OXYCODONE-ACETAMINOPHEN)07/29/2017 11 - Vomiting 14 - Other: See Comments Comments: Sweating, severe cramping instantly after taking medication ANIMAL DANDER 04/28/2021 5 - Intolerance CEPHALOSPORINS 02/28/2017 7 - Swelling CODEINE 02/28/2017 7 - Swelling Date Reviewed: 06/27/2025 Reviewed by: SUZY PAVON - Fully Assessed Reason for Visit: need signed clearance form by notuesday [Other] Prescriptions as of 06/28/2025 - tiZANidine (ZANAFLEX) 4 mg tablet Take 2-4 mg by mouth at bedtime as needed (for pain or muscle spasm). - atorvastatin (LIPITOR) 40 mg tablet Take 1 tablet by mouth daily at bedtime. For cholesterol. - losartan (COZAAR) 50 mg tablet Take 1 tablet by mouth once daily. - PARoxetine (PAXIL) 30 mg tablet Take 1 tablet by mouth once daily. - montelukast (SINGULAIR) 10 mg tablet Take 1 tablet by mouth daily at bedtime. - levothyroxine (SYNTHROID) 125 mcg tablet Take 1 tablet by mouth once daily. Take on empty stomach. For Thyroid - pramipexole (MIRAPEX) 1.5 mg tablet Take 1.5 mg by mouth daily at bedtime. - buPROPion SR (WELLBUTRIN SR) 150 mg 12 hr tablet Take 1 tablet by mouth two times a day. - propranolol (INDERAL) 40 mg tablet Take 1 tablet by mouth two times a day. - blood sugar diagnostic (FREESTYLE LITE STRIPS) test strip Test blood sugar(s) 1 times daily. Dx: Type 2 DM - Controlled E11.9 Insulin: No - ondansetron (ZOFRAN) 4 mg tablet Take 1 tab po every 8 hours as needed for nausea/headache - CPAP/BIPAP/OTHER Type .CPAPSettings into a note to see current settings/supplies/DME information. - Lancets lancets Test blood sugar(s) 1 times daily. Dx: Type 2 DM - Controlled E11.9 Insulin: No - primidone (MYSOLINE) 50 mg tablet Take 50 mg by mouth twice daily. - HYDROcodone-Acetaminophen (NORCO) 7.5-325 mg per tablet Take 1 tablet by mouth at bedtime as needed for pain. - gabapentin (NEURONTIN) 600 mg tablet Take 600 mg by mouth two times a day. - hydrocortisone 2.5 % cream Apply 1 application to affected area twice daily. Location: ears - diclofenac sodium (VOLTAREN) 1 % topical gel Apply 2 g to affected area four times daily. - albuterol HFA (PROAIR HFA) 90 mcg/actuation inhaler Inhale 2 Puffs as instructed every 4 hours as needed. - Cholecalciferol, Vitamin D3, 50 mcg (2,000 unit) cap Take 2 capsules by mouth once daily. 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] 01/16/2018 Stage 3 chronic kidney disease (HCC) [N18.30] 10/11/2018 Diabetes mellitus type 1, controlled, without c*05/16/2019 03/31/2020 Type 2 diabetes mellitus with stage 3 chronic k*01/2019 Hot flashes [R23.2] Lymphedema of left leg [I89.0] 11/16/2021 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] 04/22/2023 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] 04/22/2023 05/09/2024 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] 04/22/2023 05/09/2024 Mild episode of recurrent major depressive diso*04/22/2023 Peripheral vascular disease (HCC) [I73.9] 04/22/2023 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.*05/09/2024 Encounter Status:Closed by DEE JENKINS on 06/28/25 BARBARA Observed: 06/24/2025 12:00 AM Status: COMPLETED Source: [facility] Telephone (FAMPWS) JENSEN GROSS ([id number]) 1945 F Date Time Provider Department 06/24/25 CHARLEY RILEY During your visit today, we recorded the following information about you: Lan Pablo RN 06/24/2025 1:42 PM Signed Faxed recent ov notes to [facility] per Colleen request. Allergies As of Date: 06/24/2025 Noted Allergy Reaction PERCOCET (OXYCODONE-ACETAMINOPHEN)07/29/2017 11 - Vomiting 14 - Other: See Comments Comments: Sweating, severe cramping instantly after taking medication ANIMAL DANDER 04/28/2021 5 - Intolerance CEPHALOSPORINS 02/28/2017 7 - Swelling CODEINE 02/28/2017 7 - Swelling Date Reviewed: 06/19/2025 Reviewed by: Dee Jenkins LPN - Fully Assessed Reason for Visit: Faxed to [facility] [Other] Prescriptions as of 06/24/2025 - montelukast (SINGULAIR) 10 mg tablet Take 1 tablet by mouth daily at bedtime. - levothyroxine (SYNTHROID) 125 mcg tablet Take 1 tablet by mouth once daily. Take on empty stomach. For Thyroid - pramipexole (MIRAPEX) 1.5 mg tablet Take 1.5 mg by mouth daily at bedtime. - buPROPion SR (WELLBUTRIN SR) 150 mg 12 hr tablet Take 1 tablet by mouth two times a day. - propranolol (INDERAL) 40 mg tablet Take 1 tablet by mouth two times a day. - atorvastatin (LIPITOR) 40 mg tablet Take 1 tablet by mouth daily at bedtime. For cholesterol. - blood sugar diagnostic (FREESTYLE LITE STRIPS) test strip Test blood sugar(s) 1 times daily. Dx: Type 2 DM - Controlled E11.9 Insulin: No - losartan (COZAAR) 50 mg tablet Take 1 tablet by mouth once daily. - ondansetron (ZOFRAN) 4 mg tablet Take 1 tab po every 8 hours as needed for nausea/headache - PARoxetine (PAXIL) 30 mg tablet Take 1 tablet by mouth once daily. - CPAP/BIPAP/OTHER Type .CPAPSettings into a note to see current settings/supplies/DME information. - Lancets lancets Test blood sugar(s) 1 times daily. Dx: Type 2 DM - Controlled E11.9 Insulin: No - primidone (MYSOLINE) 50 mg tablet Take 50 mg by mouth twice daily. - HYDROcodone-Acetaminophen (NORCO) 7.5-325 mg per tablet Take 1 tablet by mouth at bedtime as needed for pain. - gabapentin (NEURONTIN) 600 mg tablet Take 600 mg by mouth two times a day. - hydrocortisone 2.5 % cream Apply 1 application to affected area twice daily. Location: ears - diclofenac sodium (VOLTAREN) 1 % topical gel Apply 2 g to affected area four times daily. - albuterol HFA (PROAIR HFA) 90 mcg/actuation inhaler Inhale 2 Puffs as instructed every 4 hours as needed. - Cholecalciferol, Vitamin D3, 50 mcg (2,000 unit) cap Take 2 capsules by mouth once daily. 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] 01/16/2018 Stage 3 chronic kidney disease (HCC) [N18.30] 10/11/2018 Diabetes mellitus type 1, controlled, without c*05/16/2019 03/31/2020 Diabetes mellitus type II, controlled (HCC) [E1*01/2019 Hot flashes [R23.2] Lymphedema of left leg [I89.0] 11/16/2021 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] 04/22/2023 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] 04/22/2023 05/09/2024 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] 04/22/2023 05/09/2024 Mild episode of recurrent major depressive diso*04/22/2023 Peripheral vascular disease (HCC) [I73.9] 04/22/2023 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.*05/09/2024 Encounter Status:Closed by Lan PABLO on 06/24/25 ECG01 Observed: 06/19/2025 6:18 PM Status: F Source: [facility] Ventricular Rate : 85 BPM Atrial Rate : 85 BPM P-R Interval : 154 ms QRS Duration : 84 ms Q-T Interval : 396 ms QTC Calculation(Bazett) : 471 ms Calculated P [place] : 76 degrees Calculated R [place] : 51 degrees Calculated T [place] : 47 degrees SINUS RHYTHM WITH PREMATURE ATRIAL COMPLEXES in [facility] OTHERWISE NORMAL ECG Confirmed by MD WREN QARAB ([id number]) on 06/20/2025 5:21:53 PM NAME : JENSEN GROSS PID : [id number] : 1945 Gender : Female Race : ORD : Procedure Date : Jun 19 2025 18:18:11 Edit Date : Jun 20 2025 17:21:55 Diagnosis: SINUS RHYTHM WITH PREMATURE ATRIAL COMPLEXES in [facility] OTHERWISE NORMAL ECG Confirmed by MD WREN QARAB ([id number]) on 06/20/2025 5:21:53 PM Test Reason : Location : 136 : [facility] Overread By : MD WREN QARAB Edited By : MD WREN QARAB Referred By : , Acquired by : [id number], [id number] Observed: 06/19/2025 6:17 PM Status: F Source: [facility] Ventricular Rate : 82 BPM Atrial Rate : 82 BPM P-R Interval : 156 ms QRS Duration : 82 ms Q-T Interval : 386 ms QTC Calculation(Bazett) : 450 ms Calculated P [place] : 56 degrees Calculated R [place] : 52 degrees Calculated T [place] : 40 degrees SINUS RHYTHM WITH PREMATURE SUPRAVENTRICULAR COMPLEXES in [facility] OTHERWISE NORMAL ECG Confirmed by MD WREN QARAB ([id number]) on 06/20/2025 5:21:40 PM NAME : JENSEN GROSS PID : [id number] : 1945 Gender : Female Race : ORD : Procedure Date : Jun 19 2025 18:17:25 Edit Date : Jun 20 2025 17:21:44 Diagnosis: SINUS RHYTHM WITH PREMATURE SUPRAVENTRICULAR COMPLEXES in [facility] OTHERWISE NORMAL ECG Confirmed by MD WREN QARAB ([id number]) on 06/20/2025 5:21:40 PM Test Reason : Location : 136 : [facility] Overread By : MD WREN QARAB Edited By : MD WREN QARAB Referred By : , Acquired by : [id number], PROGRESS Observed: 06/19/2025 5:20 PM Status: COMPLETED Source: [facility] HNO ID: [id number] Author: BABATUNDE RINCON APRN.PARTS REPRESENTATIVE Service: ? Author Type: Nurse Practitioner Type: Progress Notes Filed: 06/19/2025 18:50 Note Text: CC: Patient presents with: Pre-Op Exam: Left knee replacement HPI Jensen Gross is a 80 year old female who presents today for pre-op evaluation. Surgical Procedure: Left knee replacement Date of Procedure: 07/08/2025 Surgeon: Dr. Mary WHITAKER date: 06/28/2025 Diabetes Yes Hypertension requiring medication Yes Congestive Heart Failure No Current Smoker within 1 Year No COPD/asthma Yes- controlled RANGEL Yes Dialysis No Acute renal failure No Steroid use for chronic condition No Disseminated cancer No Preoperative Evaluation: - Jensen Gross is scheduled for left knee replacement on 07/08. - Preoperative labs and EKG completed at [facility] on 05/21. - Orthopedic office informed Jensen of anemia, advised two protein drinks daily, vitamin B, and folic acid supplementation. - Recent EKG reportedly showed bradycardia with a heart rate of 45 bpm. - Denies chest pain or dyspnea. - Able to walk up stairs or hills with a walker if needed. - No known issues with hip bones. Chronic Pain: - Severe pain in bilateral knees and feet, waking up screaming in pain. - Recent x-ray showed bone on bone in both feet. - Orthopedic office recommended different braces for feet. - Recent steroid pack for pain management. - Denies use of NSAIDs. Hypertension: - Did not take losartan or atenolol last night or this morning - Home blood pressure readings typically around 131/78 mmHg. Diabetes Mellitus: - Recent A1c 6.2%, improved from 6.7%. - Expresses desire to further lower A1c post-surgery. METS: Walk indoors, such as around the house (1.75 METs): YES Do light work around the house, such as dusting or washing dishes (2.70 METs): YES Take care of self; that is eating, dressing, bathing, using the toilet (2.75 METs): YES Walk a block or two on level ground (2.75 METs): YES Do moderate work around the house such as vacuuming, sweeping floors, or carrying in groceries (3.50 METs): YES Do yardwork, such as raking leaves, weeding,or pushing a power mower (4.50 METs): NO Climb a flight of stairs or walk up a hill (5.50 METs): YES Participate in moderate recreational activities, such as golf, bowling, dancing, doubles tennis, or throwing a baseball or football (6.00 METs): NO Participate in strenuous sport, such as swimming, singles tennis, football, basketball, or skiing (7.50 METs): NO Do heavy work around the house, such as scrubbing floors, lifting or moving heavy furniture (8.00 METs): NO Run a short distance (8.00 METs): NO Total: 18.95 Patient denies any chest pain or undue shortness of breath with the above physical activity REVIEW OF SYSTEMS GENERAL: No weight loss, malaise or fevers RESPIRATORY: Negative for cough, hemoptysis, wheezing, COPD, dyspnea or shortness of breath CARDIOVASCULAR: Negative for chest pain, leg swelling, hypertension, CHF or palpitations. Denies lightheadedness or dizziness SKIN: Negative for lesions, rash, and itching PAST MEDICAL HISTORY Diagnosis Date Chronic back pain Seeing pain management Dr. 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 Alonso Essential tremor Dr. Alonso Fibromyalgia Headaches due to old head injury History of carpal tunnel release Hot flashes controlled on Paxil Hyperlipidemia Hypertension Hypothyroidism Lymphedema of left leg Migraines 05/09/2024 Morbid obesity (HCC) RANGEL (obstructive sleep apnea) 05/26/2023 mild Osteoarthritis Knees and shoulders, seeing Dr. Gallo Spinal cord mass (HCC) T9-T10 Dr. Alonso Vitamin D insufficiency PAST SURGICAL HISTORY Procedure Laterality Date BREAST BIOPSY HX Right 08/01/2017 BREAST REDUCTION CARPAL TUNNEL Left SECTION HX x1 CHOLECYSTECTOMY HYSTERECTOMY HX PAST SURGICAL HISTORY OF Left bunionectomy x1, then corrective surgery x2 PAST SURGICAL HISTORY OF Bilateral meniscus repair PAST SURGICAL HISTORY OF Left ganglion cyst removal of 5th finger PAST SURGICAL HISTORY OF sphenoid sinus surgery PAST SURGICAL HISTORY OF Bilateral 1998 LE vein stripping REPAIR OF ANKLE LIGAMENT Right ALLERGIES Percocet [Oxycodone-Acetaminophen], Animal Dander, Cephalosporins, and Codeine MEDICATIONS montelukast (SINGULAIR) 10 mg tablet Take 1 tablet by mouth daily at bedtime. levothyroxine (SYNTHROID) 125 mcg tablet Take 1 tablet by mouth once daily. Take on empty stomach. For Thyroid pramipexole (MIRAPEX) 1.5 mg tablet Take 1.5 mg by mouth daily at bedtime. buPROPion SR (WELLBUTRIN SR) 150 mg 12 hr tablet Take 1 tablet by mouth two times a day. propranolol (INDERAL) 40 mg tablet Take 1 tablet by mouth two times a day. atorvastatin (LIPITOR) 40 mg tablet Take 1 tablet by mouth daily at bedtime. For cholesterol. blood sugar diagnostic (FREESTYLE LITE STRIPS) test strip Test blood sugar(s) 1 times daily. Dx: Type 2 DM - Controlled E11.9 Insulin: No losartan (COZAAR) 50 mg tablet Take 1 tablet by mouth once daily. ondansetron (ZOFRAN) 4 mg tablet Take 1 tab po every 8 hours as needed for nausea/headache PARoxetine (PAXIL) 30 mg tablet Take 1 tablet by mouth once daily. CPAP/BIPAP/OTHER Type .CPAPSettings into a note to see current settings/supplies/DME information. Lancets lancets Test blood sugar(s) 1 times daily. Dx: Type 2 DM - Controlled E11.9 Insulin: No primidone (MYSOLINE) 50 mg tablet Take 50 mg by mouth twice daily. HYDROcodone-Acetaminophen (NORCO) 7.5-325 mg per tablet Take 1 tablet by mouth at bedtime as needed for pain. gabapentin (NEURONTIN) 600 mg tablet Take 600 mg by mouth two times a day. hydrocortisone 2.5 % cream Apply 1 application to affected area twice daily. Location: ears diclofenac sodium (VOLTAREN) 1 % topical gel Apply 2 g to affected area four times daily. albuterol HFA (PROAIR HFA) 90 mcg/actuation inhaler Inhale 2 Puffs as instructed every 4 hours as needed. Cholecalciferol, Vitamin D3, 50 mcg (2,000 unit) cap Take 2 capsules by mouth once daily. FAMILY HISTORY Problem Relation Age of Onset Cancer Mother lung Alcohol/Drug Father Glaucoma Sister Alcohol/Drug Brother BP 198/84 Pulse 86 Resp 18 Wt 111.9 kg (246 lb 9.6 oz) SpO2 96% BMI 35.38 kg/m? PHYSICAL EXAMINATION: General appearance: Well appearing, alert, in no acute distress, well-hydrated, well nourished. Skin: Skin color, texture, turgor normal, no suspicious rashes or lesions to exposed skin Head: Normocephalic, no masses, lesions, tenderness or abnormalities Eyes: Anicteric sclera. Pupils are equally round and reactive to light. Extraocular movements are intact. Lungs: Lungs clear to auscultation. No wheezing, rhonchi, rales. Heart: RRR without murmur, gallop, or rubs. No ectopy, Positive findings: extra beats auscultated with exhalation Anxiety Screening Never done Medicare Annual Wellness Visit Never done Dilated Retinal Exam due on 08/31/2024 Advance Directive Discussion Never done Diabetic Foot Exam due on 05/09/2025 Influenza Vaccine(1) due on 06/10/2025 HbA1C due on 06/27/2025 Urine Albumin:Creatinine Ratio due on 12/25/2025 LDL Cholesterol due on 12/25/2025 Serum Creatinine due on 12/25/2025 Hemoglobin/Hematocrit due on 06/18/2026 Annual PCP Team Chronic Disease Visit due on 06/19/2026 DTaP,Tdap,Td Vaccine(3 - Td or Tdap) due on 06/28/2031 Bone Density Screening Completed RSV Vaccine Completed Shingrix Vaccine Completed Pneumococcal Vaccine: 50+ Completed Mammogram Screening Discontinued Colorectal Cancer Screening Discontinued 1. Preop examination (Z01.818) - Pre-op risk assessment for left knee replacement scheduled for the 29th. - Pre-op labs reviewed; mild anemia noted. - EKG from 06/03 showed marked sinus bradycardia with a ventricular rate of 45. - Repeat EKG today showed sinus rhythm with premature atrial complexes. - Will wait to complete risk assessment for surgery based on these findings. - Follow-up next week with Dr. Riley; will have BP rechecked at that office visit anc will discuss with him about possible need for ECG Check Anemia - Condition is stable. Diabetes - Well controlled HTN - Uncontrolled but NO change in medication as patient did not take medications today Morbid Obesity RANGEL - Advised to bring CPAP/BIPAP machine to hospital Risk of 0.2% calculated using the NSQIP surgical risk calculator ASA class: ASA 2- Mild systemic disease Functional status: Independent - will await clearance based on recheck BP and will discuss EKGs with PCP 2. Encounter for immunization (Z23) - influenza vaccine today 3. Sinus bradycardia (R00.1) - EKG from 06/03 showed marked sinus bradycardia with a ventricular rate of 45. - Repeat EKG today showed sinus rhythm with premature atrial complexes. - Will discuss with Dr. Riley about possibly redoing the EKG during next week's visit. 4. Normocytic anemia (D64.9) - Mild anemia noted on recent labs. - Patient instructed by orthopedic office to start 2 protein drinks daily, vitamin B, and folic acid. - Educated patient that anemia is mild and should not prevent surgery. 5. Essential (primary) hypertension (I10) - Blood pressure remains elevated after recheck today (average 182/70). - Patient did not take losartan last night or this morning. - Will have blood pressure rechecked at next week's appointment with Dr. Riley. 6. Primary osteoarthritis of both knees (M17.0) - Severe pain in both knees and feet; x-ray showed [id number] changes in both feet. - Left knee replacement scheduled for the . - Patient to see physical therapist prior to surgery. 7. Type 2 diabetes mellitus without complication, without long-term current use of insulin (HCC) (E11.9) - Recent A1c was 6.2, improved from 6.7 previously. - Encouraged patient to continue managing diabetes. Babatunde Podlogar, TRANSACTION PROCESSOR.PARTS REPRESENTATIVE Prescription instructions reviewed with patient as applicable. Patient advised if symptoms do not improve or if symptoms worsen sooner, to contact their primary care physician. Potential red flag symptoms discussed with the patient. Reviewed appropriate action plan to take if red flag symptoms occur. Patient agreeable to treatment plan. [id number] OVERALL COMPLEXITY Problem Complexity: Moderate Data Level: Moderate Risk Level: Moderate Overall MDM complexity (2/3 must be met or exceeded): Moderate PROBLEMS SECTION: 1. Sinus bradycardia - Acute, uncomplicated illness or injury 2. Normocytic anemia - Stable, Chronic Illness 3. Essential (primary) hypertension - Chronic illness with exacerbation, progression, or side effects of treatment 4. Primary osteoarthritis of both knees - Chronic illness with exacerbation, progression, or side effects of treatment 5. Type 2 diabetes mellitus without complication, without long-term current use of insulin (HCC) - Stable, Chronic Illness 6. Preop examination (Z01.818) - Not applicable 7. Encounter for immunization (Z23) - Self-limited or minor problem One or more chronic illnesses with exacerbation, progression, or side effects of treatment (Moderate complexity) Problem complexity level: Moderate DATA SECTION: - Review of prior external note(s) from each unique source: - Review of the result(s) of each unique test: EKG from 06/03 (reviewed, performed at [facility]); pre-op labs (reviewed, performed at [facility]); x-ray of feet (reviewed, performed by orthopedic office); A1c (reviewed, source not explicit but likely external); creatinine (reviewed, source not explicit but likely external) - 3 unique tests reviewed with explicit external source (EKG, pre-op labs, x-ray) - Ordering of each unique test: Repeat EKG (ordered/performed today) - Assessment requiring an independent historian(s): - Independent interpretation of a test performed by another physician/other qualified health ocular care technician: - Discussion of management or test interpretation with external physician/other qualified health ocular care technician/appropriate source: Data complexity level: Moderate; meets Category 1 with any combination of three RISKS SECTION: Decision regarding elective major surgery (left knee replacement scheduled; pre-op risk assessment in progress) - Moderate complexity Prescription drug management (losartan: documented nonadherence, but no adjustment or explicit management decision today) - Minimal complexity OTC supplementation (protein drinks, vitamin B, folic acid for anemia) - Low complexity Immunization administered - Minimal complexity Physical therapy referral (pre-op) - Low complexity EKG performed and reviewed - Minimal complexity Risks complexity level (highest from above): Moderate CNOV Observed: 06/19/2025 5:20 PM Status: COMPLETED Source: [facility] Office Visit ([facility] JENSEN GROSS ([id number]) 1945 F Date Time Provider Department 06/19/25 5:20 PM PODLOGARBABATUNDE During your visit today, we recorded the following information about you: Pulse Respiration Blood pressure Weight 72/minute 18/minute 182/78 111.9 kg Babatunde Rincon APRN.CNP 06/19/2025 6:50 PM Addendum CC: Patient presents with: Pre-Op Exam: Left knee replacement HPI Jensen Gross is a 80 year old female who presents today for pre-op evaluation. Surgical Procedure: Left knee replacement Date of Procedure: 07/08/2025 Surgeon: Dr. Mary WHITAKER date: 06/28/2025 Diabetes Yes Hypertension requiring medication Yes Congestive Heart Failure No Current Smoker within 1 Year No COPD/asthma Yes- controlled RANGEL Yes Dialysis No Acute renal failure No Steroid use for chronic condition No Disseminated cancer No Preoperative Evaluation: - Jensen Gross is scheduled for left knee replacement on 07/08. - Preoperative labs and EKG completed at [facility] on 05/21. - Orthopedic office informed Jensen of anemia, advised two protein drinks daily, vitamin B, and folic acid supplementation. - Recent EKG reportedly showed bradycardia with a heart rate of 45 bpm. - Denies chest pain or dyspnea. - Able to walk up stairs or hills with a walker if needed. - No known issues with hip bones. Chronic Pain: - Severe pain in bilateral knees and feet, waking up screaming in pain. - Recent x-ray showed bone on bone in both feet. - Orthopedic office recommended different braces for feet. - Recent steroid pack for pain management. - Denies use of NSAIDs. Hypertension: - Did not take losartan or atenolol last night or this morning - Home blood pressure readings typically around 131/78 mmHg. Diabetes Mellitus: - Recent A1c 6.2%, improved from 6.7%. - Expresses desire to further lower A1c post-surgery. METS: Walk indoors, such as around the house (1.75 METs): YES Do light work around the house, such as dusting or washing dishes (2.70 METs): YES Take care of self; that is eating, dressing, bathing, using the toilet (2.75 METs): YES Walk a block or two on level ground (2.75 METs): YES Do moderate work around the house such as vacuuming, sweeping floors, or carrying in groceries (3.50 METs): YES Do yardwork, such as raking leaves, weeding,or pushing a power mower (4.50 METs): NO Climb a flight of stairs or walk up a hill (5.50 METs): YES Participate in moderate recreational activities, such as golf, bowling, dancing, doubles tennis, or throwing a baseball or football (6.00 METs): NO Participate in strenuous sport, such as swimming, singles tennis, football, basketball, or skiing (7.50 METs): NO Do heavy work around the house, such as scrubbing floors, lifting or moving heavy furniture (8.00 METs): NO Run a short distance (8.00 METs): NO Total: 18.95 Patient denies any chest pain or undue shortness of breath with the above physical activity REVIEW OF SYSTEMS GENERAL: No weight loss, malaise or fevers RESPIRATORY: Negative for cough, hemoptysis, wheezing, COPD, dyspnea or shortness of breath CARDIOVASCULAR: Negative for chest pain, leg swelling, hypertension, CHF or palpitations. Denies lightheadedness or dizziness SKIN: Negative for lesions, rash, and itching PAST MEDICAL HISTORY Diagnosis Date Chronic back pain Seeing pain management Dr. 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 Alonso Essential tremor Dr. Alonso Fibromyalgia Headaches due to old head injury History of carpal tunnel release Hot flashes controlled on Paxil Hyperlipidemia Hypertension Hypothyroidism Lymphedema of left leg Migraines 05/09/2024 Morbid obesity (HCC) RANGEL (obstructive sleep apnea) 05/26/2023 mild Osteoarthritis Knees and shoulders, seeing Dr. Gallo Spinal cord mass (HCC) T9-T10 Dr. Alonso Vitamin D insufficiency PAST SURGICAL HISTORY Procedure Laterality Date BREAST BIOPSY HX Right 08/01/2017 BREAST REDUCTION CARPAL TUNNEL Left SECTION HX x1 CHOLECYSTECTOMY HYSTERECTOMY HX PAST SURGICAL HISTORY OF Left bunionectomy x1, then corrective surgery x2 PAST SURGICAL HISTORY OF Bilateral meniscus repair PAST SURGICAL HISTORY OF Left ganglion cyst removal of 5th finger PAST SURGICAL HISTORY OF sphenoid sinus surgery PAST SURGICAL HISTORY OF Bilateral 1998 LE vein stripping REPAIR OF ANKLE LIGAMENT Right ALLERGIES Percocet [Oxycodone-Acetaminophen], Animal Dander, Cephalosporins, and Codeine MEDICATIONS montelukast (SINGULAIR) 10 mg tablet Take 1 tablet by mouth daily at bedtime. levothyroxine (SYNTHROID) 125 mcg tablet Take 1 tablet by mouth once daily. Take on empty stomach. For Thyroid pramipexole (MIRAPEX) 1.5 mg tablet Take 1.5 mg by mouth daily at bedtime. buPROPion SR (WELLBUTRIN SR) 150 mg 12 hr tablet Take 1 tablet by mouth two times a day. propranolol (INDERAL) 40 mg tablet Take 1 tablet by mouth two times a day. atorvastatin (LIPITOR) 40 mg tablet Take 1 tablet by mouth daily at bedtime. For cholesterol. blood sugar diagnostic (FREESTYLE LITE STRIPS) test strip Test blood sugar(s) 1 times daily. Dx: Type 2 DM - Controlled E11.9 Insulin: No losartan (COZAAR) 50 mg tablet Take 1 tablet by mouth once daily. ondansetron (ZOFRAN) 4 mg tablet Take 1 tab po every 8 hours as needed for nausea/headache PARoxetine (PAXIL) 30 mg tablet Take 1 tablet by mouth once daily. CPAP/BIPAP/OTHER Type .CPAPSettings into a note to see current settings/supplies/DME information. Lancets lancets Test blood sugar(s) 1 times daily. Dx: Type 2 DM - Controlled E11.9 Insulin: No primidone (MYSOLINE) 50 mg tablet Take 50 mg by mouth twice daily. HYDROcodone-Acetaminophen (NORCO) 7.5-325 mg per tablet Take 1 tablet by mouth at bedtime as needed for pain. gabapentin (NEURONTIN) 600 mg tablet Take 600 mg by mouth two times a day. hydrocortisone 2.5 % cream Apply 1 application to affected area twice daily. Location: ears diclofenac sodium (VOLTAREN) 1 % topical gel Apply 2 g to affected area four times daily. albuterol HFA (PROAIR HFA) 90 mcg/actuation inhaler Inhale 2 Puffs as instructed every 4 hours as needed. Cholecalciferol, Vitamin D3, 50 mcg (2,000 unit) cap Take 2 capsules by mouth once daily. FAMILY HISTORY Problem Relation Age of Onset Cancer Mother lung Alcohol/Drug Father Glaucoma Sister Alcohol/Drug Brother BP 198/84 Pulse 86 Resp 18 Wt 111.9 kg (246 lb 9.6 oz) SpO2 96% BMI 35.38 kg/m? PHYSICAL EXAMINATION: General appearance: Well appearing, alert, in no acute distress, well-hydrated, well nourished. Skin: Skin color, texture, turgor normal, no suspicious rashes or lesions to exposed skin Head: Normocephalic, no masses, lesions, tenderness or abnormalities Eyes: Anicteric sclera. Pupils are equally round and reactive to light. Extraocular movements are intact. Lungs: Lungs clear to auscultation. No wheezing, rhonchi, rales. Heart: RRR without murmur, gallop, or rubs. No ectopy, Positive findings: extra beats auscultated with exhalation Anxiety Screening Never done Medicare Annual Wellness Visit Never done Dilated Retinal Exam due on 08/31/2024 Advance Directive Discussion Never done Diabetic Foot Exam due on 05/09/2025 Influenza Vaccine(1) due on 06/10/2025 HbA1C due on 06/27/2025 Urine Albumin:Creatinine Ratio due on 12/25/2025 LDL Cholesterol due on 12/25/2025 Serum Creatinine due on 12/25/2025 Hemoglobin/Hematocrit due on 06/18/2026 Annual PCP Team Chronic Disease Visit due on 06/19/2026 DTaP,Tdap,Td Vaccine(3 - Td or Tdap) due on 06/28/2031 Bone Density Screening Completed RSV Vaccine Completed Shingrix Vaccine Completed Pneumococcal Vaccine: 50+ Completed Mammogram Screening Discontinued Colorectal Cancer Screening Discontinued 1. Preop examination (Z01.818) - Pre-op risk assessment for left knee replacement scheduled for the . - Pre-op labs reviewed; mild anemia noted. - EKG from 06/03 showed marked sinus bradycardia with a ventricular rate of 45. - Repeat EKG today showed sinus rhythm with premature atrial complexes. - Will wait to complete risk assessment for surgery based on these findings. - Follow-up next week with Dr. Riley; will have BP rechecked at that office visit anc will discuss with him about possible need for ECG Check Anemia - Condition is stable. Diabetes - Well controlled HTN - Uncontrolled but NO change in medication as patient did not take medications today Morbid Obesity RANGEL - Advised to bring CPAP/BIPAP machine to hospital Risk of 0.2% calculated using the NSQIP surgical risk calculator ASA class: ASA 2- Mild systemic disease Functional status: Independent - will await clearance based on recheck BP and will discuss EKGs with PCP 2. Encounter for immunization (Z23) - influenza vaccine today 3. Sinus bradycardia (R00.1) - EKG from 06/03 showed marked sinus bradycardia with a ventricular rate of 45. - Repeat EKG today showed sinus rhythm with premature atrial complexes. - Will discuss with Dr. Riley about possibly redoing the EKG during next week's visit. 4. Normocytic anemia (D64.9) - Mild anemia noted on recent labs. - Patient instructed by orthopedic office to start 2 protein drinks daily, vitamin B, and folic acid. - Educated patient that anemia is mild and should not prevent surgery. 5. Essential (primary) hypertension (I10) - Blood pressure remains elevated after recheck today (average 182/70). - Patient did not take losartan last night or this morning. - Will have blood pressure rechecked at next week's appointment with Dr. Riley. 6. Primary osteoarthritis of both knees (M17.0) - Severe pain in both knees and feet; x-ray showed [id number] changes in both feet. - Left knee replacement scheduled for the . - Patient to see physical therapist prior to surgery. 7. Type 2 diabetes mellitus without complication, without long-term current use of insulin (HCC) (E11.9) - Recent A1c was 6.2, improved from 6.7 previously. - Encouraged patient to continue managing diabetes. Babatunde Podlogar, TRANSACTION PROCESSOR.PARTS REPRESENTATIVE Prescription instructions reviewed with patient as applicable. Patient advised if symptoms do not improve or if symptoms worsen sooner, to contact their primary care physician. Potential red flag symptoms discussed with the patient. Reviewed appropriate action plan to take if red flag symptoms occur. Patient agreeable to treatment plan. [id number] OVERALL COMPLEXITY Problem Complexity: Moderate Data Level: Moderate Risk Level: Moderate Overall MDM complexity (2/3 must be met or exceeded): Moderate PROBLEMS SECTION: 1. Sinus bradycardia - Acute, uncomplicated illness or injury 2. Normocytic anemia - Stable, Chronic Illness 3. Essential (primary) hypertension - Chronic illness with exacerbation, progression, or side effects of treatment 4. Primary osteoarthritis of both knees - Chronic illness with exacerbation, progression, or side effects of treatment 5. Type 2 diabetes mellitus without complication, without long-term current use of insulin (HCC) - Stable, Chronic Illness 6. Preop examination (Z01.818) - Not applicable 7. Encounter for immunization (Z23) - Self-limited or minor problem One or more chronic illnesses with exacerbation, progression, or side effects of treatment (Moderate complexity) Problem complexity level: Moderate DATA SECTION: - Review of prior external note(s) from each unique source: - Review of the result(s) of each unique test: EKG from 06/03 (reviewed, performed at [facility]); pre-op labs (reviewed, performed at [facility]); x-ray of feet (reviewed, performed by orthopedic office); A1c (reviewed, source not explicit but likely external); creatinine (reviewed, source not explicit but likely external) - 3 unique tests reviewed with explicit external source (EKG, pre-op labs, x-ray) - Ordering of each unique test: Repeat EKG (ordered/performed today) - Assessment requiring an independent historian(s): - Independent interpretation of a test performed by another physician/other qualified health ocular care technician: - Discussion of management or test interpretation with external physician/other qualified health ocular care technician/appropriate source: Data complexity level: Moderate; meets Category 1 with any combination of three RISKS SECTION: Decision regarding elective major surgery (left knee replacement scheduled; pre-op risk assessment in progress) - Moderate complexity Prescription drug management (losartan: documented nonadherence, but no adjustment or explicit management decision today) - Minimal complexity OTC supplementation (protein drinks, vitamin B, folic acid for anemia) - Low complexity Immunization administered - Minimal complexity Physical therapy referral (pre-op) - Low complexity EKG performed and reviewed - Minimal complexity Risks complexity level (highest from above): Moderate Allergies As of Date: 06/19/2025 Noted Allergy Reaction PERCOCET (OXYCODONE-ACETAMINOPHEN)07/29/2017 11 - Vomiting 14 - Other: See Comments Comments: Sweating, severe cramping instantly after taking medication ANIMAL DANDER 04/28/2021 5 - Intolerance CEPHALOSPORINS 02/28/2017 7 - Swelling CODEINE 02/28/2017 7 - Swelling Date Reviewed: 06/19/2025 Reviewed by: Dee Jenkins LPN - Fully Assessed Reason for Visit: Pre-Op Exam [87] Cmt: Left knee replacement Primary Visit Diagnosis:Preop examination [Z01.818] Other Visit Diagnoses:Encounter for immunization [Z23] Sinus bradycardia [R00.1] Normocytic anemia [D64.9] Essential (primary) hypertension [I10] Primary osteoarthritis of both knees [M17.0] Type 2 diabetes mellitus without complication, without long-term current use of insulin (HCC) [E11.9] Order(s):ECG COMPLETE [ECG01] Order #: [id number] INFLUENZA VACCINE, PRSV FREE, AGE 65+ YR, HIGH DOSE, TRIVALENT (FLUZONE HIGH-DOSE) [[id number]] Order #: [id number] Prescriptions as of 06/19/2025 - montelukast (SINGULAIR) 10 mg tablet Take 1 tablet by mouth daily at bedtime. - levothyroxine (SYNTHROID) 125 mcg tablet Take 1 tablet by mouth once daily. Take on empty stomach. For Thyroid - pramipexole (MIRAPEX) 1.5 mg tablet Take 1.5 mg by mouth daily at bedtime. - buPROPion SR (WELLBUTRIN SR) 150 mg 12 hr tablet Take 1 tablet by mouth two times a day. - propranolol (INDERAL) 40 mg tablet Take 1 tablet by mouth two times a day. - atorvastatin (LIPITOR) 40 mg tablet Take 1 tablet by mouth daily at bedtime. For cholesterol. - blood sugar diagnostic (FREESTYLE LITE STRIPS) test strip Test blood sugar(s) 1 times daily. Dx: Type 2 DM - Controlled E11.9 Insulin: No - losartan (COZAAR) 50 mg tablet Take 1 tablet by mouth once daily. - ondansetron (ZOFRAN) 4 mg tablet Take 1 tab po every 8 hours as needed for nausea/headache - PARoxetine (PAXIL) 30 mg tablet Take 1 tablet by mouth once daily. - CPAP/BIPAP/OTHER Type .CPAPSettings into a note to see current settings/supplies/DME information. - Lancets lancets Test blood sugar(s) 1 times daily. Dx: Type 2 DM - Controlled E11.9 Insulin: No - primidone (MYSOLINE) 50 mg tablet Take 50 mg by mouth twice daily. - HYDROcodone-Acetaminophen (NORCO) 7.5-325 mg per tablet Take 1 tablet by mouth at bedtime as needed for pain. - gabapentin (NEURONTIN) 600 mg tablet Take 600 mg by mouth two times a day. - hydrocortisone 2.5 % cream Apply 1 application to affected area twice daily. Location: ears - diclofenac sodium (VOLTAREN) 1 % topical gel Apply 2 g to affected area four times daily. - albuterol HFA (PROAIR HFA) 90 mcg/actuation inhaler Inhale 2 Puffs as instructed every 4 hours as needed. - Cholecalciferol, Vitamin D3, 50 mcg (2,000 unit) cap Take 2 capsules by mouth once daily. 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] 01/16/2018 Stage 3 chronic kidney disease (HCC) [N18.30] 10/11/2018 Diabetes mellitus type 1, controlled, without c*05/16/2019 03/31/2020 Diabetes mellitus type II, controlled (HCC) [E1*01/2019 Hot flashes [R23.2] Lymphedema of left leg [I89.0] 11/16/2021 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] 04/22/2023 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 Author Type: Box Spring Maker Type: Progress Notes Filed: 05/08/2025 13:31 Note Text: POPULATION HEALTH NAVIGATION OUTREACH Action/FYI UPDATED APPOINTMENT NOTE HCC CLOSURE Topic Due (Y or N) Comments Medicare Wellness Y PCP Follow up Colorectal Cancer Screening Controlling Blood Pressure A1C HCC Y Flu Vaccine Care Everywhere Reviewed MyChart Activation Updated Appointment Note Reason for Outreach Care Gap/HCC or Scheduling Wellness Visits Care Gaps due: Medicare Annual Wellness Visit Patient Contacted: Unable or unnecessary to reach patient: HCC related Patient already scheduled Updated appointment notes Navigation Signature: Nupur Mattson MA May 08, 2025 1:29 PM CNPTOUTREACH Observed: 05/08/2025 12:00 AM Status: COMPLETED Source: [facility] Patient Outreach (NETNAV) JENSEN GROSS ([id number]) 1945 F Date Time Provider Department 05/08/25 NUPUR MATTSON NETNAV During your visit today, we recorded the following information about you: Nupur Mattson MA 05/08/2025 1:31 PM Signed POPULATION HEALTH NAVIGATION OUTREACH Action/FYI UPDATED APPOINTMENT NOTE HCC CLOSURE Topic Due (Y or N) Comments Medicare Wellness Y PCP Follow up Colorectal Cancer Screening Controlling Blood Pressure A1C HCC Y Flu Vaccine Care Everywhere Reviewed MyChart Activation Updated Appointment Note Reason for Outreach Care Gap/HCC or Scheduling Wellness Visits Care Gaps due: Medicare Annual Wellness Visit Patient Contacted: Unable or unnecessary to reach patient: HCC related Patient already scheduled Updated appointment notes Navigation Signature: Nupur Mattson MA May 08, 2025 1:29 PM Allergies As of Date: 05/08/2025 Noted Allergy Reaction PERCOCET (OXYCODONE-ACETAMINOPHEN)07/29/2017 11 - Vomiting 14 - Other: See Comments Comments: Sweating, severe cramping instantly after taking medication ANIMAL DANDER 04/28/2021 5 - Intolerance CEPHALOSPORINS 02/28/2017 7 - Swelling CODEINE 02/28/2017 7 - Swelling Date Reviewed: 03/27/2025 Reviewed by: Mayte Delvalle MA - Fully Assessed Reason for Visit: Population Health Navigation Outreach [3910] Cmt: PEDRO WOOD PCSA Prescriptions as of 05/08/2025 - montelukast (SINGULAIR) 10 mg tablet Take 1 tablet by mouth daily at bedtime. - levothyroxine (SYNTHROID) 125 mcg tablet Take 1 tablet by mouth once daily. Take on empty stomach. For Thyroid - pramipexole (MIRAPEX) 1.5 mg tablet Take 1.5 mg by mouth daily at bedtime. - buPROPion SR (WELLBUTRIN SR) 150 mg 12 hr tablet Take 1 tablet by mouth two times a day. - propranolol (INDERAL) 40 mg tablet Take 1 tablet by mouth two times a day. - atorvastatin (LIPITOR) 40 mg tablet Take 1 tablet by mouth daily at bedtime. For cholesterol. - blood sugar diagnostic (FREESTYLE LITE STRIPS) test strip Test blood sugar(s) 1 times daily. Dx: Type 2 DM - Controlled E11.9 Insulin: No - losartan (COZAAR) 50 mg tablet Take 1 tablet by mouth once daily. - ondansetron (ZOFRAN) 4 mg tablet Take 1 tab po every 8 hours as needed for nausea/headache - PARoxetine (PAXIL) 30 mg tablet Take 1 tablet by mouth once daily. - CPAP/BIPAP/OTHER Type .CPAPSettings into a note to see current settings/supplies/DME information. - Lancets lancets Test blood sugar(s) 1 times daily. Dx: Type 2 DM - Controlled E11.9 Insulin: No - primidone (MYSOLINE) 50 mg tablet Take 50 mg by mouth twice daily. - HYDROcodone-Acetaminophen (NORCO) 7.5-325 mg per tablet Take 1 tablet by mouth at bedtime as needed for pain. - gabapentin (NEURONTIN) 600 mg tablet Take 600 mg by mouth two times a day. - hydrocortisone 2.5 % cream Apply 1 application to affected area twice daily. Location: ears - diclofenac sodium (VOLTAREN) 1 % topical gel Apply 2 g to affected area four times daily. - albuterol HFA (PROAIR HFA) 90 mcg/actuation inhaler Inhale 2 Puffs as instructed every 4 hours as needed. - Cholecalciferol, Vitamin D3, 50 mcg (2,000 unit) cap Take 2 capsules by mouth once daily. 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] 01/16/2018 Stage 3 chronic kidney disease (HCC) [N18.30] 10/11/2018 Diabetes mellitus type 1, controlled, without c*05/16/2019 03/31/2020 Diabetes mellitus type II, controlled (HCC) [E1*01/2019 Hot flashes [R23.2] Lymphedema of left leg [I89.0] 11/16/2021 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] 04/22/2023 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] 04/22/2023 05/09/2024 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] 04/22/2023 05/09/2024 Mild episode of recurrent major depressive diso*04/22/2023 Peripheral vascular disease (HCC) [I73.9] 04/22/2023 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.*05/09/2024 Encounter Status:Closed by NUPUR MATTSON on 05/08/25 BARBARA Observed: 04/17/2025 12:00 AM Status: COMPLETED Source: [facility] Telephone (DENISWS) JENSEN GROSS ([id number]) 1945 F Date Time Provider Department 04/17/25 BABATUNDE RINCON During your visit today, we recorded the following information about you: David Zimmerman RN 04/17/2025 1:45 PM Signed Hi this patient has a medicare wellness scheduled with Babatunde Rincon on 06/12 and a preop exam appt for knee replacement on 06/19. Does pt need to come in for both and will she need any labs done? Her surgery is scheduled for 07/08. Babatunde Rincon APRN.CNP 04/17/2025 4:27 PM Signed Yes she does- they both are allotted 40 minutes so I prefer not to try and do both in 40 minutes. Labs can be discussed at appointment. BENJAMIN Torres Barbara, RN 04/17/2025 7:58 PM Signed Called and notified pt to keep both appts. Allergies As of Date: 04/17/2025 Noted Allergy Reaction PERCOCET (OXYCODONE-ACETAMINOPHEN)07/29/2017 11 - Vomiting 14 - Other: See Comments Comments: Sweating, severe cramping instantly after taking medication ANIMAL DANDER 04/28/2021 5 - Intolerance CEPHALOSPORINS 02/28/2017 7 - Swelling CODEINE 02/28/2017 7 - Swelling Date Reviewed: 03/27/2025 Reviewed by: Mayte Delvalle MA - Fully Assessed Reason for Visit: Patient Question [9687] Prescriptions as of 04/17/2025 - montelukast (SINGULAIR) 10 mg tablet Take 1 tablet by mouth daily at bedtime. - levothyroxine (SYNTHROID) 125 mcg tablet Take 1 tablet by mouth once daily. Take on empty stomach. For Thyroid - pramipexole (MIRAPEX) 1.5 mg tablet Take 1.5 mg by mouth daily at bedtime. - buPROPion SR (WELLBUTRIN SR) 150 mg 12 hr tablet Take 1 tablet by mouth two times a day. - propranolol (INDERAL) 40 mg tablet Take 1 tablet by mouth two times a day. - atorvastatin (LIPITOR) 40 mg tablet Take 1 tablet by mouth daily at bedtime. For cholesterol. - blood sugar diagnostic (FREESTYLE LITE STRIPS) test strip Test blood sugar(s) 1 times daily. Dx: Type 2 DM - Controlled E11.9 Insulin: No - losartan (COZAAR) 50 mg tablet Take 1 tablet by mouth once daily. - ondansetron (ZOFRAN) 4 mg tablet Take 1 tab po every 8 hours as needed for nausea/headache - PARoxetine (PAXIL) 30 mg tablet Take 1 tablet by mouth once daily. - CPAP/BIPAP/OTHER Type .CPAPSettings into a note to see current settings/supplies/DME information. - Lancets lancets Test blood sugar(s) 1 times daily. Dx: Type 2 DM - Controlled E11.9 Insulin: No - primidone (MYSOLINE) 50 mg tablet Take 50 mg by mouth twice daily. - HYDROcodone-Acetaminophen (NORCO) 7.5-325 mg per tablet Take 1 tablet by mouth at bedtime as needed for pain. - gabapentin (NEURONTIN) 600 mg tablet Take 600 mg by mouth two times a day. - hydrocortisone 2.5 % cream Apply 1 application to affected area twice daily. Location: ears - diclofenac sodium (VOLTAREN) 1 % topical gel Apply 2 g to affected area four times daily. - albuterol HFA (PROAIR HFA) 90 mcg/actuation inhaler Inhale 2 Puffs as instructed every 4 hours as needed. - Cholecalciferol, Vitamin D3, 50 mcg (2,000 unit) cap Take 2 capsules by mouth once daily. 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] 01/16/2018 Stage 3 chronic kidney disease (HCC) [N18.30] 10/11/2018 Diabetes mellitus type 1, controlled, without c*05/16/2019 03/31/2020 Diabetes mellitus type II, controlled (HCC) [E1*01/2019 Hot flashes [R23.2] Lymphedema of left leg [I89.0] 11/16/2021 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 Author Type: Box Spring Maker Type: Progress Notes Filed: 04/03/2025 13:05 Note Text: POPULATION HEALTH NAVIGATION OUTREACH Action/FYI updated appt note Topic Due (Y or N) Comments Medicare Wellness y PCP Follow up Colorectal Cancer Screening Controlling Blood Pressure A1C HCC y Flu Vaccine Care Everywhere Reviewed MyChart Activation Updated Appointment Note y Reason for Outreach Care Gap/HCC or Scheduling Wellness Visits Care Gaps due: Medicare Annual Wellness Visit Patient Contacted: Unable or unnecessary to reach patient: HCC related Patient already scheduled Updated appointment notes Navigation Signature: Nupur Mattson MA April 03, 2025 1:04 PM CNPTOUTREAALLEGRA Observed: 04/03/2025 12:00 AM Status: COMPLETED Source: [facility] Patient Outreach (NETNAV) JENSEN GROSS ([id number]) 1945 F Date Time Provider Department 04/03/25 NUPUR MATTSON NETBRANDONV During your visit today, we recorded the following information about you: Nupur Mattson MA 04/03/2025 1:05 PM Signed POPULATION HEALTH NAVIGATION OUTREACH Action/FYI updated appt note Topic Due (Y or N) Comments Medicare Wellness y PCP Follow up Colorectal Cancer Screening Controlling Blood Pressure A1C HCC y Flu Vaccine Care Everywhere Reviewed MyChart Activation Updated Appointment Note y Reason for Outreach Care Gap/HCC or Scheduling Wellness Visits Care Gaps due: Medicare Annual Wellness Visit Patient Contacted: Unable or unnecessary to reach patient: HCC related Patient already scheduled Updated appointment notes Navigation Signature: Nupur Mattson MA April 03, 2025 1:04 PM Allergies As of Date: 04/03/2025 Noted Allergy Reaction PERCOCET (OXYCODONE-ACETAMINOPHEN)07/29/2017 11 - Vomiting 14 - Other: See Comments Comments: Sweating, severe cramping instantly after taking medication ANIMAL DANDER 04/28/2021 5 - Intolerance CEPHALOSPORINS 02/28/2017 7 - Swelling CODEINE 02/28/2017 7 - Swelling Date Reviewed: 03/27/2025 Reviewed by: Mayte Delvalle MA - Fully Assessed Reason for Visit: Population Health Navigation Outreach [3910] Cmt: O WORKBEREPLACED BY [facility] Prescriptions as of 04/03/2025 - pramipexole (MIRAPEX) 1.5 mg tablet Take 1.5 mg by mouth daily at bedtime. - buPROPion SR (WELLBUTRIN SR) 150 mg 12 hr tablet Take 1 tablet by mouth two times a day. - propranolol (INDERAL) 40 mg tablet Take 1 tablet by mouth two times a day. - atorvastatin (LIPITOR) 40 mg tablet Take 1 tablet by mouth daily at bedtime. For cholesterol. - blood sugar diagnostic (FREESTYLE LITE STRIPS) test strip Test blood sugar(s) 1 times daily. Dx: Type 2 DM - Controlled E11.9 Insulin: No - losartan (COZAAR) 50 mg tablet Take 1 tablet by mouth once daily. - montelukast (SINGULAIR) 10 mg tablet Take 1 tablet by mouth daily at bedtime. - levothyroxine (SYNTHROID) 125 mcg tablet Take 1 tablet by mouth once daily. Take on empty stomach. For Thyroid - ondansetron (ZOFRAN) 4 mg tablet Take 1 tab po every 8 hours as needed for nausea/headache - PARoxetine (PAXIL) 30 mg tablet Take 1 tablet by mouth once daily. - CPAP/BIPAP/OTHER Type .CPAPSettings into a note to see current settings/supplies/DME information. - Lancets lancets Test blood sugar(s) 1 times daily. Dx: Type 2 DM - Controlled E11.9 Insulin: No - primidone (MYSOLINE) 50 mg tablet Take 50 mg by mouth twice daily. - HYDROcodone-Acetaminophen (NORCO) 7.5-325 mg per tablet Take 1 tablet by mouth at bedtime as needed for pain. - gabapentin (NEURONTIN) 600 mg tablet Take 600 mg by mouth two times a day. - hydrocortisone 2.5 % cream Apply 1 application to affected area twice daily. Location: ears - diclofenac sodium (VOLTAREN) 1 % topical gel Apply 2 g to affected area four times daily. - albuterol HFA (PROAIR HFA) 90 mcg/actuation inhaler Inhale 2 Puffs as instructed every 4 hours as needed. - Cholecalciferol, Vitamin D3, 50 mcg (2,000 unit) cap Take 2 capsules by mouth once daily. 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] 01/16/2018 Stage 3 chronic kidney disease (HCC) [N18.30] 10/11/2018 Diabetes mellitus type 1, controlled, without c*05/16/2019 03/31/2020 Diabetes mellitus type II, controlled (HCC) [E1*01/2019 Hot flashes [R23.2] Lymphedema of left leg [I89.0] 11/16/2021 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 Author Type: Nurse Practitioner Type: Progress Notes Filed: 03/27/2025 15:51 Note Text: 03/27/2025 Patient presents with: Follow Up Recording using [employer] software for draft documentation of the visit was discussed with the patient/authorized appliance service representative; all questions welcomed and answered. Patient/authorized appliance service representative agreed to proceed SUBJECTIVE: This is a 80 year old that is here today for Above Complaints. Chronic Pain: - Jensen reports severe groin pain x3 months, described as a torn ligament or muscle. - Pain is so severe that she has difficulty getting in and out of bed and into her truck. - Has been on a steroid pack, but reports reactions to steroids. - Has had multiple surgeries in the past, including , hysterectomy, knee, shoulder, and foot surgeries. - Has been using a cane for the first time due to the severity of the pain. - Has an appointment with Dr. Prince in orthopedics for further evaluation. Edema: - Jensen reports bilateral lower extremity edema. - Was prescribed hydrochlorothiazide, but did not find it helpful. - Has been taking leftover Lasix sporadically, 3 doses over 3 months. - Increasing water intake. Hyperglycemia: - Jensen reports blood sugar levels as high as 400 mg/dL. - Last recorded blood sugar was 102 mg/dL on the . - Planning to return to a keto diet to manage weight and blood sugar levels. - Daughter has type 1 DM. 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 - Has requested medication for SAD in the past but was not prescribed. - Has a history of hibernating during the winter months, closing the house down and not interacting with neighbors. - Has a family history of mental illness, including a [id number] with bipolar disorder. PAST MEDICAL HISTORY Diagnosis Date Chronic back pain Seeing pain management Dr. 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 Alonso Essential tremor Dr. Alonso Fibromyalgia Headaches due to old head injury History of carpal tunnel release Hot flashes controlled on Paxil Hyperlipidemia Hypertension Hypothyroidism Lymphedema of left leg Migraines 05/09/2024 Morbid obesity ([facility]) RANGEL (obstructive sleep apnea) 05/26/2023 mild Osteoarthritis Knees and shoulders, seeing Dr. Gallo Spinal cord mass ([facility]) T9-T10 Dr. Alonso Vitamin D insufficiency ALLERGIES Percocet [Oxycodone-Acetaminophen], Animal Dander, Cephalosporins, and Codeine MEDICATIONS Current Outpatient Medications Medication Sig pramipexole (MIRAPEX) 1.5 mg tablet Take 1.5 mg by mouth daily at bedtime. buPROPion SR (WELLBUTRIN SR) 150 mg 12 hr tablet Take 1 tablet by mouth two times a day. propranolol (INDERAL) 40 mg tablet Take 1 tablet by mouth two times a day. atorvastatin (LIPITOR) 40 mg tablet Take 1 tablet by mouth daily at bedtime. For cholesterol. blood sugar diagnostic (FREESTYLE LITE STRIPS) test strip Test blood sugar(s) 1 times daily. Dx: Type 2 DM - Controlled E11.9 Insulin: No losartan (COZAAR) 50 mg tablet Take 1 tablet by mouth once daily. montelukast (SINGULAIR) 10 mg tablet Take 1 tablet by mouth daily at bedtime. levothyroxine (SYNTHROID) 125 mcg tablet Take 1 tablet by mouth once daily. Take on empty stomach. For Thyroid ondansetron (ZOFRAN) 4 mg tablet Take 1 tab po every 8 hours as needed for nausea/headache PARoxetine (PAXIL) 30 mg tablet Take 1 tablet by mouth once daily. CPAP/BIPAP/OTHER Type .CPAPSettings into a note to see current settings/supplies/DME information. Lancets lancets Test blood sugar(s) 1 times daily. Dx: Type 2 DM - Controlled E11.9 Insulin: No primidone (MYSOLINE) 50 mg tablet Take 50 mg by mouth twice daily. HYDROcodone-Acetaminophen (NORCO) 7.5-325 mg per tablet Take 1 tablet by mouth at bedtime as needed for pain. gabapentin (NEURONTIN) 600 mg tablet Take 600 mg by mouth two times a day. hydrocortisone 2.5 % cream Apply 1 application to affected area twice daily. Location: ears diclofenac sodium (VOLTAREN) 1 % topical gel Apply 2 g to affected area four times daily. albuterol HFA (PROAIR HFA) 90 mcg/actuation inhaler Inhale 2 Puffs as instructed every 4 hours as needed. Cholecalciferol, Vitamin D3, 50 mcg (2,000 unit) cap Take 2 capsules by mouth once daily. No current facility-administered medications for this visit. Medications and allergies reviewed by this provider. SOCIAL HISTORY Social History Tobacco Use Smoking status: Never Smokeless tobacco: Never Substance Use Topics Alcohol use: Yes Comment: rarely Drug use: No REVIEW OF SYSTEMS All other reviewed and negative other than HPI. OBJECTIVE: BP 136/73 Pulse (!) 51 Ht 177.8 cm (5' 10) Wt 111.3 kg (245 lb 6.4 oz) BMI 35.21 kg/m? . Vital signs reviewed by this provider. APPEARANCE Well appearing, alert, in no acute distress, well-hydrated, well nourished. EYES conjunctiva and sclera normal. HEART RRR with normal S1 and S2, no murmurs, no gallops, no JVD appreciated LUNG clear to auscultation. No wheezes, rhonchi or rales EXTREMITIES Extremities normal, No deformities, No skin discoloration, and No edema SKIN Skin color, texture, turgor normal, no suspicious rashes or lesions to exposed skin Latest Ref [facility] 12/25/2024 Protein, Total 6.3 - 8.0 g/dL 7.0 Albumin 3.9 - 4.9 g/dL 4.0 Calcium 8.5 - 10.2 mg/dL 9.8 Bilirubin, Total 0.2 - 1.3 mg/dL 0.2 Alkaline Phosphatase 34 - 123 U/L 115 AST 13 - 35 U/L 21 ALT 7 - 38 U/L 12 Glucose 74 - 99 mg/dL 89 BUN 7 - 21 mg/dL 31 (H) Creatinine 0.58 - 0.96 mg/dL 1.11 (H) Sodium 136 - 144 mmol/L 138 Potassium 3.7 - 5.1 mmol/L 4.1 Chloride 98 - 107 mmol/L 100 CO2 22 - 30 mmol/L 28 Anion Gap 8 - 15 mmol/L 10 eGFR >=60 mL/min/1.73m? 51 (L) Cholesterol, Total <200 mg/dL 137 Triglyceride <150 mg/dL 82 HDL Cholesterol >39 mg/dL 71 Non HDL Cholesterol <130 mg/dL 66 Fasting Time hrs 15 VLDL Cholesterol <30 mg/dL 16 TC:HDL Ratio <5.10 1.93 LDL Cholesterol, Calculated <100 mg/dL 50 LDL:HDL Ratio <2.54 0.70 Creatinine, Ur Random (UCRR) 20.0 - 300.0 mg/dL 115.9 Albumin, Urine Random mg/L <12.0 Albumin/Creat Ratio <30 mg/g <10 Hemoglobin A1C 4.3 - 5.6 % 6.4 (H) Estimated Average Glucose mg/dL 137 Legend: (H) High (L) Low 1. Controlled type 2 diabetes mellitus without complication, without long-term current use of insulin (HCC) (E11.9) - Blood glucose levels have been elevated, with a recent reading of 400 mg/dL following steroid administration; patient reports a normal reading of 102 mg/dL prior to a recent procedure. - Postponed HbA1c testing for 3 months to allow patient time to implement dietary changes and weight loss. - Patient plans to resume a keto diet to achieve a target weight of 200 lbs. - Follow-up in 3 months to reassess glycemic control and obtain HbA1c. 2. Hypothyroidism, unspecified type (E03.9) - Condition is stable; no changes in management required at this time. 3. Other chronic pain (G89.29) - Persistent groin pain and difficulty with mobility; recent corticosteroid treatments provided temporary relief. - Referred to Dr. Prince in orthopedics for further evaluation and management. - Patient has a history of multiple surgeries and expresses a high pain tolerance. 4. Hypertension, unspecified type (I10) - Discontinued hydrochlorothiazide due to lack of efficacy. - Will consider initiating Lasix for a few days if edema recurs. 5. Class 2 severe obesity with serious comorbidity and body mass index (BMI) of 35.0 to 35.9 in adult, unspecified obesity type (HCC) (E66.812) - Patient plans to resume a keto diet to achieve a target weight of 200 lbs. - Follow-up in 3 months to reassess weight and BMI. Babatunde Rincon APRN.PARTS REPRESENTATIVE Prescription instructions reviewed with patient as applicable. Patient advised if symptoms do not improve or if symptoms worsen sooner, to contact their primary care physician. Potential red flag symptoms discussed with the patient. Reviewed appropriate action plan to take if red flag symptoms occur. Patient agreeable to treatment plan. CNOV Observed: 03/27/2025 3:00 PM Status: COMPLETED Source: [facility] SWATIJENSEN VICENTE ([id number]) 1945 F Date Time Provider Department 03/27/25 3:00 PM BABATUNDE RINCON During your visit today, we recorded the following information about you: Pulse Blood pressure Weight Height 51/minute 136/73 111.3 kg 1.778 m Babatunde Rincon APRN.CNP 03/27/2025 3:51 PM Signed 03/27/2025 Patient presents with: Follow Up Recording using [employer] software for draft documentation of the visit was discussed with the patient/authorized appliance service representative; all questions welcomed and answered. Patient/authorized appliance service representative agreed to proceed SUBJECTIVE: This is a 80 year old that is here today for Above Complaints. Chronic Pain: - Jensen reports severe groin pain x3 months, described as a torn ligament or muscle. - Pain is so severe that she has difficulty getting in and out of bed and into her truck. - Has been on a steroid pack, but reports reactions to steroids. - Has had multiple surgeries in the past, including , hysterectomy, knee, shoulder, and foot surgeries. - Has been using a cane for the first time due to the severity of the pain. - Has an appointment with Dr. Prince in orthopedics for further evaluation. Edema: - Jensen reports bilateral lower extremity edema. - Was prescribed hydrochlorothiazide, but did not find it helpful. - Has been taking leftover Lasix sporadically, 3 doses over 3 months. - Increasing water intake. Hyperglycemia: - Jensen reports blood sugar levels as high as 400 mg/dL. - Last recorded blood sugar was 102 mg/dL on the . - Planning to return to a keto diet to manage weight and blood sugar levels. - Daughter has type 1 DM. 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 - Has requested medication for SAD in the past but was not prescribed. - Has a history of hibernating during the winter months, closing the house down and not interacting with neighbors. - Has a family history of mental illness, including a [id number] with bipolar disorder. PAST MEDICAL HISTORY Diagnosis Date Chronic back pain Seeing pain management Dr. 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 Alonso Essential tremor Dr. Alonso Fibromyalgia Headaches due to old head injury History of carpal tunnel release Hot flashes controlled on Paxil Hyperlipidemia Hypertension Hypothyroidism Lymphedema of left leg Migraines 05/09/2024 Morbid obesity ([facility]) RANGEL (obstructive sleep apnea) 05/26/2023 mild Osteoarthritis Knees and shoulders, seeing Dr. Gallo Spinal cord mass ([facility]) T9-T10 Dr. Alonso Vitamin D insufficiency ALLERGIES Percocet [Oxycodone-Acetaminophen], Animal Dander, Cephalosporins, and Codeine MEDICATIONS Current Outpatient Medications Medication Sig pramipexole (MIRAPEX) 1.5 mg tablet Take 1.5 mg by mouth daily at bedtime. buPROPion SR (WELLBUTRIN SR) 150 mg 12 hr tablet Take 1 tablet by mouth two times a day. propranolol (INDERAL) 40 mg tablet Take 1 tablet by mouth two times a day. atorvastatin (LIPITOR) 40 mg tablet Take 1 tablet by mouth daily at bedtime. For cholesterol. blood sugar diagnostic (FREESTYLE LITE STRIPS) test strip Test blood sugar(s) 1 times daily. Dx: Type 2 DM - Controlled E11.9 Insulin: No losartan (COZAAR) 50 mg tablet Take 1 tablet by mouth once daily. montelukast (SINGULAIR) 10 mg tablet Take 1 tablet by mouth daily at bedtime. levothyroxine (SYNTHROID) 125 mcg tablet Take 1 tablet by mouth once daily. Take on empty stomach. For Thyroid ondansetron (ZOFRAN) 4 mg tablet Take 1 tab po every 8 hours as needed for nausea/headache PARoxetine (PAXIL) 30 mg tablet Take 1 tablet by mouth once daily. CPAP/BIPAP/OTHER Type .CPAPSettings into a note to see current settings/supplies/DME information. Lancets lancets Test blood sugar(s) 1 times daily. Dx: Type 2 DM - Controlled E11.9 Insulin: No primidone (MYSOLINE) 50 mg tablet Take 50 mg by mouth twice daily. HYDROcodone-Acetaminophen (NORCO) 7.5-325 mg per tablet Take 1 tablet by mouth at bedtime as needed for pain. gabapentin (NEURONTIN) 600 mg tablet Take 600 mg by mouth two times a day. hydrocortisone 2.5 % cream Apply 1 application to affected area twice daily. Location: ears diclofenac sodium (VOLTAREN) 1 % topical gel Apply 2 g to affected area four times daily. albuterol HFA (PROAIR HFA) 90 mcg/actuation inhaler Inhale 2 Puffs as instructed every 4 hours as needed. Cholecalciferol, Vitamin D3, 50 mcg (2,000 unit) cap Take 2 capsules by mouth once daily. No current facility-administered medications for this visit. Medications and allergies reviewed by this provider. SOCIAL HISTORY Social History Tobacco Use Smoking status: Never Smokeless tobacco: Never Substance Use Topics Alcohol use: Yes Comment: rarely Drug use: No REVIEW OF SYSTEMS All other reviewed and negative other than HPI. OBJECTIVE: BP 136/73 Pulse (!) 51 Ht 177.8 cm (5' 10) Wt 111.3 kg (245 lb 6.4 oz) BMI 35.21 kg/m? . Vital signs reviewed by this provider. APPEARANCE Well appearing, alert, in no acute distress, well-hydrated, well nourished. EYES conjunctiva and sclera normal. HEART RRR with normal S1 and S2, no murmurs, no gallops, no JVD appreciated LUNG clear to auscultation. No wheezes, rhonchi or rales EXTREMITIES Extremities normal, No deformities, No skin discoloration, and No edema SKIN Skin color, texture, turgor normal, no suspicious rashes or lesions to exposed skin Latest Ref [facility] 12/25/2024 Protein, Total 6.3 - 8.0 g/dL 7.0 Albumin 3.9 - 4.9 g/dL 4.0 Calcium 8.5 - 10.2 mg/dL 9.8 Bilirubin, Total 0.2 - 1.3 mg/dL 0.2 Alkaline Phosphatase 34 - 123 U/L 115 AST 13 - 35 U/L 21 ALT 7 - 38 U/L 12 Glucose 74 - 99 mg/dL 89 BUN 7 - 21 mg/dL 31 (H) Creatinine 0.58 - 0.96 mg/dL 1.11 (H) Sodium 136 - 144 mmol/L 138 Potassium 3.7 - 5.1 mmol/L 4.1 Chloride 98 - 107 mmol/L 100 CO2 22 - 30 mmol/L 28 Anion Gap 8 - 15 mmol/L 10 eGFR >=60 mL/min/1.73m? 51 (L) Cholesterol, Total <200 mg/dL 137 Triglyceride <150 mg/dL 82 HDL Cholesterol >39 mg/dL 71 Non HDL Cholesterol <130 mg/dL 66 Fasting Time hrs 15 VLDL Cholesterol <30 mg/dL 16 TC:HDL Ratio <5.10 1.93 LDL Cholesterol, Calculated <100 mg/dL 50 LDL:HDL Ratio <2.54 0.70 Creatinine, Ur Random (UCRR) 20.0 - 300.0 mg/dL 115.9 Albumin, Urine Random mg/L <12.0 Albumin/Creat Ratio <30 mg/g <10 Hemoglobin A1C 4.3 - 5.6 % 6.4 (H) Estimated Average Glucose mg/dL 137 Legend: (H) High (L) Low 1. Controlled type 2 diabetes mellitus without complication, without long-term current use of insulin (HCC) (E11.9) - Blood glucose levels have been elevated, with a recent reading of 400 mg/dL following steroid administration; patient reports a normal reading of 102 mg/dL prior to a recent procedure. - Postponed HbA1c testing for 3 months to allow patient time to implement dietary changes and weight loss. - Patient plans to resume a keto diet to achieve a target weight of 200 lbs. - Follow-up in 3 months to reassess glycemic control and obtain HbA1c. 2. Hypothyroidism, unspecified type (E03.9) - Condition is stable; no changes in management required at this time. 3. Other chronic pain (G89.29) - Persistent groin pain and difficulty with mobility; recent corticosteroid treatments provided temporary relief. - Referred to Dr. Prince in orthopedics for further evaluation and management. - Patient has a history of multiple surgeries and expresses a high pain tolerance. 4. Hypertension, unspecified type (I10) - Discontinued hydrochlorothiazide due to lack of efficacy. - Will consider initiating Lasix for a few days if edema recurs. 5. Class 2 severe obesity with serious comorbidity and body mass index (BMI) of 35.0 to 35.9 in adult, unspecified obesity type (HCC) (E66.812) - Patient plans to resume a keto diet to achieve a target weight of 200 lbs. - Follow-up in 3 months to reassess weight and BMI. Babatunde Podlognoble, [employer].PARTS REPRESENTATIVE Prescription instructions reviewed with patient as applicable. Patient advised if symptoms do not improve or if symptoms worsen sooner, to contact their primary care physician. Potential red flag symptoms discussed with the patient. Reviewed appropriate action plan to take if red flag symptoms occur. Patient agreeable to treatment plan. Allergies As of Date: 03/27/2025 Noted Allergy Reaction PERCOCET (OXYCODONE-ACETAMINOPHEN)07/29/2017 11 - Vomiting 14 - Other: See Comments Comments: Sweating, severe cramping instantly after taking medication ANIMAL DANDER 04/28/2021 5 - Intolerance CEPHALOSPORINS 02/28/2017 7 - Swelling CODEINE 02/28/2017 7 - Swelling Date Reviewed: 03/27/2025 Reviewed by: Mayte Delvalle MA - Fully Assessed Reason for Visit: Follow Up [171] Primary Visit Diagnosis:Controlled type 2 diabetes mellitus without complication, without long-term current use of insulin (HCC) [E11.9] Other Visit Diagnoses:Hypothyroidism, unspecified type [E03.9] Other chronic pain [G89.29] Hypertension, unspecified type [I10] Class 2 severe obesity with serious comorbidity and body mass index (BMI) of 35.0 to 35.9 in adult, unspecified obesity type (HCC) [E66.812, E66.01, Z68.35] Order(s):HEMOGLOBIN A1C [[id number]] Order #: [id number] FUTURE COMPREHENSIVE METABOLIC PANEL [SQCMP] Order #: [id number] FUTURE THYROID STIMULATING HORMONE [SQTSH] Order #: [id number] FUTURE COMPLETE BLOOD COUNT AND DIFFERENTIAL [SQCBCDIF] Order #: [id number] FUTURE Prescriptions as of 03/27/2025 - pramipexole (MIRAPEX) 1.5 mg tablet Take 1.5 mg by mouth daily at bedtime. - buPROPion SR (WELLBUTRIN SR) 150 mg 12 hr tablet Take 1 tablet by mouth two times a day. - propranolol (INDERAL) 40 mg tablet Take 1 tablet by mouth two times a day. - atorvastatin (LIPITOR) 40 mg tablet Take 1 tablet by mouth daily at bedtime. For cholesterol. - blood sugar diagnostic (FREESTYLE LITE STRIPS) test strip Test blood sugar(s) 1 times daily. Dx: Type 2 DM - Controlled E11.9 Insulin: No - losartan (COZAAR) 50 mg tablet Take 1 tablet by mouth once daily. - montelukast (SINGULAIR) 10 mg tablet Take 1 tablet by mouth daily at bedtime. - levothyroxine (SYNTHROID) 125 mcg tablet Take 1 tablet by mouth once daily. Take on empty stomach. For Thyroid - ondansetron (ZOFRAN) 4 mg tablet Take 1 tab po every 8 hours as needed for nausea/headache - PARoxetine (PAXIL) 30 mg tablet Take 1 tablet by mouth once daily. - CPAP/BIPAP/OTHER Type .CPAPSettings into a note to see current settings/supplies/DME information. - Lancets lancets Test blood sugar(s) 1 times daily. Dx: Type 2 DM - Controlled E11.9 Insulin: No - primidone (MYSOLINE) 50 mg tablet Take 50 mg by mouth twice daily. - HYDROcodone-Acetaminophen (NORCO) 7.5-325 mg per tablet Take 1 tablet by mouth at bedtime as needed for pain. - gabapentin (NEURONTIN) 600 mg tablet Take 600 mg by mouth two times a day. - hydrocortisone 2.5 % cream Apply 1 application to affected area twice daily. Location: ears - diclofenac sodium (VOLTAREN) 1 % topical gel Apply 2 g to affected area four times daily. - albuterol HFA (PROAIR HFA) 90 mcg/actuation inhaler Inhale 2 Puffs as instructed every 4 hours as needed. - Cholecalciferol, Vitamin D3, 50 mcg (2,000 unit) cap Take 2 capsules by mouth once daily. 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] 01/16/2018 Stage 3 chronic kidney disease (HCC) [N18.30] 10/11/2018 Diabetes mellitus type 1, controlled, without c*05/16/2019 03/31/2020 Diabetes mellitus type II, controlled (HCC) [E1*01/2019 Hot flashes [R23.2] Lymphedema of left leg [I89.0] 11/16/2021 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 Disposition: Return in about 3 months (around 06/27/2025). Follow-up and Disposition History for Encounter Date Provider Department Center 03/27/2025 [id number], [facility] Encounter Status:Closed by BABATUNDE RINCON on 03/27/25 PROGRESS Observed: 02/13/2025 2:29 PM Status: COMPLETED Source: [facility] HNO ID: [id number] Author: NUPUR MATTSON MA Service: ? Author Type: Box Spring Maker Type: Progress Notes Filed: 02/13/2025 14:37 Note Text: POPULATION HEALTH NAVIGATION OUTREACH Action/FYI UPDATED APPOINTMENT NOTE HCC CLOSURE Topic Due (Y or N) Comments Medicare Wellness Y PCP Follow up Colorectal Cancer Screening Controlling Blood Pressure Y A1C HCC Y Flu Vaccine Care Everywhere Reviewed MyChart Activation Updated Appointment Note Y Reason for Outreach Care Gap/HCC or Scheduling Wellness Visits Care Gaps due: Medicare Annual Wellness Visit Controlling Blood Pressure Patient Contacted: Unable or unnecessary to reach patient: HCC related Patient already scheduled Updated appointment notes Navigation Signature: Nupur Mattson MA February 13, 2025 2:30 PM CNPTOUTREACH Observed: 02/13/2025 12:00 AM Status: COMPLETED Source: [facility] Patient Outreach (NETNAV) JENSEN GROSS ([id number]) 1945 F Date Time Provider Department 02/13/25 NUPUR MATTSON NETNAV During your visit today, we recorded the following information about you: Nupur Mattson MA 02/13/2025 2:37 PM Signed POPULATION HEALTH NAVIGATION OUTREACH Action/FYI UPDATED APPOINTMENT NOTE HCC CLOSURE Topic Due (Y or N) Comments Medicare Wellness Y PCP Follow up Colorectal Cancer Screening Controlling Blood Pressure Y A1C HCC Y Flu Vaccine Care Everywhere Reviewed MyChart Activation Updated Appointment Note Y Reason for Outreach Care Gap/HCC or Scheduling Wellness Visits Care Gaps due: Medicare Annual Wellness Visit Controlling Blood Pressure Patient Contacted: Unable or unnecessary to reach patient: HCC related Patient already scheduled Updated appointment notes Navigation Signature: Nupur Mattson MA February 13, 2025 2:30 PM Allergies As of Date: 02/13/2025 Noted Allergy Reaction PERCOCET (OXYCODONE-ACETAMINOPHEN)07/29/2017 11 - Vomiting 14 - Other: See Comments Comments: Sweating, severe cramping instantly after taking medication ANIMAL DANDER 04/28/2021 5 - Intolerance CEPHALOSPORINS 02/28/2017 7 - Swelling CODEINE 02/28/2017 7 - Swelling Date Reviewed: 02/12/2025 Reviewed by: Alisa Haas MA - Fully Assessed Reason for Visit: Population Health Navigation Outreach [3910] Cmt: [employer] Prescriptions as of 02/13/2025 - hydroCHLOROthiazide 12.5 mg capsule Take 1 capsule by mouth once daily. - atorvastatin (LIPITOR) 40 mg tablet Take 1 tablet by mouth daily at bedtime. For cholesterol. - blood sugar diagnostic (FREESTYLE LITE STRIPS) test strip Test blood sugar(s) 1 times daily. Dx: Type 2 DM - Controlled E11.9 Insulin: No - losartan (COZAAR) 50 mg tablet Take 1 tablet by mouth once daily. - montelukast (SINGULAIR) 10 mg tablet Take 1 tablet by mouth daily at bedtime. - levothyroxine (SYNTHROID) 125 mcg tablet Take 1 tablet by mouth once daily. Take on empty stomach. For Thyroid - ondansetron (ZOFRAN) 4 mg tablet Take 1 tab po every 8 hours as needed for nausea/headache - propranolol (INDERAL) 40 mg tablet Take 1 tablet by mouth two times a day. - buPROPion SR (WELLBUTRIN SR) 150 mg 12 hr tablet Take 1 tablet by mouth two times a day. - PARoxetine (PAXIL) 30 mg tablet Take 1 tablet by mouth once daily. - nystatin (MYCOSTATIN) 100,000 unit/mL suspension Take 5 mL by mouth four times daily. 1tsp swish in mouth for several minutes, then swallow (or expectorate) 4 times daily until gone. - CPAP/BIPAP/OTHER Type .CPAPSettings into a note to see current settings/supplies/DME information. - Lancets lancets Test blood sugar(s) 1 times daily. Dx: Type 2 DM - Controlled E11.9 Insulin: No - primidone (MYSOLINE) 50 mg tablet Take 50 mg by mouth twice daily. - HYDROcodone-Acetaminophen (NORCO) 7.5-325 mg per tablet Take 1 tablet by mouth at bedtime as needed for pain. - gabapentin (NEURONTIN) 600 mg tablet Take 600 mg by mouth two times a day. - hydrocortisone 2.5 % cream Apply 1 application to affected area twice daily. Location: ears - diclofenac sodium (VOLTAREN) 1 % topical gel Apply 2 g to affected area four times daily. - albuterol HFA (PROAIR HFA) 90 mcg/actuation inhaler Inhale 2 Puffs as instructed every 4 hours as needed. - Cholecalciferol, Vitamin D3, 50 mcg (2,000 unit) cap Take 2 capsules by mouth once daily. 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] 01/16/2018 Stage 3 chronic kidney disease (HCC) [N18.30] 10/11/2018 Diabetes mellitus type 1, controlled, without c*05/16/2019 03/31/2020 Diabetes mellitus type II, controlled (HCC) [E1*01/2019 Hot flashes [R23.2] Lymphedema of left leg [I89.0] 11/16/2021 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 Author Type: Physician Type Rolling Machine Operator Type: Progress Notes Filed: 02/12/2025 15:35 Note Text: This note was created using [employer]ter. Subjective Jensen Gross is a 79 year old female. Patient is a 79-year-old female who complains of an aching, muscular pain to her bilateral neck that she has been experiencing for the past 2 days. Patient denies accident or injury to her head or neck and states she is able to flex, extend and rotate her head without difficulty. Patient reports no fever, chills, congestion, sinus pressure, ear pain, sore throat or other illness symptoms. Patient does state that she experienced an unexplained episode of nausea and vomiting last evening which has since resolved. Patient has an ongoing prescription for Zofran 4 mg tablets for recurring issues with nausea and migraine cephalgia and states that a single Zofran tablet did resolve her symptoms. Patient denies abdominal pain or cramping. Patient reports no trismus or dysphagia and states she is tolerating food and fluids without difficulty. Patient denies posterior neck pain or rigidity. Patient does have a history of fibromyalgia as well as spinal cord ependymoma and is followed by Dr. Alonso. Patient states that she does have an appointment with Dr. Alonso next week. Review of Systems Musculoskeletal: Positive for neck pain. All other systems reviewed and are negative. Objective BP 122/80 Pulse 60 Temp 37.1 ?C (98.8 ?F) Resp 16 Wt 108.1 kg (238 lb 5.1 oz) SpO2 97% BMI 34.20 kg/m? Physical Exam Vitals and nursing note reviewed. Constitutional: Appearance: Normal appearance. She is normal weight. HENT: Head: Normocephalic and atraumatic. Right Ear: Tympanic membrane, ear canal and external ear normal. Left Ear: Tympanic membrane, ear canal and external ear normal. Nose: Nose normal. Mouth/Throat: Mouth: Mucous membranes are moist. Pharynx: Oropharynx is clear. Eyes: Extraocular Movements: Extraocular movements intact. Conjunctiva/sclera: Conjunctivae normal. Pupils: Pupils are equal, round, and reactive to light. Neck: Comments: Unremarkable exam of the anterior, bilateral and posterior neck. No lymphadenopathy or other soft tissue masses palpable. Patient demonstrates slight tenderness with palpation of the bilateral sternocleidomastoid muscles, however there is no muscle rigidity noted. Anterior neck structures are midline and there is no evidence of any type of soft tissue edema to the neck. No nuchal rigidity is present the patient demonstrates full flexion and extension to the neck as well as rotation left and right. Overlying skin to the neck is clear without erythema or ecchymosis. Cardiovascular: Rate and Rhythm: Normal rate and regular rhythm. Pulses: Normal pulses. Heart sounds: Normal heart sounds. Pulmonary: Effort: Pulmonary effort is normal. Breath sounds: Normal breath sounds. Musculoskeletal: General: No swelling or tenderness. Normal range of motion. Cervical back: Normal range of motion and neck supple. No rigidity or tenderness. Skin: General: Skin is warm and dry. Capillary Refill: Capillary refill takes less than 2 seconds. Neurological: General: No focal deficit present. Mental Status: She is alert and oriented to person, place, and time. Psychiatric: Mood and Affect: Mood normal. Behavior: Behavior normal. Thought Content: Thought content normal. Judgment: Judgment normal. Assessment and Plan Unremarkable physical exam findings as noted above. Patient appears to be in excellent physical health at the present time. Patient was advised that there is no treatment or management indicated at this [facility] at the present time. Patient was clearly advised to report to an emergency department if she notes any worsening of her symptoms as at that time laboratory testing and CT scan imaging would likely be required. Patient was otherwise advised to follow-up with Dr. Alonso at the appointment that she already has scheduled next week. Patient verbalizes excellent understanding of all of the above instructions. CLINICAL IMPRESSION: Bilateral Neck Pain ASSESSMENT/PLAN: 1. Neck pain, bilateral - ICD9: 723.1, ICD10: M54.2 MDM Risk of Complications, Morbidity, and/or Mortality Presenting problems: low Diagnostic procedures: low Management options: low Sedrick Caldwell PA-C CNOV Observed: 02/12/2025 3:00 PM Status: COMPLETED Source: [facility] Office Visit (WSTR) JENSEN GROSS ([id number]) 1945 F Date Time Provider Department 02/12/25 3:00 PM SEDRICK CALDWELL WS During your visit today, we recorded the following information about you: Temperature Pulse Respiration Blood pressure 98.8 degrees 60/minute 16/minute 122/80 Weight 108.1 kg Sedrick Caldwell PA-C 02/12/2025 3:35 PM Signed This note was created using [employer]ter. Subjective Jensen Gross is a 79 year old female. Patient is a 79-year-old female who complains of an aching, muscular pain to her bilateral neck that she has been experiencing for the past 2 days. Patient denies accident or injury to her head or neck and states she is able to flex, extend and rotate her head without difficulty. Patient reports no fever, chills, congestion, sinus pressure, ear pain, sore throat or other illness symptoms. Patient does state that she experienced an unexplained episode of nausea and vomiting last evening which has since resolved. Patient has an ongoing prescription for Zofran 4 mg tablets for recurring issues with nausea and migraine cephalgia and states that a single Zofran tablet did resolve her symptoms. Patient denies abdominal pain or cramping. Patient reports no trismus or dysphagia and states she is tolerating food and fluids without difficulty. Patient denies posterior neck pain or rigidity. Patient does have a history of fibromyalgia as well as spinal cord ependymoma and is followed by Dr. Alonso. Patient states that she does have an appointment with Dr. Alonso next week. Review of Systems Musculoskeletal: Positive for neck pain. All other systems reviewed and are negative. Objective BP 122/80 Pulse 60 Temp 37.1 ?C (98.8 ?F) Resp 16 Wt 108.1 kg (238 lb 5.1 oz) SpO2 97% BMI 34.20 kg/m? Physical Exam Vitals and nursing note reviewed. Constitutional: Appearance: Normal appearance. She is normal weight. HENT: Head: Normocephalic and atraumatic. Right Ear: Tympanic membrane, ear canal and external ear normal. Left Ear: Tympanic membrane, ear canal and external ear normal. Nose: Nose normal. Mouth/Throat: Mouth: Mucous membranes are moist. Pharynx: Oropharynx is clear. Eyes: Extraocular Movements: Extraocular movements intact. Conjunctiva/sclera: Conjunctivae normal. Pupils: Pupils are equal, round, and reactive to light. Neck: Comments: Unremarkable exam of the anterior, bilateral and posterior neck. No lymphadenopathy or other soft tissue masses palpable. Patient demonstrates slight tenderness with palpation of the bilateral sternocleidomastoid muscles, however there is no muscle rigidity noted. Anterior neck structures are midline and there is no evidence of any type of soft tissue edema to the neck. No nuchal rigidity is present the patient demonstrates full flexion and extension to the neck as well as rotation left and right. Overlying skin to the neck is clear without erythema or ecchymosis. Cardiovascular: Rate and Rhythm: Normal rate and regular rhythm. Pulses: Normal pulses. Heart sounds: Normal heart sounds. Pulmonary: Effort: Pulmonary effort is normal. Breath sounds: Normal breath sounds. Musculoskeletal: General: No swelling or tenderness. Normal range of motion. Cervical back: Normal range of motion and neck supple. No rigidity or tenderness. Skin: General: Skin is warm and dry. Capillary Refill: Capillary refill takes less than 2 seconds. Neurological: General: No focal deficit present. Mental Status: She is alert and oriented to person, place, and time. Psychiatric: Mood and Affect: Mood normal. Behavior: Behavior normal. Thought Content: Thought content normal. Judgment: Judgment normal. Assessment and Plan Unremarkable physical exam findings as noted above. Patient appears to be in excellent physical health at the present time. Patient was advised that there is no treatment or management indicated at this [facility] at the present time. Patient was clearly advised to report to an emergency department if she notes any worsening of her symptoms as at that time laboratory testing and CT scan imaging would likely be required. Patient was otherwise advised to follow-up with Dr. Alonso at the appointment that she already has scheduled next week. Patient verbalizes excellent understanding of all of the above instructions. CLINICAL IMPRESSION: Bilateral Neck Pain ASSESSMENT/PLAN: 1. Neck pain, bilateral - ICD9: 723.1, ICD10: M54.2 MDM Risk of Complications, Morbidity, and/or Mortality Presenting problems: low Diagnostic procedures: low Management options: sienna Caldwell PA-C Allergies As of Date: 02/12/2025 Noted Allergy Reaction PERCOCET (OXYCODONE-ACETAMINOPHEN)07/29/2017 11 - Vomiting 14 - Other: See Comments Comments: Sweating, severe cramping instantly after taking medication ANIMAL DANDER 04/28/2021 5 - Intolerance CEPHALOSPORINS 02/28/2017 7 - Swelling CODEINE 02/28/2017 7 - Swelling Date Reviewed: 02/12/2025 Reviewed by: Alisa Haas MA - Fully Assessed Reason for Visit: Nausea AND Vomiting [237] Cmt: right swollen glands x 2 days Primary Visit Diagnosis:Neck pain, bilateral [M54.2] Prescriptions as of 02/12/2025 - hydroCHLOROthiazide 12.5 mg capsule Take 1 capsule by mouth once daily. - atorvastatin (LIPITOR) 40 mg tablet Take 1 tablet by mouth daily at bedtime. For cholesterol. - blood sugar diagnostic (FREESTYLE LITE STRIPS) test strip Test blood sugar(s) 1 times daily. Dx: Type 2 DM - Controlled E11.9 Insulin: No - losartan (COZAAR) 50 mg tablet Take 1 tablet by mouth once daily. - montelukast (SINGULAIR) 10 mg tablet Take 1 tablet by mouth daily at bedtime. - levothyroxine (SYNTHROID) 125 mcg tablet Take 1 tablet by mouth once daily. Take on empty stomach. For Thyroid - ondansetron (ZOFRAN) 4 mg tablet Take 1 tab po every 8 hours as needed for nausea/headache - propranolol (INDERAL) 40 mg tablet Take 1 tablet by mouth two times a day. - buPROPion SR (WELLBUTRIN SR) 150 mg 12 hr tablet Take 1 tablet by mouth two times a day. - PARoxetine (PAXIL) 30 mg tablet Take 1 tablet by mouth once daily. - nystatin (MYCOSTATIN) 100,000 unit/mL suspension Take 5 mL by mouth four times daily. 1tsp swish in mouth for several minutes, then swallow (or expectorate) 4 times daily until gone. - CPAP/BIPAP/OTHER Type .CPAPSettings into a note to see current settings/supplies/DME information. - Lancets lancets Test blood sugar(s) 1 times daily. Dx: Type 2 DM - Controlled E11.9 Insulin: No - primidone (MYSOLINE) 50 mg tablet Take 50 mg by mouth twice daily. - HYDROcodone-Acetaminophen (NORCO) 7.5-325 mg per tablet Take 1 tablet by mouth at bedtime as needed for pain. - gabapentin (NEURONTIN) 600 mg tablet Take 600 mg by mouth two times a day. - hydrocortisone 2.5 % cream Apply 1 application to affected area twice daily. Location: ears - diclofenac sodium (VOLTAREN) 1 % topical gel Apply 2 g to affected area four times daily. - albuterol HFA (PROAIR HFA) 90 mcg/actuation inhaler Inhale 2 Puffs as instructed every 4 hours as needed. - Cholecalciferol, Vitamin D3, 50 mcg (2,000 unit) cap Take 2 capsules by mouth once daily. 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 Stage 3 chronic kidney disease (HCC) [N18.30] 10/11/2018 Diabetes mellitus type 1, controlled, without c*05/16/2019 03/31/2020 Diabetes mellitus type II, controlled (HCC) [E1*01/2019 Hot flashes [R23.2] Lymphedema of left leg [I89.0] 11/16/2021 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] 04/22/2023 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] 04/22/2023 05/09/2024 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] 04/22/2023 05/09/2024 Mild episode of recurrent major depressive diso*04/22/2023 Peripheral vascular disease (HCC) [I73.9] 04/22/2023 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.*05/09/2024 Level of Service: OFFICE/OUTPATIENT ESTABLISHED MOD MDM 30 MIN [64081] Encounter Status:Closed by SEDRICK CALDWELL on 02/12/25 CNOV Observed: 12/26/2024 2:20 PM Status: COMPLETED Source: [facility] Office [facility] JENSEN GROSS ([id number]) 1945 F Date Time Provider Department 12/26/24 2:20 PM BABATUNDE RINCON During your visit today, we recorded the following information about you: Pulse Respiration Blood pressure Weight 61/minute 18/minute 136/74 110.8 kg Babatunde Rincon APRN.CNP 12/26/2024 4:27 PM Signed 12/25/2024 Patient presents with: F/U 6 months SUBJECTIVE: This is a 79 year old that is here today for Above Complaints. DIABETES MELLITUS: Since our last visit she denies excessive thirst or increased frequency of urination, chest pain or dyspnea , numbness, tingling or pain in extremities, new or unusual visual symptoms, low sugar/hypoglycemic reactions, weight loss/gain, lightheadedness/dizziness, and bowel changes/loose stools. Follows a diabetic diet some of the time. She reports checking her glucose on a infrequent to not at all basis schedule . Patient's last HgA1C was Hemoglobin A1C (%) Date Value 12/25/2024 6.4 05/09/2024 5.4 09/29/2021 5.9 07/03/2021 5.9 ) Last Ophthalmology exam was within the past 12 months Admits she has been eating mores sweets and not moving as much Having some leg swelling. Can't get her compression hose on. Denies SOB, dyspnea, orthopnea Has not started any new medications Depression: taking medications as prescribed. Admits she felt pretty down over the winter. She reports she has seasonal affective disorder. Reports mood starting to improve with the weather getting nicer. Denies SI or HI RANGEL: did not follow up with sleep medicine as recommended HYPOTHYROIDISM: taking synthroid as prescribed Follows with [facility] neurology for hx of migraines, ependymoma of spine cord, essential tremors and polyneuropathy. Last office visit was last week. No changes in medications HTN: Patient is compliant with meds Yes Monitors bp at home: No. Denies side effects: No. Chest pain: No. Dyspnea: No. Edema: Yes. Palpitations: No. Syncope: No. Headache: No. Dizziness: No. PAST MEDICAL HISTORY Diagnosis Date Chronic back pain Seeing pain management Dr. 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 Alonso Essential tremor Dr. Alonso Fibromyalgia Headaches due to old head injury History of carpal tunnel release Hot flashes controlled on Paxil Hyperlipidemia Hypertension Hypothyroidism Lymphedema of left leg Migraines 05/09/2024 Morbid obesity ([facility]) RANGEL (obstructive sleep apnea) 05/26/2023 mild Osteoarthritis Knees and shoulders, seeing Dr. Gallo Spinal cord mass ([facility]) T9-T10 Dr. Alonso Vitamin D insufficiency ALLERGIES Percocet [Oxycodone-Acetaminophen], Animal Dander, Cephalosporins, and Codeine MEDICATIONS Current Outpatient Medications Medication Sig atorvastatin (LIPITOR) 40 mg tablet Take 1 tablet by mouth daily at bedtime. For cholesterol. blood sugar diagnostic (FREESTYLE LITE STRIPS) test strip Test blood sugar(s) 1 times daily. Dx: Type 2 DM - Controlled E11.9 Insulin: No losartan (COZAAR) 50 mg tablet Take 1 tablet by mouth once daily. montelukast (SINGULAIR) 10 mg tablet Take 1 tablet by mouth daily at bedtime. levothyroxine (SYNTHROID) 125 mcg tablet Take 1 tablet by mouth once daily. Take on empty stomach. For Thyroid ondansetron (ZOFRAN) 4 mg tablet Take 1 tab po every 8 hours as needed for nausea/headache propranolol (INDERAL) 40 mg tablet Take 1 tablet by mouth two times a day. buPROPion SR (WELLBUTRIN SR) 150 mg 12 hr tablet Take 1 tablet by mouth two times a day. PARoxetine (PAXIL) 30 mg tablet Take 1 tablet by mouth once daily. nystatin (MYCOSTATIN) 100,000 unit/mL suspension Take 5 mL by mouth four times daily. 1tsp swish in mouth for several minutes, then swallow (or expectorate) 4 times daily until gone. CPAP/BIPAP/OTHER Type .CPAPSettings into a note to see current settings/supplies/DME information. Lancets lancets Test blood sugar(s) 1 times daily. Dx: Type 2 DM - Controlled E11.9 Insulin: No primidone (MYSOLINE) 50 mg tablet Take 50 mg by mouth twice daily. HYDROcodone-Acetaminophen (NORCO) 7.5-325 mg per tablet Take 1 tablet by mouth at bedtime as needed for pain. gabapentin (NEURONTIN) 600 mg tablet Take 600 mg by mouth two times a day. hydrocortisone 2.5 % cream Apply 1 application to affected area twice daily. Location: ears diclofenac sodium (VOLTAREN) 1 % topical gel Apply 2 g to affected area four times daily. albuterol HFA (PROAIR HFA) 90 mcg/actuation inhaler Inhale 2 Puffs as instructed every 4 hours as needed. Cholecalciferol, Vitamin D3, 50 mcg (2,000 unit) cap Take 2 capsules by mouth once daily. No current facility-administered medications for this visit. Medications and allergies reviewed by this provider. SOCIAL HISTORY Social History Tobacco Use Smoking status: Never Smokeless tobacco: Never Substance Use Topics Alcohol use: Yes Comment: rarely Drug use: No REVIEW OF SYSTEMS All other reviewed and negative other than HPI. OBJECTIVE: BP 136/74 Pulse 61 Resp 18 Wt 110.8 kg (244 lb 3.2 oz) BMI 35.04 kg/m? . Vital signs reviewed by this provider. APPEARANCE Well appearing, alert, in no acute distress, well-hydrated, well nourished. EYES conjunctiva and sclera normal. HEART RRR with normal S1 and S2, no murmurs, no gallops, no JVD appreciated LUNG clear to auscultation. No wheezes rhonchi or rales EXTREMITIES Extremities normal, No deformities, No skin discoloration. Mild non-pitting edema SKIN Skin color, texture, turgor normal, no suspicious rashes or lesions to exposed skin Latest Ref Rng 12/25/2024 Protein, Total 6.3 - 8.0 g/dL 7.0 Albumin 3.9 - 4.9 g/dL 4.0 Calcium 8.5 - 10.2 mg/dL 9.8 Bilirubin, Total 0.2 - 1.3 mg/dL 0.2 Alkaline Phosphatase 34 - 123 U/L 115 AST 13 - 35 U/L 21 ALT 7 - 38 U/L 12 Glucose 74 - 99 mg/dL 89 BUN 7 - 21 mg/dL 31 (H) Creatinine 0.58 - 0.96 mg/dL 1.11 (H) Sodium 136 - 144 mmol/L 138 Potassium 3.7 - 5.1 mmol/L 4.1 Chloride 98 - 107 mmol/L 100 CO2 22 - 30 mmol/L 28 Anion Gap 8 - 15 mmol/L 10 eGFR >=60 mL/min/1.73m? 51 (L) Cholesterol, Total <200 mg/dL 137 Triglyceride <150 mg/dL 82 HDL Cholesterol >39 mg/dL 71 Non HDL Cholesterol <130 mg/dL 66 Fasting Time hrs 15 VLDL Cholesterol <30 mg/dL 16 TC:HDL Ratio <5.10 1.93 LDL Cholesterol <100 mg/dL 50 LDL:HDL Ratio <2.54 0.70 Creatinine, Ur Random (UCRR) 20.0 - 300.0 mg/dL 115.9 Albumin, Urine Random mg/L <12.0 Albumin/Creat Ratio <30 mg/g <10 Hemoglobin A1C 4.3 - 5.6 % 6.4 (H) Estimated Average Glucose mg/dL 137 Latest Ref Rng 02/15/2024 TSH 0.270 - 4.200 mIU/L 1.750 Legend: (H) High (L) Low Anxiety Screening Never done BP Controlled (<130/80) due on 05/16/2020 Covid-19 Vaccine() due on 06/10/2024 Dilated Retinal Exam due on 08/31/2024 Advance Directive Discussion Never done Diabetic Foot Exam due on 05/09/2025 Hemoglobin/Hematocrit due on 05/09/2025 HbA1C due on 06/27/2025 Urine Albumin:Creatinine Ratio due on 12/25/2025 LDL Cholesterol due on 12/25/2025 Serum Creatinine due on 12/25/2025 Annual PCP Team Chronic Disease Visit due on 12/26/2025 DTaP,Tdap,Td Vaccine(3 - Td or Tdap) due on 06/28/2031 Bone Density Screening Completed Influenza Vaccine Completed RSV Vaccine Completed Hepatitis C Screening Completed Shingrix Vaccine Completed Pneumococcal Vaccine: 50+ Completed Mammogram Screening Discontinued Colorectal Cancer Screening Discontinued ASSESSMENT/PLAN: 1. Controlled type 2 diabetes mellitus without complication, without long-term current use of insulin (HCC) - ICD9: 250.00, ICD10: E11.9 (primary diagnosis) - Worsening control - Statin prescribed - atorvastatin - Blood glucose monitoring on a once daily schedule - Counseled on healthy diet and regular exercise - Follow up in 3 months, sooner should any other issues arise. - HEMOGLOBIN A1C 2. Hypothyroidism, unspecified type - ICD9: 244.9, ICD10: E03.9 - Instructed patient on importance of taking on an empty stomach either first thing in the morning or at bedtime. - continue current dose of Synthroid 0.125 mg - Follow up in 6 months 3. RANGEL (obstructive sleep apnea) - ICD9: 327.23, ICD10: G47.33 - wants to see specialist about [facility] in [place] - will get me info so I can send referral 4. Leg swelling - ICD9: 729.81, ICD10: M79.89 - mild - work on weight loss since she has gained about 34# this winter - elevate legs above heart level when sitting - low salt diet - HYDROCHLOROTHIAZIDE 12.5 MG CAPSULE - update me in 2 weeks with swelling 5. Ependymoma of spinal cord (HCC) - ICD9: 192.2, ICD10: C72.0 - follow-up with neurology as recommended 6. Depression, unspecified depression type - ICD9: 311, ICD10: F32.A - counseling encouraged - continue medications - follow-up as needed Babatunde PodlogBENJAMIN bryant Prescription instructions reviewed with patient as applicable. Patient advised if symptoms do not improve or if symptoms worsen sooner, to contact their primary care physician. Potential red flag symptoms discussed with the patient. Reviewed appropriate action plan to take if red flag symptoms occur. Patient agreeable to treatment plan. Medical Decision Making: Problems: Moderate: 2+ stable chronic illnesses and New problem with uncertain prognosis Data: Unique test(s) ordered: 1 Risk: Moderate: Drug management and Moderate risk from testing/treatment Medical Decision Making Level: 4 - Moderate PodlogarBabatunde APRN.CNP 12/26/2024 3:01 PM Signed Update me in 2 weeks to let me know if water pill is helping. Allergies As of Date: 12/26/2024 Noted Allergy Reaction PERCOCET (OXYCODONE-ACETAMINOPHEN)07/29/2017 11 - Vomiting 14 - Other: See Comments Comments: Sweating, severe cramping instantly after taking medication ANIMAL DANDER 04/28/2021 5 - Intolerance CEPHALOSPORINS 02/28/2017 7 - Swelling CODEINE 02/28/2017 7 - Swelling Date Reviewed: 12/26/2024 Reviewed by: Dee Jenkins LPN - Fully Assessed Reason for Visit: F/U 6 months [1177] Primary Visit Diagnosis:Controlled type 2 diabetes mellitus without complication, without long-term current use of insulin (HCC) [E11.9] Other Visit Diagnoses:Hypothyroidism, unspecified type [E03.9] RANGEL (obstructive sleep apnea) [G47.33] Leg swelling [M79.89] 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] Depression, unspecified depression type [F32.A] Order(s):hydroCHLOROthiazide 12.5 mg capsuleTake 1 capsule by mouth once daily.Disp: 30 capsuleRfl: 1 HEMOGLOBIN A1C [[id number]] Order #: [id number] FUTURE Prescriptions as of 12/26/2024 - hydroCHLOROthiazide 12.5 mg capsule Take 1 capsule by mouth once daily. - atorvastatin (LIPITOR) 40 mg tablet Take 1 tablet by mouth daily at bedtime. For cholesterol. - blood sugar diagnostic (FREESTYLE LITE STRIPS) test strip Test blood sugar(s) 1 times daily. Dx: Type 2 DM - Controlled E11.9 Insulin: No - losartan (COZAAR) 50 mg tablet Take 1 tablet by mouth once daily. - montelukast (SINGULAIR) 10 mg tablet Take 1 tablet by mouth daily at bedtime. - levothyroxine (SYNTHROID) 125 mcg tablet Take 1 tablet by mouth once daily. Take on empty stomach. For Thyroid - ondansetron (ZOFRAN) 4 mg tablet Take 1 tab po every 8 hours as needed for nausea/headache - propranolol (INDERAL) 40 mg tablet Take 1 tablet by mouth two times a day. - buPROPion SR (WELLBUTRIN SR) 150 mg 12 hr tablet Take 1 tablet by mouth two times a day. - PARoxetine (PAXIL) 30 mg tablet Take 1 tablet by mouth once daily. - nystatin (MYCOSTATIN) 100,000 unit/mL suspension Take 5 mL by mouth four times daily. 1tsp swish in mouth for several minutes, then swallow (or expectorate) 4 times daily until gone. - CPAP/BIPAP/OTHER Type .CPAPSettings into a note to see current settings/supplies/DME information. - Lancets lancets Test blood sugar(s) 1 times daily. Dx: Type 2 DM - Controlled E11.9 Insulin: No - primidone (MYSOLINE) 50 mg tablet Take 50 mg by mouth twice daily. - HYDROcodone-Acetaminophen (NORCO) 7.5-325 mg per tablet Take 1 tablet by mouth at bedtime as needed for pain. - gabapentin (NEURONTIN) 600 mg tablet Take 600 mg by mouth two times a day. - hydrocortisone 2.5 % cream Apply 1 application to affected area twice daily. Location: ears - diclofenac sodium (VOLTAREN) 1 % topical gel Apply 2 g to affected area four times daily. - albuterol HFA (PROAIR HFA) 90 mcg/actuation inhaler Inhale 2 Puffs as instructed every 4 hours as needed. - Cholecalciferol, Vitamin D3, 50 mcg (2,000 unit) cap Take 2 capsules by mouth once daily. 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] 01/16/2018 Stage 3 chronic kidney disease (HCC) [N18.30] 10/11/2018 Diabetes mellitus type 1, controlled, without c*05/16/2019 03/31/2020 Diabetes mellitus type II, controlled (HCC) [E1*01/2019 Hot flashes [R23.2] Lymphedema of left leg [I89.0] 11/16/2021 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] 04/22/2023 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] 04/22/2023 05/09/2024 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] 04/22/2023 05/09/2024 Mild episode of recurrent major depressive diso*04/22/2023 Peripheral vascular disease (HCC) [I73.9] 04/22/2023 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.*05/09/2024 Other instructions from your clinician: Update me in 2 weeks to let me know if water pill is helping. Prescriptions ordered this encounter Disp Refills Start End HYDROCHLOROTHIAZIDE 12.5 MG CAPSULE 30 c* 1 12/26/2024 Route: ORAL Sig: Take 1 capsule by mouth once daily. Disposition: Return in about 3 months (around 03/28/2025). Follow-up and Disposition History for Encounter Date Provider Department Center 12/26/2024 [id number][facility] Encounter Status:Closed by BABAUTNDE RINCON on 12/26/24 PROGRESS Observed: 12/26/2024 2:20 PM Status: COMPLETED Source: [facility] HNO ID: [id number] Author: BABATUNDE RINCON APRN.PARTS REPRESENTATIVE Service: ? Author Type: Nurse Practitioner Type: Progress Notes Filed: 12/26/2024 16:27 Note Text: 12/25/2024 Patient presents with: F/U 6 months SUBJECTIVE: This is a 79 year old that is here today for Above Complaints. DIABETES MELLITUS: Since our last visit she denies excessive thirst or increased frequency of urination, chest pain or dyspnea , numbness, tingling or pain in extremities, new or unusual visual symptoms, low sugar/hypoglycemic reactions, weight loss/gain, lightheadedness/dizziness, and bowel changes/loose stools. Follows a diabetic diet some of the time. She reports checking her glucose on a infrequent to not at all basis schedule . Patient's last HgA1C was Hemoglobin A1C (%) Date Value 12/25/2024 6.4 05/09/2024 5.4 09/29/2021 5.9 07/03/2021 5.9 ) Last Ophthalmology exam was within the past 12 months Admits she has been eating mores sweets and not moving as much Having some leg swelling. Can't get her compression hose on. Denies SOB, dyspnea, orthopnea Has not started any new medications Depression: taking medications as prescribed. Admits she felt pretty down over the winter. She reports she has seasonal affective disorder. Reports mood starting to improve with the weather getting nicer. Denies SI or HI RANGEL: did not follow up with sleep medicine as recommended HYPOTHYROIDISM: taking synthroid as prescribed Follows with [facility] neurology for hx of migraines, ependymoma of spine cord, essential tremors and polyneuropathy. Last office visit was last week. No changes in medications HTN: Patient is compliant with meds Yes Monitors bp at home: No. Denies side effects: No. Chest pain: No. Dyspnea: No. Edema: Yes. Palpitations: No. Syncope: No. Headache: No. Dizziness: No. PAST MEDICAL HISTORY Diagnosis Date Chronic back pain Seeing pain management Dr. 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 Alonso Essential tremor Dr. Alonso Fibromyalgia Headaches due to old head injury History of carpal tunnel release Hot flashes controlled on Paxil Hyperlipidemia Hypertension Hypothyroidism Lymphedema of left leg Migraines 05/09/2024 Morbid obesity ([facility]) RANGEL (obstructive sleep apnea) 05/26/2023 mild Osteoarthritis Knees and shoulders, seeing Dr. Gallo Spinal cord mass ([facility]) T9-T10 Dr. Alonso Vitamin D insufficiency ALLERGIES Percocet [Oxycodone-Acetaminophen], Animal Dander, Cephalosporins, and Codeine MEDICATIONS Current Outpatient Medications Medication Sig atorvastatin (LIPITOR) 40 mg tablet Take 1 tablet by mouth daily at bedtime. For cholesterol. blood sugar diagnostic (FREESTYLE LITE STRIPS) test strip Test blood sugar(s) 1 times daily. Dx: Type 2 DM - Controlled E11.9 Insulin: No losartan (COZAAR) 50 mg tablet Take 1 tablet by mouth once daily. montelukast (SINGULAIR) 10 mg tablet Take 1 tablet by mouth daily at bedtime. levothyroxine (SYNTHROID) 125 mcg tablet Take 1 tablet by mouth once daily. Take on empty stomach. For Thyroid ondansetron (ZOFRAN) 4 mg tablet Take 1 tab po every 8 hours as needed for nausea/headache propranolol (INDERAL) 40 mg tablet Take 1 tablet by mouth two times a day. buPROPion SR (WELLBUTRIN SR) 150 mg 12 hr tablet Take 1 tablet by mouth two times a day. PARoxetine (PAXIL) 30 mg tablet Take 1 tablet by mouth once daily. nystatin (MYCOSTATIN) 100,000 unit/mL suspension Take 5 mL by mouth four times daily. 1tsp swish in mouth for several minutes, then swallow (or expectorate) 4 times daily until gone. CPAP/BIPAP/OTHER Type .CPAPSettings into a note to see current settings/supplies/DME information. Lancets lancets Test blood sugar(s) 1 times daily. Dx: Type 2 DM - Controlled E11.9 Insulin: No primidone (MYSOLINE) 50 mg tablet Take 50 mg by mouth twice daily. HYDROcodone-Acetaminophen (NORCO) 7.5-325 mg per tablet Take 1 tablet by mouth at bedtime as needed for pain. gabapentin (NEURONTIN) 600 mg tablet Take 600 mg by mouth two times a day. hydrocortisone 2.5 % cream Apply 1 application to affected area twice daily. Location: ears diclofenac sodium (VOLTAREN) 1 % topical gel Apply 2 g to affected area four times daily. albuterol HFA (PROAIR HFA) 90 mcg/actuation inhaler Inhale 2 Puffs as instructed every 4 hours as needed. Cholecalciferol, Vitamin D3, 50 mcg (2,000 unit) cap Take 2 capsules by mouth once daily. No current facility-administered medications for this visit. Medications and allergies reviewed by this provider. SOCIAL HISTORY Social History Tobacco Use Smoking status: Never Smokeless tobacco: Never Substance Use Topics Alcohol use: Yes Comment: rarely Drug use: No REVIEW OF SYSTEMS All other reviewed and negative other than HPI. OBJECTIVE: BP 136/74 Pulse 61 Resp 18 Wt 110.8 kg (244 lb 3.2 oz) BMI 35.04 kg/m? . Vital signs reviewed by this provider. APPEARANCE Well appearing, alert, in no acute distress, well-hydrated, well nourished. EYES conjunctiva and sclera normal. HEART RRR with normal S1 and S2, no murmurs, no gallops, no JVD appreciated LUNG clear to auscultation. No wheezes rhonchi or rales EXTREMITIES Extremities normal, No deformities, No skin discoloration. Mild non-pitting edema SKIN Skin color, texture, turgor normal, no suspicious rashes or lesions to exposed skin Latest Ref [facility] 12/25/2024 Protein, Total 6.3 - 8.0 g/dL 7.0 Albumin 3.9 - 4.9 g/dL 4.0 Calcium 8.5 - 10.2 mg/dL 9.8 Bilirubin, Total 0.2 - 1.3 mg/dL 0.2 Alkaline Phosphatase 34 - 123 U/L 115 AST 13 - 35 U/L 21 ALT 7 - 38 U/L 12 Glucose 74 - 99 mg/dL 89 BUN 7 - 21 mg/dL 31 (H) Creatinine 0.58 - 0.96 mg/dL 1.11 (H) Sodium 136 - 144 mmol/L 138 Potassium 3.7 - 5.1 mmol/L 4.1 Chloride 98 - 107 mmol/L 100 CO2 22 - 30 mmol/L 28 Anion Gap 8 - 15 mmol/L 10 eGFR >=60 mL/min/1.73m? 51 (L) Cholesterol, Total <200 mg/dL 137 Triglyceride <150 mg/dL 82 HDL Cholesterol >39 mg/dL 71 Non HDL Cholesterol <130 mg/dL 66 Fasting Time hrs 15 VLDL Cholesterol <30 mg/dL 16 TC:HDL Ratio <5.10 1.93 LDL Cholesterol <100 mg/dL 50 LDL:HDL Ratio <2.54 0.70 Creatinine, Ur Random (UCRR) 20.0 - 300.0 mg/dL 115.9 Albumin, Urine Random mg/L <12.0 Albumin/Creat Ratio <30 mg/g <10 Hemoglobin A1C 4.3 - 5.6 % 6.4 (H) Estimated Average Glucose mg/dL 137 Latest Ref Rng 02/15/2024 TSH 0.270 - 4.200 mIU/L 1.750 Legend: (H) High (L) Low Anxiety Screening Never done BP Controlled (<130/80) due on 05/16/2020 Covid-19 Vaccine() due on 06/10/2024 Dilated Retinal Exam due on 08/31/2024 Advance Directive Discussion Never done Diabetic Foot Exam due on 05/09/2025 Hemoglobin/Hematocrit due on 05/09/2025 HbA1C due on 06/27/2025 Urine Albumin:Creatinine Ratio due on 12/25/2025 LDL Cholesterol due on 12/25/2025 Serum Creatinine due on 12/25/2025 Annual PCP Team Chronic Disease Visit due on 12/26/2025 DTaP,Tdap,Td Vaccine(3 - Td or Tdap) due on 06/28/2031 Bone Density Screening Completed Influenza Vaccine Completed RSV Vaccine Completed Hepatitis C Screening Completed Shingrix Vaccine Completed Pneumococcal Vaccine: 50+ Completed Mammogram Screening Discontinued Colorectal Cancer Screening Discontinued ASSESSMENT/PLAN: 1. Controlled type 2 diabetes mellitus without complication, without long-term current use of insulin (HCC) - ICD9: 250.00, ICD10: E11.9 (primary diagnosis) - Worsening control - Statin prescribed - atorvastatin - Blood glucose monitoring on a once daily schedule - Counseled on healthy diet and regular exercise - Follow up in 3 months, sooner should any other issues arise. - HEMOGLOBIN A1C 2. Hypothyroidism, unspecified type - ICD9: 244.9, ICD10: E03.9 - Instructed patient on importance of taking on an empty stomach either first thing in the morning or at bedtime. - continue current dose of Synthroid 0.125 mg - Follow up in 6 months 3. RANGEL (obstructive sleep apnea) - ICD9: 327.23, ICD10: G47.33 - wants to see specialist about [facility] in [place] - will get me info so I can send referral 4. Leg swelling - ICD9: 729.81, ICD10: M79.89 - mild - work on weight loss since she has gained about 34# this winter - elevate legs above heart level when sitting - low salt diet - HYDROCHLOROTHIAZIDE 12.5 MG CAPSULE - update me in 2 weeks with swelling 5. Ependymoma of spinal cord (HCC) - ICD9: 192.2, ICD10: C72.0 - follow-up with neurology as recommended 6. Depression, unspecified depression type - ICD9: 311, ICD10: F32.A - counseling encouraged - continue medications - follow-up as needed Babatunde Podlogar, TRANSACTION PROCESSOR.PARTS REPRESENTATIVE Prescription instructions reviewed with patient as applicable. Patient advised if symptoms do not improve or if symptoms worsen sooner, to contact their primary care physician. Potential red flag symptoms discussed with the patient. Reviewed appropriate action plan to take if red flag symptoms occur. Patient agreeable to treatment plan. Medical Decision Making: Problems: Moderate: 2+ stable chronic illnesses and New problem with uncertain prognosis Data: Unique test(s) ordered: 1 Risk: Moderate: Drug management and Moderate risk from testing/treatment Medical Decision Making Level: 4 - Moderate ALBUMIN/CREATININE RATIO, URINE Collect ed: 12/25/2024 1:20 PM Status: F Source: [facility] Order Comment: Specimen Type : URINE SPECIMEN Ordering Facility: [facility] Address: [address] [place] [address] TYPE CODE TESTS RESULT OUT OF RANGE REFERENCE UNITS LAB 2161-8(LOINC) Creat Ur-mCnc 115.9 20.0-300.0 m g/dL LAB 49034-0(LOINC ) Microalbumin Ur-mCnc <12.0 mg/L LAB 9318-7(LOINC) Albumin/Creat Ur <10 <30 mg/g Result Comment: Adult Male a nd Female Nephrotic Criteria: <30 mg/g is considered normal to mildly increased 30-300 mg/g is considered moderately increased >300 mg/g is considered severely increased KDIGO. (2013). KDIGO 2012 Clinical Practice Guideline for the Evaluation and Management of Chronic Kidney Disease. Official Journal of the International Society of Nephrology, 3(1), 1-150. Performed By: #### UACR #### [facility] CLIA [id number] [address] [place] [address] [place] [address] [place] LIPID 1996 PNL SERPL Collected: 025 1:14 PM Status: F Source: [facility] Order Comment: Specimen Type : BLOOD SPECIMEN Ordering Facility: [facility] Address: [address] [place] [address] TYPE CODE TESTS RESULT OUT OF RANGE REFERENCE UNITS LAB 2093-3(LOINC) Cholest SerPl-mCnc 137 <200 mg/dL Result Comment: <200 mg/dL, Desirable 200-239 mg/dL, Borderline high >239 mg/dL, High LAB 2571-8(LOINC) Trigl SerPl-mCnc 82 <150 mg/dL Result Comment: <150 mg/dL, Normal 150-199 mg/dL, Borderline high 200-499 mg/dL, High >499 mg/dL, Very high LAB 2085-9(LOINC) HDLc SerPl-mCnc 71 >39 mg/dL Result Comment: 40-59 mg/dL, Acceptable >59 mg/dL, High: Negative risk factor for coronary heart disease <40 mg/dL, Low: Positive risk factor for coronary heart disease LAB 79309-3(LOINC) NonHDLc SerPl-mCnc 66 <130 mg/dL Result Comment: <130 mg/dL, Optimal 130-159 mg/dL, Near optimal/above optimal 160-189 mg/dL, Borderline high 190-219 mg/dL, High >219 mg/dL, Very high Secondary prevention optimal non HDL Cholesterol levels are recommended to be <100 mg/dL LAB FT FASTING TIME 15 hrs LAB 21196-4(LOINC) VLDLc SerPl Calc-mCnc 16 <30 mg/dL LAB 9830-1(LOINC) Cholest/HDLc SerPl 1.93 <5.10 LAB 2089-1(LOINC) LDLc SerPl-mCnc 50 <100 mg/dL Result Comment: <100 mg/dL, Optimal 100-129 mg/dL, Near optimal/above optimal 130-159 mg/dL, Borderline high 160-189 mg/dL, High >189 mg/dL, Very high Secondary prevention optimal LDL Cholesterol levels are recommended to be < 70 mg/dL LAB 04785-3(LOINC) LDLc/HDLc SerPl 0.70 <2.54 Result Comment: Reference: 1. National Cholesterol Education Program ATP III Guideline At-A-Glance Quick Desk Reference: National Heart, Lung, and Blood [place]. National Institutes of Health. 2001: NIH Publication No. 01-3305. 2. An International Atherosclerosis Society position paper: global recommendations for the management of dyslipidemia: executive summary, Atherosclerosis. 2014: 232(2):410-413. Performed By: #### 82026-0 # ### [facility] CLIA [id number] [address] [place] [address] CLIA [id number] [address] [place] [address] DEPRECATED HGB A1C BLD Collected: 12/25 1:14 PM Status: F Source: [facility] Order Comment: Specimen Type : BLOOD SPECIMEN Ordering Facility: [facility] Address: [address] [place] [address] TYPE CODE TESTS RESULT OUT OF RANGE REFERENCE UNITS LAB 4548-4(INC) HbA1c MFr Bld 6.4 High 4.3-5.6 % Result Comment: [place] Leah betes Association guidelines indicate that patients with HgbA1c in the range 5.7-6.4% are at increased risk for development of diabetes, and intervention by lifestyle modification may be beneficial. HgbA1c greater or equal to 6.5% is considered diagnostic of diabetes. LAB 30303-9(LOINC) Est. average glucose Bld gHb Est-mCnc 137 mg/dL Result Comment: eAG: (Estima xochitl average glucose) is a calculated value from HgbA1c and is appliance service representative of the average blood glucose level in the last 2-3 month period. Performed By: #### 24607-9 # ### [facility] CLIA [id number] [address] [place] [address] COMP METAB 2000 PNL SERPL Collected: 1:14 PM Status: F Source: [facility] Order Comment: Specimen Type : BLOOD SPECIMEN Ordering Facility: [facility] Address: [place] [address] TYPE CODE TESTS RESULT OUT OF RANGE REFERENCE UNITS LAB 2885-2(LOINC) Prot SerPl-mCnc 7.0 6.3-8.0 g/dL LAB 1751-7(LOINC) Albumin SerPl-mCnc 4.0 3.9-4.9 g/dL LAB 96207-7(LOINC) Calcium SerPl-mCnc 9.8 8.5-10.2 mg/dL LAB 1975-2(LOINC) Bilirub SerPl-mCnc 0.2 0.2-1.3 mg/dL LAB 6768-6(LOINC) ALP SerPl-cCnc 115 34-123 U/L LAB 1920-8(LOINC) AST SerPl-cCnc 21 13-35 U/L LAB 1742-6(LOINC) ALT SerPl-cCnc 12 7-38 U/L LAB 2345-7(LOINC) Glucose SerPl-mCnc 89 74-99 mg/dL Result Comment: The [place] Diabetes Association (ADA) provides guidance for cutoff values for fasting glucose and random glucose. The ADA defines fasting as no caloric intake for at least 8 hours. Fasting plasma glucose results between 100 to 125 mg/dL indicate increased risk for diabetes (prediabetes). Fasting plasma glucose results greater than or equal to 126 mg/dL meet the criteria for diagnosis of diabetes. In the absence of unequivocal hyperglycemia, results should be confirmed by repeat testing. In a patient with classic symptoms of hyperglycemia or hyperglycemic crisis, random plasma glucose results greater than or equal to 200 mg/dL meet the criteria for diagnosis of diabetes. Reference: Standards of Medical Care in Diabetes 2016, [place] Diabetes Association. Diabetes Care. 2016.39(Suppl 1). LAB 3094-0(LOINC) BUN SerPl-mCnc 31 High 7-21 mg/ dL LAB 2160-0(LOINC) Creat SerPl-mCnc 1.11 High 0.58-0.96 mg/dL LAB 2951-2(LOINC) Sodium SerPl-sCnc 138 136-144 mmol/L LAB 2823-3(LOINC) Potassium SerPl-sCnc 4.1 3.7-5.1 mmol/L LAB 2075-0(LOINC) Chloride SerPl-sCnc 100 98-107 mmol/L LAB 2027-9(LOINC) CO2 SerPl-sCnc 28 22-30 mmo l/L LAB 10739-4(LOINC) Anion Gap SerPl-sCnc 10 8-15 mmol/L LAB 98112-3(LOINC) Creatinine + eGFR Pnl SerPlBld 51 Low >=60 mL/min/1 .73m??? Result Comment: Estimated Gl omerular Filtration Rate (eGFR) is calculated using the 2020 CKD-EPI creatinine equation. This equation utilizes serum creatinine, sex, and age as parameters. The creatinine assay has traceable calibration to isotope dilution-mass spectrometry. Refer to KDIGO guidelines for clinical interpretation. In patients with unstable renal function, e.g. those with acute kidney injury, the eGFR may not accurately reflect actual GFR. Performed By: #### 19262-4 # ### [facility] CLIA [id number] [address] [place] [address] STATES OF [facility] PROGRESS Observed: 12/21/2024 9:22 AM Status: COMPLETED Source: [facility] HNO ID: [id number] Author: VALERIE MOORE RN Service: ? Author Type: Registered Nurse Type: Progress Notes Filed: 12/21/2024 09:22 Note Text: Called and left a detailed voicemail notifying patient of providers message. Clinic phone number was left in case patient had any questions. Valerie Moore RN PROGRESS Observed: 12/20/2024 10:28 AM Status: COMPLETED Source: [facility] HNO ID: [id number] Author: CHARLEY RILEY MD Service: ? Author Type: Physician Type: Progress Notes Filed: 12/20/2024 10:29 Note Text: Fasting labs ordered to be completed 1-2 days prior to OV. PROGRESS Observed: 12/19/2024 8:12 AM Status: COMPLETED Source: [facility] HNO ID: [id number] Author: NUPUR MATTSON MA Service: ? Author Type: Box Spring Maker Type: Progress Notes Filed: 12/21/2024 09:22 Note Text: POPULATION HEALTH NAVIGATION OUTREACH Action/FYI Updated appointment note HCC CLOSURE Topic Due (Y or N) Comments Medicare Wellness Y PCP Follow up Colorectal Cancer Screening Controlling Blood Pressure Y A1C Y HCC Y Flu Vaccine Care Everywhere Reviewed MyChart Activation Updated Appointment Note Reason for Outreach Care Gap/HCC or Scheduling Wellness Visits Care Gaps due: Medicare Annual Wellness Visit Controlling Blood Pressure HBA1C Patient Contacted: Unable or unnecessary to reach patient: HCC related Patient already scheduled Updated appointment notes Navigation Signature: Nupur Mattson MA December 19, 2024 8:12 AM CNPTOUTREACH Observed: 12/19/2024 12:00 AM Status: COMPLETED Source: [facility] Patient Outreach (NETNAV) JENSEN GROSS ([id number]) 1945 F Date Time Provider Department 12/19/24 NUPUR MATTSON During your visit today, we recorded the following information about you: Nupur Mattson MA 12/21/2024 9:22 AM Signed POPULATION HEALTH NAVIGATION OUTREACH Action/FYI Updated appointment note HCC CLOSURE Topic Due (Y or N) Comments Medicare Wellness Y PCP Follow up Colorectal Cancer Screening Controlling Blood Pressure Y A1C Y HCC Y Flu Vaccine Care Everywhere Reviewed MyChart Activation Updated Appointment Note Reason for Outreach Care Gap/HCC or Scheduling Wellness Visits Care Gaps due: Medicare Annual Wellness Visit Controlling Blood Pressure HBA1C Patient Contacted: Unable or unnecessary to reach patient: HCC related Patient already scheduled Updated appointment notes Navigation Signature: Nupur Mattson MA December 19, 2024 8:12 AM Charley Riley MD 12/20/2024 10:29 AM Signed Fasting labs ordered to be completed 1-2 days prior to OV. Valerie Moore, RN 12/21/2024 9:22 AM Signed Called and left a detailed voicemail notifying patient of providers message. Clinic phone number was left in case patient had any questions. Valerie Moore RN Allergies As of Date: 12/19/2024 Noted Allergy Reaction PERCOCET (OXYCODONE-ACETAMINOPHEN)07/29/2017 11 - Vomiting 14 - Other: See Comments Comments: Sweating, severe cramping instantly after taking medication ANIMAL DANDER 04/28/2021 5 - Intolerance CEPHALOSPORINS 02/28/2017 7 - Swelling CODEINE 02/28/2017 7 - Swelling Date Reviewed: 05/09/2024 Reviewed by: Priyanka Skaggs LPN - Fully Assessed Reason for Visit: Population Health Navigation Outreach [3910] Cmt: PEDRO SHARP Primary Visit Diagnosis:Controlled type 2 diabetes mellitus without complication, without long-term current use of insulin (HCC) [E11.9] Order(s):HEMOGLOBIN A1C [ICVKT1X] Order #: [id number] FUTURE COMPREHENSIVE METABOLIC PANEL [SQCMP] Order #: [id number] FUTURE ALBUMIN/CREATININE RATIO, URINE [SQUACR] Order #: [id number] FUTURE LIPID PANEL BASIC [SQLIPB] Order #: [id number] FUTURE Prescriptions as of 12/21/2024 - atorvastatin (LIPITOR) 40 mg tablet Take 1 tablet by mouth daily at bedtime. For cholesterol. - blood sugar diagnostic (FREESTYLE LITE STRIPS) test strip Test blood sugar(s) 1 times daily. Dx: Type 2 DM - Controlled E11.9 Insulin: No - losartan (COZAAR) 50 mg tablet Take 1 tablet by mouth once daily. - montelukast (SINGULAIR) 10 mg tablet Take 1 tablet by mouth daily at bedtime. - levothyroxine (SYNTHROID) 125 mcg tablet Take 1 tablet by mouth once daily. Take on empty stomach. For Thyroid - ondansetron (ZOFRAN) 4 mg tablet Take 1 tab po every 8 hours as needed for nausea/headache - propranolol (INDERAL) 40 mg tablet Take 1 tablet by mouth two times a day. - buPROPion SR (WELLBUTRIN SR) 150 mg 12 hr tablet Take 1 tablet by mouth two times a day. - PARoxetine (PAXIL) 30 mg tablet Take 1 tablet by mouth once daily. - nystatin (MYCOSTATIN) 100,000 unit/mL suspension Take 5 mL by mouth four times daily. 1tsp swish in mouth for several minutes, then swallow (or expectorate) 4 times daily until gone. - CPAP/BIPAP/OTHER Type .CPAPSettings into a note to see current settings/supplies/DME information. - Lancets lancets Test blood sugar(s) 1 times daily. Dx: Type 2 DM - Controlled E11.9 Insulin: No - primidone (MYSOLINE) 50 mg tablet Take 50 mg by mouth twice daily. - HYDROcodone-Acetaminophen (NORCO) 7.5-325 mg per tablet Take 1 tablet by mouth at bedtime as needed for pain. - gabapentin (NEURONTIN) 600 mg tablet Take 600 mg by mouth two times a day. - hydrocortisone 2.5 % cream Apply 1 application to affected area twice daily. Location: ears - diclofenac sodium (VOLTAREN) 1 % topical gel Apply 2 g to affected area four times daily. - albuterol HFA (PROAIR HFA) 90 mcg/actuation inhaler Inhale 2 Puffs as instructed every 4 hours as needed. - Cholecalciferol, Vitamin D3, 50 mcg (2,000 unit) cap Take 2 capsules by mouth once daily. 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] 01/16/2018 Stage 3 chronic kidney disease (HCC) [N18.30] 10/11/2018 Diabetes mellitus type 1, controlled, without c*05/16/2019 03/31/2020 Diabetes mellitus type II, controlled (HCC) [E1*01/2019 Hot flashes [R23.2] Lymphedema of left leg [I89.0] 11/16/2021 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] 04/22/2023 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] 04/22/2023 05/09/2024 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] 04/22/2023 05/09/2024 Mild episode of recurrent major depressive diso*04/22/2023 Peripheral vascular disease (HCC) [I73.9] 04/22/2023 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.*05/09/2024 Encounter Status:Closed by VALERIE MOORE on 12/21/24 ALLERGIES DATE TYPE / CODE NAME / CODE REACTION SEVERITY SOURCE 04/28/2021 DRUG INGREDI/20647 1003(SNOMED CT) ANIMAL DANDER INTOLERANCE [facility] 07/29/2017 DRUG/75018661 3(SNOMED CT) OXYCODONE-ACETAMINOPHEN [facility] 02/28/2017 Drug Class/7876952 03(SNOMED CT) CEPHALOSPORINS SWELLING [facility] 02/28/2017 DRUG INGREDI/89979 1003(SNOMED CT) CODEINE SWELLING [facility] ENCOUNTERS ADMIT/DISCHARGE ACCOUNT NUMBER ADMITTING ENCOUNTER CLASS LOC ATION SOURCE 06/27/2025/ [id number] [facility] 06/19/2025/ [id number] [facility] 03/27/2025/ 5 [id number] Amb[facility] 02/12/2025/ 5 [id number] Amb[facility] 12/26/2024/ [id number] [facility] 12/25/2024/ 5 [id number] [place] [facility] PAYERS ENCOUNTER GUARANTOR PAYER SUBSCRIBER SOURCE 06/27/2025 Primary Insuranc e:MEDICARE A AND BPolicy Number: [id number] Date:7887-03-67Ekef Name:Nhi STYLES SNOW: [id number] [place] [address] [facility] 06/27/2025 Secondary Insura nce:[employer] [place] MEDICARE SUPPLEMENTPolicy Number: [id number] Date:5059-29-03Cuul Name:Mayda GENAOJENSENARGELIA ADAMSON: [id number] [place], [place] [address] [place] [address] 06/19/2025 Primary Insuranc e:MEDICARE A AND BPolicy Number: [id number] Date:0047-13-21Serd Name:Nhi GENAOJENSENARGELIA ADAMSON: [id number] [place], [place] [address] [place] [address] 06/19/2025 Secondary Insura nce:[employer] [place] MEDICARE SUPPLEMENTPolicy Number: [id number] Date:0214-41-63Bdnx Name:Mayda STYLES SNOW: [id number] [place], [place] [address] [place] [address] 03/27/2025 Primary Insuranc e:MEDICARE A AND BPolicy Number: [id number] Date:4886-29-02Rorl Name:Nhi STYLES SNOW: [id number] [place], [place] [address] [place] [address] 03/27/2025 Secondary Insura nce:[employer] [place] MEDICARE SUPPLEMENTPolicy Number: [id number] Date:7390-26-94Jzok Name:Mayda GENAOJENSENARGELIA ADAMSON: [id number] [place], [place] [address] [place] [address] 02/12/2025 Primary Insuranc e:MEDICARE A AND BPolicy Number: [id number] Date:5373-97-39Xkuw Name:Nhi MARIANOB: [id number] [place] [address] [facility] 02/12/2025 Secondary Insura nce:[employer] [place] MEDICARE SUPPLEMENTPolicy Number: [id number] Date:3150-88-66Pqny Name:Mayda MARIANOB: [id number] [place], [place] [address] [place] [address] 12/26/2024 Primary Insuranc e:MEDICARE A AND BPolicy Number: [id number] Date:3624-13-71Dnsw Name:Nhi MARIANOB: [id number] [place], [place] [address] [place] [address] 12/26/2024 Secondary Insura nce:[employer] [place] MEDICARE SUPPLEMENTPolicy Number: [id number] Date:5488-38-44Qzog Name:Mayda MARIANOB: [id number] [place], [place] [address] [place] [address] 12/25/2024 Primary Insuranc e:MEDICARE A AND BPolicy Number: [id number] Date:6075-84-00Lmuf Name:Nhi MARIANOB: [id number] [place], [place] [address] [place] [address] 12/25/2024 Secondary Insura nce:[employer] [place] MEDICARE SUPPLEMENTPolicy Number: [id number] Date:5769-00-45Cpme Name:Mayda GROSSB: [id number] [place] [address] [facility]
--- OUTSIDE RECORDS SUMMARY | 2025-06-27 13:15 | XMS RPT_ITS ---
Author Name Auto Generated Organization OH[facility] Care Team Providers Care Interactive Media Specialist Name Role Phone CHARLEY RILEY Primary Care Unavailab SEDRICK Sanders Attending Unavailable PODLOGARBABATUNDE Attending Unavailable CHARLEY RILEY Primary Care Unavailab le CHARLEY RILEY Referring Unavailab CHARLEY Alexis Primary Care Unavailab le CHARLEY RILEY Attending Unavailab le SELF Referring Unavailable CHARLEY RILEY Primary Care Unavailab le PODLOGARBABATUNDE Attending Unavailable CHARLEY RILEY Primary Care Unavailab le PODLOGAR, BABATUNDE Attending Unavailable CHARLEY RILEY Primary Care Unavailab le PROBLEMS DATE TYPE CONDITION / CODE ATTENDING STATUS [facility] 06/27/2025 Active Type 2 diabetes mellitus with stage 3 chronic kidney disease, without long-term current use of insulin, unspecified whether stage 3a or 3b CKD (HCC) / E11.22(ICD-10) CHARLEY RILEY Active [facility] 06/27/2025 Active Type 2 diabetes mellitus with stage 3 chronic kidney disease, without long-term current use of insulin, unspecified whether stage 3a or 3b CKD (HCC) / N18.30(ICD-10) CHARLEY RILEY Active [facility] 05/09/2024 Active Moderate recurre nt major depression (HCC) / F33.1(ICD-10) CHARLEY RILEY Active [facility] 10/25/2023 Active Stage 3a chronic kidney disease (HCC) / N18.31(ICD-10) CHARLEY RILEY Active [facility] 06/02/2017 Active Hyperlipidemia, unspecified hyperlipidemia type / E78.5(ICD-10) CHARLEY RILEY Active [facility] 06/27/2025 Active Medicare annual wellness visit, subsequent / Z00.00(ICD-10) CHARLEY RILEY Active [facility] 06/27/2025 Active Memory impairmen t / R41.3(ICD-10) CHARLEY RILEY Active [facility] 06/27/2025 Active Unsteady gait wh en walking / R26.81(ICD-10) CHARLEY RILEY Active [facility] 06/27/2025 Active Encounter for sc reening examination for other mental health and behavioral disorders / Z13.39(ICD-10) CHARLEY RILEY Active [facility] 06/27/2025 Active Arm abrasion, le ft, initial encounter / S40.812A(ICD-10) CHARLEY RILEY Active [facility] 06/19/2025 Active Preop examinatio n / Z01.818(ICD-10) PODLOGAR, BABATUNDE Active [facility] 06/19/2025 Active Encounter for immunization / Z23(ICD-10) PODLOGAR, BABATUNDE Active [facility] 06/19/2025 Active Sinus bradycardi a / R00.1(ICD-10) PODLOGAR, BABATUNDE Active [facility] 06/19/2025 Active Normocytic anemi a / D64.9(ICD-10) PODLOGAR, BABATUNDE Active [facility] 06/19/2025 Active Essential (prima ry) hypertension / I10(ICD-10) PODLOGAR, BABATUNDE Active [facility] 06/19/2025 Active Primary osteoart hritis of both knees / M17.0(ICD-10) PODLOGAR, BABATUNDE Active [facility] 06/19/2025 Active Type 2 diabetes mellitus without complication, without long-term current use of insulin (HCC) / E11.9(ICD-10) PODLOGAR, BABATUNDE Active [facility] 02/28/2017 Active Hypertension, unspecified type / I10(ICD-10) PODLOGAR, BABATUNDE Active [facility] 03/27/2025 Active Other chronic pa in / G89.29(ICD-10) PODLOGAR, BABATUNDE Active [facility] 03/27/2025 Active Class 2 severe o besity with serious comorbidity and body mass index (BMI) of 35.0 to 35.9 in adult, unspecified obesity type (HCC) / E66.812(ICD-10) PODLOGAR, BABATUNDE [facility] 03/27/2025 Active Class 2 severe o besity with serious comorbidity and body mass index (BMI) of 35.0 to 35.9 in adult, unspecified obesity type (HCC) / E66.01(ICD-10) PODLOGAR, BABATUNDE [facility] 03/27/2025 Active Class 2 severe o besity with serious comorbidity and body mass index (BMI) of 35.0 to 35.9 in adult, unspecified obesity type (HCC) / Z68.35(ICD-10) PODLOGAR, BABATUNDE [facility] 02/12/2025 Active Neck pain, bilat eral / M54.2(ICD-10) CLUTTER, SEDRICK [facility] 04/22/2023 Active 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) PODLOGAR, BABATUNDE [facility] 03/31/2020 Active Controlled type 2 diabetes mellitus without complication, without long-term current use of insulin (HCC) / E11.9(ICD-10) PODLOGAR, BABATUNDE [facility] 06/02/2017 Active RANGEL (obstructive sleep apnea) / G47.33(ICD-10) PODLOGAR, BABATUNDE [facility] 06/02/2017 Active Depression, unsp ecified depression type / F32.A(ICD-10) PODLOGAR, BABATUNDE [facility] 02/28/2017 Active Hypothyroidism, unspecified type / E03.9(ICD-10) PODLOGAR, BABATUNDE [facility] 12/26/2024 Active Leg swelling / M79.89(ICD-10) PODLOGAR, BABATUNDE [facility] PROCEDURES No Procedure Records Found RESULTS CNOV Observed: 06/27/2025 1:40 PM Status: COMPLETED Source: [facility] JENSEN GROSS ([id number]) 1945 F Date Time Provider Department 06/27/25 1:40 PM CHARLEY RILEY During your visit today, we recorded the following information about you: Pulse Respiration Blood pressure Weight 52/minute 16/minute 126/78 114.6 kg Charley Riley MD 06/27/2025 2:52 PM Signed Jensen Gross is a 80 year old female here for a Medicare wellness visit. Recording using [employer] software for draft documentation of the visit was discussed with the patient/authorized membership sales representative; all questions welcomed and answered. Patient/authorized membership sales representative agreed to proceed Anxiety: - Recent [...] both knees and feet due to being xdke-gl-buou. - Uses a walker at home for [...] Ruiz MD as Referring (Cerebrovascular) Podlogar, KIA Zurita.HYDROLOGIC ENGINEER as Compressor Operator Adjuster (Family Medicine) Yanique Pascal APRN.SAMANTHA as Compressor Operator Adjuster (Family Medicine) Outside specialists seen: Ortho: Dr. [...] Reviewed and updated health care power of compliance attorney and living will; patient wishes to [...] ideation. 5. Arm abrasion, left, initial encounter (S41.620W) - Superficial abrasion on left arm from [...] retinal exam and regular foot checks. Charley iRley MD 06/27/2025 2:25 PM Signed - Completed refills for Paxil, losartan, and Lipitor, with bupropion and propranolol refills processed today; prescriptions sent to [facility] in [place]. - Clean the small scrape on your [...] 1 CONSULT TO GERIATRICS [90] Order #: [id number]: 1 FUTURE ANXIETY SCREENING [[id number]] Order #: [id number]: 1 PARKING FOR HANDICAPPED [[id number]] Order #: [id number] Prescriptions as of 06/27/2025 - tiZANidine (ZANAFLEX) [...] processed today; prescriptions sent to [facility] in [place]. - Clean the small scrape on your [...] for Encounter Date Provider Department Center 06/27/2025 [id number] RILEYIMER Wood [facility] Encounter Status:Closed by CHARLEY RILEY on 06/27/25 PROGRESS Observed: 06/27/2025 1:37 PM Status: COMPLETED Source: [facility] HNO ID: [id number] Author: CHARLEY RILEY MD Service: ? Author Type: Physician Type: Progress Notes Filed: 06/27/2025 14:52 Note Text: Jensen Gross is a 80 year old female here for a Medicare wellness visit. Recording using [employer] software for draft documentation of the visit was discussed with the patient/authorized membership sales representative; all questions welcomed and answered. Patient/authorized membership sales representative agreed to proceed Anxiety: - Recent [...] both knees and feet due to being opoz-fi-ywwm. - Uses a walker at home for [...] Ruiz MD as Referring (Cerebrovascular) Podlogar, KIA Zurita.HYDROLOGIC ENGINEER as Compressor Operator Adjuster (Family Medicine) Yanique Pascal APRN.CNP as Compressor Operator Adjuster (Family Medicine) Outside specialists seen: Ortho: Dr. [...] Reviewed and updated health care power of compliance attorney and living will; patient wishes to [...] ideation. 5. Arm abrasion, left, initial encounter (S45.752A) - Superficial abrasion on left arm from [...] Observed: 06/27/2025 12:00 AM Status: COMPLETED Source: [facility] Telephone ([facility]) JENSEN GROSS ([id number]) 1945 F Date Time Provider Department 06/27/25 [facility] During your visit today, we recorded the following information about you: Brenna Grande LPN 06/27/2025 4:54 PM Signed Crystal from [facility] calling needing signed surgery clearance form faxed to [phone] by tuesday or they will have to cancel her surgery. Crystal is faxing a clearance form to the office. Please advise Charley Riley MD 06/28/2025 6:53 AM Signed Do we have the form I can sign? Charley Riley MD 06/28/2025 7:07 AM Signed Found it. Signed and given to nurse to fax. Dee Jenkins LPN 06/28/2025 8:22 AM Signed Form faxed to [facility] with confirmation received. Dee Jenkins LPN Allergies [...] Observed: 06/24/2025 12:00 AM Status: COMPLETED Source: [facility] Telephone (FAMPWS) JENSEN GROSS ([id number]) 1945 F Date Time Provider Department 06/24/25 CHARLEY RILEY During your visit today, we recorded the following information about you: Lan Pablo RN 06/24/2025 1:42 PM Signed Faxed recent [place] notes to [place] [facility] per Colleen request. Allergies As of Date: 06/24/2025 Noted Allergy Reaction PERCOCET (OXYCODONE-ACETAMINOPHEN)07/29/2017 11 - Vomiting 14 - Other: See Comments Comments: Sweating, severe cramping instantly after taking medication ANIMAL DANDER 04/28/2021 5 - Intolerance CEPHALOSPORINS 02/28/2017 7 - Swelling CODEINE 02/28/2017 7 - Swelling Date Reviewed: 06/19/2025 Reviewed by: Dee Jenkins LPN - Fully Assessed Reason for Visit: Faxed to [place] [facility] [Other] Prescriptions as of 06/24/2025 - [...] Observed: 06/19/2025 6:18 PM Status: F Source: [facility] Ventricular Rate : 85 BPM Atrial Rate : 85 BPM P-R Interval : 154 ms QRS Duration : 84 ms Q-T Interval : 396 ms QTC Calculation(Bazett) : 471 ms Calculated P [place] : 76 degrees Calculated R [place] : 51 degrees Calculated T [place] : 47 degrees SINUS RHYTHM WITH PREMATURE ATRIAL COMPLEXES in [facility] OTHERWISE NORMAL ECG Confirmed by MD WREN QARAB ([id number]) on 06/20/2025 5:21:53 PM NAME : JENSEN GROSS PID : [id number] : 1945 Gender : Female Race : ORD : Procedure Date : Jun 19 2025 18:18:11 Edit Date : Jun 20 2025 17:21:55 Diagnosis: SINUS RHYTHM WITH PREMATURE ATRIAL COMPLEXES in [facility] OTHERWISE NORMAL ECG Confirmed by MD WREN QARAB ([id number]) on 06/20/2025 5:21:53 PM Test Reason : Location : 136 : [facility] Overread By : MD WREN QARAB Edited By : MD WREN QARAB Referred By : , Acquired by : [id number], [id number] Observed: 06/19/2025 6:17 PM Status: F Source: [facility] Ventricular Rate : 82 BPM Atrial Rate : 82 BPM P-R Interval : 156 ms QRS Duration : 82 ms Q-T Interval : 386 ms QTC Calculation(Bazett) : 450 ms Calculated P [place] : 56 degrees Calculated R [place] : 52 degrees Calculated T [place] : 40 degrees SINUS RHYTHM WITH PREMATURE SUPRAVENTRICULAR COMPLEXES in [facility] OTHERWISE NORMAL ECG Confirmed by MD WREN QARAB ([id number]) on 06/20/2025 5:21:40 PM NAME : JENSEN GROSS PID : [id number] : 1945 Gender : Female Race : ORD : Procedure Date : Jun 19 2025 18:17:25 Edit Date : Jun 20 2025 17:21:44 Diagnosis: SINUS RHYTHM WITH PREMATURE SUPRAVENTRICULAR COMPLEXES in [place] OTHERWISE NORMAL ECG Confirmed by MD WREN QARAB ([id number]) on 06/20/2025 5:21:40 PM Test Reason : Location : 136 : [facility] Overread By : MD WREN QARAB Edited By : MD WREN QARAB Referred By : , Acquired by : [id number], PROGRESS Observed: 06/19/2025 5:20 PM Status: COMPLETED Source: [facility] HNO ID: [id number] Author: BABATUNDE RINCON APRN.HYDROLOGIC ENGINEER Service: ? Author Type: Nurse Practitioner Type: [...] - Preoperative labs and EKG completed at [facility] on 05/21. - Orthopedic office informed [...] foot CKD (chronic kidney disease), stage III ([facility]) DDD (degenerative disc disease), cervical DDD (degenerative disc disease), thoracolumbar Depression Diabetes mellitus type II, controlled ([facility]) 01/2019 Ependymoma of spinal cord ([facility]) Dr. Alonso Essential tremor Dr. Alonso Fibromyalgia [...] in both knees and feet; x-ray showed zspy-qk-qwgk changes in both feet. - Left knee replacement scheduled for the . - Patient to see physical therapist prior to surgery. 7. Type 2 diabetes mellitus without complication, without long-term current use of insulin (HCC) (E11.9) - Recent A1c was 6.2, improved from 6.7 previously. - Encouraged patient to continue managing diabetes. Babatunde Podlogar, PLATE PRINTER.HYDROLOGIC ENGINEER Prescription instructions reviewed with patient as applicable. Patient advised if symptoms do not improve or if symptoms worsen sooner, to contact their primary care physician. Potential red flag symptoms discussed with the patient. Reviewed appropriate action plan to take if red flag symptoms occur. Patient agreeable to treatment plan. [id number] OVERALL COMPLEXITY Problem Complexity: Moderate Data Level: [...] test: EKG from 06/03 (reviewed, performed at [facility]); pre-op labs (reviewed, performed at [facility]); x-ray of feet (reviewed, performed by [...] test performed by another physician/other qualified health resident care assistant: - Discussion of management or test interpretation with external physician/other qualified health resident care assistant/appropriate source: Data complexity level: Moderate; meets Category [...] Observed: 06/19/2025 5:20 PM Status: COMPLETED Source: [facility] JENSEN GROSS ([id number]) 1945 F Date Time Provider Department 06/19/25 [...] - Preoperative labs and EKG completed at [facility] on 05/21. - Orthopedic office informed [...] foot CKD (chronic kidney disease), stage III ([facility]) DDD (degenerative disc disease), cervical DDD (degenerative disc disease), thoracolumbar Depression Diabetes mellitus type II, controlled ([facility]) 01/2019 Ependymoma of spinal cord ([facility]) Dr. Alonso Essential tremor Dr. Alonso Fibromyalgia [...] in both knees and feet; x-ray showed pnwi-nz-hkwc changes in both feet. - Left knee replacement scheduled for the . - Patient to see physical therapist prior to surgery. 7. Type 2 diabetes mellitus without complication, without long-term current use of insulin (HCC) (E11.9) - Recent A1c was 6.2, improved from 6.7 previously. - Encouraged patient to continue managing diabetes. Babatunde Podlogar, PLATE PRINTER.HYDROLOGIC ENGINEER Prescription instructions reviewed with patient as applicable. Patient advised if symptoms do not improve or if symptoms worsen sooner, to contact their primary care physician. Potential red flag symptoms discussed with the patient. Reviewed appropriate action plan to take if red flag symptoms occur. Patient agreeable to treatment plan. [id number] OVERALL COMPLEXITY Problem Complexity: Moderate Data Level: [...] test: EKG from 06/03 (reviewed, performed at [facility]); pre-op labs (reviewed, performed at [facility]); x-ray of feet (reviewed, performed by [...] test performed by another physician/other qualified health resident care assistant: - Discussion of management or test interpretation with external physician/other qualified health resident care assistant/appropriate source: Data complexity level: Moderate; meets Category [...] (HCC) [E11.9] Order(s):ECG COMPLETE [ECG01] Order #: [id number] INFLUENZA VACCINE, PRSV FREE, AGE 65+ YR, HIGH DOSE, TRIVALENT (FLUZONE HIGH-DOSE) [[id number]] Order #: [id number] Prescriptions as of 06/19/2025 - montelukast (SINGULAIR) [...] Observed: 05/08/2025 1:29 PM Status: COMPLETED Source: [facility] HNO ID: [id number] Author: NUPUR MATTSON MA Service: ? Author Type: Vineyardist Type: Progress Notes Filed: 05/08/2025 13:31 Note [...] Observed: 05/08/2025 12:00 AM Status: COMPLETED Source: [facility] Patient Outreach (NETNAV) JENSEN GROSS ([id number]) 1945 F Date Time Provider Department 05/08/25 [...] scheduled Updated appointment notes Navigation Signature: Nupur aMttson MA May 08, 2025 1:29 PM Allergies [...] Observed: 04/17/2025 12:00 AM Status: COMPLETED Source: [facility] Telephone (DENISWS) JENSEN GROSS ([id number]) 1945 F Date Time Provider Department 04/17/25 BABATUNDE RINCON During your visit today, we recorded the following information about you: David Zimmerman RN 04/17/2025 1:45 PM Signed Hi this patient has a medicare wellness scheduled with Babatunde Ricnon on 06/12 and a preop exam appt [...] Fully Assessed Reason for Visit: Patient Question [7377] Prescriptions as of 04/17/2025 - montelukast (SINGULAIR) [...] Observed: 04/03/2025 1:04 PM Status: COMPLETED Source: [facility] HNO ID: [id number] Author: NUPUR MATTSON MA Service: ? Author Type: Vineyardist Type: Progress Notes Filed: 04/03/2025 13:05 Note [...] Observed: 04/03/2025 12:00 AM Status: COMPLETED Source: [facility] Patient Outreach (NETNAV) JENSEN GROSS ([id number]) 1945 F Date Time Provider Department 04/03/25 [...] Population Health Navigation Outreach [3910] [facility] Prescriptions as of 04/03/2025 - pramipexole [...] Observed: 03/27/2025 3:17 PM Status: COMPLETED Source: [facility] HNO ID: [id number] Author: BABATUNDE RINCON APRN.HYDROLOGIC ENGINEER Service: ? Author Type: Nurse Practitioner Type: Progress Notes Filed: 03/27/2025 15:51 Note Text: 03/27/2025 Patient presents with: Follow Up Recording using [employer] software for draft documentation of the visit was discussed with the patient/authorized membership sales representative; all questions welcomed and answered. Patient/authorized membership sales representative agreed to proceed SUBJECTIVE: This is [...] DM. 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 - Has requested medication for SAD in the past but was not prescribed. - Has a history of hibernating during the winter months, closing the house down and not interacting with neighbors. - Has a family history of mental illness, including a mbngppw-sz-wup with bipolar disorder. PAST MEDICAL HISTORY Diagnosis Date Chronic back pain Seeing pain management Dr. Crowder Chronic pain in left foot CKD (chronic kidney disease), stage III ([facility]) DDD (degenerative disc disease), cervical DDD (degenerative disc disease), thoracolumbar Depression Diabetes mellitus type II, controlled ([facility]) 01/2019 Ependymoma of spinal cord ([facility]) Dr. Alonso Essential tremor Dr. Alonso Fibromyalgia Headaches due to old head injury History of carpal tunnel release Hot flashes controlled on Paxil Hyperlipidemia Hypertension Hypothyroidism Lymphedema of left leg Migraines 05/09/2024 Morbid obesity ([facility]) RANGEL (obstructive sleep apnea) 05/26/2023 mild Osteoarthritis Knees and shoulders, seeing Dr. Gallo Spinal cord mass ([facility]) T9-T10 Dr. Alonso Vitamin D insufficiency ALLERGIES [...] or lesions to exposed skin Latest Ref [facility] 12/25/2024 Protein, Total 6.3 - 8.0 g/dL [...] to reassess weight and BMI. Babatunde Rincon APRN.HYDROLOGIC ENGINEER Prescription instructions reviewed with patient as applicable. Patient advised if symptoms do not improve or if symptoms worsen sooner, to contact their primary care physician. Potential red flag symptoms discussed with the patient. Reviewed appropriate action plan to take if red flag symptoms occur. Patient agreeable to treatment plan. CNOV Observed: 03/27/2025 3:00 PM Status: COMPLETED Source: [facility] SWATIJENSEN VICENTE ([id number]) 1945 F Date Time Provider Department 03/27/25 3:00 PM BABATUNDE RINCON During your visit today, we recorded the following information about you: Pulse Blood pressure Weight Height 51/minute 136/73 111.3 kg 1.778 m Babatunde Rincon APRN.CNP 03/27/2025 3:51 PM Signed 03/27/2025 Patient presents with: Follow Up Recording using [employer] software for draft documentation of the visit was discussed with the patient/authorized membership sales representative; all questions welcomed and answered. Patient/authorized membership sales representative agreed to proceed SUBJECTIVE: This is [...] DM. 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 - Has requested medication for SAD in the past but was not prescribed. - Has a history of hibernating during the winter months, closing the house down and not interacting with neighbors. - Has a family history of mental illness, including a nlirwgq-zi-fdb with bipolar disorder. PAST MEDICAL HISTORY Diagnosis Date Chronic back pain Seeing pain management Dr. Crowder Chronic pain in left foot CKD (chronic kidney disease), stage III ([facility]) DDD (degenerative disc disease), cervical DDD (degenerative disc disease), thoracolumbar Depression Diabetes mellitus type II, controlled ([facility]) 01/2019 Ependymoma of spinal cord ([facility]) Dr. Alonso Essential tremor Dr. Alonso Fibromyalgia Headaches due to old head injury History of carpal tunnel release Hot flashes controlled on Paxil Hyperlipidemia Hypertension Hypothyroidism Lymphedema of left leg Migraines 05/09/2024 Morbid obesity ([facility]) RANGEL (obstructive sleep apnea) 05/26/2023 mild Osteoarthritis Knees and shoulders, seeing Dr. Gallo Spinal cord mass ([facility]) T9-T10 Dr. Alonso Vitamin D insufficiency ALLERGIES [...] to reassess weight and BMI. Babatunde Podlognoble, KIA.HYDROLOGIC ENGINEER Prescription instructions reviewed with patient as applicable. [...] type (HCC) [E66.812, E66.01, Z68.35] Order(s):HEMOGLOBIN A1C [JKEIH1O] Order #: [id number] FUTURE COMPREHENSIVE METABOLIC PANEL [SQCMP] Order #: [id number] FUTURE THYROID STIMULATING HORMONE [SQTSH] Order #: [id number] FUTURE COMPLETE BLOOD COUNT AND DIFFERENTIAL [SQCBCDIF] Order #: [id number] FUTURE Prescriptions as of 03/27/2025 - pramipexole [...] for Encounter Date Provider Department Center 03/27/2025 [id number], JULIE LUIS ANTONIO Wood [facility] Encounter Status:Closed by BABATUNDE RINCON on 03/27/25 PROGRESS Observed: 02/13/2025 2:29 PM Status: COMPLETED Source: [facility] HNO ID: [id number] Author: NUPUR MATTSON MA Service: ? Author Type: Vineyardist Type: Progress Notes Filed: 02/13/2025 14:37 Note [...] Observed: 02/13/2025 12:00 AM Status: COMPLETED Source: [facility] Patient Outreach (NETNAV) JENSEN GROSS ([id number]) 1945 F Date Time Provider Department 02/13/25 [...] Observed: 02/12/2025 3:22 PM Status: COMPLETED Source: [facility] HNO ID: [id number] Author: SEDRICK CALDWELL PA-C Service: ? Author Type: Physician Rehabilitation Supervisor Type: Progress Notes Filed: 02/12/2025 15:35 Note Text: This note was created using [employer]. Subjective Jensen Gross is a 79 year [...] no treatment or management [facility] at [facility] present [facility]. Patient was [...] Observed: 02/12/2025 3:00 PM Status: COMPLETED Source: [facility] Office Visit (WSTR) JENSEN GROSS ([id number]) 1945 F Date Time Provider Department 02/12/25 3:00 PM SEDRICK CALDWELL WS During your visit today, we recorded the following information about you: Temperature Pulse Respiration Blood pressure 98.8 degrees 60/minute 16/minute 122/80 Weight 108.1 kg Sedrick Caldwell PA-C 02/12/2025 3:35 PM Signed This note was created using [employer]. Subjective Jensen Gross is a 79 year [...] no treatment or management [facility]. Patient was [...] Service: OFFICE/OUTPATIENT ESTABLISHED MOD MDM 30 MIN [83935] Encounter Status:Closed by SEDRICK CALDWELL on 02/12/25 CNOV Observed: 12/26/2024 2:20 PM Status: COMPLETED Source: [facility] JENS[facility] GROSS ([id number]) 1945 F Date Time Provider Department 12/26/24 [...] HYPOTHYROIDISM: taking synthroid as prescribed Follows with [facility] neurology for hx of migraines, ependymoma of [...] foot CKD (chronic kidney disease), stage III ([facility]) DDD (degenerative disc disease), cervical DDD (degenerative disc disease), thoracolumbar Depression Diabetes mellitus type II, controlled ([facility]) 01/2019 Ependymoma of spinal cord ([facility]) Dr. Alonso Essential tremor Dr. Alonso Fibromyalgia Headaches due to old head injury History of carpal tunnel release Hot flashes controlled on Paxil Hyperlipidemia Hypertension Hypothyroidism Lymphedema of left leg Migraines 05/09/2024 Morbid obesity ([facility]) RANGEL (obstructive sleep apnea) 05/26/2023 mild Osteoarthritis Knees and shoulders, seeing Dr. Gallo Spinal cord mass ([facility]) T9-T10 Dr. Alonso Vitamin D insufficiency ALLERGIES [...] wants to see specialist about [facility] in [place] - will get me info so I [...] medications - follow-up as needed Babatunde PodlogBENJAMIN dickey Prescription instructions reviewed with patient as applicable. [...] once daily.Disp: 30 capsuleRfl: 1 HEMOGLOBIN A1C [[id number]] Order #: [id number] FUTURE Prescriptions as of 12/26/2024 - hydroCHLOROthiazide [...] for Encounter Date Provider Department Center 12/26/2024 [id number]-CEOCRCZLBABATUNDE RINCON [facility] Encounter Status:Closed by BABATUNDE RINCON on 12/26/24 PROGRESS Observed: 12/26/2024 2:20 PM Status: COMPLETED Source: [facility] HNO ID: [id number] Author: BABATUNDE RINCON APRN.HYDROLOGIC ENGINEER Service: ? Author Type: Nurse Practitioner Type: [...] HYPOTHYROIDISM: taking synthroid as prescribed Follows with [facility] neurology for hx of migraines, ependymoma of [...] foot CKD (chronic kidney disease), stage III ([facility]) DDD (degenerative disc disease), cervical DDD (degenerative disc disease), thoracolumbar Depression Diabetes mellitus type II, controlled ([facility]) 01/2019 Ependymoma of spinal cord ([facility]) Dr. Alonso Essential tremor Dr. Alonso Fibromyalgia Headaches due to old head injury History of carpal tunnel release Hot flashes controlled on Paxil Hyperlipidemia Hypertension Hypothyroidism Lymphedema of left leg Migraines 05/09/2024 Morbid obesity ([facility]) RANGEL (obstructive sleep apnea) 05/26/2023 mild Osteoarthritis Knees and shoulders, seeing Dr. Gallo Spinal cord mass ([facility]) T9-T10 Dr. Alonso Vitamin D insufficiency ALLERGIES [...] or lesions to exposed skin Latest Ref [facility] 12/25/2024 Protein, Total 6.3 - 8.0 g/dL [...] wants to see specialist about [facility] in [place] - will get me info so I [...] medications - follow-up as needed Babatunde Podlogar, PLATE PRINTER.HYDROLOGIC ENGINEER Prescription instructions reviewed with patient as applicable. [...] ed: 12/25/2024 1:20 PM Status: F Source: [facility] Order Comment: Specimen Type : URINE SPECIMEN Ordering Facility: [facility] Address: [address] [place] [address] TYPE CODE TESTS RESULT OUT OF RANGE REFERENCE UNITS LAB 2161-8(LOINC) Creat Ur-mCnc 115.9 20.0-300.0 m g/dL LAB 22986-4(LOINC ) Microalbumin Ur-mCnc <12.0 mg/L LAB 9318-7(LOINC) [...] 3(1), 1-150. Performed By: #### UACR #### [facility] CLIA [id number] [address] [place] [address] [place] [address] [place] LIPID 1996 PNL SERPL Collected: 025 1:14 PM Status: F Source: [facility] Order Comment: Specimen Type : BLOOD SPECIMEN Ordering Facility: [facility] Address: [address] [place] [address] TYPE CODE TESTS RESULT OUT OF RANGE [...] risk factor for coronary heart disease LAB 94122-6(LOINC) NonHDLc SerPl-mCnc 66 <130 mg/dL Result Comment: <130 mg/dL, Optimal 130-159 mg/dL, Near optimal/above optimal 160-189 mg/dL, Borderline high 190-219 mg/dL, High >219 mg/dL, Very high Secondary prevention optimal non HDL Cholesterol levels are recommended to be <100 mg/dL LAB FT FASTING TIME 15 hrs LAB 40662-0(LOINC) VLDLc SerPl Calc-mCnc 16 <30 mg/dL LAB 9830-1(LOINC) Cholest/HDLc SerPl 1.93 <5.10 LAB 2089-1(LOINC) LDLc SerPl-mCnc 50 <100 mg/dL Result Comment: <100 mg/dL, Optimal 100-129 mg/dL, Near optimal/above optimal 130-159 mg/dL, Borderline high 160-189 mg/dL, High >189 mg/dL, Very high Secondary prevention optimal LDL Cholesterol levels are recommended to be < 70 mg/dL LAB 14209-4(LOINC) LDLc/HDLc SerPl 0.70 <2.54 Result Comment: Reference: 1. National Cholesterol Education Program ATP III Guideline At-A-Glance Quick Desk Reference: National Heart, Lung, and Blood Bath. National Institutes of Health. 2001: NIH Publication No. 01-3305. 2. An International Atherosclerosis Society position paper: global recommendations for the management of dyslipidemia: executive summary, Atherosclerosis. 2014: 232(2):410-413. Performed By: #### 65737-2 # ### [facility] CLIA [id number] [address] [place] [address] CLIA [id number] [address] [place] [address] DEPRECATED HGB A1C BLD Collected: 12/25 1:14 PM Status: F Source: [facility] Order Comment: Specimen Type : BLOOD SPECIMEN Ordering Facility: [facility] Address: [address] [place] [address] TYPE CODE TESTS RESULT OUT OF RANGE REFERENCE UNITS LAB 4548-4(INC) HbA1c MFr Bld 6.4 High 4.3-5.6 % Result Comment: [place] Leah betes Association guidelines indicate that patients with HgbA1c in the range 5.7-6.4% are at increased risk for development of diabetes, and intervention by lifestyle modification may be beneficial. HgbA1c greater or equal to 6.5% is considered diagnostic of diabetes. LAB 76285-4(LOINC) Est. average glucose Bld gHb Est-mCnc 137 mg/dL Result Comment: eAG: (Estima xochitl average glucose) is a calculated value from HgbA1c and is membership sales representative of the average blood glucose level in the last 2-3 month period. Performed By: #### 98641-4 # ### [facility] CLIA [id number] [address] [place] [address] COMP METAB 2000 PNL SERPL Collected: 1:14 PM Status: F Source: [facility] Order Comment: Specimen Type : BLOOD SPECIMEN Ordering Facility: [facility] Address: [place] [address] TYPE CODE TESTS RESULT OUT OF RANGE REFERENCE UNITS LAB 2885-2(LOINC) Prot SerPl-mCnc 7.0 6.3-8.0 g/dL LAB 1751-7(LOINC) Albumin SerPl-mCnc 4.0 3.9-4.9 g/dL LAB 83052-3(LOINC) Calcium SerPl-mCnc 9.8 8.5-10.2 mg/dL LAB 1975-2(LOINC) Bilirub SerPl-mCnc 0.2 0.2-1.3 mg/dL LAB 6768-6(LOINC) ALP SerPl-cCnc 115 34-123 U/L LAB 1920-8(LOINC) AST SerPl-cCnc 21 13-35 U/L LAB 1742-6(LOINC) ALT SerPl-cCnc 12 7-38 U/L LAB 2345-7(LOINC) Glucose SerPl-mCnc 89 74-99 mg/dL Result Comment: The [place] Diabetes Association (ADA) provides guidance for cutoff [...] Standards of Medical Care in Diabetes 2016, [place] Diabetes Association. Diabetes Care. 2016.39(Suppl 1). LAB 3094-0(LOINC) BUN SerPl-mCnc 31 High 7-21 mg/ dL LAB 2160-0(LOINC) Creat SerPl-mCnc 1.11 High 0.58-0.96 mg/dL LAB 2951-2(LOINC) Sodium SerPl-sCnc 138 136-144 mmol/L LAB 2823-3(LOINC) Potassium SerPl-sCnc 4.1 3.7-5.1 mmol/L LAB 2075-0(LOINC) Chloride SerPl-sCnc 100 98-107 mmol/L LAB 2027-9(LOINC) CO2 SerPl-sCnc 28 22-30 mmo l/L LAB 32650-6(LOINC) Anion Gap SerPl-sCnc 10 8-15 mmol/L LAB 67974-1(LOINC) Creatinine + eGFR Pnl SerPlBld 51 Low [...] accurately reflect actual GFR. Performed By: #### 88051-2 # ### [facility] CLIA [id number] [address] [place] [address] [place] [facility] PROGRESS Observed: 12/21/2024 9:22 AM Status: COMPLETED Source: [facility] HNO ID: [id number] Author: VALERIE MOORE RN Service: ? Author Type: Registered Nurse Type: Progress Notes Filed: 12/21/2024 09:22 Note Text: Called and left a detailed voicemail notifying patient of providers message. Clinic phone number was left in case patient had any questions. Valerie Moore RN PROGRESS Observed: 12/20/2024 10:28 AM Status: COMPLETED Source: [facility] HNO ID: [id number] Author: CHARLEY RILEY MD Service: ? Author Type: Physician Type: Progress Notes Filed: 12/20/2024 10:29 Note Text: Fasting labs ordered to be completed 1-2 days prior to OV. PROGRESS Observed: 12/19/2024 8:12 AM Status: COMPLETED Source: [facility] HNO ID: [id number] Author: NUPUR MATTSON MA Service: ? Author Type: Vineyardist Type: Progress Notes Filed: 12/21/2024 09:22 Note [...] Observed: 12/19/2024 12:00 AM Status: COMPLETED Source: [facility] Patient Outreach ([facility]) JENSEN GROSS ([id number]) 1945 F Date Time Provider Department 12/19/24 [...] use of insulin (HCC) [E11.9] Order(s):HEMOGLOBIN A1C [MBFPR0J] Order #: [id number] FUTURE COMPREHENSIVE METABOLIC PANEL [SQCMP] Order #: [id number] FUTURE ALBUMIN/CREATININE RATIO, URINE [SQUACR] Order #: [id number] FUTURE LIPID PANEL BASIC [SQLIPB] Order #: [id number] FUTURE Prescriptions as of 12/21/2024 - atorvastatin [...] / CODE REACTION SEVERITY SOURCE 04/28/2021 DRUG INGREDI/17729 1003(SNOMED CT) ANIMAL DANDER INTOLERANCE [facility] 07/29/2017 DRUG/55020859 3(SNOMED CT) OXYCODONE-ACETAMINOPHEN [facility] 02/28/2017 Drug Class/7609111 03(SNOMED CT) CEPHALOSPORINS SWELLING [facility] 02/28/2017 DRUG INGREDI/31545 1003(SNOMED CT) CODEINE SWELLING [facility] ENCOUNTERS ADMIT/DISCHARGE ACCOUNT NUMBER ADMITTING ENCOUNTER CLASS LOC ATION SOURCE 06/27/2025/ 5 [id number] [facility] 06/19/2025/ 5 [id number] [facility] 03/27/2025/ 5 [id number] [facility] 02/12/2025/ 5 [id number] [facility] ing[facility] 12/26/2024/ 5 [id number] [facility] 12/25/2024/ 5 [id number] [facility] PAYERS ENCOUNTER GUARANTOR PAYER SUBSCRIBER SOURCE 06/27/2025 Primary Insuranc e:MEDICARE A AND BPolicy Number: [id number] Date:9870-95-83Hjmj Name:Nhi STYLES SNOW: [id number] [place] [address] [facility] 06/27/2025 Secondary Insura nce:[employer] MEDICARE SUPPLEMENTPolicy Number: [id number] Date:2466-22-63Coqc Name:Mayda GENAOJENSENARGELIA ADAMSON: [id number] [place], [place] [address] [place] [address] 06/19/2025 Primary Insuranc e:MEDICARE A AND BPolicy Number: [id number] Date:9222-56-97Cfch Name:Nhi GENAOJENSENARGELIA ADAMSON: [id number] [place], [place] [address] [place] [address] 06/19/2025 Secondary Insura nce:[employer] [place] MEDICARE SUPPLEMENTPolicy Number: [id number] Date:0390-81-45Gked Name:Mayda STYLES SNOW: [id number] [place], [place] [address] [place] [address] 03/27/2025 Primary Insuranc e:MEDICARE A AND BPolicy Number: [id number] Date:0312-41-68Xqsx Name:Nhi STYLES SNOW: [id number] [place], [place] [address] [place] [address] 03/27/2025 Secondary Insura nce:[employer] MEDICARE SUPPLEMENTPolicy Number: [id number] Date:1885-54-33Idmq Name:Mayda GENAOJENSENARGELIA ADAMSON: [id number] [place], [place] [address] [place] [address] 02/12/2025 Primary Insuranc e:MEDICARE A AND BPolicy Number: [id number] Date:1177-14-32Zedt Name:Nhi MARIANOB: [id number] [place] [address] [facility] 02/12/2025 Secondary Insura nce:[employer] MEDICARE SUPPLEMENTPolicy Number: [id number] Date:3678-55-72Xlqm Name:Mayda MARIANOB: [id number] [place], [place] [address] [place] [address] 12/26/2024 Primary Insuranc e:MEDICARE A AND BPolicy Number: [id number] Date:2220-85-85Fbse Name:Nhi MARIANOB: [id number] [place], [place] [address] [place] [address] 12/26/2024 Secondary Insura nce:[employer] MEDICARE SUPPLEMENTPolicy Number: [id number] Date:2484-99-85Zhhe Name:Mayda MARIANOB: [id number] [place], [place] [address] [place] [address] 12/25/2024 Primary Insuranc e:MEDICARE A AND BPolicy Number: [id number] Date:5776-88-26Eunr Name:Nhi MARIANOB: [id number] [place], [place] [address] [place] [address] 12/25/2024 Secondary Insura nce:[employer] MEDICARE SUPPLEMENTPolicy Number: [id number] Date:3918-04-63Qhny Name:Mayda GROSSB: [id number] [place] [address] [facility]
--- OUTSIDE RECORDS SUMMARY | 2025-06-27 13:15 | XMS RPT_ITS ---
Author Name Auto Generated Organization OH[facility] Care Team Providers Care Shoe Salesperson Name Role Phone CHARLEY RILEY Primary Care Unavailab le PODLOGBABATUNDE BRYANT Attending Unavailable SELF Referring Unavailable CHARLEY RILEY Primary Care Unavailab CHARLEY Alexis Attending Unavailab le CHARLEY RILEY Primary Care Unavailab le CHARLEY RILEY Referring Unavailab le CHARLEY RILEY Primary Care Unavailab le PODLOGARBABATUNDE Attending Unavailable CHARLEY RILEY Primary Care Unavailab le SEDRICK CALDWELL Attending Unavailable CHARLEY RILEY Primary Care Unavailab le PODLOGAR, BABATUNDE Attending Unavailable PROBLEMS DATE TYPE CONDITION / CODE ATTENDING STATUS [facility] 06/27/2025 Active Type 2 diabetes mellitus with stage 3 chronic kidney disease, without long-term current use of insulin, unspecified whether stage 3a or 3b CKD (HCC) / E11.22(ICD-10) CHARLEY RILEY Active [facility] 06/27/2025 Active Type 2 diabetes mellitus with stage 3 chronic kidney disease, without long-term current use of insulin, unspecified whether stage 3a or 3b CKD (HCC) / N18.30(ICD-10) CHARLEY RILEY Active [facility] 05/09/2024 Active Moderate recurre nt major depression (HCC) / F33.1(ICD-10) CHARLEY RILEY Active [facility] 10/25/2023 Active Stage 3a chronic kidney disease (HCC) / N18.31(ICD-10) CHARLEY RILEY Active [facility] 06/02/2017 Active Hyperlipidemia, unspecified hyperlipidemia type / E78.5(ICD-10) CHARLEY RILEY Active [facility] 06/27/2025 Active Medicare annual wellness visit, subsequent / Z00.00(ICD-10) CHARLEY RILEY Active [facility] 06/27/2025 Active Memory impairmen t / R41.3(ICD-10) CHARLEY RILEY Active [facility] 06/27/2025 Active Unsteady gait wh en walking / R26.81(ICD-10) CHARLEY RILEY Active [facility] 06/27/2025 Active Encounter for sc reening examination for other mental health and behavioral disorders / Z13.39(ICD-10) CHARLEY RILEY Active [facility] 06/27/2025 Active Arm abrasion, le ft, initial encounter / S40.812A(ICD-10) CHARLEY RILEY Active [facility] 06/19/2025 Active Preop examinatio n / Z01.818(ICD-10) PODLOGAR, BABATUNDE Active [facility] 06/19/2025 Active Encounter for immunization / Z23(ICD-10) PODLOGAR, BABATUNDE Active [facility] 06/19/2025 Active Sinus bradycardi a / R00.1(ICD-10) PODLOGAR, BABATUNDE Active [facility] 06/19/2025 Active Normocytic anemi a / D64.9(ICD-10) PODLOGAR, BABATUNDE Active [facility] 06/19/2025 Active Essential (prima ry) hypertension / I10(ICD-10) PODLOGAR, BABATUNDE Active [facility] 06/19/2025 Active Primary osteoart hritis of both knees / M17.0(ICD-10) PODLOGAR, BABATUNDE Active [facility] 06/19/2025 Active Type 2 diabetes mellitus without complication, without long-term current use of insulin (HCC) / E11.9(ICD-10) PODLOGAR, BABATUNDE Active [facility] 02/28/2017 Active Hypertension, unspecified type / I10(ICD-10) PODLOGAR, BABATUNDE Active [facility] 03/27/2025 Active Other chronic pa in / G89.29(ICD-10) PODLOGAR, BABATUNDE Active [facility] 03/27/2025 Active Class 2 severe o besity with serious comorbidity and body mass index (BMI) of 35.0 to 35.9 in adult, unspecified obesity type (HCC) / E66.812(ICD-10) PODLOGAR, BABATUNDE Active [facility] 03/27/2025 Active Class 2 severe o besity with serious comorbidity and body mass index (BMI) of 35.0 to 35.9 in adult, unspecified obesity type (HCC) / E66.01(ICD-10) PODLOGAR, BABATUNDE Active [facility] 03/27/2025 Active Class 2 severe o besity with serious comorbidity and body mass index (BMI) of 35.0 to 35.9 in adult, unspecified obesity type (HCC) / Z68.35(ICD-10) PODLOGAR, BABATUNDE [facility] 02/12/2025 Active Neck pain, bilat eral / M54.2(ICD-10) CLUTTER, SEDRICK Active [facility] 04/22/2023 Active 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) PODLOGAR, BABATUNDE [facility] 06/02/2017 Active RANGEL (obstructive sleep apnea) / G47.33(ICD-10) PODLOGAR, BABATUNDE [facility] 06/02/2017 Active Depression, unsp ecified depression type / F32.A(ICD-10) PODLOGAR, BABATUNDE [facility] 02/28/2017 Active Hypothyroidism, unspecified type / E03.9(ICD-10) PODLOGAR, BABATUNDE [facility] 12/26/2024 Active Leg swelling / M79.89(ICD-10) PODLOGAR, BABATUNDE [facility] 03/31/2020 Active Controlled type 2 diabetes mellitus without complication, without long-term current use of insulin (HCC) / E11.9(ICD-10) NA Active [facility] PROCEDURES No Procedure Records Found RESULTS CNOV Observed: 06/27/2025 1:40 PM Status: COMPLETED Source: [facility] JENSEN GROSS ([id number]) 1945 F Date Time Provider Department 06/27/25 1:40 PM CHARLEY RILEY During your visit today, we recorded the following information about you: Pulse Respiration Blood pressure Weight 52/minute 16/minute 126/78 114.6 kg Charley Riley MD 06/27/2025 2:52 PM Signed Jensen Gross is a 80 year old female here for a Medicare wellness visit. Recording using [employer] software for draft documentation of the visit was discussed with the patient/authorized tax representative; all questions welcomed and answered. Patient/authorized tax representative agreed to proceed Anxiety: - Recent [...] both knees and feet due to being wxvk-fn-tjys. - Uses a walker at home for [...] Ruiz MD as Referring (Cerebrovascular) Podlogar, KIA Zurita.LEAD DATABASE DEVELOPER as Glove Stitcher (Family Medicine) Yanique Pascal APRN.SAMANTHA as Glove Stitcher (Family Medicine) Outside specialists seen: Ortho: Dr. [...] Reviewed and updated health care power of buildings and grounds director and living will; patient wishes to remain [...] ideation. 5. Arm abrasion, left, initial encounter (S40.500D) - Superficial abrasion on left arm from [...] propranolol refills processed today; prescriptions sent to [facility] in [place]. - Clean the small scrape on your [...] 1 CONSULT TO GERIATRICS [90] Order #: [id number]: 1 FUTURE ANXIETY SCREENING [2565981] Order #: [id number]: 1 PARKING FOR HANDICAPPED [2616892] Order #: [id number] Prescriptions as of 06/27/2025 - tiZANidine (ZANAFLEX) [...] propranolol refills processed today; [facility] [place]. - Clean the small scrape on your [...] (around 12/25/2025) for Follow up with Babatunde for routine. Follow-up and Disposition History for Encounter Date Provider Department Center 06/27/2025 [id number] RILEYIMER Wood [facility] Encounter Status:Closed by CHARLEY RILEY on 06/27/25 PROGRESS Observed: 06/27/2025 1:37 PM Status: [facility]TED [id number] Author: CHARLEY RILEY MD Service: ? Author Type: Physician Type: Progress Notes Filed: 06/27/2025 14:52 Note Text: Jensen Gross is a 80 year old female here for a Medicare wellness visit. Recording using [employer] software for draft documentation of the visit was discussed with the patient/authorized tax representative; all questions welcomed and answered. Patient/authorized tax representative agreed to proceed Anxiety: - Recent [...] both knees and feet due to being syvn-yg-[id number]. - Uses a walker at home for [...] Ruiz MD as Referring (Cerebrovascular) Podlogar, KIA Zurita.LEAD DATABASE DEVELOPER as Glove Stitcher (Family Medicine) Yanique Pascal APRN.CNP as Glove Stitcher (Family Medicine) Outside specialists seen: Ortho: Dr. [...] Reviewed and updated health care power of buildings and grounds director and living will; patient wishes to remain [...] ideation. 5. Arm abrasion, left, initial encounter (S40.592A) - Superficial abrasion on left arm from [...] Observed: 06/27/2025 12:00 AM Status: COMPLETED Source: [facility] Telephone ([facility]AMPWS) JOSEPHINEJENSEN ([id number]) 1945 F Date Time Provider Department 06/27/25 [facility] During your visit today, we recorded the following information about you: Brenna Grande LPN 06/27/2025 4:54 PM Signed [facility] needing signed [facility] clearance form faxed to [phone] by tuesday or they will have to cancel her surgery. Crystal is faxing a clearance form to the office. Please advise Charley Riley MD 06/28/2025 6:53 AM Signed Do we have the form I can sign? Charley Riley MD 06/28/2025 7:07 AM Signed Found it. Signed and given to nurse to fax. Dee Jenkins LPN 06/28/2025 8:22 AM Signed Form faxed to [employer] [facility] with confirmation received. Dee Jenkins LPN Allergies [...] Observed: 06/24/2025 12:00 AM Status: COMPLETED Source: [facility] Telephone (FAMPWS) JENSEN GROSS ([id number]) 1945 F Date Time Provider Department 06/24/25 CHARLEY RILEY During your visit today, we recorded the following information about you: Lan Pablo RN 06/24/2025 1:42 PM Signed Faxed recent ov notes to [facility] per Colleen request. Allergies As of Date: 06/24/2025 Noted Allergy Reaction PERCOCET (OXYCODONE-ACETAMINOPHEN)07/29/2017 11 - Vomiting 14 - Other: See Comments Comments: Sweating, severe cramping instantly after taking medication ANIMAL DANDER 04/28/2021 5 - Intolerance CEPHALOSPORINS 02/28/2017 7 - Swelling CODEINE 02/28/2017 7 - Swelling Date Reviewed: 06/19/2025 Reviewed by: Dee Jenkins LPN - Fully Assessed Reason for Visit: Faxed to [facility] [Other] Prescriptions as of 06/24/2025 - [...] Observed: 06/19/2025 6:18 PM Status: F Source: [facility] Ventricular Rate : 85 BPM Atrial Rate : 85 BPM P-R Interval : 154 ms QRS Duration : 84 ms Q-T Interval : 396 ms QTC Calculation(Bazett) : 471 ms Calculated P Hartman : 76 degrees Calculated R Hartman : 51 degrees Calculated T Hartman : 47 degrees SINUS RHYTHM WITH PREMATURE ATRIAL COMPLEXES in [facility] OTHERWISE NORMAL ECG Confirmed by MD WREN QARAB ([id number]) on 06/20/2025 5:21:53 PM NAME : JENSEN GROSS PID : [id number] : 1945 Gender : Female Race : ORD : Procedure Date : Jun 19 2025 18:18:11 Edit Date : Jun 20 2025 17:21:55 Diagnosis: SINUS RHYTHM WITH PREMATURE ATRIAL COMPLEXES in [facility] OTHERWISE NORMAL ECG Confirmed by MD WREN QARAB ([id number]) on 06/20/2025 5:21:53 PM Test Reason : Location : 136 : [facility] Overread By : MD WREN QARAB Edited By : MD WREN QARAB Referred By : , Acquired by : [id number], [id number] Observed: 06/19/2025 6:17 PM Status: F Source: [facility] Ventricular Rate : 82 BPM Atrial Rate : 82 BPM P-R Interval : 156 ms QRS Duration : 82 ms Q-T Interval : 386 ms QTC Calculation(Bazett) : 450 ms Calculated P Hartman : 56 degrees Calculated R Hartman : 52 degrees Calculated T Hartman : 40 degrees SINUS RHYTHM WITH PREMATURE SUPRAVENTRICULAR COMPLEXES in [facility] OTHERWISE NORMAL ECG Confirmed by MD WREN QARAB ([id number]) on 06/20/2025 5:21:40 PM NAME : JENSEN GROSS PID : [id number] : 1945 Gender : Female Race : ORD : Procedure Date : Jun 19 2025 18:17:25 Edit Date : Jun 20 2025 17:21:44 Diagnosis: SINUS RHYTHM WITH PREMATURE SUPRAVENTRICULAR COMPLEXES in [place] OTHERWISE NORMAL ECG Confirmed by MD WREN QARAB ([id number]) on 06/20/2025 5:21:40 PM Test Reason : Location : 136 : [facility] Overread By : MD WREN QARAB Edited By : MD WREN QARAB Referred By : , Acquired by : [id number], PROGRESS Observed: 06/19/2025 5:20 PM Status: COMPLETED Source: [facility] ID: [id number] Author: BABATUNDE RINCON APRN.LEAD DATABASE DEVELOPER Service: ? Author Type: Nurse Practitioner Type: [...] - Preoperative labs and EKG completed at [facility] on 05/21. - Orthopedic office informed [...] foot CKD (chronic kidney disease), stage III ([facility]) DDD (degenerative disc disease), cervical DDD (degenerative disc disease), thoracolumbar Depression Diabetes mellitus type II, controlled ([facility]) 01/2019 Ependymoma of spinal cord ([facility]) Dr. Alonso Essential tremor Dr. Alonso Fibromyalgia [...] in both knees and feet; x-ray showed ybqf-ed-umyi changes in both feet. - Left knee replacement scheduled for the . - Patient to see physical therapist prior to surgery. 7. Type 2 diabetes mellitus without complication, without long-term current use of insulin (HCC) (E11.9) - Recent A1c was 6.2, improved from 6.7 previously. - Encouraged patient to continue managing diabetes. Babatunde Reeselognoble, TRAMPOLINE TEAM COACH.LEAD DATABASE DEVELOPER Prescription instructions reviewed with patient as applicable. Patient advised if symptoms do not improve or if symptoms worsen sooner, to contact their primary care physician. Potential red flag symptoms discussed with the patient. Reviewed appropriate action plan to take if red flag symptoms occur. Patient agreeable to treatment plan. 22523 OVERALL COMPLEXITY Problem Complexity: Moderate Data Level: [...] test: EKG from 06/03 (reviewed, performed at [facility]); pre-op labs (reviewed, performed at [facility]); x-ray of feet (reviewed, performed by [...] test performed by another physician/other qualified health healthcare business analyst: - Discussion of management or test interpretation with external physician/other qualified health healthcare business analyst/appropriate source: Data complexity level: Moderate; meets Category [...] Observed: 06/19/2025 5:20 PM Status: COMPLETED Source: [facility] JENS[facility] GROSS ([id number]) 1945 F Date Time Provider Department 06/19/25 [...] - Preoperative labs and EKG completed at [facility] on 05/21. - Orthopedic office informed [...] foot CKD (chronic kidney disease), stage III ([facility]) DDD (degenerative disc disease), cervical DDD (degenerative disc disease), thoracolumbar Depression Diabetes mellitus type II, controlled ([facility]) 01/2019 Ependymoma of spinal cord ([facility]) Dr. Alonso Essential tremor Dr. Alonso Fibromyalgia [...] in both knees and feet; x-ray showed tqmb-zg-detc changes in both feet. - Left knee replacement scheduled for the . - Patient to see physical therapist prior to surgery. 7. Type 2 diabetes mellitus without complication, without long-term current use of insulin (HCC) (E11.9) - Recent A1c was 6.2, improved from 6.7 previously. - Encouraged patient to continue managing diabetes. Babatunde Reeselognoble, TRAMPOLINE TEAM COACH.LEAD DATABASE DEVELOPER Prescription instructions reviewed with patient as applicable. Patient advised if symptoms do not improve or if symptoms worsen sooner, to contact their primary care physician. Potential red flag symptoms discussed with the patient. Reviewed appropriate action plan to take if red flag symptoms occur. Patient agreeable to treatment plan. [id number] OVERALL COMPLEXITY Problem Complexity: Moderate Data Level: [...] test: EKG from 06/03 (reviewed, performed at [facility]); pre-op labs (reviewed, performed at [facility]); x-ray of feet (reviewed, performed by [...] test performed by another physician/other qualified health healthcare business analyst: - Discussion of management or test interpretation with external physician/other qualified health healthcare business analyst/appropriate source: Data complexity level: Moderate; meets Category [...] (HCC) [E11.9] Order(s):ECG COMPLETE [ECG01] Order #: [id number] INFLUENZA VACCINE, PRSV FREE, AGE 65+ YR, HIGH DOSE, TRIVALENT (FLUZONE HIGH-DOSE) [92530JOZ] Order #: [id number] Prescriptions as of 06/19/2025 - montelukast (SINGULAIR) [...] Observed: 05/08/2025 1:29 PM Status: COMPLETED Source: [facility] HNO ID: [id number] Author: NUPUR MATTSON MA Service: ? Author Type: Transformer Coil Winder Type: Progress Notes Filed: 05/08/2025 13:31 Note [...] Observed: 05/08/2025 12:00 AM Status: COMPLETED Source: [facility] Patient Outreach (NETNAV) JENSEN GROSS ([id number]) 1945 F Date Time Provider Department 05/08/25 [...] Observed: 04/17/2025 12:00 AM Status: COMPLETED Source: [facility] Telephone (DENISWS) JENSEN GROSS ([id number]) 1945 F Date Time Provider Department 04/17/25 [...] Fully Assessed Reason for Visit: Patient Question [0367] Prescriptions as of 04/17/2025 - montelukast (SINGULAIR) [...] Observed: 04/03/2025 1:04 PM Status: COMPLETED Source: [facility] HNO ID: [id number] Author: NUPUR MATTSON MA Service: ? Author Type: Transformer Coil Winder Type: Progress Notes Filed: 04/03/2025 13:05 Note [...] Mattson MA April 03, 2025 1:04 PM CNPTOUTREACH Observed: 04/03/2025 12:00 AM Status: COMPLETED Source: [facility] Patient Outreach (NETNAV) JENSEN GROSS ([id number]) 1945 F Date Time Provider Department 04/03/25 NUPUR MATTSON NETNAV During your visit today, [...] Population Health Navigation Outreach [3910] Cmt: [facility] Prescriptions as of 04/03/2025 - [...] Observed: 03/27/2025 3:17 PM Status: COMPLETED Source: [facility] HNO ID: [id number] Author: BABATUNDE RINCON APRN.LEAD DATABASE DEVELOPER Service: ? Author Type: Nurse Practitioner Type: Progress Notes Filed: 03/27/2025 15:51 Note Text: 03/27/2025 Patient presents with: Follow Up Recording using [employer] software for draft documentation of the visit was discussed with the patient/authorized tax representative; all questions welcomed and answered. Patient/authorized tax representative agreed to proceed SUBJECTIVE: This is [...] DM. Mental Health: - Jensen reports feeling hull molder now that the sun is out, but has a history of seasonal affective disorder (SAD). - Has requested medication for SAD in the past but was not prescribed. - Has a history of hibernating during the winter months, closing the house down and not interacting with neighbors. - Has a family history of mental illness, including a bofpsmb-cl-cjk with bipolar disorder. PAST MEDICAL HISTORY Diagnosis Date Chronic back pain Seeing pain management Dr. Crowder Chronic pain in left foot CKD (chronic kidney disease), stage III ([facility]) DDD (degenerative disc disease), cervical DDD (degenerative disc disease), thoracolumbar Depression Diabetes mellitus type II, controlled ([facility]) 01/2019 Ependymoma of spinal cord ([facility]) Dr. Alonso Essential tremor Dr. Alonso Fibromyalgia Headaches due to old head injury History of carpal tunnel release Hot flashes controlled on Paxil Hyperlipidemia Hypertension Hypothyroidism Lymphedema of left leg Migraines 05/09/2024 Morbid obesity ([facility]) RANGEL (obstructive sleep apnea) 05/26/2023 mild Osteoarthritis Knees and shoulders, seeing Dr. Gallo Spinal cord mass ([facility]) T9-T10 Dr. Alonso Vitamin D insufficiency ALLERGIES [...] or lesions to exposed skin Latest Ref [facility] 12/25/2024 Protein, Total 6.3 - 8.0 g/dL [...] to reassess weight and BMI. Babatunde Rincon APRN.LEAD DATABASE DEVELOPER Prescription instructions reviewed with patient as applicable. Patient advised if symptoms do not improve or if symptoms worsen sooner, to contact their primary care physician. Potential red flag symptoms discussed with the patient. Reviewed appropriate action plan to take if red flag symptoms occur. Patient agreeable to treatment plan. CNOV Observed: 03/27/2025 3:00 PM Status: COMPLETED Source: [facility] JENS[facility] GROSS ([id number]) 1945 F Date Time Provider Department 03/27/25 3:00 PM BABATUNDE RINCON During your visit today, we recorded the following information about you: Pulse Blood pressure Weight Height 51/minute 136/73 111.3 kg 1.778 m Babatunde Rincon APRN.CNP 03/27/2025 3:51 PM Signed 03/27/2025 Patient presents with: Follow Up Recording using [employer] software for draft documentation of the visit was discussed with the patient/authorized tax representative; all questions welcomed and answered. Patient/authorized tax representative agreed to proceed SUBJECTIVE: This is [...] has type 1 DM. Mental Health: - eJnsen reports feeling hull molder now that the sun is out, but has a history of seasonal affective disorder (SAD). - Has requested medication for SAD in the past but was not prescribed. - Has a history of hibernating during the winter months, closing the house down and not interacting with neighbors. - Has a family history of mental illness, including a nfeduhg-yx-abp with bipolar disorder. PAST MEDICAL HISTORY Diagnosis Date Chronic back pain Seeing pain management Dr. Crowder Chronic pain in left foot CKD (chronic kidney disease), stage III ([facility]) DDD (degenerative disc disease), cervical DDD (degenerative disc disease), thoracolumbar Depression Diabetes mellitus type II, controlled ([facility]) 01/2019 Ependymoma of spinal cord ([facility]) Dr. Alonso Essential tremor Dr. Alonso Fibromyalgia Headaches due to old head injury History of carpal tunnel release Hot flashes controlled on Paxil Hyperlipidemia Hypertension Hypothyroidism Lymphedema of left leg Migraines 05/09/2024 Morbid obesity ([facility]) RANGEL (obstructive sleep apnea) 05/26/2023 mild Osteoarthritis Knees and shoulders, seeing Dr. Gallo Spinal cord mass ([facility]) T9-T10 Dr. Alonso Vitamin D insufficiency ALLERGIES [...] months to reassess weight and BMI. Babatunde Reeselognoble, KIA.LEAD DATABASE DEVELOPER Prescription instructions reviewed with patient as applicable. [...] type (HCC) [E66.812, E66.01, Z68.35] Order(s):HEMOGLOBIN A1C [MOSQH1Y] Order #: [id number] FUTURE COMPREHENSIVE METABOLIC PANEL [SQCMP] Order #: [id number] FUTURE THYROID STIMULATING HORMONE [SQTSH] Order #: [id number] FUTURE COMPLETE BLOOD COUNT AND DIFFERENTIAL [SQCBCDIF] Order #: [id number] FUTURE Prescriptions as of 03/27/2025 - pramipexole [...] for Encounter Date Provider Department Center 03/27/2025 [id number] RINCONFRANSISCO Wood [facility] Encounter Status:Closed by BABATUNDE RINCNO on 03/27/25 PROGRESS Observed: 02/13/2025 2:29 PM Status: COMPLETED Source: [facility] HNO ID: [id number] Author: NUPUR MATTSON MA Service: ? Author Type: Transformer Coil Winder Type: Progress Notes Filed: 02/13/2025 14:37 Note [...] Observed: 02/13/2025 12:00 AM Status: COMPLETED Source: [facility] Patient Outreach (NETNAV) JENSEN GROSS ([id number]) 1945 F Date Time Provider Department 02/13/25 NUPUR MATTSON NETSAMUEL During your visit today, we recorded the [...] Population Health Navigation Outreach [3910] Cmt: [facility] [place] [facility] Prescriptions as of 02/13/2025 - hydroCHLOROthiazide [...] Observed: 02/12/2025 3:22 PM Status: COMPLETED Source: [facility] HNO ID: [id number] Author: SEDRICK CALDWELL PA-C Service: ? Author Type: Physician Salon Receptionist Type: Progress Notes Filed: 02/12/2025 15:35 Note Text: This note was created using [employer]. Subjective Jensen Gross is a 79 year [...] no treatment or management indicated at this [facility] at the present time. Patient was clearly [...] Observed: 02/12/2025 3:00 PM Status: COMPLETED Source: [facility] Office Visit (WSTR) JENSEN GROSS ([id number]) 1945 F Date Time Provider Department 02/12/25 3:00 PM SEDRICK CALDWELL [facility] During your visit today, we recorded the following information about you: Temperature Pulse Respiration Blood pressure 98.8 degrees 60/minute 16/minute 122/80 Weight 108.1 kg Sedrick Caldwell PA-C 02/12/2025 3:35 PM Signed This note was created using [employer]. Subjective Jensen Gross is a 79 year [...] no treatment or management indicated at this [facility] at the present time. Patient was clearly [...] Service: OFFICE/OUTPATIENT ESTABLISHED MOD MDM 30 MIN [76370] Encounter Status:Closed by SEDRICK CALDWELL on 02/12/25 CNOV Observed: 12/26/2024 2:20 PM Status: COMPLETED Source: [facility] Office Visit (LUIS ANTONIO) JENSEN GROSS ([id number]) 1945 F Date Time Provider Department 12/26/24 [...] HYPOTHYROIDISM: taking synthroid as prescribed Follows with [facility] neurology for hx of migraines, ependymoma of [...] foot CKD (chronic kidney disease), stage III ([facility]) DDD (degenerative disc disease), cervical DDD (degenerative disc disease), thoracolumbar Depression Diabetes mellitus type II, controlled ([facility]) 01/2019 Ependymoma of spinal cord ([facility]) Dr. Alonso Essential tremor Dr. Alonso Fibromyalgia Headaches due to old head injury History of carpal tunnel release Hot flashes controlled on Paxil Hyperlipidemia Hypertension Hypothyroidism Lymphedema of left leg Migraines 05/09/2024 Morbid obesity ([facility]) RANGEL (obstructive sleep apnea) 05/26/2023 mild Osteoarthritis Knees and shoulders, seeing Dr. Gallo Spinal cord mass ([facility]) T9-T10 Dr. Alonso Vitamin D insufficiency ALLERGIES [...] wants to see specialist about [facility] in [place] - will get me info so I [...] continue medications - follow-up as needed Babatunde ReeselogBENJAMIN bryant Prescription instructions reviewed with patient as [...] Medical Decision Making Level: 4 - Moderate Mary AnnlogarBabatunde APRN.CNP 12/26/2024 3:01 PM Signed Update me [...] once daily.Disp: 30 capsuleRfl: 1 HEMOGLOBIN A1C [GZABP7C] Order #: [id number] FUTURE Prescriptions as of 12/26/2024 - hydroCHLOROthiazide [...] for Encounter Date Provider Department Center 12/26/2024 [id number] RINCON [facility] Encounter Status:Closed by BABATUNDE RINCON on 12/26/24 PROGRESS Observed: 12/26/2024 2:20 PM Status: COMPLETED [facility]: [facility] HNO ID: [id number] Author: BABATUNDE RINCON APRN.LEAD DATABASE DEVELOPER Service: ? Author Type: Nurse Practitioner Type: [...] HYPOTHYROIDISM: taking synthroid as prescribed Follows with [facility] neurology for hx of migraines, ependymoma of [...] foot CKD (chronic kidney disease), stage III ([facility]) DDD (degenerative disc disease), cervical DDD (degenerative disc disease), thoracolumbar Depression Diabetes mellitus type II, controlled ([facility]) 01/2019 Ependymoma of spinal cord ([facility]) Dr. Alonso Essential tremor Dr. Alonso Fibromyalgia Headaches due to old head injury History of carpal tunnel release Hot flashes controlled on Paxil Hyperlipidemia Hypertension Hypothyroidism Lymphedema of left leg Migraines 05/09/2024 Morbid obesity ([facility]) RANGEL (obstructive sleep apnea) 05/26/2023 mild Osteoarthritis Knees and shoulders, seeing Dr. Gallo Spinal cord mass ([facility]) T9-T10 Dr. Alonso Vitamin D insufficiency ALLERGIES [...] or lesions to exposed skin Latest Ref [facility] 12/25/2024 Protein, Total 6.3 - 8.0 g/dL [...] wants to see specialist about [facility] in [place] - will get me info so I [...] medications - follow-up as needed Babatunde Podlogar, TRAMPOLINE TEAM COACH.LEAD DATABASE DEVELOPER Prescription instructions reviewed with patient as applicable. [...] ed: 12/25/2024 1:20 PM Status: F Source: [facility] Order Comment: Specimen Type : URINE SPECIMEN Ordering Facility: [facility] Address: [address] [place] [address] TYPE CODE TESTS RESULT OUT OF RANGE REFERENCE UNITS LAB 2161-8(LOINC) Creat Ur-mCnc 115.9 20.0-300.0 m g/dL LAB 28243-5(LOINC ) Microalbumin Ur-mCnc <12.0 mg/L LAB 9318-7(LOINC) [...] 3(1), 1-150. Performed By: #### UACR #### [facility] CLIA [id number] [address] [place] [address] [place] [address] [place] LIPID 1996 PNL SERPL Collected: 025 1:14 PM Status: F Source: [facility] Order Comment: Specimen Type : BLOOD SPECIMEN Ordering Facility: [facility] Address: [address] [place] [address] TYPE CODE TESTS RESULT OUT OF RANGE [...] risk factor for coronary heart disease LAB 14770-3(LOINC) NonHDLc SerPl-mCnc 66 <130 mg/dL Result Comment: <130 mg/dL, Optimal 130-159 mg/dL, Near optimal/above optimal 160-189 mg/dL, Borderline high 190-219 mg/dL, High >219 mg/dL, Very high Secondary prevention optimal non HDL Cholesterol levels are recommended to be <100 mg/dL LAB FT FASTING TIME 15 hrs LAB 99111-3(LOINC) VLDLc SerPl Calc-mCnc 16 <30 mg/dL LAB 9830-1(LOINC) Cholest/HDLc SerPl 1.93 <5.10 LAB 2089-1(LOINC) LDLc SerPl-mCnc 50 <100 mg/dL Result Comment: <100 mg/dL, Optimal 100-129 mg/dL, Near optimal/above optimal 130-159 mg/dL, Borderline high 160-189 mg/dL, High >189 mg/dL, Very high Secondary prevention optimal LDL Cholesterol levels are recommended to be < 70 mg/dL LAB 99492-6(LOINC) LDLc/HDLc SerPl 0.70 <2.54 Result Comment: Reference: 1. National Cholesterol Education Program ATP III Guideline At-A-Glance Quick Desk Reference: National Heart, Lung, and Blood [place]. National Institutes of Health. 2001: NIH Publication No. 01-3305. 2. An International Atherosclerosis Society position paper: global recommendations for the management of dyslipidemia: executive summary, Atherosclerosis. 2014: 232(2):410-413. Performed By: #### 68246-9 # ### [facility] CLIA [id number] [address] [place] [address] CLIA [id number] [address] [place] [address] DEPRECATED HGB A1C BLD Collected: 12/25 1:14 PM Status: F Source: [facility] Order Comment: Specimen Type : BLOOD SPECIMEN Ordering Facility: [facility] Address: [address] [place] [address] TYPE CODE TESTS RESULT OUT OF RANGE REFERENCE UNITS LAB 4548-4(INC) HbA1c MFr Bld 6.4 High 4.3-5.6 % Result Comment: [place] Leah betes Association guidelines indicate that patients with HgbA1c in the range 5.7-6.4% are at increased risk for development of diabetes, and intervention by lifestyle modification may be beneficial. HgbA1c greater or equal to 6.5% is considered diagnostic of diabetes. LAB 37836-9(LOINC) Est. average glucose Bld gHb Est-mCnc 137 mg/dL Result Comment: eAG: (Estima xochitl average glucose) is a calculated value from HgbA1c and is tax representative of the average blood glucose level in the last 2-3 month period. Performed By: #### 71980-0 # ### [facility] CLIA [id number] [address] [id number] [address] [place] COMP METAB 2000 PNL SERPL Collected: 1:14 PM Status: F Source: [facility] Order Comment: Specimen Type : BLOOD SPECIMEN Ordering Facility: [facility] Address: [place] [id number] TYPE CODE TESTS RESULT OUT OF RANGE REFERENCE UNITS LAB 2885-2(LOINC) Prot SerPl-mCnc 7.0 6.3-8.0 g/dL LAB 1751-7(LOINC) Albumin SerPl-mCnc 4.0 3.9-4.9 g/dL LAB 32872-4(LOINC) Calcium SerPl-mCnc 9.8 8.5-10.2 mg/dL LAB 1975-2(LOINC) Bilirub SerPl-mCnc 0.2 0.2-1.3 mg/dL LAB 6768-6(LOINC) ALP SerPl-cCnc 115 34-123 U/L LAB 1920-8(LOINC) AST SerPl-cCnc 21 13-35 U/L LAB 1742-6(LOINC) ALT SerPl-cCnc 12 7-38 U/L LAB 2345-7(LOINC) Glucose SerPl-mCnc 89 74-99 mg/dL Result Comment: The [place] Diabetes Association (ADA) provides guidance for cutoff [...] Standards of Medical Care in Diabetes 2016, [place] Diabetes Association. Diabetes Care. 2016.39(Suppl 1). LAB 3094-0(LOINC) BUN SerPl-mCnc 31 High 7-21 mg/ dL LAB 2160-0(LOINC) Creat SerPl-mCnc 1.11 High 0.58-0.96 mg/dL LAB 2951-2(LOINC) Sodium SerPl-sCnc 138 136-144 mmol/L LAB 2823-3(LOINC) Potassium SerPl-sCnc 4.1 3.7-5.1 mmol/L LAB 2075-0(LOINC) Chloride SerPl-sCnc 100 98-107 mmol/L LAB 2027-9(LOINC) CO2 SerPl-sCnc 28 22-30 mmo l/L LAB 59907-7(LOINC) Anion Gap SerPl-sCnc 10 8-15 mmol/L LAB 70289-4(LOINC) Creatinine + eGFR Pnl SerPlBld 51 Low [...] accurately reflect actual GFR. Performed By: #### 74071-6 # ### [id number] [address] [place] [address] STATES OF [facility] PROGRESS Observed: 12/21/2024 9:22 AM Status: COMPLETED Source: [facility] HNO ID: [id number] Author: VALERIE MOORE RN Service: ? Author Type: Registered Nurse Type: Progress Notes Filed: 12/21/2024 09:22 Note Text: Called and left a detailed voicemail notifying patient of providers message. Clinic phone number was left in case patient had any questions. Valerie Moore RN PROGRESS Observed: 12/20/2024 10:28 AM Status: COMPLETED Source: [facility] HNO ID: [id number] Author: CHARLEY RILEY MD Service: ? Author Type: Physician Type: Progress Notes Filed: 12/20/2024 10:29 Note Text: Fasting labs ordered to be completed 1-2 days prior to OV. PROGRESS Observed: 12/19/2024 8:12 AM Status: COMPLETED Source: [facility] HNO ID: [id number] Author: NUPUR MATTSON MA Service: ? Author Type: Transformer Coil Winder Type: Progress Notes Filed: 12/21/2024 09:22 Note [...] Observed: 12/19/2024 12:00 AM Status: COMPLETED Source: [facility] Patient Outreach (NETNAV) JENSEN GROSS ([id number]) 1945 F Date Time Provider Department 12/19/24 NUPUR MATTSON NETSAMUEL During your visit today, we recorded the [...] Health Navigation Outreach [3910] Cmt: ACO WORKBETICO GREENWOODA Primary Visit Diagnosis:Controlled type 2 diabetes mellitus without complication, without long-term current use of insulin (HCC) [E11.9] Order(s):HEMOGLOBIN A1C [KPQDT0O] Order #: [id number] FUTURE COMPREHENSIVE METABOLIC PANEL [SQCMP] Order #: [id number] FUTURE ALBUMIN/CREATININE RATIO, URINE [SQUACR] Order #: [id number] FUTURE LIPID PANEL BASIC [SQLIPB] Order #: [id number] FUTURE Prescriptions as of 12/21/2024 - atorvastatin [...] / CODE REACTION SEVERITY SOURCE 04/28/2021 DRUG INGREDI/24207 1003(SNOMED CT) ANIMAL DANDER INTOLERANCE [facility] 07/29/2017 DRUG/10146939 3(SNOMED CT) OXYCODONE-ACETAMINOPHEN Vomiting [facility] 02/28/2017 Drug Class/9940721 03(SNOMED CT) CEPHALOSPORINS SWELLING [facility] 02/28/2017 DRUG INGREDI/45623 1003(SNOMED CT) CODEINE SWELLING [facility] ENCOUNTERS ADMIT/DISCHARGE ACCOUNT NUMBER ADMITTING ENCOUNTER CLASS LOC ATION SOURCE 06/27/2025/ 5 [id number] [facility] 06/19/2025/ 5 [id number] [facility] 03/27/2025/ 5 [id number] [facility] 02/12/2025/ 5 [id number] [facility] 12/26/2024/ 5 [id number] [facility] 12/25/2024/ 5 [id number] [facility] PAYERS ENCOUNTER GUARANTOR PAYER SUBSCRIBER SOURCE 06/27/2025 Primary Insuranc e:MEDICARE A AND BPolicy Number: [id number] Date:4290-44-66Ugiv Name:Nhi MARIANOChristal: [id number] [place] [address] [facility] 06/27/2025 Secondary Insura nce:[employer] [place] MEDICARE SUPPLEMENTPolicy Number: [id number] Date:1273-36-08Ifcd Name:Mayda GENAOJENSENARGELIA ADAMSON: [id number] [place], [place] [address] [place] [address] 06/19/2025 Primary Insuranc e:MEDICARE A AND BPolicy Number: [id number] Date:9348-47-13Vgfp Name:Nhi GENAOJENSENARGELIA ADAMSON: [id number] [place], [place] [address] [place] [address] 06/19/2025 Secondary Insura nce:[employer] [place] MEDICARE SUPPLEMENTPolicy Number: [id number] Date:7820-51-10Qguy Name:Mayda STYLES SNOW: [id number] [place] [address] [facility] 03/27/2025 Primary Insuranc e:MEDICARE A AND BPolicy Number: [id number] Date:2564-42-58Qtyc Name:Nhi STYLES SNOW: [id number] [place], [place] [address] [place] [address] 03/27/2025 Secondary Insura nce:[employer] [place] MEDICARE SUPPLEMENTPolicy Number: [id number] Date:0841-29-55Bwgi Name:Mayda STYLES SNOW: [id number] [place], [place] [address] [place] [address] 02/12/2025 Primary Insuranc e:MEDICARE A AND BPolicy Number: [id number] Date:7749-89-98Rklr Name:Nhi MARIANOB: [id number] [place] [address] [facility] 02/12/2025 Secondary Insura nce:[employer] [place] MEDICARE SUPPLEMENTPolicy Number: [id number] Date:9593-13-58Mafe Name:Mayda GROSSB: [id number] [place], [place] [address] [place] [address] 12/26/2024 Primary Insuranc e:MEDICARE A AND BPolicy Number: [id number] Date:3632-73-68Azho Name:Nhi MARIANOB: [id number] [place], [place] [address] [place] [address] 12/26/2024 Secondary Insura nce:[employer] [place] MEDICARE SUPPLEMENTPolicy Number: [id number] Date:2645-14-05Ygan Name:Mayda STYLES SWATIJULESB: [id number] [place], [place] [address] [place] [address] 12/25/2024 Primary Insuranc e:MEDICARE A AND BPolicy Number: [id number] Date:7249-99-71Cobe Name:Nhi MARIANOB: [id number] [place] [address] [facility] 12/25/2024 Secondary Insura nce:[employer] [place] MEDICARE SUPPLEMENTPolicy Number: [id number] Date:5372-16-77Fbfr Name:Mayda GROSSB: [id number] [place] [address] [facility]
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
[2025-07-08] VITALS (18 sets, daily range): BP systolic 117–209; BP diastolic 59–125; PULSE 50–69; RESP 14–18; TEMP 35.9–36.9; O2SAT 96–100; BMI 35.8
--- NOTE | 2025-07-08 06:53 | RAD_ITS ---
PROCEDURE: KNEE 1 OR 2 VIEWS 07/08/2025 REASON FOR EXAM: TKA TECHNIQUE: Procedure Code: RADK Modality: DX Procedure: KNEE 1 OR 2 VIEWS Left knee three views COMPARISON: None FINDINGS: There is a total knee prosthesis in position. Surgical kiah are noted with soft tissue air consistent with recent surgery. Mineralization is normal. There is no visible atherosclerosis. RAD/Knee 1 or 2 Views IMPRESSION: Hardware in position. Reading Location: [facility]
[2025-07-08] MEDS: Magnesium 1 GM over 15 mins IV (08:04)
[2025-07-08] MEDS: LR 1,000 ML - BOLUS PREOP 999 ML IV (08:04)
--- NOTE | 2025-07-08 08:26 | PRE.ANES_ITS ---
ASA Classification* ASA Classification ASA Classification: 3 Assessment & Plan Anesthesia* Anesthesia Assessment Anesthesia Assessment: Discussed sedation and/or anesthesia options, risks, benefits, and alternatives with patient/parents/legal guardian/POA. Questions invited. The patient/parents/legal guardian/POA seems to understand and agrees to proceed with anesthesia plan. Reviewed the physical assessment, medical history, allergy history and patient home medications list prior to surgery/procedure/anesthetic and documented any changes. Performed airway and anesthesia risk assessments. Procedural Plan Add'l anesthesia plan details: Adductor Cannel and general; Patient has previous syrinx and ependymoma of spinal cord. Anesthesia Type Anesthesia Type: General History Source History Obtained from:: Patient and Chart Anesthesia Focused Assessment* Temperature: 98.4 F Pulse Rate: 50 Blood Pressure: 117/59 Respiratory Rate: 16 Pulse Ox: 99 Oxygen Delivery Method: Room Air Airway Assessment Mouth opens: >3 cm Mallampati Score: II Labs Anesthesia Preop lab: CBC WBC, (4.4-11.0) 5.4 K/mm3 06/17/25, 17:37 RBC, (4.2-5.4) 3.54 M/mm3 L 06/17/25, 17:37 Hgb, (12.0-15.0) 11.4 g/dL L 06/17/25, 17:37 Hct, (37-47) 34.8 % L 06/17/25, 17:37 Plt Count, (150-450) 217 K/mm3 06/17/25, 17:37 CHEMISTRY Potassium, (3.3-5.1) 4.4 mmol/L 06/17/25, 17:37 Sodium, (133-145) 138 mmol/L 06/17/25, 17:37 Magnesium, (1.5-2.2) 2.1 mg/dL 06/17/25, 17:37 BUN, (4-19) 27 mg/dL H 06/17/25, 17:37 Creatinine, (0.70-1.20) 0.95 mg/dL 06/17/25, 17:37 Glucose, (70-99) 180 mg/dL H 06/17/25, 17:37 POC Glucose, (74-106) 134 mg/dL H Today, 07:39 TSH, (0.300-4.200) 2.950 uIU/mL 06/17/25, 17:36 COAG PT, (11.7-14.9) 14.6 SECONDS 01/20/23, 11:20 Pre-Assessment Diagnosis/Proposed Procedure Planned Operative Procedure(s): ROBOTIC LEFT TOTAL KNEE ATHROSCOPY Anesthesia History 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 When Was Last Pacemaker Check QUESTION #4 FULL TEXT: You/Your Family Experience fever (hyperthermia) with Anesthesia Last Oral Intake Last Oral intake: Last Oral Intake NPO since 06:00 07/08/25 07:36 Meds taken in AM with sips of Yes 07/08/25 07:36 water? Meds patient instructed to take am of surgery PONV PONV - bristle machine operator: PONV - bristle machine operator Female Yes 06/11/25 15:14 HX of Motion Sickness No 06/11/25 15:14 HX of N/V After Surgery No 06/11/25 15:14 Non-Smoker Yes 06/11/25 15:14 Duration of Surgery greater Yes 06/11/25 15:14 than 60 minutes Number of Risk Factors 3 06/11/25 15:14 PONV Score Moderate Risk 06/11/25 15:14 Height & Weight Height & Weight: Anesthesia: Height & Weight Height 5 ft 9 in 07/08/25 07:36 Weight: 109.996 kg 07/08/25 07:36 Body Mass Index (BMI) 35.8 07/08/25 07:36 Respiratory Assessment Respiratory Assessment - bristle machine operator: Respiratory Tract Infection Hx - bristle machine operator Hx Respiratory Tract Infection No 06/11/25 15:14 STOP Sleep Apnea STOP Sleep Apnea - bristle machine operator: STOP Sleep Apnea - bristle machine operator Hx Hypertension Yes 06/11/25 15:14 Hx Sleep Apnea Yes 06/11/25 15:14 CPAP No 06/11/25 15:14 BIPAP No 06/11/25 15:14 Do you snore loudly (louder than talking or can be heard Do you often feel tired/ fatigued/ sleepy during daytime? Has anyone observed you stop breathing during sleep? STOP Results Positive 06/11/25 15:14 QUESTION #5 FULL TEXT : Do you snore loudly (louder than talking or can be heard through closed doors)? 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 Specify any problems Hx of Preganancy in last 3 No 06/11/25 15:14 Months Nurse Filling Out Transfusion [email or web address] 06/11/25 15:14 & Questions: Date: 06/11/25 06/11/25 15:14 Time: 15:28 06/11/25 15:14 Patient unable to answer at this time (ie. confused, unrespo /Reproduction History /Reproductive History - bristle machine operator: /Reproductive Hx- bristle machine operator Hx Now Gestational Age (in weeks): EDC: Hx Hx Para Hx Section SAB No 12/20/24 15:17 Active Medications Active Medications: Current Medications Generic Name Dose Route Start Last Admin Trade Name Freq PRN Reason Stop Dose Admin Acetaminophen 1,000 mg 07/08/25 10:30 07/08/25 08:05 Acetaminophen 500 Mg Tablet PO 07/08/25 10:31 1,000 mg PREOP ONE Administration Acetaminophen 1,000 mg 07/08/25 07:00 Acetaminophen 500 Mg Tablet PO Q8H AMARIS Aspirin 81 mg 07/08/25 10:00 Aspirin 81 Mg Tab.Chew PO BID AMARIS Sodium Chloride 78.9 ml/ 0 ml 07/08/25 10:30 Ropivacaine 200 mg/ IV 07/08/25 10:31 Epinephrine HCl 0.6 mg/ INTRAOP ONE Morphine Sulfate 5 mg Dexamethasone Sodium Phosphate 10 mg 07/08/25 10:30 Dexamethasone 10 Mg/Ml Vial IV 07/08/25 10:31 INTRAOP ONE Enteral Nutritional Formula 237 ml 07/08/25 08:00 Ensure Surgery 237 Ml Liquid PO TIDCM [facility] Famotidine 20 mg 07/08/25 10:00 Famotidine 20 Mg Tablet PO DAILY AMARIS Gabapentin 600 mg 07/08/25 10:30 07/08/25 08:05 Gabapentin 600 Mg Tablet PO 07/08/25 10:31 600 mg PREOP ONE Administration Lactated Ringer's 1,000 mls @ 999 mls/hr 07/08/25 10:30 07/08/25 08:04 IV 07/08/25 11:30 999 mls/hr .Q1H1M AMARIS Administration Clindamycin Phosphate 900 mg in 50 mls @ 75 mls/hr 07/08/25 10:30 Cleocin IV 07/08/25 11:09 INTRAOP ONE Tranexamic Acid 1,000 mg/ 110 mls @ 660 mls/hr 07/08/25 10:30 Sodium Chloride IV 07/08/25 10:39 INTRAOP ONE Tranexamic Acid 1,000 mg/ 110 mls @ 660 mls/hr 07/08/25 10:30 Sodium Chloride IV 07/08/25 10:39 INTRAOP ONE Lactated Ringer's 1,000 mls @ 999 mls/hr 07/08/25 10:30 IV 07/08/25 11:30 .Q1H1M AMARIS Lactated Ringer's 1,000 mls @ 125 mls/hr 07/08/25 10:30 IV 07/08/25 18:29 .Q8H AMARIS Magnesium Sulfate 1 gm/ 102 mls @ 408 mls/hr 07/08/25 10:30 07/08/25 08:04 Dextrose IV 07/08/25 10:44 408 mls/hr PREOP ONE Administration Clindamycin Phosphate 600 mg in 50 mls @ 100 mls/hr 07/08/25 07:00 Cleocin IV 07/08/25 19:29 Q6H AMARIS Vancomycin HCl 1,000 mg/ 270 mls @ 250 mls/hr 07/08/25 06:53 Dextrose IV 07/08/25 07:52 RX TO DOSE ONE Insulin Human Lispro 1 - 6 unit 07/08/25 10:30 Insulin Lispro 100 Unit/Ml Insuln.Pen SC 07/08/25 18:00 Q4H PRN PRN BG>/= 180, SEE PROTOCOL Protocol Morphine Sulfate 2 - 4 mg 07/08/25 06:53 Morphine 2 Mg/Ml Syringe IV Q2H PRN PRN Pain Score 4-10 Ondansetron HCl 4 mg 07/08/25 06:53 Ondansetron 4 Mg/2 Ml Vial IV Q6H PRN PRN NAUSEA/VOMITING Oxycodone HCl 5 - 10 mg 07/08/25 06:53 Oxycodone 5 Mg Tablet PO Q4H PRN PRN Pain Score 4-10 Promethazine HCl 12.5 mg 07/08/25 06:53 Promethazine 25 Mg Tablet PO Q6H PRN PRN NAUSEA/VOMITING Promethazine HCl 12.5 mg 07/08/25 06:53 Promethazine 25 Mg/Ml Syringe IM Q6H PRN PRN NAUSEA/VOMITING Senna/Docusate Sodium 2 tablet 07/08/25 10:00 Senna/Docusate Sodium 1 Tablet PO BID [facility] Medical History Open wound Cardiology follow-up encounter Anxiety Seasonal allergies Carpal tunnel syndrome Wears glasses Depression Arthritis High cholesterol Back pain Migraine headache Non-smoker CPAP (continuous positive airway pressure) dependence History of edema History of stress test Thyroid disease Diabetes Lymphedema Hypertension Home Medications ?Medication ?Instructions ?Recorded ?Last Taken ?Type propranolol 40 mg tablet 40 mg PO BID #60 TABLETS 07/08/25 Rx diclofenac sodium 1 % topical gel 1 ea topical DAILY p ain prn 07/26/18 Unknown History fluticasone propionate 50 2 puff inhalation DAILY PRN PRN 07/26/18 Unknown History mcg/actuation nasal Allergies spray,suspension cholecalciferol (vitamin D3) 50 50 mcg PO DAILY Unknown History mcg (2,000 unit) capsule (Vitamin D3) levothyroxine 125 mcg tablet 125 mcg PO DAILY 08/29/23 07/08/25 History gabapentin 600 mg tablet 600 mg PO BID 03/13/24 Unkno wn History hydrocodone 7.5 mg-acetaminophen 1 tab PO TID PRN pain 03/13/24 Unknown History 325 mg tablet paroxetine HCl 30 mg tablet 30 mg PO QDAY 10/09/24 History Rollator #1 ea 12/24/24 Unknown Rx bupropion HCl 150 mg tablet,12 hr 150 mg PO BID #180 e a 04/26/25 07/08/25 Rx sustained-release ondansetron HCl 4 mg tablet 4 mg PO TID PRN nausea and 04/26/25 Unknown Rx vomiting #90 tabs pramipexole 1.5 mg tablet 1.5 mg PO QHS #90 tabs 04/26 Unknown Rx primidone 50 mg tablet 100 mg (2 x 50 mg) PO BID #3 60 tabs 04/26/25 07/08/25 Rx tizanidine 4 mg tablet See Rx Instructions .Route 0 04/26/25 Unknown Rx .COMPLEX muscle spasticity #90 tabs ubrogepant 100 mg tablet (Ubrelvy) 100 mg PO DAILY PRN headache #8 04/26/25 Unknown Rx tabs atorvastatin 40 mg tablet 40 mg PO QHS cholesterol 12/04 Unknown History losartan 50 mg tablet 50 mg PO DAILY 06/11/2506/11 History Gemtesa 75 mg tablet (vibegron) 75 mg PO QDAY #90 tabs 07/02/25 Unknown Rx Allergy/AdvReac Type Severity Reaction Status Date / Time Cephalosporins Allergy Severe Anaphylaxis Verified 07/02/25 13:50 codeine Allergy Severe Itching Verified 07/02/25 13:50 tree and shrub pollen Allergy Mild NEEDS Verified 07/02/25 13:50 FOLLOW-UP animal dander Allergy Other Verified 07/02/25 13:50 oxycodone Allergy Vomiting Verified 07/02/25 13:50 Family History Father Alcoholism Mental disorder Mother Alcoholism Arthritis Heart disease Cancer lung Brother Alcoholism Sister Glaucoma Surgical History S/P insertion of spinal cord stimulator Hx of toe surgery Hx of toe surgery Hx of nasal septoplasty Hx of hand surgery Hx of elbow surgery History of carpal tunnel surgery of left wrist Hx of arthroscopy of shoulder Hx of breast reduction, elective Hx laparoscopic cholecystectomy Hx of arthroscopic knee surgery Hx of hysterectomy Hx of foot surgery Social History Smoking Status: Never smoker second hand exposure: No alcohol intake: current details: occasionally substance use type: does not use what type of physical activity do you participate in: none rachel/mandaen: None seatbelt use: sometimes Addt'l Information Additional Findings: Sinus Brardy Review of Systems (Anesthesia) ROS Narrative System reviewed and no additional complaints, except as documented. Physical Exam Const alert, oriented x3 and average body habitus Resp normal respiratory effort and normal air movement Auscultation: clear to auscultation bilaterally Cardio regular rate and regular rhythm Back/Spine normal ROM Neuro oriented x3 and moves all extremities
[2025-07-08] MEDS: Midazolam 2 MG/2 ML Syringe 1 MG IV (08:35)
[2025-07-08] MEDS: Lactated Ringers 1,000 ML 1000 ML IV (08:52)
[2025-07-08] MEDS: Lidocaine 1% (5 ml sdv) 5 ML Vial IV (08:58)
[2025-07-08] MEDS: fentaNYL 100 MCG/2 ML Ampul IV (09:43)
[2025-07-08] MEDS: TRANEXAMIC ACID 1,000 MG/10 ML ML 2000 MG IV (10:19)
[2025-07-08] MEDS: Joint Pain Solution (NO KETOROLAC) IV (10:20)
--- NOTE | 2025-07-08 10:23 | OP.PCM_ITS ---
Operative Report (Standard) Operative Information Date of Procedure: 07/08/25 Pre-Operative Diagnosis: Left knee primary osteoarthritis Post-Operative Diagnosis: Left knee primary osteoarthritis Surgery/Procedure Performed: Left knee minimally invasive robotic assisted total arthroplasty fitness sales consultant: Yes Office Services Clerk: Kristin Villanueva Tasks completed by certified first assistant: Other (See body of operative report) Additional producer assistant?: No Type of Anesthesia: Spinal RN Documented Start/Stop Times: Operation Date: 07/08/25 09:00 Case Time Into Pre-Op 07/08/25 07:15 Anesthesia Start 07/08/25 08:50 Into Room 07/08/25 08:50 Procedure Start 07/08/25 09:20 Procedure End 07/08/25 11:15 Anesthesia End 07/08/25 11:19 Out of Room 07/08/25 11:19 Into Recovery 07/08/25 11:22 Procedure Start Time: 09:20 Procedure Stop Time: 11:15 Select all DRAINS/GRAFTS/IMPLANTS that apply: Prosthetic device Prosthetic device details: See body of operative report Special Medications: Cleocin, 1 g TXA at incision, 1 g TXA closure, 10 mg Decadron, joint cocktail (5 mg Duramorph, 30 mL of 0.5% Ropivicaine, 1000 units of epinephrine, 30 mg of Toradol) Estimated Blood Loss: 200 ml Fluids Replaced: 1000 ml cryatalloid Specimen collected: Yes Description of specimen(s) removed: Bony cuts Description of surgery: Implants used: 1. [place] size 5 triathlon cruciate retaining distal femoral press-fit component 2. [place] size 6 press-fit tritanium tibial baseplate 3. [place] X3 10 mm CS polyethylene Brief history operative indications: 80-year-old female with history of left knee osteoarthritis with radiographic findings with loss of joint space, osteophyte formation and subchondral sclerosi s. Failed conservative measures as mentioned in the H&P. Discussion of total knee arthroplasty as well as risk and benefits were discussed the patient including but not limited to blood loss, DVTs, PEs, neurovascular damage, general risk of anesthesia including loss of life, and stiffness or instability were discussed with patient. Patient demonstrated understanding and was able to sign informed consent. Procedure: On the date of procedure patient's left lower extremity was marked in the preoperative area. The patient was then taken back to the operating room where the patient was placed on the table in the supine position. All bony prominences were identified a well-padded. Anesthesia assumed control of the C-spine and airway and remained controlled throughout the remainder of the procedure. A tourniquet was placed on the left upper thigh and the leg was prepped in a sterile fashion. The surgeon then scrubbed at this time .Upon reentering the room left lower extremity was draped in a standard orthopedic fashion. A timeout was then called and everyone agreed upon the side, the site, the procedure to be performed, patient's identity and antibiotics given. Esmarch bandage was used to exsanguinate the extremity and the tourniquet was placed up to 250 mmHg with the knee in flexion. A midline skin incision was made and sharp dissection was taken down through skin subcutaneous tissue and fat. The standard medial parapatellar incision was made and the patella was subluxed laterally. An Appropriate deep MCL release was done and the fat pad was resected. Our attention was then directed to the patella. The patella was everted and found to be appropriate for retention. The knee was then flexed up in 2 femoral pins were placed inside the incision and 2 tibial pins were placed outside the incision in the medial tibia bicortically. Once this was completed the 2 checkpoints in the femur and tibia were placed. Knee was then flexed up and the bony landmarks were registered. Once this was completed knee was taken through range of motion and manually stressed allowing us to a plan for an appropriate tibial cut. The robotic arm was brought into the field sterilely and checkpoint and saw were registered. Based on the patient's deformity the tibial cut was made and 1/2 degree valgus. At this time the tensioner was then placed in the joint and ligament tension was checked at 90 degrees and full extension. Based on the patient's ligamentous tension appropriate adjustments were made to the operative plan and ligament releases were done. Once we were happy with our operative plan with balanced flexion and extension gaps our attention was directed to the femur. The robot was brought into the field sterilely and registered. Posterior condylar cuts, anterior chamfer cuts and anterior cuts were appropriately made for a size 5 femur. When these were completed the saws were switched out in the distal femoral and posterior chamfer cuts were made. Protecting the soft tissue throughout this time. A size 6 tibial base plate was selected. the knee was flexed to 90 degrees and the soft tissues and posterior osteophytes were removed from the joint. 40 cc of the periarticular injection was injected into the posterior medial corner of the joint. The appropriate trials were then placed on the femur and tibia. A trial polyethylene was trialed to ensure proper balancing and stability of the knee. The appropriate tibial internal rotation was then marked with a bovie. Our attention was then directed to the patella. The lug holes were drilled and the patella trial was placed. Patellar tracking was checked and deemed appropriate. Once we were happy lug holes were drilled for the femur and trial components were removed. The tibia was subluxed and pinned into place and the keel was punched and drilled appropriately. Final components were verified and opened. The wound was copiously irrigated with normal saline. When the cement was ready the components were impacted into place starting with the tibia then the femur, finally the patella was compressed into place. The trial poly component was placed and the knee was placed in full extension. Once the the implants were secured, the tracking, alignment and balance were verified and a size 10 mm CS polyethylene component was placed. Once the final components were placed a 3-minute dilute Betadine lavage was performed followed by an Irrisept lavage was performed and the wound was copiously irrigated with normal saline solution and the periarticular injection was given. The wound was closed in a layer holley fashion using #1 vicryl interrupted sutures for the arthrotomy, 2-0 interrupted Vicryl suture for the subcuticular layer and kiah for final skin closure. A sterile compressive dressing was then placed. The patient was then awakened from anesthesia, transferred to [facility] and transferred to the PACU for recovery. Post op plan DVT ppx: ASA 81mg BID, thigh high compression stockings Follow up: in office in 2 weeks for wound check PT: to start POD #0 at hospital, outpatient PT should be arranged. My physician producer assistant was a vital part of this case, they was important because there was not another skilled set of hands available to their training and aptitude needed for safe and appropriate completion of this case. They were important in appropriate retraction during the case, and protection of soft tissues during bony cuts. In particular the experience and skill of this producer assistant made for safe retraction and exposure during implantation of medical implants without damage to vital soft tissues or structures. His intimate knowledge of the case and my steps aided in safe and expedient completion of the procedure as well as appropriate position of the leg during the case. He was also vital in assisting with closure under my direct supervision. Due to the complexity of this case robotic arm was used to assist in the surgery to improve accuracy and clinical outcomes. Surgical Findings: Stage IV osteoarthritis. Stable knee with good patella tracking Complications Complications: No Admit VTE Documentation VTE Present on Admission: No VTE Mechan Device Prophylaxis: SCD's and Thigh High SVEN Hose VTE Pharm Prophylaxis ordered?: Yes
--- NOTE | 2025-07-08 11:28 | PCM.POST.ANE ---
Anesthesia: Postop Eval I Current Vital Signs Temperature: 97.5 F Pulse Rate: 51 Blood Pressure: 157/69 Respiratory Rate: 14 Pulse Ox: 97 Oxygen Delivery Method: Nasal Cannula Oxygen Flow Rate (L/min): 4 Assessment Airway patent: Yes Spontaneous unlabored respirations: Yes Mental status: Awake nausea: No Vomiting: No Anesthesia Complication: No Fluid Hydration Crystalloid volume administer (ml): 1,000 Total IV fluid infused: 1,000 Progress Note Anesthesia document: Postop Eval 1 completed: Yes
[2025-07-08] MEDS: LR 1,000 ML - BOLUS POSTOP 999 ML IV (11:36)
[2025-07-08] MEDS: LR 1,000 ML - 125 ML/HR (POST BOLUS) POST OP IV (12:22)
--- NOTE | 2025-07-08 12:57 | SUR.PHASEI ---
family update at 1210
--- NOTE | 2025-07-08 13:18 | CON.PCM.HO_ITS ---
Assessment & Plan Assessment/Plan (1) Status post left knee replacement: PLAN: Plan Patient is a 80-year-old female who presented [facility] on 07/08/2025 for planned left knee replacement. Medicine consulted postoperatively for medical management. 1. Left knee primary osteoarthritis ? Orthopedic surgery primary. S/p left knee minimally invasive total arthroplasty with Dr. Hernandez on 07/08. Tolerated procedure well, no intraoperative complications noted. Postoperative pain control, DVT prophylaxis and further management per orthopedics. Follow-up a.m. CBC and BMP. PT/OT/case management consulted. 2. Anxiety/depression ? Stable. Continue home bupropion and paroxetine. 3. Essential tremor and restless leg syndrome ?Stable. Continue home propranolol, primidone and pramipexole. 4. Hypertension/hyperlipidemia ? Normotensive postoperatively. Continue home losartan, propranolol and atorvastatin. 5. Hypothyroidism ? Continue home Synthroid. DVT prophylaxis: Baby aspirin twice daily per orthopedics Total clinical time spent by myself addressing the patient's medical issues, reviewing all the data, and collaborating with patient's care team: 38 minutes. HPI Consult Data Date of Consult: 07/08/25 HPI Narrative Reason for Consultation: Postoperative medical management HPI Narrative: JENSEN BURTON, is a 80 F who presented to [facility] on 07/08/2025 for planned orthopedic procedure. Medicine consulted postoperatively for medical management. Medical history significant for left knee primary osteoarthritis. Patient had a left knee minimally invasive total arthroplasty done with Dr. Hernandez today. Tolerated procedure well, no intraoperative complications noted. I saw the patient at bedside this afternoon, daughter was present. Patient was sitting back fairly comfortably in bed and in no acute distress. She denied any pain or discomfort in the left knee currently. No other acute concerns at this time. [facility] Medical History Open wound Cardiology follow-up encounter Anxiety Seasonal allergies Carpal tunnel syndrome Wears glasses Depression Arthritis High cholesterol Back pain Migraine headache Non-smoker CPAP (continuous positive airway pressure) dependence History of edema History of stress test Thyroid disease Diabetes Lymphedema Hypertension Home Medications ?Medication ?Instructions ?Recorded ?Last Taken ?Type propranolol 40 mg tablet 40 mg PO BID #60 TABLETS 07/08/25 Rx diclofenac sodium 1 % topical gel 1 ea topical DAILY p ain prn 07/26/18 Unknown History fluticasone propionate 50 2 puff inhalation DAILY PRN PRN 07/26/18 Unknown History mcg/actuation nasal Allergies spray,suspension cholecalciferol (vitamin D3) 50 50 mcg PO DAILY Unknown History mcg (2,000 unit) capsule (Vitamin D3) levothyroxine 125 mcg tablet 125 mcg PO DAILY 08/29/23 07/08/25 History gabapentin 600 mg tablet 600 mg PO BID 03/13/24 Unkno wn History hydrocodone 7.5 mg-acetaminophen 1 tab PO TID PRN pain 03/13/24 Unknown History 325 mg tablet paroxetine HCl 30 mg tablet 30 mg PO QDAY 10/09/24 History Rollator #1 ea 12/24/24 Unknown Rx bupropion HCl 150 mg tablet,12 hr 150 mg PO BID #180 e a 04/26/25 07/08/25 Rx sustained-release ondansetron HCl 4 mg tablet 4 mg PO TID PRN nausea and 04/26/25 Unknown Rx vomiting #90 tabs pramipexole 1.5 mg tablet 1.5 mg PO QHS #90 tabs 04/26 Unknown Rx primidone 50 mg tablet 100 mg (2 x 50 mg) PO BID #3 60 tabs 04/26/25 07/08/25 Rx tizanidine 4 mg tablet See Rx Instructions .Route 0 04/26/25 Unknown Rx .COMPLEX muscle spasticity #90 tabs ubrogepant 100 mg tablet (Ubrelvy) 100 mg PO DAILY PRN headache #8 04/26/25 Unknown Rx tabs atorvastatin 40 mg tablet 40 mg PO QHS cholesterol 12/04 Unknown History losartan 50 mg tablet 50 mg PO DAILY 06/11/2506/11 History Gemtesa 75 mg tablet (vibegron) 75 mg PO QDAY #90 tabs 07/02/25 Unknown Rx Allergy/AdvReac Type Severity Reaction Status Date / Time Cephalosporins Allergy Severe Anaphylaxis Verified 07/02/25 13:50 codeine Allergy Severe Itching Verified 07/02/25 13:50 tree and shrub pollen Allergy Mild NEEDS Verified 07/02/25 13:50 FOLLOW-UP animal dander Allergy Other Verified 07/02/25 13:50 oxycodone Allergy Vomiting Verified 07/02/25 13:50 Family History Father Alcoholism Mental disorder Mother Alcoholism Arthritis Heart disease Cancer lung Brother Alcoholism Sister Glaucoma Surgical History S/P insertion of spinal cord stimulator Hx of toe surgery Hx of toe surgery Hx of nasal septoplasty Hx of hand surgery Hx of elbow surgery History of carpal tunnel surgery of left wrist Hx of arthroscopy of shoulder Hx of breast reduction, elective Hx laparoscopic cholecystectomy Hx of arthroscopic knee surgery Hx of hysterectomy Hx of foot surgery Social History Smoking Status: Never smoker second hand exposure: No alcohol intake: current details: occasionally substance use type: does not use what type of physical activity do you participate in: none rachel/baptist: None seatbelt use: sometimes ROS Constitutional Constitutional: Denies chills, fatigue, fever(s) or weakness Cardiovascular Cardiovascular: Denies chest pain Respiratory/Chest Respiratory/Chest: Denies shortness of breath at rest Gastrointestinal Gastrointestinal: Denies abdominal pain Musculoskeletal Musculoskeletal: Denies arthralgias, joint pain or myalgias Neurologic Neurologic: Denies dizziness, focal weakness or headache(s) Physical Exam Const alert, oriented x3 and no apparent distress Constitutional Narrative: Elderly female, class II obesity, mildly fatigued appearing, otherwise sitting back comfortably in bed, answering questions with short appropriate responses, in no acute distress. General Appearance: cooperative and comfortable HEENT normocephalic, head/scalp atraumatic, hearing grossly normal bilaterally, nasal mucous membranes and turbinates normal and moist oral mucous membranes Eyes PERRL, EOMs intact bilaterally and conjunctivae normal Neck full ROM Chest inspection of chest normal Resp normal respiratory effort, normal air movement, no use of accessory muscles and clear to auscultation bilaterally Cardio regular rate, regular rhythm, no murmurs and peripheral pulses 2+ throughout GI normal to inspection, nondistended, normoactive bowel sounds, soft to palpation, non-tender and non-distended Back/Spine normal ROM Extremity Extremity Narrative: Left knee with dressing and ice pack in place. No tenderness to palpation n oted. Skin no rashes or lesions noted Psych mental status grossly normal Lab / Micro Data Labs: Laboratory Results - last 24 hr 07/08/25 07:39: POC Glucose 134 H Imaging Radiology Impression Knee X-Ray 07/08/25 06:53 IMPRESSION: Hardware in position. Reading Location: [facility] Charges/Coding Visit Charges Inpatient E&M: 59622 Subs Hosp L2
--- NOTE | 2025-07-08 14:32 | POSTOPAN2_ITS ---
Anesthesia Postop Eval I Sum Postop Eval Completion status Anesthesia document: Postop Eval 1 completed: Yes Anesthesia Postop Eval I Summary Anesthesia Postop Eval I Summary: Anesthesia Postop Eval I: Assessment Summary Airway patent Yes 07/08/25 11:28 CARTON MACHINE OPERATOR.HBARR Spontaneous unlabored Yes 07/08/25 11:28 CARTON MACHINE OPERATOR.HBARR respirations Mental status Awake 07/08/25 11:28 CARTON MACHINE OPERATOR.HBARR nausea No 07/08/25 11:28 CARTON MACHINE OPERATOR.HBARR Vomiting No 07/08/25 11:28 CARTON MACHINE OPERATOR.HBARR Anesthesia Postop Eval I: Fluid Summary Crystalloid volume administer 1,000 07/08/25 11:28 CARTON MACHINE OPERATOR.HBARR (ml) Colloids volume administered ( ml) Blood Product volume administered (ml) Total IV fluid infused 1,000 07/08/25 11:28 CARTON MACHINE OPERATOR.HBARR Anesthesia Postop Eval I: Summary Notes Anesthesia Complication No 07/08/25 11:28 CARTON MACHINE OPERATOR.HBARR Anesthesia Complication Comment: Post-operative progress note Anesthesia: Postop Eval II Evaluation Mental status: Awake and Calm Pain Level: 3 nausea: No Vomiting: No Complications Anesthesia Complication: No
--- NOTE | 2025-07-08 14:32 | PCM.POSTANE2 ---
Anesthesia Postop Eval I Sum Postop Eval Completion status Anesthesia document: Postop Eval 1 completed: Yes Anesthesia Postop Eval I Summary Anesthesia Postop Eval I Summary: Anesthesia Postop Eval I: Assessment Summary Airway patent Yes 07/08/25 11:28 INSTRUCTIONAL ASSISTANT.HBARR Spontaneous unlabored Yes 07/08/25 11:28 INSTRUCTIONAL ASSISTANT.HBARR respirations Mental status Awake 07/08/25 11:28 INSTRUCTIONAL ASSISTANT.HBARR nausea No 07/08/25 11:28 INSTRUCTIONAL ASSISTANT.HBARR Vomiting No 07/08/25 11:28 INSTRUCTIONAL ASSISTANT.HBARR Anesthesia Postop Eval I: Fluid Summary Crystalloid volume administer 1,000 07/08/25 11:28 INSTRUCTIONAL ASSISTANT.HBARR (ml) Colloids volume administered ( ml) Blood Product volume administered (ml) Total IV fluid infused 1,000 07/08/25 11:28 INSTRUCTIONAL ASSISTANT.HBARR Anesthesia Postop Eval I: Summary Notes Anesthesia Complication No 07/08/25 11:28 INSTRUCTIONAL ASSISTANT.HBARR Anesthesia Complication Comment: Post-operative progress note Anesthesia: Postop Eval II Evaluation Mental status: Awake and Calm Pain Level: 3 nausea: No Vomiting: No Complications Anesthesia Complication: No
[2025-07-08] MEDS: Clindamycin 600 MG/50 ML BAG 100 MG IV ×2 (14:53→21:34)
--- NOTE | 2025-07-08 16:02 | CASEMGMT ---
Pt dtr requested to speak with MARYSOL CORRALES. She states pt lives alone and cannot go home at dc. MARYSOL CORRALES made her aware of the typical course that this RN ANTONI would meet with pt tomorrow and therapy would eval either today or tomorrow and dc plan can be created after the evals. She is aware that pt is in observation so a traditional SNF would not be paid for by [facility]. She is aware that an inpt rehab unit may be an option. Pt resting with eyes closed then woke up when nurses came into room. Pt stated she would want to go to rehab at [facility]. She was made aware of same information as her dtr. MARYSOL CORRALES to follow tomorrow. Message to [facility] Rehab unit to check bed availability.
[2025-07-08] MEDS: Ensure Surgery 237 ML LIQUID PO (17:12)
[2025-07-08] MEDS: Vancomycin HCl 1,750 MG in 0.9% Normal Saline (500mL Bag) 500 ML 250 MG IV (21:54)
[2025-07-08] MEDS: Senna/Docusate Sodium 1 Tablet 2 TABLET PO (21:56)
[2025-07-08] MEDS: buPROPion (SR) 150 MG Tablet.SA PO (21:57)
[2025-07-09 01:07] VITALS: BP 119/72; PULSE 64; RESP 16; TEMP 36.5; O2SAT 98
[2025-07-09] MEDS: Clindamycin 600 MG/50 ML BAG 100 MG IV (02:12)
[2025-07-09 05:07] VITALS: BP 124/98; PULSE 67; RESP 18; TEMP 36.9; O2SAT 97
[2025-07-09 06:48] LABS: Hematocrit 31.7 % (37-47); Hemoglobin 10.5 g/dL (12.0-15.0); Mean Corp Hgb Conc 33.1 g/dL (32-36); Mean Corpuscular Volume 97.2 fL (81-99); Mean Platelet Vol. 10.0 fl (6.2-12.0); Platelet Count 223 K/mm3 (150-450); RBC Distribution Width CV 11.8 % (11.6-14.6); RBC Distribution Width SD 42.2 fl (35.1-43.9); Red Blood Count 3.26 M/mm3 (4.2-5.4); White Blood Count 8.1 K/mm3 (4.4-11.0)
[2025-07-09 06:51] LABS: Anion Gap 10 (5-15); BUN 29 mg/dL (4-19); BUN/Creat Ratio 28.6 RATIO (10-20); Calcium,Total 8.6 mg/dL (7.6-11.0); Carbon Dioxide 25.4 mmol/L (21.0-32.0); Chloride 98 mmol/L (98-108); Estimated Creatinine Clearance 59.11 ml/min (50-250); Glucose 97 mg/dL (70-99); Potassium 4.8 mmol/L (3.3-5.1)
[2025-07-09 07:45] VITALS: O2SAT 94
[2025-07-09] MEDS: Senna/Docusate Sodium 1 Tablet 2 TABLET PO (07:57)
[2025-07-09] MEDS: Cholecalciferol (VIT D3) 25 MCG TABLET (1,000 UNITS) 50 MCG PO (07:58)
[2025-07-09] MEDS: buPROPion (SR) 150 MG Tablet.SA PO (07:58)
[2025-07-09] MEDS: Ensure Surgery 237 ML LIQUID PO ×2 (08:05→12:16)
--- NOTE | 2025-07-09 08:39 | PN.ORTHO_ITS ---
Subjective Subjective Patient is sitting comfortably in bed upon examination. Patient states that she is feeling well at this time. Patient states that she does live alone and at this time does not feel that she is very comfortable going home on her own. Patient states that she did work with physical therapy and felt like it went well. Patient states that she has been up with her walker. Patient is still on oxygen at this time. Patient states that her pain is adequately controlled at this time. Patient denies any nausea, vomiting, dizziness. Patient denies any shortness of breath, chest pain, calf pain. Patient denies any new numbness or tingling. Patient denies any adverse events overnight. Objective Data Objective Data Vital Signs: Vital Signs Temp Pulse Resp BP Pulse Ox O2 Del Method O2 Flow Rate 98.4 F 67 18 124/98 H 94 Nasal Cannula 2 07/09/25 05:07 07/09/25 05:07 07/09/25 05:07 07/09/25 05:07 07/09/25 07:45 07/09/25 07:45 07/09/25 07:45 Oxygen Flow Rate (L/min) 2 Oxygen Delivery Method Nasal Cannula Weight: 109.996 kg Body Mass Index (BMI) 35.8 Intake & Output: Intake and Output for Last 24 Hours 07/07/25 07/08/25 07/09/25 23:59 23:59 23:59 Intake Total 3595.75 / 3595.75 585 / 585 Output Total 200 / 200 Balance 3395.75 / 3395.75 585 / 585 Lab / Micro Data 07/09/25 05:49 07/09/25 05:49 Labs: Laboratory Results - last 24 hr 07/09/25 05:49: WBC 8.1, RBC 3.26 L, Hgb 10.5 L, Hct 31.7 L, MCV 97.2, MCH 32.2 H, MCHC 33.1, RDW Std Deviation 42.2, RDW Coeff of Dio 11.8, Plt Count 223, MPV 10.0, Sodium 133, Potassium 4.8, Chloride 98, Carbon Dioxide 25.4, Anion Gap 10, BUN 29 H, Creatinine 1.02, Estim Creat Clear Calc 59.11, Est GFR (MDRD) Non-Af 56 L, BUN/Creatinine Ratio 28.6 H, Glucose 97, Calcium 8.6 Radiography Diagnostic Testing: Radiology Impression Knee X-Ray 07/08/25 06:53 IMPRESSION: Hardware in position. Reading Location: [facility] Physical Exam Narrative SVEN hose in place bilaterally SCDs in place bilaterally Knee dressing is clean, dry, intact. Distal pin dressing is with minimal drainage. Dorsiflexion and plantarflexion are performed actively without pain or restriction Sensation intact light touch. Neurovascularly intact overall. Negative Homans bilaterally. Const alert, oriented x3 and no apparent distress Assessment & Plan Assessment/Plan (1) Status post left knee replacement: PLAN: Status post left total knee arthroplasty day 1 1. DVT prophylaxis: Patient will be taking aspirin 81 mg twice daily for 4 weeks postoperatively. Patient will be wearing SVEN hose for 2 weeks postoperatively. Patient was educated she can take SVEN hose off at night and for showering. 2. Pain medications: Patient will be taking Tylenol 1000 mg every 8 hours patient was educated not to take more than 3000 mg in 24 hours, oxycodone as needed for postoperative pain medication. Patient is not to take any anti- inflammatory medications at this time due to chronic kidney disease. OARRS report was reviewed today. Patient was instructed to use minimal amount of narcotic pain medication to control her pain. Patient was educated not to operate heavy equipment or drive a motor vehicle while taking narcotic pain medication. Patient voiced understanding. 3. Constipation: Patient will be taking senna as instructed until her first bowel movement to decrease the risk of impaction following surgery. Patient was instructed if she has not yet had a bowel movement in 3 days contact our office for reevaluation. 4. Physical therapy: Patient will continue to be weightbearing as tolerated with walker. Patient states that she has worked with physical therapy and is went well. 5. H&H: 10./31.7 vitals are stable and afebrile. 6. GFR: Currently 56. Patient is diagnosed with chronic kidney disease. 8. Incentive spirometry: Patient was encouraged to use incentive spirometer every hour that she is awake for the first week to exercise along decrease risk postoperative lung infection. 9. Dressings: Patient was educated to remove dressing on postop day 5. Patient was educated can leave open to air as long as incision is clean, dry, intact. 10. Medicine is on board at this time. Will continue to keep medicine on board to monitor chronic disease. 11. Patient is to follow-up per postoperative instructions. 12. Disposition: Patient states at this time that she does not feel comfortable with going home as she lives alone. Patient states that she feels that she will need placement following discharge from the hospital. Patient will need to work with physical therapy prior to discharge. Patient was educated that there will be social work involved to help for safe and proper discharge planning. Medicine is involved at this time for safe and proper discharge planning. Patient will continue to be weightbearing as tolerated with physical therapy. Patient will need to follow-up with our office in 2 weeks for wound check. Postoperative medication instructions were reviewed with patient at length in hospital today. Patient was encouraged to call with any questions, concerns, new problems.
[2025-07-09 08:55] VITALS: BP 114/65; PULSE 54; RESP 16; TEMP 36.6; O2SAT 94
--- NOTE | 2025-07-09 09:40 | DCINST_ITS ---
Discharge Instructions DC O2, CPAP, BIPAP needs Home O2 Discharge instructions: No Dressing / Incision Discharge Activity: May Not Drive (Until patient can walk 100 feet with use of a cane and is no longer taking narcotic pain medications.) Weight Bearing Status: Weight bearing as tolerated (Weightbearing as tolerated with walker.) Keep extremity elevated above heart level: Left Leg (Ice and elevate operative extremity as needed for postoperative pain.) Dressing / Incision Call your doctor if your incision/area has: Continuous Slow Oozing, Sudden Increased Bleeding, Increased Pain/ Swelling, Increased Redness, Foul Smelling Discharge and Swelling at the incision site Call your doctor if you observe: Fever of 101 or Higher, Coldness, Increased Keith n, Numbness or Tingling, Change in Color, Inability to urinate, Inability to have a bowel movement, Using more than 1 pad per hour, Shortness of breath, Dizziness, Fainting spells, Swelling in the ankles, Chest pain, Increased palpitations (irregular heartbeat), Calf discomfort and Uncontrolled pain Remove Dressing in: 5 days (Remove dressing on day 5 postop. As long as in cision is clean, dry, intact may leave open to air.) Cleanse incision/area with: Soap & Water (Gentle soap and water in the shower.) Additional Dressing/Incision Instructions:: No soaking or submerging for 6 weeks postoperatively. No lotions, salves, oils for 6 weeks postoperatively. OARRS report was reviewed today. Follow Up Care Test Results: Test results from this visit will be discussed in further detail at your follow- up appointment, if applicable. Discharge Plan Admission Admit Date/Time: 07/08/25 11:59 Attending Provider: Neel Hernandez Primary Care Provider: Lupillo Riley Consulting Providers: Alicia Durant Discharge Orders/Prescriptions Prescriptions: New acetaminophen 500 mg Tablet 1,000 mg PO Q8 Qty: 0 0RF Rx Instructions: 1000 mg every 8 hours taking no more than 3000 mg in 24 hours per postoperative pain. aspirin 81 mg capsule 81 mg PO BIDCM 30 Days Qty: 60 0RF Rx Instructions: Aspirin 81 mg twice daily for 4 weeks postoperatively for blood clot prevention. sennosides-docusate sodium [Stimulant Laxative Plus] 8.6-50 mg Tablet 2 tab PO BID Qty: 0 0RF Rx Instructions: Take until first bowel movement and then can take as needed. oxycodone 5 mg Tablet 5 - 10 mg PO Q4H PRN PRN (Reason: Pain Score 4-10) Qty: 0 0RF Rx Instructions: 1-2 tabs by mouth every 4-6 hours as needed for postoperative pain control. Continued levothyroxine 125 mcg tablet 125 mcg PO DAILY gabapentin 600 mg tablet 600 mg PO BID paroxetine HCl 30 mg tablet 30 mg PO QDAY (DME) Rollator See Rx Instructions .Route .MEDSUPPLY Qty: 1 0RF Rx Instructions: As directed bupropion HCl 150 mg tablet sustained-release 12 hr 150 mg PO BID Qty: 180 1RF ondansetron HCl 4 mg tablet 4 mg PO TID PRN (Reason: nausea and vomiting) Qty: 90 5RF pramipexole 1.5 mg tablet 1.5 mg PO QHS Qty: 90 1RF primidone 50 mg tablet 100 mg PO BID Qty: 360 1RF tizanidine 4 mg tablet See Rx Instructions .ROUTE .COMPLEX Qty: 90 1RF Rx Instructions: Take 1/2 to 1 tablet orally nightly as needed for pain/muscle spasm. Ubrelvy 100 mg tablet 100 mg PO DAILY PRN (Reason: headache) Qty: 8 5RF Gemtesa 75 mg tablet 75 mg PO QDAY Qty: 90 3RF propranolol 40 MG tablet 40 mg PO BID Qty: 60 0RF fluticasone propionate 50 spray,suspension 2 puff inhalation DAILY PRN PRN (Reason: Allergies) diclofenac sodium 100 GM gel 1 ea topical DAILY cholecalciferol (vitamin D3) [Vitamin D3] 50 mcg (2,000 unit) Capsule 50 mcg PO DAILY losartan 50 mg tablet 50 mg PO DAILY atorvastatin 40 mg tablet 40 mg PO QHS Held hydrocodone-acetaminophen 7.5-325 mg tablet 1 tab PO TID PRN (Reason: pain) Hold Instructions: Resume on 08/13/25. Hold until patient is no longer taking oxycodone for postoperative pain control. Orthopedics is to manage postoperative pain control for the first 6 weeks. Referrals / Follow Up: Lupillo Riley MD [Primary Care Provider, Family Practice] Disposition Disposition (needs filled in before D/C Order can be placed): Inpatient Rehab Unit/Facility
--- NOTE | 2025-07-09 09:54 | CASEMGMT ---
ALMEND[facility]Z Met with patient to complete ALMENDAREZ form. ALMENDAREZ form and its content were verbally explained and patient's questions were answered to the best of my ability.? Patient voiced understanding and signed ALMENDAREZ form.? Patient provided a copy of signed ALMENDAREZ form and original placed in patient's chart.? Patient had no further questions. Brittany Banegas, Discharge Planning Asst
--- NOTE | 2025-07-09 10:14 | PHA.DC.MR.R ---
Pharmacy [place] Med Reconciliation Pharmacy Service has performed discharge medication reconciliation for this patient. The patient's discharge medication list was reviewed for discrepancies and discrepancies were resolved. Medications at Discharge Home Medications propranolol 40 mg tablet 40 mg PO BID #60 TABLETS 02/23/17 diclofenac sodium 1 % topical gel 1 ea topical DAILY pain prn 07/26/18 fluticasone propionate 50 mcg/actuation nasal spray,suspension 2 puff inhalation DAILY PRN PRN Allergies 07/26/18 cholecalciferol (vitamin D3) 50 mcg (2,000 unit) capsule (Vitamin D3) 50 mcg PO DAILY 08/25/21 levothyroxine 125 mcg tablet 125 mcg PO DAILY 08/29/23 gabapentin 600 mg tablet 600 mg PO BID 03/13/24 hydrocodone 7.5 mg-acetaminophen 325 mg tablet 1 tab PO TID PRN pain 03/13/24 Held on 07/09/25. Instructions: Resume on 08/13/25. Hold until patient is no longer taking oxycodone for postoperative pain control. Orthopedics is to manage postoperative pain control for the first 6 weeks. paroxetine HCl 30 mg tablet 30 mg PO QDAY 10/09/24 Rollator #1 ea 12/24/24 bupropion HCl 150 mg tablet,12 hr sustained-release 150 mg PO BID #180 ea 04/26/25 ondansetron HCl 4 mg tablet 4 mg PO TID PRN nausea and vomiting #90 tabs 04/26/25 pramipexole 1.5 mg tablet 1.5 mg PO QHS #90 tabs 04/26/25 primidone 50 mg tablet 100 mg (2 x 50 mg) PO BID #360 tabs 04/26/25 tizanidine 4 mg tablet See Rx Instructions .Route .COMPLEX muscle spasticity #90 tabs 04/26/25 ubrogepant 100 mg tablet (Ubrelvy) 100 mg PO DAILY PRN headache #8 tabs 04/26/25 atorvastatin 40 mg tablet 40 mg PO QHS cholesterol 06/11/25 losartan 50 mg tablet 50 mg PO DAILY 06/11/25 Gemtesa 75 mg tablet (vibegron) 75 mg PO QDAY #90 tabs 07/02/25 acetaminophen 500 mg tablet 1,000 mg (2 x 500 mg) PO Q8 #0 tabs 07/09/25 aspirin 81 mg capsule 81 mg PO BIDCM 30 days #60 caps 07/09/25 oxycodone 5 mg tablet 5 - 10 mg (1 - 2 x 5 mg) PO Q4H PRN PRN Pain Score 4-10 #0 tabs 07/09/25 sennosides 8.6 mg-docusate sodium 50 mg tablet (Stimulant Laxative Plus) 2 tab PO BID #0 tabs 07/09/25
--- NOTE | 2025-07-09 10:50 | CASEMGMT ---
Reviewed therapy evals. Spoke with Admissions to [facility] Rehab unit, pt is accepted. RN CM into pt room, pt sitting up in bed in no distress. Pt is aware that she has been accepted by [facility] Rehab unit and will dc today. Pt requests to eat lunch prior. Pt states her dtr may have traveled home but she is aware that she was planning on going to the rehab unit. She denies need for RN CM to call her to update her. Pt denies any further needs. Pt nurse aware she may call report and pt requesting to dc after lunch. Updated admisssions as well with her request. Plan: [facility] Rehab unit
--- NOTE | 2025-07-09 16:04 | CASEMGMT ---
Social Work SDOH and AD validation completed. Patient would benefit from transportation resources. Called and provided handoff to Inpatient RU DESMOND Snow regarding SDOH outcome - need for follow up with transportation and possible exploration discussion about daughter's spending habits/how this might affect the patient. DESMOND will follow viai the Inpt RU. -ODRIS Kelley
--- NOTE | 2025-07-09 17:11 | PCM.PROGNOTE ---
Subjective Subjective Patient seen and examined with her nurse by her bedside. Her daughter was by her bedside. She had no complaints. Pain was well-controlled. She had an uneventful night and review of systems otherwise negative. Today's postop day 1 status post left knee replacement. She has remained hemodynamically stable. Objective Data Objective Data Vital Signs: Vital Signs Temp Pulse Resp BP Pulse Ox O2 Del Method O2 Flow Rate 98 F 54 L 16 114/65 94 Room Air 2 07/09/25 08:55 07/09/25 08:55 07/09/25 08:55 07/09/25 08:55 07/09/25 08:55 07/09/25 08:55 07/09/25 07:45 Oxygen Flow Rate (L/min) 2 Oxygen Delivery Method Room Air Weight: 242 lb 8 oz Body Mass Index (BMI) 35.8 Intake & Output: Intake and Output for Last 24 Hours 07/07/25 07/08/25 07/09/25 23:59 23:59 23:59 Intake Total 3595.75 / 3595.75 1035 / 1035 Output Total 200 / 200 Balance 3395.75 / 3395.75 1035 / 1035 Lab / Micro Data 07/09/25 05:49 07/09/25 05:49 Labs: Laboratory Results - last 24 hr 07/09/25 05:49: WBC 8.1, RBC 3.26 L, Hgb 10.5 L, Hct 31.7 L, MCV 97.2, MCH 32.2 H, MCHC 33.1, RDW Std Deviation 42.2, RDW Coeff of Dio 11.8, Plt Count 223, MPV 10.0, Sodium 133, Potassium 4.8, Chloride 98, Carbon Dioxide 25.4, Anion Gap 10, BUN 29 H, Creatinine 1.02, Estim Creat Clear Calc 59.11, Est GFR (MDRD) Non-Af 56 L, BUN/Creatinine Ratio 28.6 H, Glucose 97, Calcium 8.6 Physical Exam Const alert, oriented x3 and no apparent distress HEENT head/scalp atraumatic, moist oral mucous membranes and oropharynx normal Eyes EOMs intact bilaterally Neck supple and no JVD Lymph Lymphatic: no lymphedema noted Resp normal respiratory effort, normal air movement and clear to auscultation bilaterally Cardio regular rate, regular rhythm, S1 normal heart sound, S2 normal heart sound and no murmurs GI normal to inspection, nondistended, normoactive bowel sounds, soft to palpation and non-tender Extremity normal capillary refill, no clubbing, cyanosis or edema and no calf tenderness Extremity Narrative: Left knee wrapped in dressing. Neuro no focal motor deficits Motor Exam: general weakness Psych thought process normal, cooperative and affect normal Appearance: appropriate Assessment & Plan Assessment/Plan (1) Status post left knee replacement: (2) Restless legs syndrome: (3) Hypothyroidism: QUALIFIERS: Hypothyroidism type: unspecified Qualified Code(s): E03.9 - Hypothyroidism, unspecified PLAN: Plan #Osteoarthritis s/p left knee minimally invasive total arthroplasty Today's postop day 1. Pain management as per primary service. PT OT on board. Incentive spirometry. #Hypothyroidism: On Synthroid #Hypertension: On losartan and propranolol #Hyperlipidemia: On statin #Benign essential tremor: On propranolol #Restless leg syndrome: On primidone and pramipexole #Anxiety and depression: Stable. On bupropion and paroxetine. DVT prophylaxis: On aspirin twice daily per orthopedics Patient stable for discharge from hospitalist standpoint. Charges/Coding Visit Charges Inpatient E&M: 40979 Subs Hosp L2
== END 2025-07-09 13:59 ==
LOC: MS3 07-09 09:10 → SDC 07-09 09:17 → MS3 07-09 09:52 → AC 07-09 11:49 → SDC 07-09 11:49 → MS3 07-09 11:49
PROVIDERS: Admitting Provider Specialist; PCP Family Medicine; Referring Provider Specialist; Visit Provider Specialist
PROC: 0SRD0JZ Replacement of Left Knee Joint with Synthetic Substitute, Open Approach (ICD-10-PCS; CPT 27447; principal; 2025-07-08 08:30)
DX: M17.12 Unilateral primary osteoarthritis, left knee (principal); J44.89 Other specified chronic obstructive pulmonary disease; E11.42 Type 2 diabetes mellitus with diabetic polyneuropathy; E11.22 Type 2 diabetes mellitus with diabetic chronic kidney disease; E11.51 Type 2 diabetes mellitus with diabetic peripheral angiopathy without gangrene; N18.30 Chronic kidney disease, stage 3 unspecified; Z85.848 Personal history of malignant neoplasm of other parts of nervous tissue; D63.8 Anemia in other chronic diseases classified elsewhere; Z79.51 Long term (current) use of inhaled steroids; M51.34 Other intervertebral disc degeneration, thoracic region; G25.81 Restless legs syndrome; Z79.899 Other long term (current) drug therapy; M50.30 Other cervical disc degeneration, unspecified cervical region; F32.A Depression, unspecified; E78.00 Pure hypercholesterolemia, unspecified; I12.9 Hypertensive chronic kidney disease with stage 1 through stage 4 chronic kidney disease, or unspecified chronic kidney disease; G47.30 Sleep apnea, unspecified; E03.9 Hypothyroidism, unspecified; I87.2 Venous insufficiency (chronic) (peripheral); M79.7 Fibromyalgia; E55.9 Vitamin D deficiency, unspecified; G25.0 Essential tremor; F41.9 Anxiety disorder, unspecified; Z79.890 Hormone replacement therapy
CPT/HCPCS: 27447; S2900; 01402; 36415; 73560; 80048; 82962; 85027; 93005; 94668; 96361; 96365; 96366; 97162; 97166; 97530; 97535; 99221; C1776; G0378; J2405; J3475

== ENCOUNTER 2025-07-09 14:27 | Inpatient (IN) | payer MEDICARE, OTHER, SELFPAY ==
[2025-07-09 14:40] VITALS: BP 114/45; PULSE 65; RESP 17; TEMP 36.8; O2SAT 94; BMI 34.0
[2025-07-09] MEDS: CLARIFY ORDER NOTE (16:48)
[2025-07-09 17:50] VITALS: O2SAT 98
[2025-07-09 18:00] VITALS: BP 114/45; PULSE 65; RESP 18; TEMP 36.6; O2SAT 98
[2025-07-09 21:18] VITALS: BP 116/45; PULSE 71
[2025-07-09] MEDS: buPROPion (SR) 150 MG Tablet.SA PO (21:30)
[2025-07-09] MEDS: Senna/Docusate Sodium 1 Tablet 2 TABLET PO (21:31)
[2025-07-10] MEDS: 0.9% Saline Lock 10 ML Syringe IV (04:59)
[2025-07-10 05:14] VITALS: BP 130/58; PULSE 60; RESP 16; TEMP 37.2; O2SAT 96
[2025-07-10 07:07] VITALS: O2SAT 98
[2025-07-10] MEDS: Cholecalciferol (VIT D3) 25 MCG TABLET (1,000 UNITS) 50 MCG PO (08:02)
[2025-07-10] MEDS: buPROPion (SR) 150 MG Tablet.SA PO ×2 (08:02→21:44)
[2025-07-10] MEDS: Senna/Docusate Sodium 1 Tablet 2 TABLET PO (08:06)
[2025-07-10 08:40] LABS: Hematocrit 30.4 % (37-47); Hemoglobin 10.0 g/dL (12.0-15.0); Immature Granulocytes Count 0.020 X10^3/uL (0.0-0.0); Mean Corp Hgb Conc 32.9 g/dL (32-36); Mean Corpuscular Volume 99.0 fL (81-99); Mean Platelet Vol. 10.5 fl (6.2-12.0); NRBC Flagged by Analyzer 0 % (0-5); Platelet Count 188 K/mm3 (150-450); RBC Distribution Width CV 12.3 % (11.6-14.6); RBC Distribution Width SD 44.6 fl (35.1-43.9); Red Blood Count 3.07 M/mm3 (4.2-5.4); White Blood Count 7.3 K/mm3 (4.4-11.0)
--- NOTE | 2025-07-10 08:50 | PCM.HP.STD ---
Documented by User: ELDA Serrano 07/10/25 10:15 HPI - General General Date of Admission: 07/09/25 Date of Service: 07/10/25 Chief Complaint: debility following L total knee replacement HPI Narrative JENSEN BURTON, is a 80 F who presents [to the inpatient rehab unit following a planned left total knee replacement on 07/08/2025. Patient acknowledges that she had left knee pain that started over 15 years ago. She states that the only things that alleviated her pain was pain medicine. She is currently working with a pain management provider. She continued to have extreme pain despite 40 pound weight loss. She currently has a BMI of 34. Patient had had arthroscopic surgery to the same knee previously for meniscus tear. She had begun to use a walker prior to surgical intervention, related to her pain. She elected to have a left total knee replacement to hopefully improve her quality of life and provide pain relief over time. Jensen does have history of anxiety and depression in which she does take medications. She also has history significant for hypertension, hyperlipidemia, hypothyroid, essential tremors and restless leg syndrome. DVT prophylaxis, 81 mg aspirin twice a day per orthopedics. Will start the patient on PPI while on aspirin. Upon meeting with the patient in her room. She is sitting up in a bedside recliner Polar Care is in place to the left knee. She does have Og wrap's on. Occlusive dressing to the left knee edges well-approximated no erythema. Edema noted to the left leg compared to right leg. Pulses are 2+. Patient is very talkative and requires redirection to answer questions. She did state that she receives pain medication through pain clinic and is understanding that she will receive her pain medications through orthopedics until cleared. She did state that she threatened to cristobal the [place] government because she was not receiving adequate pain medication from the pain clinic and had been screaming in pain. She she stated that she was going to cristobal the government for cruel and unusual punishment. She then stated that she was able to receive the pain medications as needed. Jensen currently has no questions except for timing of therapies which I showed her to refer to her schedule. She currently denies pain. She does feel that, at this time, it is well-controlled. She was under the assumption that the aspirin was for pain management in which I did explain that we utilize aspirin for DVT prophylaxis which she does state understanding. Jensen does state that she lives home alone and does not have any family or friends nearby. 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 Patient may require discussion with social work to find out any resources that may be available to her when she returns home.] [facility] Medical History Open wound Cardiology follow-up encounter Anxiety Seasonal allergies Carpal tunnel syndrome Wears glasses Depression Arthritis High cholesterol Back pain Migraine headache Non-smoker CPAP (continuous positive airway pressure) dependence History of edema History of stress test Thyroid disease Diabetes Lymphedema Hypertension Home Medications ?Medication ?Instructions ?Recorded ?Last Taken ?Type propranolol 40 mg tablet 40 mg PO BID blood pressure #60 02/23/17 07/09/25 Rx TABLETS diclofenac sodium 1 % topical gel 1 ea topical DAILY pain prn 07/26/18 Unknown History Held on 07/09/25. Instructions: MD Ordered fluticasone propionate 50 2 puff inhalation DAILY PRN PRN 07/26/18 Unknown History mcg/actuation nasal Allergies spray,suspension cholecalciferol (vitamin D3) 50 50 mcg PO DAILY supplement 08/25/21 07/09/25 History mcg (2,000 unit) capsule (Vitamin D3) levothyroxine 125 mcg tablet 125 mcg PO DAILY thyroid 08/29/23 07/09/25 History gabapentin 600 mg tablet 600 mg PO BID nereve pain 03/13/24 07/09/25 History hydrocodone 7.5 mg-acetaminophen 1 tab PO TID PRN pain 03/13/24 Unknown History 325 mg tablet Held on 07/09/25. Instructions: Resume on 08/13/25. Hold until patient is no longer taking oxycodone for postoperative pain control. Orthopedics is to manage postoperative pain control for the first 6 weeks. paroxetine HCl 30 mg tablet 30 mg PO QDAY depression 10/09/24 07/09/25 History Rollator #1 ea 12/24/24 Unknown Rx bupropion HCl 150 mg tablet,12 hr 150 mg PO BID depression #180 ea 04/26/25 07/09/25 Rx sustained-release ondansetron HCl 4 mg tablet 4 mg PO TID PRN nausea and 04/26/25 Unknown Rx vomiting #90 tabs pramipexole 1.5 mg tablet 1.5 mg PO QHS restless legs #90 04/26/25 07/08/25 Rx tabs primidone 50 mg tablet 100 mg (2 x 50 mg) PO BID 04/26/25 07/09/25 Rx essential tremors #360 tabs tizanidine 4 mg tablet See Rx Instructions .Route 04/26/25 Unknown Rx .COMPLEX muscle spasticity #90 tabs ubrogepant 100 mg tablet (Ubrelvy) 100 mg PO DAILY PRN headache #8 04/26/25 07/09/25 Rx tabs atorvastatin 40 mg tablet 40 mg PO QHS cholesterol 06/11/25 Unknown History losartan 50 mg tablet 50 mg PO DAILY blood pressure 06/11/25 07/09/25 History acetaminophen 500 mg tablet 1,000 mg PO Q8 pain 07/09/25 07/09/25 History aspirin 81 mg capsule 81 mg PO BIDCM DVT prevention 07/09/25 07/09/25 History oxycodone 5 mg tablet 5 - 10 mg PO Q4H PRN PRN Pain 07/09/25 07/09/25 08:05 History Score 4-10 vibegron 75 mg tablet (Gemtesa) 75 mg PO DAILY overactive bladder 07/09/25 Unknown History Allergy/AdvReac Type Severity Reaction Status Date / Time Cephalosporins Allergy Severe Anaphylaxis Verified 07/02/25 13:50 codeine Allergy Severe Itching Verified 07/02/25 13:50 tree and shrub pollen Allergy Mild NEEDS Verified 07/02/25 13:50 FOLLOW-UP animal dander Allergy Other Verified 07/02/25 13:50 oxycodone Allergy Vomiting Verified 07/02/25 13:50 Family History Father Alcoholism Mental disorder Mother Alcoholism Arthritis Heart disease Cancer lung Brother Alcoholism Sister Glaucoma Surgical History S/P insertion of spinal cord stimulator Hx of toe surgery Hx of toe surgery Hx of nasal septoplasty Hx of hand surgery Hx of elbow surgery History of carpal tunnel surgery of left wrist Hx of arthroscopy of shoulder Hx of breast reduction, elective Hx laparoscopic cholecystectomy Hx of arthroscopic knee surgery Hx of hysterectomy Hx of foot surgery Social History Smoking Status: Never smoker second hand exposure: No alcohol intake: current details: occasionally substance use type: does not use what type of physical activity do you participate in: none rachel/mormonism: None seatbelt use: sometimes ROS Constitutional Constitutional: Reports as per HPI Eyes Eyes: Reports systems reviewed and no addt'l complaints, except as documented; Denies blurry vision, change in vision, eye pain or loss of vision ENT HEENT: Denies abnormal hearing, dysphagia, hearing loss or sore throat Cardiovascular Cardiovascular: Reports edema and leg edema; Denies chest pain, dyspnea on exertion, lightheadedness, orthopnea, palpitations, paroxysmal nocturnal dyspnea or syncope Respiratory/Chest Respiratory/Chest: Denies cough, dyspnea, shortness of breath at rest, shortness of breath with exertion or wheezing Gastrointestinal Gastrointestinal: Reports other Details: BM today ; Denies abdominal pain, constipation, diarrhea, dyspepsia, hematemesis, hematochezia, nausea or vomiting Genitourinary Genitourinary: Denies dysuria, hematuria, nocturia, urinary frequency, urinary hesitancy, urinary incontinence or urinary urgency Musculoskeletal Musculoskeletal: Reports difficulty walking, extremity pain, joint pain, joint stiffness, joint swelling, limited range of motion, muscle weakness, myalgias and stiffness Integumentary Integumentary: Reports other Details: Surgical incision to the left knee Neurologic Neurologic: Reports tingling, tremor(s) and other Details: By history ; Denies confusion, dizziness, paresthesias or seizures Psychiatric Psychiatric: Denies homicidal ideation or suicidal ideation Endocrine Endocrinology: Denies change in body appearance Hematologic/Lymphatic Hematologic/Lymphatic: Denies lymphadenopathy Allergic/Immunologic Allergic/Immunologic: Denies eczemia Vital Signs Vital Signs Vital Signs: 07/09/25 14:40 07/09/25 15:42 07/09/25 17:50 Temperature 98.2 F Temperature Source Temporal Pulse Rate 65 Pulse Strength Respiratory Rate 17 Respiratory Effort Normal Non-Labored Respiratory Depth Normal Respiratory Pattern Normal Blood Pressure 114/45 L Blood Pressure Mean 68 Blood Pressure Source Monitor Blood Pressure Position Semi-Fowlers Blood Pressure Location Right Arm Pulse Ox 94 98 Oxygen Delivery Method Room Air Room Air Room Air 07/09/25 18:00 07/09/25 19:58 07/09/25 21:18 Temperature 98 F Temperature Source Temporal Pulse Rate 65 71 Pulse Strength Respiratory Rate 18 Respiratory Effort Normal Non-Labored Respiratory Depth Normal Respiratory Pattern Normal Blood Pressure 114/45 L 116/45 L Blood Pressure Mean 68 68 Blood Pressure Source Monitor Monitor Blood Pressure Position Semi-Fowlers Supine Blood Pressure Location Left Arm Left Arm Pulse Ox 98 Oxygen Delivery Method Room Air Room Air 07/09/25 22:00 07/10/25 05:14 07/10/25 07:07 Temperature 98.9 F Temperature Source Temporal Pulse Rate 60 Pulse Strength Normal (2+) Respiratory Rate 16 Respiratory Effort Respiratory Depth Respiratory Pattern Blood Pressure 130/58 H Blood Pressure Mean 82 Blood Pressure Source Monitor Blood Pressure Position Sitting Blood Pressure Location Left Arm Pulse Ox 96 98 Oxygen Delivery Method Room Air Room Air Weight Weight: 250 lb 14.177 oz Body Mass Index (BMI) 34.0 Physical Exam Const alert, oriented x3 and no apparent distress Orientation / Consciousness: awake, oriented to person, oriented to place and oriented to time Exam Limitations: no limitations Nutritional Appearance: overweight and obese HEENT normocephalic Mouth: oral and palatal mucosa normal Eyes PERRL General Eye: normal appearance of both eyes Pupil: PERRL Neck full ROM Lymph Lymphatic: no lymphadenopathy noted Chest inspection of chest normal Resp normal respiratory effort, normal air movement, no retractions and no use of accessory muscles Effort and Inspection: able to speak in complete sentences Auscultation: clear to auscultation bilaterally Cardio regular rhythm GI normal to inspection, nondistended, normoactive bowel sounds no CVA tenderness Back/Spine no CVA tenderness Extremity Extremity Narrative: Swelling noted to left lower extremity. Left greater than right. General Extremity: weight-bearing difficulty and other findings Other Details: Edema to bilateral lower extremities. Left greater than right. Patient has surgical incision to left knee. Dressing is clean dry and intact. Peripheral Pulses: Yes pulses 2+ throughout Skin no rashes or lesions noted Wound Narrative: Surgical incision to left knee. Dressing is clean dry and intact. Neuro Speech: speech normal Psych cooperative Attitude: engaged Activity / Motor Behavior: appropriate eye contact Speech: normal speech Results Lab / Micro Data Attestation: I reviewed the patient's lab results. Lab results narrative: Results of BMP. Sodium 136, potassium 4.6, chloride 101, CO2 26.6, BUN 29, creatinine 1.0, GFR 57, blood sugar 151. 07/10/25 07:45 07/10/25 07:45 Labs: Laboratory Results - last 24 hr 07/10/25 06:29: POC Glucose 128 H 07/10/25 07:45: WBC 7.3, RBC 3.07 L, Hgb 10.0 L, Hct 30.4 L, MCV 99.0, MCH 32.6 H, MCHC 32.9, RDW Std Deviation 44.6 H, RDW Coeff of Dio 12.3, Plt Count 188, MPV 10.5, Immature Gran % (Auto) 0.300, Neut % (Auto) 71.5 H, Lymph % (Auto) 13.4 L, [place]aston % (Auto) 13.7 H, Eos % (Auto) 0.3, Baso % (Auto) 0.8, Absolute Neuts (auto) 5.2, Absolute Lymphs (auto) 0.98, Nucleated RBC % 0 Assessment & Plan Assessment/Plan (1) Status post left knee replacement: PLAN: *continue therapies *PT evaluation and treat *OT evaluation and treat *DVT prophylaxis: Aspirin 81 mg p.o. twice daily (per orthopedic physician) *Protonix 40 mg p.o. daily. While on aspirin *Removal of surgical dressing on 08/03 *Fall precautions *Assess for infection *Acetaminophen 1000 mg p.o. every 8 hours *Gabapentin 600 mg p.o. twice daily *Oxycodone 5 to 10 mg p.o. every 4 hours as needed for pain *Tinazidine 2 to 4 mg p.o. nightly as needed for muscle spasms *Incentive spirometry 10 times per hour while awake while sitting in chair or bed. (2) Anxiety: PLAN: *Wellbutrin SR 150 mg p.o. twice daily *Paroxetine 30 mg p.o. daily (3) Depression: PLAN: *as above (4) HTN (hypertension): PLAN: *Losartan potassium 50 mg p.o. daily (5) HLD (hyperlipidemia): PLAN: *Atorvastatin 40 mg p.o. nightly (6) Essential tremor: PLAN: *Mirapex 1.5 mg p.o. nightly *Mysoline 100 mg p.o. twice daily *Inderal 40 mg p.o. twice daily (7) Restless legs syndrome: PLAN: *As above under essential tremor (8) Hypothyroidism: QUALIFIERS: Hypothyroidism type: unspecified Qualified Code(s): E03.9 - Hypothyroidism, unspecified PLAN: *Levothyroxine 125 mcg p.o. daily at 0600 PLAN: Plan *Aspirin 81 mg p.o. twice daily *Cholecalciferol 25 mcg to 50 mcg p.o. daily *Fluticasone 0.05, 2 sprays daily as needed *Magnesium hydroxide 30 mL p.o. x 1 as needed *Zofran 4 mg ODT 3 times daily as needed for nausea *Gemtesa 75 mg p.o. daily for overactive bladder Charges/Coding Visit Charges Inpatient E&M: 23074 Init Hosp L2 Documented by User: Dr. Rut Braga, 07/16/25 08:16 HPI - General General Date of Admission: 07/09/25 HPI Narrative JENSEN BURTON, is a 80 F who presents [to the inpatient rehab unit following a planned left total knee replacement on 07/08/2025. Patient acknowledges that she had left knee pain that started over 15 years ago. She states that the only things that alleviated her pain was pain medicine. She is currently working with a pain management provider. She continued to have extreme pain despite 40 pound weight loss. She currently has a BMI of 34. Patient had had arthroscopic surgery to the same knee previously for meniscus tear. She had begun to use a walker prior to surgical intervention, related to her pain. She elected to have a left total knee replacement to hopefully improve her quality of life and provide pain relief over time. Jensen does have history of anxiety and depression in which she does take medications. She also has history significant for hypertension, hyperlipidemia, hypothyroid, essential tremors and restless leg syndrome. DVT prophylaxis, 81 mg aspirin twice a day per orthopedics. Will start the patient on PPI while on aspirin. Upon meeting with the patient in her room. She is sitting up in a bedside recliner Polar Care is in place to the left knee. She does have Og wrap's on. Occlusive dressing to the left knee edges well-approximated no erythema. Edema noted to the left leg compared to right leg. Pulses are 2+. Patient is very talkative and requires redirection to answer questions. She did state that she receives pain medication through pain clinic and is understanding that she will receive her pain medications through orthopedics until cleared. She did state that she threatened to cristobal the [place] government because she was not receiving adequate pain medication from the pain clinic and had been screaming in pain. She she stated that she was going to cristobal the government for cruel and unusual punishment. She then stated that she was able to receive the pain medications as needed. Jensen currently has no questions except for timing of therapies which I showed her to refer to her schedule. She currently denies pain. She does feel that, at this time, it is well-controlled. She was under the assumption that the aspirin was for pain management in which I did explain that we utilize aspirin for DVT prophylaxis which she does state understanding. Jensen does state that she lives home alone and does not have any family or friends nearby. 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 Patient may require discussion with social work to find out any resources that may be available to her when she returns home.] I personally supervised the nurse practitioner in the evaluation and development of a treatment plan for this patient on the same day of service. I personally discussed the review of systems and interviewed the patient along with performing a physical examination. I discussed the patient's condition and treatment options with patient. All questions were answered. My findings agree with the nurse practitioners note except for any details corrected below. [facility] Medical History Open wound Cardiology follow-up encounter Anxiety Seasonal allergies Carpal tunnel syndrome Wears glasses Depression Arthritis High cholesterol Back pain Migraine headache Non-smoker CPAP (continuous positive airway pressure) dependence History of edema History of stress test Thyroid disease Diabetes Lymphedema Hypertension Home Medications ?Medication ?Instructions ?Recorded ?Last Taken ?Type propranolol 40 mg tablet 40 mg PO BID blood pressure #60 02/23/17 07/09/25 Rx TABLETS diclofenac sodium 1 % topical gel 1 ea topical DAILY pain prn 07/26/18 Unknown History Held on 07/09/25. Instructions: MD Ordered fluticasone propionate 50 2 puff inhalation DAILY PRN PRN 07/26/18 Unknown History mcg/actuation nasal Allergies spray,suspension cholecalciferol (vitamin D3) 50 50 mcg PO DAILY supplement 08/25/21 07/09/25 History mcg (2,000 unit) capsule (Vitamin D3) levothyroxine 125 mcg tablet 125 mcg PO DAILY thyroid 08/29/23 07/09/25 History gabapentin 600 mg tablet 600 mg PO BID nereve pain 03/13/24 07/09/25 History hydrocodone 7.5 mg-acetaminophen 1 tab PO TID PRN pain 03/13/24 Unknown History 325 mg tablet Held on 07/09/25. Instructions: Resume on 08/13/25. Hold until patient is no longer taking oxycodone for postoperative pain control. Orthopedics is to manage postoperative pain control for the first 6 weeks. paroxetine HCl 30 mg tablet 30 mg PO QDAY depression 10/09/24 07/09/25 History Rollator #1 ea 12/24/24 Unknown Rx bupropion HCl 150 mg tablet,12 hr 150 mg PO BID depression #180 ea 04/26/25 07/09/25 Rx sustained-release ondansetron HCl 4 mg tablet 4 mg PO TID PRN nausea and 04/26/25 Unknown Rx vomiting #90 tabs pramipexole 1.5 mg tablet 1.5 mg PO QHS restless legs #90 04/26/25 07/08/25 Rx tabs primidone 50 mg tablet 100 mg (2 x 50 mg) PO BID 04/26/25 07/09/25 Rx essential tremors #360 tabs tizanidine 4 mg tablet See Rx Instructions .Route 04/26/25 Unknown Rx .COMPLEX muscle spasticity #90 tabs ubrogepant 100 mg tablet (Ubrelvy) 100 mg PO DAILY PRN headache #8 04/26/25 07/09/25 Rx tabs atorvastatin 40 mg tablet 40 mg PO QHS cholesterol 06/11/25 Unknown History losartan 50 mg tablet 50 mg PO DAILY blood pressure 06/11/25 07/09/25 History acetaminophen 500 mg tablet 1,000 mg PO Q8 pain 07/09/25 07/09/25 History aspirin 81 mg capsule 81 mg PO BIDCM DVT prevention 07/09/25 07/09/25 History oxycodone 5 mg tablet 5 - 10 mg PO Q4H PRN PRN Pain 07/09/25 07/09/25 08:05 History Score 4-10 vibegron 75 mg tablet (Gemtesa) 75 mg PO DAILY overactive bladder 07/09/25 Unknown History Allergy/AdvReac Type Severity Reaction Status Date / Time Cephalosporins Allergy Severe Anaphylaxis Verified 07/02/25 13:50 codeine Allergy Severe Itching Verified 07/02/25 13:50 tree and shrub pollen Allergy Mild NEEDS Verified 07/02/25 13:50 FOLLOW-UP animal dander Allergy Other Verified 07/02/25 13:50 oxycodone Allergy Vomiting Verified 07/02/25 13:50 Family History Father Alcoholism Mental disorder Mother Alcoholism Arthritis Heart disease Cancer lung Brother Alcoholism Sister Glaucoma Surgical History S/P insertion of spinal cord stimulator Hx of toe surgery Hx of toe surgery Hx of nasal septoplasty Hx of hand surgery Hx of elbow surgery History of carpal tunnel surgery of left wrist Hx of arthroscopy of shoulder Hx of breast reduction, elective Hx laparoscopic cholecystectomy Hx of arthroscopic knee surgery Hx of hysterectomy Hx of foot surgery Social History Smoking Status: Never smoker second hand exposure: No alcohol intake: current details: occasionally substance use type: does not use what type of physical activity do you participate in: none rachel/mormonism: None seatbelt use: sometimes Results Lab / Micro Data 07/10/25 07:45 07/10/25 07:45 Assessment & Plan Assessment/Plan (1) Status post left knee replacement: (2) Anxiety: (3) Depression: (4) HTN (hypertension): (5) HLD (hyperlipidemia): (6) Essential tremor: (7) Restless legs syndrome: (8) Hypothyroidism: QUALIFIERS: Hypothyroidism type: unspecified Qualified Code(s): E03.9 - Hypothyroidism, unspecified
[2025-07-10 09:15] LABS: AST(SGOT) 19 U/L (<=31); Alanine Aminotransfer ALT/SGPT 12 U/L (<=34); Albumin, Serum 3.3 g/dL (3.4-4.8); Alkaline Phosphatase 106 U/L (35-104); Anion Gap 8 (5-15); BUN 29 mg/dL (4-19); BUN/Creat Ratio 28.6 RATIO (10-20); Calcium,Total 8.7 mg/dL (7.6-11.0); Carbon Dioxide 26.6 mmol/L (21.0-32.0); Chloride 101 mmol/L (98-108); Estimated Creatinine Clearance 64.37 ml/min (50-250); Globulin 2.7 g/dL (2.2-4.2); Glucose 151 mg/dL (70-99); Magnesium 2.1 mg/dL (1.5-2.2); Potassium 4.5 mmol/L (3.3-5.1)
[2025-07-10 10:00] VITALS: PULSE 60; RESP 16; O2SAT 96
--- NOTE | 2025-07-10 10:16 | REHABEVAL_ITS ---
Admission Information Primary Diagnosis:: Status post left total knee replacement Status Changes from Prescreening?: No changes Identified Actual Problem List:: Falls, Skin Intergrity, Pain, ALteration in Cmfrt, Depression, Bladder Incontinence, Alteration in Sleep, Mobility Impaired, Self Care Deficit, Know.Dfct/Disease Process, Know.Dfct of Medicaitons, Diabetes, Hyperglycemia, BP, Hypertension and Alteration-Leisure Activ. Potential Problem List:: DVT, Bleeding, Infection, UTI, Aspiration, Falls, Skin Integrity and Depression Risk of Complications DVT: SVEN Margiee and - (Aspirin 81 mg p.o. twice daily) Bleeding: Monitor Lab Values and Wound, if applicable, to be assessed every shift. Infection: Clinical Staff to Monitor for S/S of infection: Urinary Tract Infection: Monitor for frequency, burning, discomfort, or incontinence. and Nursing will obtain urine sample for urinalysis and C&S when ordered. Aspiration: Clinical staff will monitor for coughing, drooling, congestion., Speech will evaluate swallowing and dsyphasia. and Nursing will monitor patient swallowing during meals. Falls: Patient will be evaluated for Fall Precautions and Patient will be placed on Fall Precautions as indicated per protocol. Skin Breakdown: Nursing will assess skin daily using assessment tool. and Nursing will place on Skin Breakdown Precautions as indicated. Pain: Clinical staff will assess patient's pain level per protocol., Medications will be given, if needed, and the pain level reassessed. and Other methods: Massage, distraction, decrease stimulus, etc. used PRN. Plan of Care Patient requires physician specializing in physical medicine and rehab oversight to provide close medical supervision of rehab issues including: Pain Management, Sleep Problems, Bowel and Bladder, Medical and co-morbidity Management, DVT prophylaxis, Rehabilitation Leadership and Coordination of treatment team Patient needs Physical Therapy: For a minimum of 1 hour and At least 5 out of 7 days Patient needs Physical Therapy to improve:: Mobility, Strengthening, Transfers, Stretching, ROM, Endurance, Stairs, Gait and Balance Patient needs Occupational Therapy: For a minimum of 1 hour and At least 5 out of 7 days Patient needs Occupational Therapy to improve ADL's incl.: Bathing, Dressing, Toileting, Toilet transfers, Community Reintegration, Higher functioning activities, Household tasks, Adaptive Equipment, Splinting and Other activities as determined Patient requires speech therapy: For a minimum of 1 hour and At least 5 out of 7 days Patient requires 24/7 Rehabilitation Nursing for: Pain Issues, Identifying and preventing risk factors, Monitoring and reporting current medical conditions, Assisting with ambulation, transfer, and all ADL's, Teaching patients about disease process and medications, Family teaching, Providing safe environment, Bowel and Bladder Issues, Skin integrity and Medication Management Patient needs Deep Tissue Massage Therapist/ Case Management for: Discharge Planning, Arranging Home Equipment or Services and Family Interventions Patient needs Dietary and Nutrition Services for: Adequate Nutrition, Nutritional Supplements and Nutritional Education Goals Goals Patient will remain: free from falls and or injury at time of discharge. Patient will perform bed mobility at: MOD I level of assist. Patient will complete transfers from bed to chair at: MOD I level of assist. Patient will ambulate: 100 feet and with MOD I assist Patient will complete upper body dressing at: MOD I level of assist. Patient will complete lower body dressing at: MOD I level of assist. Patient will complete toilet transfer at: MOD I level of assist. Patient will complete toileting at: MOD I level of assist. Patient will perform bathing at: MOD I level of assist. Patient will perform Tub/Shower transfer at: MOD I level of assist. Patient will complete grooming at: MOD I level of assist. Patient will complete home management skills at: MOD I level of assist. Patient will achieve: 12 stairs, at MOD I assist and - (1 curb step) Patient will have pain level of: of 3 or less Patient's skin will: remain intact Patient will receive: adequate nutrition. Discharge Planning Pt Prognosis for Sig. Practical Improv. w/in Reasonable Time: Good Estimated Length of stay (days): 14 (to be determined ) Anticipated D/C Destination: Home with Outpt Therapy Was Preadmission Assessment Accurate?: Yes
[2025-07-10 17:28] VITALS: BP 124/46; PULSE 65; RESP 17; TEMP 37; O2SAT 93
[2025-07-10 21:34] VITALS: BP 116/40; PULSE 67; TEMP 37.3
[2025-07-10] MEDS: MELATONIN 10 MG TABLET PO (21:43)
[2025-07-10 21:45] VITALS: PULSE 64; O2SAT 97
[2025-07-11 06:00] VITALS: BP 125/77; PULSE 59; RESP 16; TEMP 36.6; O2SAT 100
[2025-07-11] MEDS: Cholecalciferol (VIT D3) 25 MCG TABLET (1,000 UNITS) 50 MCG PO (08:24)
[2025-07-11] MEDS: Senna/Docusate Sodium 1 Tablet 2 TABLET PO ×2 (08:24→23:04)
[2025-07-11] MEDS: buPROPion (SR) 150 MG Tablet.SA PO ×2 (08:24→23:07)
--- NOTE | 2025-07-11 16:06 | CHAPLAIN ---
Type of Pastoral Visit _x__ Initial Visit ___ Follow-up Visit ___ On-call Visit ___ General Patient Visit ___ Spiritual Assessment ___ Family Conference ___ Bereavement ___ Rapid Response ___ Code Blue ___ Other (describe below) Pastoral Care Referral From _x__ Patient ___ Family ___ Nurse ___ Physician ___ Packaging Assembler ___ Production Honing Machine Operator ___ Other (describe below) Sacrament/Intervention _x__ Active listening ___ Anointing ___ Sikhism ___ Bereavement ___ Communion _x__ Elizabet exploration ___ _x__ Life review ___ Prayer ___ Reconciliation ___ Sacrament of Sick _x__ Supportive presence ___ Wedding ___ Other (describe below) Pastoral Comments patient was napping but was easily awakened by her name; pt is surprised by the visit but launches into a life review and discussion on the early years with a difficult home life and parents divorce; pt says that she has learned to be a survivor and has had to deal with her physical height as a challenge; pt has limited family support or people involved in her life; pt however is directed toward nature and being 'a positive energy' to those around her; pt is not rastafari but has spiritual thoughts and qualities; pt expresses thanks and gives 'good vibes' to this dragline oiler
[2025-07-11 17:39] VITALS: BP 118/61; PULSE 51; RESP 17; TEMP 36.7; O2SAT 98
[2025-07-11 21:30] VITALS: BP 140/67; PULSE 60; RESP 16; TEMP 37.1; O2SAT 93
[2025-07-11] MEDS: MELATONIN 10 MG TABLET PO (23:06)
[2025-07-12] VITALS (7 sets, daily range): BP systolic 103–126; BP diastolic 49–63; PULSE 48–92; RESP 16–18; TEMP 36.3–37.4; O2SAT 47–100; BMI 34.0
[2025-07-12] MEDS: Cholecalciferol (VIT D3) 25 MCG TABLET (1,000 UNITS) 50 MCG PO (07:44)
[2025-07-12] MEDS: buPROPion (SR) 150 MG Tablet.SA PO ×2 (07:44→21:15)
[2025-07-12] MEDS: MELATONIN 10 MG TABLET PO (21:16)
[2025-07-13 05:26] VITALS: BP 138/55; PULSE 48; RESP 18; TEMP 36.6; O2SAT 97
[2025-07-13] MEDS: Cholecalciferol (VIT D3) 25 MCG TABLET (1,000 UNITS) 50 MCG PO (08:56)
[2025-07-13] MEDS: buPROPion (SR) 150 MG Tablet.SA PO ×2 (08:57→21:15)
[2025-07-13 09:06] VITALS: BP 110/49; PULSE 51
[2025-07-13 18:00] VITALS: BP 113/63; PULSE 55; RESP 16; TEMP 36.6; O2SAT 98
[2025-07-13] MEDS: MELATONIN 10 MG TABLET PO (21:14)
[2025-07-13 21:45] VITALS: PULSE 58
[2025-07-14] VITALS: PULSE 54; RESP 16; O2SAT 98
--- NOTE | 2025-07-14 | NURSING ---
[id number]; pt crying, rubbing left hip and leg. states she is having spasms and severe pain. pt medicated with oxycodone 10 mg with moderate relief. pt states she has not had this pain states she feels riding the bike is exacerbating her sciatic nerve pain. sent message to pharmacy for tizanidine to be sent to the floor. once it arrived pt medicated with tizanidine and her 2200 meds. pt feeling much better. spasms relaxed and she is in good spirits.
[2025-07-14 05:49] VITALS: BP 155/67; PULSE 52; RESP 17; TEMP 36.5; O2SAT 98
[2025-07-14] MEDS: Cholecalciferol (VIT D3) 25 MCG TABLET (1,000 UNITS) 50 MCG PO (08:55)
[2025-07-14] MEDS: buPROPion (SR) 150 MG Tablet.SA PO ×2 (08:55→20:50)
[2025-07-14 09:04] VITALS: BP 127/67; PULSE 69
[2025-07-14 17:16] VITALS: BP 154/66; PULSE 67; RESP 14; TEMP 36.3; O2SAT 99
[2025-07-14] MEDS: MELATONIN 10 MG TABLET PO (20:48)
[2025-07-14 20:57] VITALS: PULSE 67; RESP 16; O2SAT 99
[2025-07-15 01:24] VITALS: PULSE 59; O2SAT 93
[2025-07-15 06:00] VITALS: BP 140/58; PULSE 67; RESP 16; TEMP 36.4; O2SAT 99
[2025-07-15] MEDS: Cholecalciferol (VIT D3) 25 MCG TABLET (1,000 UNITS) 50 MCG PO (08:32)
[2025-07-15 08:36] VITALS: BP 142/64; PULSE 69
[2025-07-15] MEDS: buPROPion (SR) 150 MG Tablet.SA PO ×2 (09:47→21:05)
--- NOTE | 2025-07-15 12:59 | CASEMGMT ---
Social Work IDT met with patient for Team meeting. Pt denied having any family/friends involved. 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 Educated to Medicare approval of 12 days with DC 07/21. Pt states she is ready to DC home. SW offered HHC vs OP therapy and to order a new walker. Pt prefers HHC and agrees to HHC. SW provided list of skilled HHC agencies within geographical area, INN with insurance, that include quality and resource data via [employer] guide. Pt to review and notify this worker of preferences. PT recommended pt to purchase a half-bed rail to assist with bed mobility. OT printed off resources for pt. Pt will have her friend transport. Pt appreciative of all staff. Plan: DC home alone 07/21, HHC PT/OT/DESMOND, justin Betancur MSW SPOT SPRAYER
--- NOTE | 2025-07-15 14:59 | PN_ITS ---
Subjective Subjective This is a late entry for Tuesday07/12/25. Afebrile VSS -periods of bradycardia with a heart rate ranging from 48-92. Blood pressures are within goal and stable. Maintaining appropriate oxygen saturation on RA Oral intake - FOOD good FLUIDS good Discussed with nursing - no problems that need addressed. slept well last night. Reviewed the THERAPY notes Medication list reviewed. Denies cephalgia, lightheadedness, chest pain, palpitations, shortness of breath, cough, nausea/vomiting/abdominal pain, constipation, dysuria. Tells me that the pain is little better today when she feels it is a little better every day. The pain medication is effective when she gets it. Objective Data Objective Data Vital Signs: Vital Signs Temp Pulse Resp BP Pulse Ox O2 Del Method O2 Flow Rate 97.6 F L 69 16 142/64 H 99 Nasal Cannula 2 07/15/25 06:00 07/15/25 08:36 07/15/25 06:00 07/15/25 08:36 07/15/25 06:00 07/15/25 06:00 07/15/25 06:00 FiO2 21 07/10/25 21:45 Oxygen Flow Rate (L/min) 2 Oxygen Delivery Method Nasal Cannula Weight: 250 lb 14.177 oz Body Mass Index (BMI) 34.0 Intake & Output: Intake and Output for Last 24 Hours 07/13/25 07/14/25 07/15/25 23:59 23:59 23:59 Intake Total 2659 / 2659 2380 / 2380 970 / 970 Output Total 2975 / 2975 3575 / 3575 1500 / 1500 Balance -316 / -316 -1195 / -1195 -530 / -530 Lab / Micro Data 07/10/25 07:45 07/10/25 07:45 Labs: Laboratory Results - last 24 hr 07/14/25 17:01: POC Glucose 105 07/15/25 05:42: POC Glucose 116 H Physical Exam Const alert, oriented x3 and no apparent distress Constitutional Narrative: Pleasant, talkative, calm, making good eye contact. Lying in bed finishing her breakfast when I saw her. General Appearance: cooperative HEENT moist oral mucous membranes Resp normal respiratory effort, normal air movement and clear to auscultation bilaterally Resp Narrative: No conversational dyspnea. Effort and Inspection: Negative for tachypneic or labored Cardio regular rhythm and no gallops GI normal to inspection, nondistended, normoactive bowel sounds, soft to palpation and non-tender GI Narrative: No guarding with palpation Extremity Extremity Narrative: Bilateral lower extremity edema, left greater than right. Magdi are intact in the left knee with no dehiscence. There is a small amount of serosanguineous drainage with no purulent drainage. No odor. No significant carlos eduardo-incisional erythema. Edema of the legs is chronic. Skin Rashes: no rashes Assessment & Plan Assessment/Plan (1) Physical debility: (2) Status post left knee replacement: (3) Anemia: QUALIFIERS: Anemia type: unspecified type Qualified Code(s): D 64.9 - Anemia, unspecified PLAN: stable (4) RANGEL (obstructive sleep apnea): PLAN: Untreated. this likely contributes to RLS. 1 year ago apparently she was referred to a doctor for evaluation for possible INSPIRE device.....she has not followed up with this. (5) HTN (hypertension): QUALIFIERS: Hypertension type: primary hypertension Qualified Code(s): I10 - Essential (primary) hypertension PLAN: Well-controlled continue current drug regimen. (6) Venous insufficiency (chronic) (peripheral): (7) Restless legs syndrome: (8) Type 2 diabetes mellitus without complications: PLAN: Diet controlled. PLAN: Plan 1. Continue therapy 2. No changes to the drug regimen Charges/Coding Visit Charges Inpatient E&M: 88061 Subs Hosp L1
--- NOTE | 2025-07-15 15:15 | PN_ITS ---
Subjective Subjective Destiny was seen on team rounds today. There was no family to participate. Afebrile VSS -heart rate over the weekend has ranged from 48-69. She is on propranolol 40 mg twice daily. She denies lightheadedness and has not had any episodes of syncope. Maintaining appropriate oxygen saturation on RA Oral intake - FOOD good FLUIDS good The blood sugar record was reviewed. Blood sugars are under excellent control with diet alone. Discussed with nursing - no problems that need addressed Reviewed the THERAPY notes Medication list reviewed. Almost always elects 10 mg of oxycodone rather than 5. She only took 2 doses of oxycodone yesterday. Only had tizanidine 2 mg last night and she slept well. Denies cephalgia, lightheadedness, vertigo, chest pain, palpitations, shortness of breath, cough, nausea/vomiting/abdominal pain, dysuria and calf pain. Pain is well-controlled. Objective Data Objective Data Vital Signs: Vital Signs Temp Pulse Resp BP Pulse Ox O2 Del Method O2 Flow Rate 97.6 F L 69 16 142/64 H 99 Nasal Cannula 2 07/15/25 06:00 07/15/25 08:36 07/15/25 06:00 07/15/25 08:36 07/15/25 06:00 07/15/25 06:00 07/15/25 06:00 FiO2 21 07/10/25 21:45 Oxygen Flow Rate (L/min) 2 Oxygen Delivery Method Nasal Cannula Weight: 250 lb 14.177 oz Body Mass Index (BMI) 34.0 Intake & Output: Intake and Output for Last 24 Hours 07/13/25 07/14/25 07/15/25 23:59 23:59 23:59 Intake Total 2659 / 2659 2380 / 2380 970 / 970 Output Total 2975 / 2975 3575 / 3575 1500 / 1500 Balance -316 / -316 -1195 / -1195 -530 / -530 Lab / Micro Data 07/10/25 07:45 07/10/25 07:45 Labs: Laboratory Results - last 24 hr 07/14/25 17:01: POC Glucose 105 07/15/25 05:42: POC Glucose 116 H Physical Exam Const alert, oriented x3 and no apparent distress General Appearance: cooperative HEENT moist oral mucous membranes Resp normal respiratory effort, normal air movement and clear to auscultation bilaterally Resp Narrative: No conversational dyspnea. Effort and Inspection: Negative for tachypneic or labored Cardio regular rhythm and no gallops GI normal to inspection, nondistended, normoactive bowel sounds, soft to palpation and non-tender GI Narrative: No guarding with palpation Extremity Extremity Narrative: Bilateral lower extremity edema, left greater than right. Magdi are intact in the left knee with no dehiscence. There is a small amount of serosanguineous drainage with no purulent drainage. No odor. No significant carlos eduardo-incisional erythema. Edema of the legs is chronic. Skin Rashes: no rashes Psych affect normal Psych Narrative: Interacting well with staff and very conversant and pleasant. Very cooperative. Appearance: appropriate Activity / Motor Behavior: Negative for restless Mood & Affect: Negative for depressed or anxious Assessment & Plan Assessment/Plan (1) Physical debility: (2) Status post left knee replacement: (3) Anemia: QUALIFIERS: Anemia type: unspecified type Qualified Code(s): D 64.9 - Anemia, unspecified PLAN: stable (4) RANGEL (obstructive sleep apnea): PLAN: Untreated. this likely contributes to RLS. 1 year ago apparently she was referred to a doctor for evaluation for possible INSPIRE device.....she has not followed up with this. (5) HTN (hypertension): QUALIFIERS: Hypertension type: primary hypertension Qualified Code(s): I10 - Essential (primary) hypertension PLAN: Well-controlled continue current drug regimen. (6) Venous insufficiency (chronic) (peripheral): (7) Restless legs syndrome: (8) Type 2 diabetes mellitus without complications: PLAN: Diet controlled. PLAN: Plan 1. Continue therapy 2. No changes to the drug regimen 3. Nursing to check with orthopedics to see if they would like us to remove magdi prior to discharge. 4. We discussed the restless leg and the obstructive sleep apnea. She tells me that she is going to make an appointment to follow-up to be evaluated for inspire. 5. Change Accu-Cheks to as needed. Blood sugars are under excellent control with diet alone. Charges/Coding Visit Charges Inpatient E&M: 25194 Subs Hosp L2
[2025-07-15 18:00] VITALS: BP 135/54; PULSE 63; RESP 17; TEMP 36.4; O2SAT 98
[2025-07-15] MEDS: MELATONIN 10 MG TABLET PO (21:05)
[2025-07-15 21:20] VITALS: PULSE 63; RESP 17; O2SAT 98
[2025-07-16 05:43] VITALS: BP 143/62; PULSE 55; RESP 16; TEMP 36.6; O2SAT 97
[2025-07-16] MEDS: Cholecalciferol (VIT D3) 25 MCG TABLET (1,000 UNITS) 50 MCG PO (07:53)
[2025-07-16] MEDS: buPROPion (SR) 150 MG Tablet.SA PO ×2 (07:54→21:05)
--- NOTE | 2025-07-16 09:36 | PN_ITS ---
Subjective Subjective Afebrile VSS -blood pressure over the past 48 hours has ranged from 127/67 to 154/66. Heart rate has ranged from 55-69. Maintaining appropriate oxygen saturation on RA Oral intake - FOOD good FLUIDS good Discussed with nursing - no problems that need addressed Reviewed the THERAPY notes Medication list reviewed. Complaining her joints are stiff and a little painful today, nadir in the hands. Associates this with the rain. Slept well last night. Denies lightheadedness, cephalgia, chest pain, shortness of breath, palpitations, dysuria and calf pain. Doing well with therapy. Objective Data Objective Data Vital Signs: Vital Signs Temp Pulse Resp BP Pulse Ox O2 Del Method O2 Flow Rate 97.9 F 55 L 16 143/62 H 97 Nasal Cannula 2 07/16/25 05:43 07/16/25 05:43 07/16/25 05:43 07/16/25 05:43 07/16/25 05:43 07/16/25 05:43 07/16/25 05:43 FiO2 21 07/10/25 21:45 Oxygen Flow Rate (L/min) 2 Oxygen Delivery Method Nasal Cannula Weight: 250 lb 14.177 oz Body Mass Index (BMI) 34.0 Intake & Output: Intake and Output for Last 24 Hours 07/14/25 07/15/25 07/16/25 23:59 23:59 23:59 Intake Total 2380 / 2380 1860 / 1860 760 / 760 Output Total 3575 / 3575 2800 / 2800 900 / 900 Balance -1195 / -1195 -940 / -940 -140 / -140 Lab / Micro Data 07/10/25 07:45 07/10/25 07:45 Physical Exam Const alert, oriented x3 and no apparent distress General Appearance: cooperative Resp normal respiratory effort, normal air movement and clear to auscultation bilaterally Resp Narrative: No conversational dyspnea. Effort and Inspection: Negative for tachypneic or labored Cardio regular rhythm and no gallops GI normal to inspection, nondistended, normoactive bowel sounds, soft to palpation and non-tender GI Narrative: No guarding with palpation Skin Rashes: no rashes Wound Narrative: The incision is intact with no dehiscence. There is no purulent discharge. No erythema. I can palpate around the incision and she did not complain of pain. Assessment & Plan Assessment/Plan (1) Status post left knee replacement: PLAN: *continue therapies *PT evaluation and treat *OT evaluation and treat *DVT prophylaxis: Aspirin 81 mg p.o. twice daily (per orthopedic physician) *Protonix 40 mg p.o. daily. While on aspirin *Removal of surgical dressing on 08/03 *Fall precautions *Assess for infection *Acetaminophen 1000 mg p.o. every 8 hours *Gabapentin 600 mg p.o. twice daily *Oxycodone 5 to 10 mg p.o. every 4 hours as needed for pain *Tinazidine 2 to 4 mg p.o. nightly as needed for muscle spasms *Incentive spirometry 10 times per hour while awake while sitting in chair or bed. (2) Anxiety: PLAN: *Wellbutrin SR 150 mg p.o. twice daily *Paroxetine 30 mg p.o. daily (3) Depression: PLAN: *as above (4) HTN (hypertension): QUALIFIERS: Hypertension type: primary hypertension Qualified Code(s): I10 - Essential (primary) hypertension PLAN: *Losartan potassium 50 mg p.o. daily (5) HLD (hyperlipidemia): PLAN: *Atorvastatin 40 mg p.o. nightly (6) Essential tremor: PLAN: *Mirapex 1.5 mg p.o. nightly *Mysoline 100 mg p.o. twice daily *Inderal 40 mg p.o. twice daily (7) Restless legs syndrome: PLAN: *As above under essential tremor (8) Hypothyroidism: QUALIFIERS: Hypothyroidism type: unspecified Qualified Code(s): E 03.9 - Hypothyroidism, unspecified PLAN: *Levothyroxine 125 mcg p.o. daily at 0600 PLAN: Plan 1. Continue therapy 2. Pain is well-controlled. She is sleeping well at night. 3. Plan discharge for 07/21/2025. 4. The patient is unsafe to use a cane and requires a walker for ambulation in the home and the community. Charges/Coding Visit Charges Inpatient E&M: 95785 Subs Hosp L1
--- NOTE | 2025-07-16 10:19 | CASEMGMT ---
Social Work SW followed up with pt on HHC agency. Pt prefers [facility]. SW educated [facility] agency will contact pt for SOC date date, but typically 2-3 days after DC, pending PCP signing orders. - SW phoned [facility] for PT/OT - they can assess if SW is needed. Maegan Betancur HIGH SCHOOL COORDINATOR EQUIPMENT MAINTENANCE SUPERINTENDENT
[2025-07-16 17:46] VITALS: BP 117/49; PULSE 56; RESP 16; TEMP 36; O2SAT 94
[2025-07-16 21:00] VITALS: PULSE 56; RESP 16; O2SAT 94
[2025-07-16] MEDS: MELATONIN 10 MG TABLET PO (21:03)
[2025-07-16] MEDS: Senna/Docusate Sodium 1 Tablet 2 TABLET PO (21:06)
[2025-07-17 00:36] VITALS: PULSE 64; O2SAT 98
[2025-07-17 04:54] VITALS: BP 168/60; PULSE 51; RESP 17; TEMP 36.6; O2SAT 98
[2025-07-17] MEDS: Cholecalciferol (VIT D3) 25 MCG TABLET (1,000 UNITS) 50 MCG PO (08:08)
[2025-07-17] MEDS: Senna/Docusate Sodium 1 Tablet 2 TABLET PO (08:08)
[2025-07-17] MEDS: buPROPion (SR) 150 MG Tablet.SA PO ×2 (08:09→21:04)
[2025-07-17] MEDS: Fluticasone 0.05% 1 SPRAY NASAL.SRY 2 SPRAY NASAL (08:10)
--- NOTE | 2025-07-17 08:16 | VDLE_ITS ---
Reason For Study Reason For Study: Swelling RIGHT LEFT CFV is compressible, spontaneous, phasic, competent GSV is normal. and demonstrates normal augmentation. CFV is compressible, spontaneous, phasic, competent, Procedure and demonstrates normal augmentation. This is a venous duplex using B-mode, color flow and FV is compressible, spontaneous, phasic, competent spectral Doppler. and demonstrates normal augmentation. Exam performed portable in patient room. POP V is compressible, spontaneous, phasic, competent A preliminary report was called and/or faxed to Rehab and demonstrates normal augmentation. SCABBLER. T/P Trunk is compressible. PTV is compressible. LT PerV is compressible. VL/Venous Duplex US, Unilateral Interpretation Summary Deep veins of the left lower extremity are patent and compressible segmentally. There is no evidence of left lower extremity deep vein thrombosis. The left great saphenous vein appears patent an d compressible segmentally. Ordering Physician: Daniel Samson Chi Referring Physician: Lupillo Riley MD Performed By: Elizabet Conti RVT
[2025-07-17 10:00] VITALS: PULSE 59; RESP 17; O2SAT 94
[2025-07-17 17:42] VITALS: BP 131/55; PULSE 66; RESP 17; TEMP 36.6; O2SAT 97
--- NOTE | 2025-07-17 19:15 | PN.REHAB_ITS ---
Subjective Subjective Patient seen, examined. Pain is controlled with pain medications, she is lying in bed, getting ready to eat breakfast, she is very pleasant. Her left lower extremity is swollen, Doppler ultrasound left lower extremity negatige DVT today. Objective Data Objective Data Vital Signs: Vital Signs Temp Pulse Resp BP Pulse Ox O2 Del Method O2 Flow Rate 97.8 F 66 17 131/55 H 97 Room Air 2 07/17/25 17:42 07/17/25 17:42 07/17/25 17:42 07/17/25 17:42 07/17/25 17:42 07/17/25 17:42 07/17/25 00:36 FiO2 21 07/10/25 21:45 Oxygen Flow Rate (L/min) 2 Oxygen Delivery Method Room Air Weight: 113.8 kg Body Mass Index (BMI) 34.0 Intake & Output: Intake and Output for Last 24 Hours 07/15/25 07/16/25 07/17/25 23:59 23:59 23:59 Intake Total 1860 / 1860 2880 / 2880 1640 / 1640 Output Total 2800 / 2800 3000 / 3000 1999 / 1999 Balance -940 / -940 -120 / -120 -360 / -360 Lab / Micro Data 07/10/25 07:45 07/10/25 07:45 Indicators for Scoring Admitted with or Primary Diagnosis of CVA/Stroke: No Hx of CVA/Stroke: No Physical Exam Const alert General Appearance: cooperative HEENT normocephalic Eyes PERRL and EOMs intact bilaterally Neck supple, no JVD and no carotid bruits Resp normal respiratory effort, normal air movement and clear to auscultation bilaterally Cardio regular rate and regular rhythm GI normal to inspection, nondistended, normoactive bowel sounds, non-tender and non-distended Extremity normal capillary refill Extremity Narrative: Left lower extremity swollen. General Extremity: Negative for edema Skin no rashes or lesions noted General Skin Exam: no breakdown Psych affect normal Appearance: appropriate Assessment & Plan Assessment/Plan (1) Debility: (2) Status post left knee replacement: (3) Essential (primary) hypertension: (4) Allergic rhinitis: (5) Vitamin D deficiency: (6) Hypothyroidism: QUALIFIERS: Hypothyroidism type: unspecified Qualified Code(s): E 03.9 - Hypothyroidism, unspecified (7) Neuropathic pain: (8) Depression: (9) Restless legs syndrome: (10) Muscle spasm: (11) Migraine headache: (12) HLD (hyperlipidemia): (13) Overactive bladder: PLAN: Plan 80 year old female with below past medical history hospitalized for left total knee arthroplasty 07/08/2025, admitted to for 3 hours daily rehabilitation, strengthening, prior to discharge home. * Debility - PT/OT. * Pain - Tylenol 1000mg 8, Oxycodone 5mg to 10mg q4 prn. * Bowel - senna/colace 2 tablets bid, Dulcolax 10mg pr x 1 prn, MOM 30mL daily prn. * DVT prophylaxis - Aspirin 81mg bidcm, thru 08/07/2025. * Left lower extremity edema - Doppler ultrasound LLE negative DVT today. * Hyperlipidemia - Atorvastatin 40mg qhs. * Depression - Paroxetine 30mg daily, Wellbutrin SR 150mg bid. * Vitamin D deficiency - D3 50mcg daily. * Allergic rhinitis - Flonase 2 sprays daily prn. * Neuropathic pain - Gabapentin 600mg bid. * Hypothyroidism - Levothyroxine 125mcg daily. * Hypertension - Losartan 50mg daily. * Insomnia - Melatonin 10mg qhs. * Skin irritation - Calmoseptine topical bid. * Nausea- Zofran odt 4mg tid prn. * GERD - Pantoprazole 40mg daily. * Restless leg syndrome - Mirapex 1.5mg qhs. * Tremor - Propranolol 40mg bid, Primidone 100mg bid. * Muscle spasm - Tizanidine 2-4mg qhs prn. * Overactive bladder - Gemtesa 75mg daiyl.
[2025-07-17 21:00] VITALS: PULSE 66; RESP 16; O2SAT 97
[2025-07-17] MEDS: MELATONIN 10 MG TABLET PO (21:06)
[2025-07-18 06:00] VITALS: BP 118/70; PULSE 58; RESP 17; TEMP 36.4; O2SAT 98
[2025-07-18] MEDS: Cholecalciferol (VIT D3) 25 MCG TABLET (1,000 UNITS) 50 MCG PO (07:43)
[2025-07-18] MEDS: buPROPion (SR) 150 MG Tablet.SA PO ×2 (07:44→20:46)
[2025-07-18] MEDS: Senna/Docusate Sodium 1 Tablet 2 TABLET PO (07:44)
[2025-07-18 18:00] VITALS: BP 130/59; PULSE 65; RESP 16; TEMP 36.6; O2SAT 98
[2025-07-18 20:31] VITALS: PULSE 69; RESP 16; O2SAT 99
[2025-07-18] MEDS: MELATONIN 10 MG TABLET PO (20:42)
[2025-07-19 05:00] VITALS: BP 128/53; PULSE 51; RESP 16; TEMP 36.6; O2SAT 98
[2025-07-19] MEDS: buPROPion (SR) 150 MG Tablet.SA PO ×2 (09:12→21:19)
[2025-07-19] MEDS: Senna/Docusate Sodium 1 Tablet 2 TABLET PO (09:12)
[2025-07-19] MEDS: Cholecalciferol (VIT D3) 25 MCG TABLET (1,000 UNITS) 50 MCG PO (10:17)
--- NOTE | 2025-07-19 10:55 | PCM.DC.SUM ---
Providers Date of Admission: 07/09/25 Date of Discharge: 07/21/25 Primary Care Physician: Dr. Lupillo Riley MD offset press assistant, PT/OT Reason For Visit: L TOTAL KNEE ARTHROPLASTY Diagnosis Discharge Diagnosis (1) Debility: Status: Acute Code(s): R53.81 - Other malaise Plan: *Patient is unsafe to use a cane and requires a walker for ambulation in the home and the community. (2) Status post left knee replacement: Status: Acute Code(s): Z96.652 - Presence of left artificial knee joint Plan: *continue therapies *PT evaluation and treat *OT evaluation and treat Aspirin 81 mg p.o. twice daily (per orthopedic physician) *Protonix 40 mg p.o. daily. While on aspirin *Removal of surgical dressing on 08/03 *Fall precautions *Acetaminophen 1000 mg p.o. every 8 hours *Gabapentin 600 mg p.o. twice daily *Oxycodone 5 mg p.o. every 4 hours as needed for pain 7-10 *Tinazidine 2 mg p.o. nightly as needed for muscle spasms (3) Essential (primary) hypertension: Status: Acute Code(s): I10 - Essential (primary) hypertension Plan: * continue home medications (4) Allergic rhinitis: Status: Acute Code(s): J30.9 - Allergic rhinitis, unspecified Qualifiers: Allergic rhinitis seasonality: seasonal Plan: * continue home medications (5) Vitamin D deficiency: Status: Acute Code(s): E55.9 - Vitamin D deficiency, unspecified Plan: * continue home medications (6) Hypothyroidism: Status: Chronic Code(s): E03.9 - Hypothyroidism, unspecified Qualifiers: Hypothyroidism type: unspecified Qualified Code(s): E03.9 - Hypothyroidism, unspecified Plan: *Levothyroxine 125 mcg p.o. daily at 0600 (7) Neuropathic pain: Status: Acute Code(s): M79.2 - Neuralgia and neuritis, unspecified Plan: *continue home medications (8) Depression: Status: Acute Code(s): F32.A - Depression, unspecified Qualifiers: Major depression recurrence: recurrent Plan: *continue medications (9) Restless legs syndrome: Status: Acute Code(s): G25.81 - Restless legs syndrome Plan: *As above under essential tremor, continue home medications (10) Muscle spasm: Status: Acute Code(s): M62.838 - Other muscle spasm Plan: tinazidine 2mg PO nightly (11) Migraine headache: Status: Acute Code(s): G43.909 - Migraine, unspecified, not intractable, without status migrainosus Qualifiers: Migraine type: migraine (< 15 days per month) without aura Plan: *continue home medications (12) HLD (hyperlipidemia): Status: Chronic Code(s): E78.5 - Hyperlipidemia, unspecified Qualifiers: Hyperlipidemia type: unspecified Qualified Code(s): E78.5 - Hyperlipidemia, unspecified Plan: *Atorvastatin 40 mg p.o. nightly (13) Overactive bladder: Status: Acute Code(s): N32.81 - Overactive bladder Plan *Aspirin 81 mg p.o. twice daily *Cholecalciferol 25 mcg to 50 mcg p.o. daily *Fluticasone 0.05, 2 sprays daily as needed *Magnesium hydroxide 30 mL p.o. x 1 as needed *Zofran 4 mg ODT 3 times daily as needed for nausea *Gemtesa 75 mg p.o. daily for overactive bladder Medications at Discharge Home Medications propranolol 40 mg tablet 40 mg PO BID blood pressure #60 TABLETS 02/23/17 diclofenac sodium 1 % topical gel 1 ea topical DAILY pain prn 07/26/18 fluticasone propionate 50 mcg/actuation nasal spray,suspension 2 puff inhalation DAILY PRN PRN Allergies 07/26/18 cholecalciferol (vitamin D3) 50 mcg (2,000 unit) capsule (Vitamin D3) 50 mcg PO DAILY supplement 08/25/21 levothyroxine 125 mcg tablet 125 mcg PO DAILY thyroid 08/29/23 gabapentin 600 mg tablet 600 mg PO BID nereve pain 03/13/24 hydrocodone 7.5 mg-acetaminophen 325 mg tablet 1 tab PO TID PRN pain 03/13/24 Held on 07/19/25. Instructions: Resume on 08/13/25. per primary. Hold until no longer taking Oxy for post op pain. paroxetine HCl 30 mg tablet 30 mg PO QDAY depression 10/09/24 Rollator #1 ea 12/24/24 bupropion HCl 150 mg tablet,12 hr sustained-release 150 mg PO BID depression #180 ea 04/26/25 ondansetron HCl 4 mg tablet 4 mg PO TID PRN nausea and vomiting #90 tabs 04/26/25 pramipexole 1.5 mg tablet 1.5 mg PO QHS restless legs #90 tabs 04/26/25 primidone 50 mg tablet 100 mg (2 x 50 mg) PO BID essential tremors #360 tabs 04/26/25 tizanidine 4 mg tablet See Rx Instructions .Route .COMPLEX muscle spasticity #90 tabs 04/26/25 ubrogepant 100 mg tablet (Ubrelvy) 100 mg PO DAILY PRN headache #8 tabs 04/26/25 atorvastatin 40 mg tablet 40 mg PO QHS cholesterol 06/11/25 losartan 50 mg tablet 50 mg PO DAILY blood pressure 06/11/25 acetaminophen 500 mg tablet 1,000 mg PO Q8 pain 07/09/25 aspirin 81 mg capsule 81 mg PO BIDCM DVT prevention 07/09/25 oxycodone 5 mg tablet 5 - 10 mg PO Q4H PRN PRN Pain Score 4-10 07/09/25 vibegron 75 mg tablet (Gemtesa) 75 mg PO DAILY overactive bladder 07/09/25 menthol 0.44 %-zinc oxide 20.6 % topical ointment (Calmoseptine) 1 applic topical BID #113.4 grams 07/19/25 oxycodone 5 mg tablet 5 mg PO Q4H PRN PRN Pain Score 7-10 7 days #40 tabs 07/19/25 pantoprazole 40 mg tablet,delayed release 40 mg PO DAILY 7 days #7 tabs 07/19/25 tizanidine 2 mg tablet 2 mg PO QHS PRN pain/muscle spasm 7 days #7 tabs 07/19/25 Hospital Course Operations arthroscopy, knee Procedures None Summary of Care Provided Minutes Spent on Discharge: 90 Physical Exam Const alert, oriented x3 and no apparent distress Constitutional Narrative: Making good eye contact, appropriate General Appearance: cooperative and comfortable Orientation / Consciousness: awake, oriented to person, oriented to place and oriented to time Exam Limitations: no limitations Nutritional Appearance: overweight and obese HEENT normocephalic Eyes PERRL General Eye: normal appearance of both eyes Pupil: PERRL Neck full ROM Lymph Lymphatic: no lymphadenopathy noted Chest inspection of chest normal Resp normal respiratory effort, normal air movement, no retractions and no use of accessory muscles Resp Narrative: Not tachypneic and no conversational dyspnea. Effort and Inspection: able to speak in complete sentences Auscultation: clear to auscultation bilaterally Cardio regular rhythm GI normal to inspection, nondistended, normoactive bowel sounds GI Narrative: No guarding with palpation. no CVA tenderness Back/Spine no CVA tenderness Extremity no clubbing, cyanosis or edema Extremity Narrative: Swelling noted to left lower extremity. Left greater than right. General Extremity: weight-bearing difficulty and other findings Other Details: Edema to bilateral lower extremities. Left greater than right. Patient has surgical incision to left knee. Dressing is clean dry and intact. Skin no rashes or lesions noted Skin Narrative: No rashes, no skin breakdown. Wound Narrative: Surgical incision to left knee. Dressing is clean dry and intact. Neuro oriented x3, CN's II-XII intact bilaterally and no focal motor deficits Speech: speech normal Motor Exam: strength 5/5 throughout Psych cooperative Psych Narrative: Appropriate, making good eye contact. Able to stay on topic and focus. No flight of ideas. Does not appear anxious or depressed. Conversant and relating well to staff. Attitude: engaged Activity / Motor Behavior: appropriate eye contact Speech: normal speech Weight / BMI Weight Weight: 250 lb 14.177 oz Body Mass Index (BMI) 34.0 ABG / Lab / Microbiology Data 07/10/25 07:45 07/10/25 07:45 Radiography Diagnostic Testing: Radiology Impression Venous Doppler Study 07/17/25 08:16 Interpretation Summary Deep veins of the left lower extremity are patent and compressible segmentally. There is no evidence of left lower extremity deep vein thrombosis. The left great saphenous vein appears patent and compressible segmentally. Ordering Physician: Daniel Samson Chi Referring Physician: Lupillo Riley MD Performed By: Elizabet Conti RVT D/C Instructions Discharge Activity: Use Walker Call your doctor if your incision/area has: Continuous Slow Oozing, Sudden Increased Bleeding, Increased Pain/ Swelling, Increased Redness, Foul Smelling Discharge and Swelling at the incision site Call your doctor if you observe: Fever of 101 or Higher, Coldness, Increased Pain, Numbness or Tingling, Change in Color, Inability to urinate, Inability to have a bowel movement, Shortness of breath, Dizziness, Swelling in the ankles, Chest pain, Calf discomfort and Uncontrolled pain Remove Dressing in: by ortho DC O2, CPAP, BIPAP Needs Home O2 Discharge instructions: No DC home with Oxygen: No Please Follow Up With: Lupillo Riley MD When: as scheduled Meaningful Use Info Meaningful Use Meaningful Use Diagnoses (Choose all that apply): None applicable VTE Anticoag overlap given w/in hospital stay or rx'd at dc?: Yes Pt receive overlap for 5 days?: Yes Discharge Plan Admission Admit Date/Time: 07/09/25 14:27 Primary Reason for Your Visit: debility following L total knee arthroplasty Attending Provider: Rut Braga Primary Care Provider: Lupillo Riley Instructions Patient Instructions: Arthroscopy Knee Post Op, After Knee Arthroscopy, After Knee Replacement: When to Call Your Surgeon Discharge Orders/Prescriptions Prescriptions: New oxycodone 5 mg Tablet 5 mg PO Q4H PRN PRN (Reason: Pain Score 7-10) 7 Days Qty: 40 0RF menthol-zinc oxide [Calmoseptine] 0.44-20.6 % Ointment 1 applic topical BID Qty: 113.4 0RF Protocol: *Topical Application Instructions APPLICATION INSTRUCTIONS: Coccyx tizanidine 2 mg Tablet 2 mg PO QHS PRN (Reason: pain/muscle spasm) 7 Days Qty: 7 0RF pantoprazole 40 mg Tablet,Delayed Release (Dr/Ec) 40 mg PO DAILY 7 Days Qty: 7 0RF Continued levothyroxine 125 mcg tablet 125 mcg PO DAILY gabapentin 600 mg tablet 600 mg PO BID paroxetine HCl 30 mg tablet 30 mg PO QDAY (DME) Rollator See Rx Instructions .Route .MEDSUPPLY Qty: 1 0RF Rx Instructions: As directed bupropion HCl 150 mg tablet sustained-release 12 hr 150 mg PO BID Qty: 180 1RF ondansetron HCl 4 mg tablet 4 mg PO TID PRN (Reason: nausea and vomiting) Qty: 90 5RF pramipexole 1.5 mg tablet 1.5 mg PO QHS Qty: 90 1RF primidone 50 mg tablet 100 mg PO BID Qty: 360 1RF Ubrelvy 100 mg tablet 100 mg PO DAILY PRN (Reason: headache) Qty: 8 5RF propranolol 40 MG tablet 40 mg PO BID Qty: 60 0RF fluticasone propionate 50 spray,suspension 2 puff inhalation DAILY PRN PRN (Reason: Allergies) diclofenac sodium 100 GM gel 1 ea topical DAILY cholecalciferol (vitamin D3) [Vitamin D3] 50 mcg (2,000 unit) Capsule 50 mcg PO DAILY losartan 50 mg tablet 50 mg PO DAILY atorvastatin 40 mg tablet 40 mg PO QHS acetaminophen 500 mg Tablet 1,000 mg PO Q8 Gemtesa 75 mg tablet 75 mg PO DAILY aspirin 81 mg capsule 81 mg PO BIDCM Held hydrocodone-acetaminophen 7.5-325 mg tablet 1 tab PO TID PRN (Reason: pain) Hold Instructions: Resume on 08/13/25. per primary. Hold until no longer taking Oxy for post op pain. No Action tizanidine 4 mg tablet See Rx Instructions .ROUTE .COMPLEX Qty: 90 1RF Rx Instructions: Take 1/2 to 1 tablet orally nightly as needed for pain/muscle spasm. oxycodone 5 mg Tablet 5 - 10 mg PO Q4H PRN PRN (Reason: Pain Score 4-10) Referrals / Follow Up: Lupillo Riley MD [Primary Care Provider, Family Practice] - 07/23/25 9:45 am Jenni Hodgson PA [Med Staff - [facility] Practice Prof, Orthopedics] - 07/22/25 4:00 pm Disposition Disposition (needs filled in before D/C Order can be placed): Home Health Service Charges/Coding Visit Charges Inpatient E&M: 16569 Disch Hosp >30min
[2025-07-19 17:39] VITALS: BP 142/55; PULSE 59; RESP 18; TEMP 36.8; O2SAT 97
[2025-07-19 20:34] VITALS: BP 145/64; PULSE 69
[2025-07-19] MEDS: MELATONIN 10 MG TABLET PO (21:17)
[2025-07-20 00:43] VITALS: O2SAT 96
[2025-07-20 06:00] VITALS: BP 134/63; PULSE 52; RESP 16; TEMP 36.6; O2SAT 100
[2025-07-20 07:16] VITALS: O2SAT 98
[2025-07-20] MEDS: buPROPion (SR) 150 MG Tablet.SA PO ×2 (08:09→21:22)
[2025-07-20] MEDS: Cholecalciferol (VIT D3) 25 MCG TABLET (1,000 UNITS) 50 MCG PO (08:20)
[2025-07-20 18:00] VITALS: BP 92/52; PULSE 77; RESP 17; TEMP 36.7; O2SAT 98
[2025-07-20 21:20] VITALS: BP 134/58; PULSE 70; RESP 17; TEMP 36.7; O2SAT 98
[2025-07-20] MEDS: MELATONIN 10 MG TABLET PO (21:20)
[2025-07-21 06:00] VITALS: BP 145/62; PULSE 58; RESP 17; TEMP 36.6; O2SAT 97
[2025-07-21] MEDS: buPROPion (SR) 150 MG Tablet.SA PO (07:36)
[2025-07-21] MEDS: Cholecalciferol (VIT D3) 25 MCG TABLET (1,000 UNITS) 50 MCG PO (07:40)
[2025-07-21 07:50] VITALS: O2SAT 95
--- NOTE | 2025-07-21 09:59 | NURSING ---
Discharge instruct provided and patient verbalized understanding.
== END 2025-07-21 10:05 | disposition home health service (06) | DRG 470 ==
PROVIDERS: Admitting Provider Internal Medicine; PCP Family Medicine; Referring Provider Internal Medicine; Visit Provider Internal Medicine
DX: Z47.1 Aftercare following joint replacement surgery (principal); F33.9 Major depressive disorder, recurrent, unspecified; D63.8 Anemia in other chronic diseases classified elsewhere; E11.42 Type 2 diabetes mellitus with diabetic polyneuropathy; J44.89 Other specified chronic obstructive pulmonary disease; N18.30 Chronic kidney disease, stage 3 unspecified; E03.9 Hypothyroidism, unspecified; G25.81 Restless legs syndrome; I12.9 Hypertensive chronic kidney disease with stage 1 through stage 4 chronic kidney disease, or unspecified chronic kidney disease; E11.22 Type 2 diabetes mellitus with diabetic chronic kidney disease; E11.59 Type 2 diabetes mellitus with other circulatory complications; E78.00 Pure hypercholesterolemia, unspecified; G25.0 Essential tremor; F41.9 Anxiety disorder, unspecified; E55.9 Vitamin D deficiency, unspecified; G43.009 Migraine without aura, not intractable, without status migrainosus; G47.33 Obstructive sleep apnea (adult) (pediatric); I87.2 Venous insufficiency (chronic) (peripheral); M17.12 Unilateral primary osteoarthritis, left knee; E11.51 Type 2 diabetes mellitus with diabetic peripheral angiopathy without gangrene; M51.34 Other intervertebral disc degeneration, thoracic region; N32.81 Overactive bladder; Z79.899 Other long term (current) drug therapy; Z85.848 Personal history of malignant neoplasm of other parts of nervous tissue; Z79.51 Long term (current) use of inhaled steroids
CPT/HCPCS: 36415; 73560; 80048; 80053; 82962; 83735; 84100; 85025; 85027; 93971; 94668; 94762; 97110; 97116; 97162; 97166; 97530; 97535; 97802; C1776; A4216; J2405; J3475